=== PATIENT | female | born 1955 | race Caucasian/White ===

== ENCOUNTER 2017-07-22 12:30 | Emergency (ER) | payer MEDICARE, BC, OTHER ==
[2017-07-22 13:48] LABS: #Basophils 0.1 thou/uL (0.0-0.2); #Eosinphils 0.1 thou/uL (0.0-0.7); #Lymphocytes 0.7 thou/uL (1.20-3.40); #Monocytes 0.8 thou/uL (0.11-0.59); #Neutrophils 8.3 thou/uL (1.40-6.50); %Basophils 0.5 % (0.0-1.0); %Eosinophils 1.2 % (0.0-10.0); %Lymphocytes 7.3 % (21.0-51.0); %Monocytes 7.8 % (0.0-10.0); %Neutrophils 83.2 % (42.0-75.0); Hemoglobin 16.9 g/dL (12.0-16.0); Mean Corpuscular HGB CONC 34.6 g/dL (32.0-36.0); Mean Corpuscular Volume 89.5 fl (81.0-99.0); Mean Platelet Volume 8.9 fL (7.4-10.4); Platelet Count 175 thou/uL (130-400); RBC Distribution Width 12.4 % (11.5-14.5); Red Blood Cell (RBC) Count 5.47 mill/uL (4.20-5.40); White Blood Cell (WBC) Count 9.9 thou/uL (4.8-10.8)
--- NOTE | 2017-07-22 15:35 | RAD ---
PORTABLE CHEST 1 VIEW: Date: 07/22/17 Time: 1359 hours HISTORY: Left-sided back pain. FINDINGS: Comparison made with exam of 09/20/16. The heart size is normal. The lungs are expanded with stable chronic changes. No lobar consolidation, pneumothoraces, or pleural effusions are seen. IMPRESSION: No acute process. POS: [facility]
== END 2017-07-22 14:45 | disposition home or self-care (01) ==
LOC: ERS 12:30
DX: B02.9 Zoster without complications (principal); J40 Bronchitis, not specified as acute or chronic; E11.40 Type 2 diabetes mellitus with diabetic neuropathy, unspecified; I10 Essential (primary) hypertension; J44.9 Chronic obstructive pulmonary disease, unspecified; F32.9 Major depressive disorder, single episode, unspecified
CPT/HCPCS: 36416; 71045; 83605; 85025

== ENCOUNTER 2017-08-17 08:18 | Outpatient (CLI) | payer MEDICARE, BC, OTHER | END 2017-08-17 08:19 | disposition home or self-care (01) | LOC: BICMAMMO 08:18 | PROVIDERS: ATTEND Family Medicine | DX: Z12.31 Encounter for screening mammogram for malignant neoplasm of breast (principal); Z80.3 Family history of malignant neoplasm of breast | CPT/HCPCS: 77063; 77067 ==

== ENCOUNTER 2017-09-05 07:05 | Day surgery (SDC) | payer MEDICARE, BC, OTHER ==
[2017-09-04 13:04] VITALS: BMI 31.6
[2017-09-05] MEDS ORDERED: Bupivacaine HCl 0.5%/Epinephrine 1:200,000/PF 30 ml Vial ONE (08:49)
[2017-09-05] MEDS ORDERED: Midazolam HCl 2 mg/2 ml Vial ONE (08:49)
[2017-09-05] MEDS ORDERED: Fentanyl 100 MCG/2 ML VIAL ONE (08:49)
[2017-09-05 09:06] LABS: Hemoglobin 15.1 g/dL (12.0-16.0); Mean Corpuscular HGB CONC 34.3 g/dL (32.0-36.0); Mean Corpuscular Hemoglobin 31.4 pg (27.0-31.0); Mean Corpuscular Volume 91.7 fl (81.0-99.0); Mean Platelet Volume 8.9 fL (7.4-10.4); Platelet Count 177 thou/uL (130-400); RBC Distribution Width 13.8 % (11.5-14.5); White Blood Cell (WBC) Count 9.7 thou/uL (4.8-10.8)
[2017-09-05] MEDS ORDERED: CEFAZOLIN/Water 2 GM/20 ML SYRINGE ONE (09:11)
[2017-09-05 09:28] LABS: Anion Gap 10 mmol/L (10-20); BUN (Urea Nitrogen) 13 mg/dL (9.8-20.1); Calc. Creatinine Clearance 130 mL/min (70-130); Calcium 9.3 mg/dL (7.8-10.44); Carbon Dioxide 34 mmol/L (23-31); Chloride 102 mmol/L (98-107); Estimated GFR-MDRD Greater than 90; Glucose 151 mg/dL (80-115); Potassium 3.7 mmol/L (3.5-5.1); Sodium 142 mmol/L (136-145)
[2017-09-05] MEDS ORDERED: Bupivacaine PF 0.5% 30 ML VIAL ONE (09:35)
[2017-09-05] MEDS ORDERED: Ondansetron HCl/PF 4 MG/2 ML Vial ONE ×2 (09:36→14:32)
--- NOTE | 2017-09-05 12:42 | OP ---
DATE OF OPERATION: 09/05/2017 PREOPERATIVE DIAGNOSES: 1. Left trigger thumb. 2. Right ring trigger finger. POSTOPERATIVE DIAGNOSES: 1. Left trigger thumb. 2. Right ring trigger finger. PROCEDURE: 1. Left trigger thumb release. 2. Right ring trigger finger release. SURGEON: Jayro Philippe M.D. ANESTHESIA: General. TECHNIQUE: The patient was given preoperative IV antibiotics, taken to the operating room, placed in the supine position. Satisfactory general anesthesia was performed. Left upper extremity was initi ally sterilely prepped and draped in usual fashion. After exsanguination, tourniquet in the left arm was raised to 250 mmHg. A transverse incision was made over the A1 aric level at the base of the left thumb. Blunt dissection was made down to the flexor tendon sheath. The neurovascular structure s were identified and carefully retracted out of the way. The A1 aric was noted to be thickened an d it was divided, made sure that there was no constrictive tissue on the flexure tendon sheath proxim al or distal to the A1 aric. The underlying tendon was in good condition. The wound was irrigated and then closed using 3-0 Rapide. Sterile dressing was applied. Tourniquet was released and attent ion was then turned to the right upper extremity. It had been previously sterilely prepped and drape d. Exsanguination was then performed. Tourniquet was raised to 250 mmHg and a transverse incision w as made at the base of the right ring finger over the A1 aric. Blunt dissection was made down to t he A1 aric and it was noted to be thickened and it was divided. Again, it was made sure that there was no constrictive tissue around the flexor tendons proximal or distal to the A1 aric. Underlyin g tendons were intact and in good condition. The wound was irrigated and closed using 3-0 Rapide. B [facility] wounds were infiltrated with 0.5% Marcaine plain prior to the dressing. Soft dressing was placed on both hands. Tourniquet was released from the right upper extremity. The patient was awakened, e xtubated, and transferred to the recovery room in stable condition. ESTIMATED BLOOD LOSS: None. COMPLICATIONS: None. TOURNIQUET TIME: On the left was 10 minutes, on the right was 7 minutes. Follow up in my office next week.
[2017-09-05] MEDS ORDERED: Dexamethasone 20 MG/5 ML VIAL ONE (14:32)
[2017-09-05] MEDS ORDERED: ePHEDrine/0.9% NaCl/PF SYRINGE 50 mg/10 ml ONE (14:32)
[2017-09-05] MEDS ORDERED: Lidocaine 1% PF 5 ML VIAL ONE (14:32)
[2017-09-05] MEDS ORDERED: PROPOFOL 200 MG/20 ML VIAL ONE (14:32)
--- NOTE | 2017-09-06 08:00 | EKG ---
Test Reason : PREOP Blood Pressure : / mmHG Vent. Rate : 079 BPM Atrial Rate : 079 BPM P-R Int : 130 ms QRS Dur : 090 ms QT Int : 410 ms P-R-T Axes : 070 097 072 degrees QTc Int : 470 ms Normal sinus rhythm Rightward axis Borderline ECG When compared with ECG of 17-SEP-2016 17:58, No significant change was found Confirmed by QING ARELLANO ([id number]) on 09/06/2017 8:00:00 AM Referred By: JORGE Confirmed By:QING ARELLANO
== END 2017-09-05 12:05 | disposition home or self-care (01) ==
LOC: SDC 07:05
PROVIDERS: ATTEND Orthopaedic Surgery
PROC: 0LN80ZZ Release Left Hand Tendon, Open Approach (ICD-10-PCS; principal; 2017-09-05)
PROC: 0LN70ZZ Release Right Hand Tendon, Open Approach (ICD-10-PCS; 2017-09-05)
DX: M65.312 Trigger thumb, left thumb (principal); M65.341 Trigger finger, right ring finger; J44.9 Chronic obstructive pulmonary disease, unspecified; M19.90 Unspecified osteoarthritis, unspecified site; F32.9 Major depressive disorder, single episode, unspecified; I10 Essential (primary) hypertension; E11.9 Type 2 diabetes mellitus without complications; Z79.4 Long term (current) use of insulin; Z79.51 Long term (current) use of inhaled steroids; Z79.899 Other long term (current) drug therapy; Z88.5 Allergy status to narcotic agent; Z91.048 Other nonmedicinal substance allergy status; Z98.890 Other specified postprocedural states
CPT/HCPCS: 80048; 85027; 93005; 93010; J0670; J1100; J2001; J2250; J2405; J2704; J3010; S0020

== ENCOUNTER 2017-10-26 14:30 | Inpatient (IN) | payer MEDICARE, BC, OTHER ==
[~2017-10-26 14:30] MED LIST: ISOVUE-370 76%-LOCM 1 ML ONE
--- NOTE | 2017-10-26 15:33 | RAD ---
AP VIEW OF CHEST: Date: 10/26/17 INDICATION: Dyspnea. COMPARISON: Prior exam dated 07/22/17. FINDINGS: No air space consolidation is noted. Chronic lung changes are similar. There is a 1.4 cm nodule now p resent within the right lung base. This cannot be further localized on the single provided frontal pr ojection. Vascular calcifications again noted involving the thoracic aorta. No acute osseous abnormal ity is noted. IMPRESSION: 1. 1.4 cm right lung base pulmonary nodule. CT evaluation would be helpful for further evaluation. 2. Stable chronic lung changes. CODE LN. POS: [facility]
[2017-10-26 15:52] LABS: #Basophils 0.1 thou/uL (0.0-0.2); #Eosinphils 0.1 thou/uL (0.0-0.7); #Monocytes 1.2 thou/uL (0.11-0.59); #Neutrophils 9.2 thou/uL (1.40-6.50); %Basophils 0.7 % (0.0-1.0); %Eosinophils 0.8 % (0.0-10.0); %Lymphocytes 15.7 % (21.0-51.0); %Monocytes 9.6 % (0.0-10.0); %Neutrophils 73.1 % (42.0-75.0); Hemoglobin 18.8 g/dL (12.0-16.0); Mean Corpuscular Hemoglobin 31.1 pg (27.0-31.0); Mean Corpuscular Volume 94.2 fl (81.0-99.0); Mean Platelet Volume 10.1 fL (7.4-10.4); Platelet Count 144 thou/uL (130-400); RBC Distribution Width 12.4 % (11.5-14.5); Red Blood Cell (RBC) Count 6.03 mill/uL (4.20-5.40); White Blood Cell (WBC) Count 12.6 thou/uL (4.8-10.8)
[2017-10-26 16:18] LABS: CKMB 1.6 ng/mL (0-6.6); Troponin I Less than 0.010 ng/mL (< 0.028)
[2017-10-26 16:22] LABS: ALT (SGPT) 25 U/L (8-55); AST (SGOT) 26 U/L (5-34); Albumin 4.1 g/dL (3.4-4.8); Alkaline Phosphatase 157 U/L (40-150); Anion Gap 14 mmol/L (10-20); BUN (Urea Nitrogen) 19 mg/dL (9.8-20.1); Bilirubin, Total 0.8 mg/dL (0.2-1.2); CK (CPK) 30 U/L (29-168); Calc. Creatinine Clearance 0 mL/min (70-130); Calcium 9.8 mg/dL (7.8-10.44); Carbon Dioxide 30 mmol/L (23-31); Chloride 97 mmol/L (98-107); Estimated GFR-MDRD 79; Globulin 2.8 g/dL (2.4-3.5); Glucose 246 mg/dL (80-115); Potassium 4.1 mmol/L (3.5-5.1); Protein, Total 6.9 g/dL (6.0-8.3); Sodium 137 mmol/L (136-145)
[2017-10-26] MEDS ORDERED: Albuterol Sulfate 2.5 mg/3 ml Neb ONE (17:35)
[2017-10-26] MEDS ORDERED: Albuterol Sulfate 2.5 mg/0.5 ml Neb ONE (17:35)
--- NOTE | 2017-10-26 17:38 | CT ---
CTA OF THE THORAX UTILIZING IV CONTRAST AND PE PROTOCOL 10/26/17 COMPARISON: Prior exam dated 09/17/16. FINDINGS: No central or segmental pulmonary embolus is evident. The hilar adenopathy has decreased in prominenc e. The largest hilar lymph node on the right previously measured 2.2 cm and now measures approximatel y 1.5 cm. The largest lymph node in the left hilar region previously measured 9 mm, now measures 6 m m. there is scattered vascular calcifications. Pulmonary nodule within the right middle lobe has decr eased in size, now measuring 6.7 mm where on the prior it measured up to 9 mm. There is worsening sub segmental volume loss within the medial right middle lobe and lingula. There has been interval improv ement in the reticulonodularity involving the right lower lobe. No pleural effusions evident. Visuali zed upper abdomen demonstrates stable left adrenal mass measuring 3.3 cm and a stable right adrenal m ass measuring 2.2 cm. The gallbladder is surgically absent. Small calcified granuloma is seen within the anterior aspect of the right hepatic lobe. No acute osseous abnormality is evident. There are sca ttered degenerative and osteoarthritic change. There is diffuse osteopenia. IMPRESSION: 1. No central or segmental pulmonary embolus. 2. Interval improvement of the hilar and mediastinal lymphadenopathy. The hilar lymph nodes stil l remain prominent. Largest mediastinal lymph node is seen within the prevascular region measuring 8 mm where it previously measured over 9 mm in size. Would recommend continued CT followup in 3 to 6 mo nths to document stability. Findings can be seen as reactive lymph nodes related to an upper respirat ory infection; however, can also be seen with inflammatory etiologies such as sarcoidosis. Lymphoma i s felt to be unlikely. 3. Pulmonary nodule within the right middle lobe has decreased in size and is most suspicious fo r a small inflammatory pulmonary nodule. There has been improvement of the reticulonodularity within the right lower lobe. Entity such as this can be seen with granulomatous disease such as sarcoidosis as well. Followup examination in 3-6 months as recommended above would also be helpful to document st ability or resolution of this pulmonary nodule. 4. Areas of subsegmental volume loss in the right middle lobe and lingula. 5. Stable bilateral adrenal lesions. These are incompletely characterized on current exam. A fol lowup CT of the abdomen utilizing adrenal mass protocol is recommended with and without contrast. POS: [facility]
[2017-10-26] MEDS ORDERED: Water For Inject, Bacteriostat 30 ML ONE (19:31)
[2017-10-26] MEDS ORDERED: methylPREDNISolone Sod Succ/PF 125 MG/2 ML VIAL ONE (19:31)
[2017-10-26] MEDS ORDERED: Albuterol Sulfate 2.5 mg/3 ml Neb NEB PRN (21:21)
[2017-10-26] MEDS ORDERED: Ondansetron HCl/PF 4 MG/2 ML Vial IVP PRN (21:22)
[2017-10-26] MEDS ORDERED: Guaifenesin DM 100-10/5 ML UDCUP PO PRN (21:22)
[2017-10-26] MEDS ORDERED: Acetaminophen 325 MG TAB PO PRN (21:22)
[2017-10-26] MEDS ORDERED: HumaLOG 300 UNITS/3 ML VIAL SC PRN ×2 (21:29)
[2017-10-26] MEDS ORDERED: Dextrose 50% Abboject 50 ML SYRINGE SLOW IVP PRN (21:29)
[2017-10-26] MEDS ORDERED: Dextrose 5% in Water 1,000 ML IV PRN (21:29)
[2017-10-26 22:19] VITALS: BMI 29.8
--- NOTE | 2017-10-26 22:39 | HP ---
PRIMARY CARE PHYSICIAN: Cheryl Ibarra MD PRESENTING COMPLAINT: Shortness of breath. HISTORY OF PRESENT ILLNESS: Ms. Anne Colunga is a 61-year-old female with a history of chronic respiratory failure on 2 liters of supplementary oxygen at home, COPD/asthma, hypertension, and diabetes mellitus who presented to the emergency room with complaints of shortness of breath. This has been going on for the past week and has been getting progressively worse, associated with whitish to pale yellow sputum. There was no history of fever or chills. She had no chest pain, palpitations, PND, orthopnea, lower extremity edema. She has no abdominal or urinary symptoms. Due to the worsening nature of her condition, she called her continuous dryout operator, Dr. Narvaez, who told her to come to the emergency room. Has had oxygen saturation down to the 70s and she reports that she has increased her home requirement from 2 liters to 3-4 liters. At the emergency room, she was started on nebulizer therapy. She also received levofloxacin, Solu-Medrol, and admitted for acute on chronic respiratory failure. PAST MEDICAL HISTORY: Chronic obstructive pulmonary disease, hypertension, asthma, diabetes mellitus. PAST SURGICAL HISTORY: Bilateral tubal ligation, hysterectomy, cholecystectomy , shoulder surgery, and bilateral hand surgeries. FAMILY HISTORY: Reviewed and noncontributory. SOCIAL HISTORY: She is a smoker (last smoked about 5 days ago). Does not drink alcohol or use illicit drugs. ALLERGIES: CODEINE, EUCALYPTUS, HYDROCODONE, TRAMADOL. HOME MEDICATIONS: Albuterol sulfate inhaler 2 puffs q.4 hours p.r.n. for shortness of breath, albuterol sulfate nebulizer, duloxetine 60 mg at bedtime, fluticasone and salmeterol 1 puff inhaled q.a.m., insulin glargine 50 units at bedtime, insulin regular b.i.d. (unclear dosage), liraglutide 1.8 mg subcutaneously q.a.m., losartan/hydrochlorothiazide 50/12.5 mg tablet one tablet q.a.m., metformin 500 mg q.a.m., montelukast sodium 10 mg q.p.m., omeprazole 1 tablet at bedtime, oxybutynin 1 tablet q.a.m., pravastatin 20 mg at bedtime, pregabalin 600 mg b.i.d. REVIEW OF SYSTEMS: All systems reviewed are negative except as stated in HPI. Positives include cough, shortness of breath. Negatives include no chest pain, palpitations, fevers, or chills. PHYSICAL EXAMINATION: VITAL SIGNS: Blood pressure 100/66; pulse rate 104; respiratory rate 24, unlabored; oxygen saturation 90% on 2 liters of oxygen. GENERAL: Not in acute distress. She is sitting up in bed, looks comfortable, speaking in complete sentences due to status post nebulizer therapy. HEENT: Normocephalic, atraumatic. Moist mucous membrane. PERRLA. EOMI. NECK: Supple. Full range of movement. No JVD. RESPIRATORY: Bilateral wheezing. No rales or rhonchi. CARDIOVASCULAR: Regular rate and rhythm. S1 and S2 only. No murmurs, rubs, or gallops. ABDOMEN: Soft, nontender, nondistended, obese. Bowel sounds normoactive. PSYCHIATRIC: Normal mood and affect. SKIN: Warm, dry, well perfused. No rashes or lesions. NEUROLOGIC: Alert, well oriented. No focal deficits. MUSCULOSKELETAL: No edema. LABORATORY DATA: WBC 12.6, hemoglobin 18.8, platelet count 144. Sodium 137, potassium 4.1, chloride 97, carbon dioxide 30, BUN 19, creatinine 0.75, glucose 246, calcium 9.8. IMAGING: CTA chest, no central or segmental pulmonary embolus. She also had interval improvement of hilar and mediastinal lymphadenopathy. Chest x-ray, 1.4 cm right lung base pulmonary nodule, stable chronic lung changes. ASSESSMENT AND PLAN: 1. Acute on chronic respiratory failure: The patient has a history of chronic obstructive pulmonary disease and presents in respiratory failure, likely secondary to upper respiratory tract infection/pneumonia; all due to her continued smoking. She has been started on nebulizer therapy, IV antibiotics, parenteral steroids. She will be continued on oxygen supplementation and titrated for at least oxygen saturation of greater than or equal to 92%. It is projected she will continue to respond and she might be likely suitable for discharge tomorrow based on her improvement. We will follow up on cultures and review in the morning. 2. Hypertension. Blood pressure is currently well controlled. We will resume home medications. 3. Diabetes mellitus type 2. She is hyperglycemic and her diabetes mellitus is complicated by polyneuropathy. She will be continued on her home medications including insulin and metformin. We will check blood glucose before meals and at bedtime. Last A1c in the system was 6.2 in 04/2016. We will order a repeat. 4. COPD/Asthma: See problem #1. CODE STATUS: FULL CODE. Deep venous thrombosis prophylaxis, SCDs. MTDD
[2017-10-27 04:04] LABS: #Lymphocytes 0.5 thou/uL (1.20-3.40); #Monocytes 0.1 thou/uL (0.11-0.59); #Neutrophils 6.9 thou/uL (1.40-6.50); %Eosinophils 0.2 % (0.0-10.0); %Lymphocytes 7.1 % (21.0-51.0); %Monocytes 1.2 % (0.0-10.0); %Neutrophils 91.5 % (42.0-75.0); Hemoglobin 19.2 g/dL (12.0-16.0); Mean Corpuscular HGB CONC 32.6 g/dL (32.0-36.0); Mean Corpuscular Hemoglobin 30.7 pg (27.0-31.0); Mean Corpuscular Volume 94.2 fl (81.0-99.0); Mean Platelet Volume 10.3 fL (7.4-10.4); Platelet Count 141 thou/uL (130-400); RBC Distribution Width 12.4 % (11.5-14.5); Red Blood Cell (RBC) Count 6.25 mill/uL (4.20-5.40); White Blood Cell (WBC) Count 7.6 thou/uL (4.8-10.8)
[2017-10-27 04:07] LABS: Hemoglobin A1c 7.7 % (4.0-6.0)
[2017-10-27 04:15] LABS: Anion Gap 14 mmol/L (10-20); BUN (Urea Nitrogen) 18 mg/dL (9.8-20.1); Calc. Creatinine Clearance 119 mL/min (70-130); Carbon Dioxide 32 mmol/L (23-31); Chloride 99 mmol/L (98-107); Estimated GFR-MDRD Greater than 90; Glucose 245 mg/dL (80-115); Potassium 4.3 mmol/L (3.5-5.1); Sodium 141 mmol/L (136-145)
[2017-10-27] MEDS: cefTRIAXone\\ROCEPHIN 1 GM in Sodium Chloride 0.9% 100 ML IVPB SCH (05:26)
[2017-10-27] MEDS: Azithromycin 250 MG TAB PO SCH (08:10)
[2017-10-27] MEDS: Montelukast Sodium 10 mg Tablet PO SCH (08:12)
[2017-10-27] MEDS: DULoxetine 60 MG CAP PO SCH (08:12)
[2017-10-27] MEDS: Oxybutynin ER 5 MG TAB PO SCH (08:13)
[2017-10-27] MEDS: Pregabalin 50 MG CAP PO SCH ×3 (08:15→21:22)
[2017-10-27] MEDS: metFORMIN 500 MG TAB PO SCH (08:15)
[2017-10-27] MEDS: Insulin Regular 300 UNITS/3 ML VIAL SC SCH ×3 (08:17→17:12)
[2017-10-27] MEDS: Docusate 100 MG CAP PO SCH ×2 (08:19→21:21)
[2017-10-27] MEDS ORDERED: Heparin 5,000 UNITS/ML VIAL SC SCH (09:00)
--- NOTE | 2017-10-27 14:54 | PDOC.PN ---
- Subjective Encounter Start Date: 10/27/17 Encounter Start Time: 14:00 -: old records requested/rev follow up for acute exacerbation of COPD PT seen and examined, chart reviewed in its entirety. This is my first visit with this patient. admitted with AECOPD. still wheezing earlier, better now. +cough, [employer], no hemoptysis, no f/C, no N/V/D/C All systems reviewed and neg x as above - Objective Resuscitation Status: Resuscitation Status FULL:Full Resuscitation MAR Reviewed: Yes Vital Signs & Weight: Vital Signs (12 hours) Temp Pulse Resp BP Pulse Ox 10/27/17 14:31 90 12 10/27/17 11:28 98.3 F 87 20 138/70 86 L 10/27/17 08:00 98.6 F 82 18 98 10/27/17 07:12 98.6 F 82 18 153/79 H 98 10/27/17 06:53 90 14 10/27/17 04:00 98.7 F 83 16 133/79 92 L Weight Weight 185 lb 1 oz Result Diagrams: 10/27/17 03:41 10/27/17 03:41 Additional Labs: Accuchecks 10/27/17 10/27/17 10/26/17 11:33 05:29 21:19 POC Glucose 230 H 191 H 233 H Radiology Reviewed by me: Yes EKG Reviewed by me: Yes Phys Exam - Physical Examination Constitutional: NAD HEENT: PERRLA, moist MMs, sclera anicteric, oral pharynx no lesions Neck: no nodes, no JVD, supple, full ROM low pitched end exp wheezing, slightly prolonged expiration Cardiovascular: RRR, no significant murmur, no rub Gastrointestinal: soft, non-tender, no distention, positive bowel sounds Musculoskeletal: no edema, pulses present Neurological: non-focal, normal sensation, moves all 4 limbs Lymphatic: no nodes Psychiatric: normal affect, A&O x 3 Skin: no rash, normal turgor, cap refill <2 seconds Dx/Plan - Plan cont current plan of care, continue antibiotics, PT/OT, respiratory therapy, out of bed/ambulate * . re-eval in AM, home in 1-2 days
[2017-10-27] MEDS ORDERED: Pravastatin Sodium 20 MG TAB PO SCH (21:00)
[2017-10-27] MEDS ORDERED: Non-Formulary Item 1 EACH (Insulin Glargine,Hum.Rec.Anlog [Lantus Solostar] 10 UNIT) SC SCH (21:00)
[2017-10-27] MEDS ORDERED: Insulin Glargine 10 UNITS in Pre-Filled Syringe 1 EACH SC SCH (21:00)
[2017-10-27] MEDS: guaiFENesin ER 600 MG TAB PO SCH (21:21)
[2017-10-28 05:49] LABS: #Lymphocytes 1.1 thou/uL (1.20-3.40); #Monocytes 0.5 thou/uL (0.11-0.59); #Neutrophils 13.3 thou/uL (1.40-6.50); %Eosinophils 0.1 % (0.0-10.0); %Lymphocytes 7.5 % (21.0-51.0); %Monocytes 3.3 % (0.0-10.0); %Neutrophils 89.1 % (42.0-75.0); Hemoglobin 17.8 g/dL (12.0-16.0); Mean Corpuscular HGB CONC 32.4 g/dL (32.0-36.0); Mean Corpuscular Hemoglobin 30.7 pg (27.0-31.0); Mean Corpuscular Volume 94.8 fl (81.0-99.0); Mean Platelet Volume 9.9 fL (7.4-10.4); Platelet Count 147 thou/uL (130-400); RBC Distribution Width 12.2 % (11.5-14.5); Red Blood Cell (RBC) Count 5.81 mill/uL (4.20-5.40); White Blood Cell (WBC) Count 14.9 thou/uL (4.8-10.8)
[2017-10-28 05:51] LABS: Anion Gap 11 mmol/L (10-20); BUN (Urea Nitrogen) 25 mg/dL (9.8-20.1); Calc. Creatinine Clearance 119 mL/min (70-130); Calcium 9.5 mg/dL (7.8-10.44); Carbon Dioxide 33 mmol/L (23-31); Chloride 100 mmol/L (98-107); Estimated GFR-MDRD Greater than 90; Glucose 253 mg/dL (80-115); Magnesium 2.1 mg/dL (1.6-2.6); Potassium 4.3 mmol/L (3.5-5.1); Sodium 140 mmol/L (136-145)
[2017-10-28] MEDS: cefTRIAXone\\ROCEPHIN 1 GM in Sodium Chloride 0.9% 100 ML IVPB SCH (06:12)
[2017-10-28] MEDS: Insulin Regular 300 UNITS/3 ML VIAL SC SCH ×2 (08:44→11:36)
[2017-10-28] MEDS: Azithromycin 250 MG TAB PO SCH (08:45)
[2017-10-28] MEDS: Docusate 100 MG CAP PO SCH (08:45)
[2017-10-28] MEDS: guaiFENesin ER 600 MG TAB PO SCH (08:46)
[2017-10-28] MEDS: Montelukast Sodium 10 mg Tablet PO SCH (08:46)
[2017-10-28] MEDS: DULoxetine 60 MG CAP PO SCH (08:46)
[2017-10-28] MEDS: Oxybutynin ER 5 MG TAB PO SCH (08:47)
[2017-10-28] MEDS: Pregabalin 50 MG CAP PO SCH ×2 (08:47→14:48)
[2017-10-28] MEDS ORDERED: metFORMIN 500 MG TAB PO SCH (09:00)
[2017-10-28 16:08] VITALS: BP 156/84; TEMP 98.5
--- NOTE | 2017-11-03 07:46 | PQF ---
RUBIN GARCIA MI TEAGUE [id number] CLINICAL DOCUMENTATION CLARIFICATION FORM: POST DISCHARGE DATE: 11/03/2017 ATTN: Dr. Teague Please exercise your independent, professional judgment in responding to the clarification form. Clinical indicators are provided on the bottom of this form for your review Please check appropriate box(s) to clarify if the following diagnosis has been ruled in or ruled out: Pneumonia [ ] Ruled in diagnosis [ ] Continue to treat [ ] Resolved [ ] Ruled out diagnosis [ ] Cannot rule out diagnosis [ ] Other diagnosis (please specify) ] Unable to determine In addition, please specify: Present on Admission (POA): [ ] Yes [ ] No [ ] Unable to determine For continuity of documentation, please document condition throughout progress notes and discharge summary. Thank You. CLINICAL INDICATORS - SIGNS / SYMPTOMS / LABS Per H&P: Shortness of breath becoming progressively worse with whitish to pale yellow sputum. The patient has a history of COPD and presents in respiratory failure likely secondary to upper respiratory tract infection/pneumonia. Per 10/27 progress note: Follow up for acute exacerbation of COPD. RISK FACTORS COPD. Chronic respiratory failure on 2 liters of supplementary oxygen at home. TREATMENTS (per H&P/Medications) Nebulizer therapy. IV Rocephin. Parenteral steroids. Oxygen supplementation. (This form is maintained as a part of the permanent medical record) 2014 [employer]. All Rights Reserved Sparkle [email or web address] [phone] MTDD
== END 2017-10-28 16:20 | disposition home or self-care (01) | DRG 189 ==
LOC: ERS 14:30 → T4-B 19:26
PROVIDERS: ADMIT Internal Medicine; ATTEND Internal Medicine
DX: J96.20 Acute and chronic respiratory failure, unspecified whether with hypoxia or hypercapnia (principal); J44.1 Chronic obstructive pulmonary disease with (acute) exacerbation; I10 Essential (primary) hypertension; E11.42 Type 2 diabetes mellitus with diabetic polyneuropathy; E11.65 Type 2 diabetes mellitus with hyperglycemia; F17.210 Nicotine dependence, cigarettes, uncomplicated; Z99.81 Dependence on supplemental oxygen; Z88.5 Allergy status to narcotic agent; Z91.048 Other nonmedicinal substance allergy status; Z79.4 Long term (current) use of insulin; Z79.899 Other long term (current) drug therapy
CPT/HCPCS: 36415; 36416; 71045; 71275; 80048; 80053; 82550; 82553; 83036; 83735; 83880; 84484; 85025; 87040; 87070; 87205; 93005; 94640; 94644; 94760; 96365; 96375; A4216; J0696; J1815; J1956; J2920; J2930; J7050; J7611; J7620

== ENCOUNTER 2018-05-27 11:33 | Inpatient (IN) | payer MEDICARE, BC, OTHER ==
[2018-05-27 12:04] LABS: #Basophils 0.1 thou/uL (0.0-0.2); #Eosinphils 0.1 thou/uL (0.0-0.7); #Lymphocytes 1.6 thou/uL (1.20-3.40); #Monocytes 1.4 thou/uL (0.11-0.59); #Neutrophils 11.5 thou/uL (1.40-6.50); %Basophils 0.5 % (0.0-1.0); %Eosinophils 0.4 % (0.0-10.0); %Lymphocytes 10.7 % (21.0-51.0); %Monocytes 9.5 % (0.0-10.0); Hemoglobin 17.2 g/dL (12.0-16.0); Mean Corpuscular HGB CONC 34.1 g/dL (32.0-36.0); Mean Corpuscular Hemoglobin 31.6 pg (27.0-31.0); Mean Corpuscular Volume 92.6 fL (78.0-98.0); Mean Platelet Volume 10.5 fL (7.4-10.4); Platelet Count 171 thou/uL (130-400); RBC Distribution Width 14.4 % (11.5-14.5); Red Blood Cell (RBC) Count 5.45 mill/uL (4.20-5.40); White Blood Cell (WBC) Count 14.6 thou/uL (4.8-10.8)
[2018-05-27] MEDS ORDERED: Dexamethasone 10 MG/ML VIAL ONE (12:10)
[2018-05-27] MEDS ORDERED: Magnesium 2 GM/50 ML BAG (IN WATER) ONE (12:10)
[2018-05-27 12:56] LABS: Actual Bicarbonate (HCO3a) 33.2 mEq/L (22-28); Analyzer IN Cardio ER; Base Excess (BEa) 4.1 mEq/L (-2.0 to +3.0); Calcium, Ionized 1.19 mmol/L (1.12-1.30); Carboxyhemoglobin (COHb) 4.4 gm% (0.0-3.0); Hemoglobin (Hb) 16.7 g/dL (12.0-16.0); Potassium - ABG Lab 3.49 mmol/L (3.70-5.30)
[2018-05-27 12:59] LABS: CO2 Tension 68.6 mmHg (35.0-45.0); Puncture Site LR
[2018-05-27] MEDS ORDERED: Albuterol Sulfate 2.5 mg/0.5 ml Neb ONE ×2 (13:02)
[2018-05-27 13:22] LABS: CK (CPK) 37 U/L (29-168); Lipase 28 U/L (8-78)
[2018-05-27 13:49] LABS: Bilirubin Negative (Negative); Blood, Urine Negative (Negative); Clarity CLEAR (Clear); Glucose, Urine (Dipstick) >=1000 mg/dL (Negative); Leukocyte Negative (Negative); Nitrite Negative (Negative); Protein, Urine (Dipstick) Trace mg/dL (Neg-Trace); Specific Gravity, Urine 1.027 (1.002-1.036); Urobilinogen 0.2 mg/dL (0.2-1.0); pH, Urine 6.5 (5.0-9.0)
--- NOTE | 2018-05-27 14:09 | RAD ---
CHEST 1 VIEW: HISTORY: Dyspnea. COMPARISON: 10/26/2017. FINDINGS: Cardiac silhouette is magnified by projection. Pulmonary vasculature is slightly engorged with wides pread reticulonodular interstitial prominence. Mediastinum is midline with aortic calcification. No evidence of pneumothorax. IMPRESSION: 1. Widespread reticulonodular interstitial prominence is favored to be related to pulmonary vascular congestion. No lobar pneumonia. 2. Atherosclerosis. POS: [facility]
[2018-05-27 14:22] LABS: Albumin 3.5 g/dL (3.4-4.8)
[2018-05-27 14:23] LABS: Calcium 9.1 mg/dL (7.8-10.44); Chloride 99 mmol/L (98-107); Potassium 3.5 mmol/L (3.5-5.1); Sodium 138 mmol/L (136-145)
[2018-05-27 14:24] LABS: Glucose 125 mg/dL (80-115); Protein, Total 6.5 g/dL (6.0-8.3)
[2018-05-27 14:26] LABS: Anion Gap 15 mmol/L (10-20); Bilirubin, Total 0.8 mg/dL (0.2-1.2); Carbon Dioxide 28 mmol/L (23-31)
[2018-05-27 14:27] LABS: Alkaline Phosphatase 183 U/L (40-150); Calc. Creatinine Clearance 0 mL/min (70-130); Estimated GFR-MDRD Greater than 90
[2018-05-27 14:28] LABS: BUN (Urea Nitrogen) 11 mg/dL (9.8-20.1)
[2018-05-27 14:29] LABS: AST (SGOT) 30 U/L (5-34)
[2018-05-27 14:30] LABS: ALT (SGPT) 34 U/L (8-55)
[2018-05-27] MEDS ORDERED: Ondansetron ODT 4 MG TAB SL PRN (17:10)
[2018-05-27] MEDS ORDERED: Sodium Chloride 0.9% 1,000 ML IV SCH (17:10)
[2018-05-27] MEDS ORDERED: Ondansetron PF 4 MG/2 ML Vial IVP PRN (17:10)
[2018-05-27] MEDS ORDERED: Acetaminophen 325 MG TAB PO PRN (17:10)
[2018-05-27 17:21] VITALS: BMI 32.2
[2018-05-27] MEDS ORDERED: Dextrose 50% Abboject 50 ML SYRINGE SLOW IVP PRN (17:46)
[2018-05-27] MEDS ORDERED: Dextrose 5% in Water 1,000 ML IV PRN (17:46)
--- NOTE | 2018-05-27 17:53 | HP ---
CHIEF COMPLAINT: Shortness of breath and cough. HISTORY OF PRESENT ILLNESS: The patient is a 62-year-old female with 2-day history of increased shortness of breath and productive cough of yellowish sputum. She denied any fever or chills. Her electrotyper is Dr. Narvaez. She is on oxygen at home 2 L at night. She does not have any sleep apnea according to her. Her PCP is Dr. Chavez and surrogate decision maker is Farzana Colunga, her daughter. She presented to the emergency room today, was found to be in respiratory failure with hypercapnia and hypoxia. The patient was placed on BiPAP and decision was made about further admission and continuation of her treatment. Also, she received Decadron and levofloxacin in the emergency room. PAST MEDICAL HISTORY: Positive for; 1. Chronic obstructive pulmonary disease, last exacerbation was in September when she was hospitalized. 2. Hypertension. 3. Asthma. 4. Diabetes mellitus. PAST SURGICAL HISTORY: 1. Bilateral tubal ligation. 2. Hysterectomy. 3. Cholecystectomy. 4. Shoulder surgery. 5. Bilateral hand surgeries. FAMILY HISTORY: Father had liver cancer and at the age of 60 and mother is still alive and she has COPD. SOCIAL HISTORY: She still smokes approximately one pack every couple of weeks. She does not drink alcohol. She does not use any illicit drugs. ALLERGIES: CODEINE, HYDROCODONE, AND TRAMADOL. MEDICATIONS: Please refer to the medications list. REVIEW OF SYSTEMS: All systems were reviewed and were negative except for stated in HPI. PHYSICAL EXAMINATION: VITAL SIGNS: Blood pressure is 132/66, pulse is 105, respiratory rate is 24, and pulse oximetry is 100%. She is on BiPAP mask, settings 10/5, rate is 12, FiO2 is 50%. HEENT: Head is atraumatic and normocephalic. Eyes are PERRLA. Sclerae are nonicteric. Conjunctivae pinkish. Oral mucosa was not assessed since she wears the mask. NECK: Supple. No JVD. LUNGS: Breath sounds somewhat diminished all over her lungs with few rales bilaterally. HEART: S1 and S2, somewhat tachycardic. No S3. No S4. ABDOMEN: Soft, obese, and nontender. Bowel sounds are present. No organomegaly. EXTREMITIES: No clubbing, cyanosis, or edema. NEUROLOGICAL: She is alert and oriented x4. There is no any sensory or motor deficits present. Cranial nerves are intact. SKIN: No rash or erythema. LABORATORY DATA: Labs showed white count of 14.6, hemoglobin of 17.2, hematocrit 50.4, and platelet count is 171. ABGs showed a pH of 7.3, pCO2 of 68.6, PO2 of 67.0, base excess 4.1. A-a gradient 61.1, this was on 30% O2 inspired. Lactic acid 1.3. Creatine kinase 37. Troponin I 0.013. BNP 106.3, lipase 28. Urinalysis showed more than 1000 glucose. Chest x-ray was personally reviewed by me and it showed vascular congestion; no focal infiltrates; atherosclerosis. IMPRESSION: 1. Chronic obstructive pulmonary disease exacerbation with respiratory failure and hypoxemia and hypercapnia. 2. Diabetes mellitus, type 2. 3. History of asthma. 4. Hypertension. PLAN: Full admission. Condition is guarded. She will be admitted to IMCU. Continue BiPAP with the same settings 10/5, rate of 12 and FiO2 of 50. IV Hep-Lock. Solu-Medrol 40 mg every 6 hours IV push. Levofloxacin 500 mg IV piggyback every 24 hours starting tomorrow. She had one dose in the emergency room. DuoNebs every 4 hours. Continue BiPAP. Pulmonary consultation with Dr. Saha, who is shoes salesperson for Dr. Narvaez. Sputum Gram stain and culture. Job ID: [id number]
[2018-05-27] MEDS: Famotidine 20 MG TAB PO SCH (20:31)
[2018-05-27] MEDS: HumaLOG 300 UNITS/3 ML VIAL SC PRN (20:40)
[2018-05-27] MEDS ORDERED: Dexamethasone 4 mg/ml Vial SLOW IVP SCH (21:00)
[2018-05-28 04:51] LABS: #Lymphocytes 0.9 thou/uL (1.20-3.40); #Monocytes 0.3 thou/uL (0.11-0.59); #Neutrophils 8.8 thou/uL (1.40-6.50); %Eosinophils 0.1 % (0.0-10.0); %Lymphocytes 9.1 % (21.0-51.0); %Monocytes 2.8 % (0.0-10.0); %Neutrophils 87.9 % (42.0-75.0); Hemoglobin 16.7 g/dL (12.0-16.0); Mean Corpuscular HGB CONC 33.7 g/dL (32.0-36.0); Mean Corpuscular Hemoglobin 31.9 pg (27.0-31.0); Mean Corpuscular Volume 94.6 fL (78.0-98.0); Mean Platelet Volume 9.8 fL (7.4-10.4); Platelet Count 170 thou/uL (130-400); RBC Distribution Width 14.2 % (11.5-14.5); Red Blood Cell (RBC) Count 5.23 mill/uL (4.20-5.40)
[2018-05-28 05:13] LABS: Anion Gap 14 mmol/L (10-20); BUN (Urea Nitrogen) 16 mg/dL (9.8-20.1); Calc. Creatinine Clearance 131 mL/min (70-130); Calcium 9.7 mg/dL (7.8-10.44); Carbon Dioxide 29 mmol/L (23-31); Chloride 103 mmol/L (98-107); Estimated GFR-MDRD Greater than 90; Glucose 130 mg/dL (80-115); Potassium 4.4 mmol/L (3.5-5.1); Sodium 142 mmol/L (136-145)
[2018-05-28] MEDS ORDERED: PROVENTIL INHALER 6.7 G (200 INHALATIONS) INH PRN (07:43)
[2018-05-28] MEDS ORDERED: Non-Formulary Item 1 EACH (Exenatide Microspheres [Bydureon Pen] 2 MG) SC SCH (07:45)
[2018-05-28] MEDS ORDERED: Non-Formulary Item 1 EACH (Mirabegron [Myrbetriq] 50 MG) PO SCH (09:00)
[2018-05-28] MEDS ORDERED: MULTIVIT MIN PO SCH (09:00)
[2018-05-28] MEDS ORDERED: Non-Formulary Item 1 EACH (Pregabalin [Lyrica] 300 MG) PO SCH (09:00)
[2018-05-28] MEDS ORDERED: VIT K1 PO SCH (09:00)
[2018-05-28] MEDS ORDERED: Non-Formulary Item 1 EACH (Empagliflozin [Jardiance] 10 MG) PO SCH (09:00)
[2018-05-28] MEDS ORDERED: FOLIC ACID PO SCH (09:00)
[2018-05-28] MEDS ORDERED: [UNRECOGNIZED DRUG - OTHER] PO SCH (09:00)
[2018-05-28] MEDS ORDERED: Non-Formulary Item 1 EACH (Fluticasone/Vilanterol [Breo Ellipta 200-25 Mcg Inh] 1 PUFF) INH SCH (09:00)
[2018-05-28] MEDS ORDERED: Non-Formulary Item 1 EACH (Omeprazole [Omeprazole] 1 TAB) PO SCH (09:00)
[2018-05-28] MEDS: Enoxaparin Sodium 40 MG/0.4 ML SYRINGE SC SCH (09:02)
[2018-05-28] MEDS: Pregabalin 75 MG CAP PO SCH ×2 (09:03→20:25)
[2018-05-28] MEDS: Famotidine 20 MG TAB PO SCH ×2 (09:03→20:27)
[2018-05-28] MEDS: DULoxetine 60 MG CAP PO SCH (09:05)
[2018-05-28] MEDS: Montelukast Sodium 10 mg Tablet PO SCH (09:05)
[2018-05-28] MEDS: Multivitamin W/ Minerals 1 TAB PO SCH (09:05)
[2018-05-28] MEDS: Oxybutynin ER 5 MG TAB PO SCH (09:06)
[2018-05-28] MEDS: HumaLOG 300 UNITS/3 ML VIAL SC PRN ×2 (11:54→17:35)
--- NOTE | 2018-05-28 14:51 | PRG ---
DATE OF SERVICE: 05/28/2018 SUBJECTIVE: The patient is seen and examined at the bedside. She is feeling significantly better. She switched from BiPAP to nasal cannula 2 L/minute. OBJECTIVE: VITAL SIGNS: Blood pressure is 134/65, pulse is 100, respiratory rate is 19, and O2 saturation 97% on 2 L by nasal cannula. HEENT: Head is atraumatic and normocephalic. Eyes are PERRLA. Sclerae are nonicteric. Oral mucosa is moist. NECK: Supple. LUNGS: Bilateral moderate wheezes present in all parts of the lungs. HEART: S1 and S2 normal. No S3. No S4. ABDOMEN: Soft, nontender, nondistended. EXTREMITIES: No clubbing, cyanosis, or edema. NEUROLOGIC: She is alert and oriented x4. There is no any sensory or motor deficits present. Cranial nerves are intact. LABORATORY DATA: Labs showed white count of 10.0, hemoglobin 16.7, hematocrit 49.4, platelet count 170,000. Normal electrolytes. BUN of 16, creatinine 0.59. Glycemia is ranging from 135 to 231. Microbiology showed a negative influenza A and B. Bacterial culture of sputum showed 5 to 10 epithelial cells, many wbc's seen, many gram-positive cocci in pairs, moderate gram-positive cocci in chains and clusters, few gram-positive rods, moderate yeast. IMPRESSION: 1. Acute exacerbation of chronic obstructive pulmonary disease with hypoxemia and hypercapnia. 2. Diabetes mellitus type 2. 3. History of asthma. 4. Hypertension. DISCUSSION AND PLAN: The patient is switched to nasal cannula. She is tolerating nasal cannula very well. We will continue her DuoNeb. We will continue her methylprednisolone 40 mg every 6 hours IV piggyback. We will continue levofloxacin and DVT prophylaxis. Job ID: [id number]
--- NOTE | 2018-05-28 17:57 | CON ---
DATE OF CONSULTATION: 05/28/2018 REASON FOR CONSULTATION: COPD with exacerbation. HISTORY OF PRESENT ILLNESS: Anne is a 62-year-old female with a history of chronic tobacco abuse. She has been smoking again. She developed shortness of breath, cough, and sputum production over the last 48 hours and was hospitalized. She was briefly on BiPAP, but is now off that. She feels better compared to yesterday. PAST MEDICAL HISTORY: 1. COPD - severe. 2. Hypertension. 3. Diabetes mellitus. PAST SURGICAL HISTORY: 1. Tubal ligation. 2. Hysterectomy. 3. Cholecystectomy. 4. Shoulder surgery. 5. Bilateral hand surgeries. FAMILY MEDICAL HISTORY: Father with liver cancer. Mother with COPD. SOCIAL HISTORY: She smokes a pack every couple weeks. Does not consume alcohol. Does not use illicit drugs. ALLERGIES: CODEINE, HYDROCODONE, AND TRAMADOL. REVIEW OF SYSTEMS: A 12-point review of systems is otherwise negative. OUTPATIENT MEDICATIONS: 1. Breo Ellipta 200/25 one puff daily. 2. ProAir 2 puffs every 6 hours as needed. 3. Lyrica 300 mg b.i.d. 4. Glargine insulin 22 units nightly. 5. Pravachol 1 tablet daily. 6. Oxybutynin ER 10 mg daily. 7. Omeprazole 20 mg daily. 8. Multivitamin 1 daily. 9. Singulair 10 mg daily. 10. Myrbetriq 50 mg daily. 11. DuoNeb every 6 hours as needed. 12. Jardiance 10 mg daily. 13. Cymbalta 60 mg daily. 14. Albuterol nebs as needed. 15. Metformin 500 mg daily. PHYSICAL EXAMINATION: VITAL SIGNS: Temperature is 99.2, pulse 91, respirations 19, O2 saturation 96% on 2 L, and blood pressure 116/60. GENERAL: She is awake and alert, in no distress. HEENT: Unremarkable. NECK: No adenopathy. No JVD. LUNGS: Diffuse mild wheezing bilaterally. CARDIOVASCULAR: S1 and S2. Regular. ABDOMEN: Soft and nontender. EXTREMITIES: No edema. LABORATORY DATA: White blood cell count 10, hematocrit 49.4, and platelet count 170. A pH of 7.30, pCO2 of 68, and pO2 of 67. Sodium 142, potassium 4.4, chloride 103, CO2 of 29, BUN 16, creatinine 0.6, and glucose 130. Chest x-ray demonstrates diaphragmatic depression, increased lung volumes bilaterally. ASSESSMENT: 1. Chronic obstructive pulmonary disease exacerbation. 2. Acute on chronic hypercapnic respiratory failure. 3. Tobacco abuse. PLAN: She can be transferred out to the medical floor. She will continue on scheduled breathing treatments, steroids, and antibiotics. She has been told to quit smoking, but I doubt she will comply. Job ID: [id number]
[2018-05-28] MEDS: Mometasone/Formoterol 120 PUFF INHALER INH SCH (18:28)
[2018-05-28] MEDS: Simvastatin 5 MG TAB PO SCH (20:26)
[2018-05-28] MEDS: Insulin Glargine 22 UNITS in Pre-Filled Syringe 1 EACH SC SCH (20:27)
[2018-05-28] MEDS ORDERED: INSULIN GLARGINE HUM REC ANLOG 22 UNIT SC SCH (21:00)
[2018-05-28] MEDS ORDERED: Pravastatin Sodium 20 MG TAB PO SCH (21:00)
[2018-05-28] MEDS: Melatonin 3 MG TAB PO SCH (23:41)
[2018-05-29] MEDS: HumaLOG 300 UNITS/3 ML VIAL SC PRN ×4 (05:21→20:25)
[2018-05-29] MEDS: Montelukast Sodium 10 mg Tablet PO SCH (08:55)
[2018-05-29] MEDS: DULoxetine 60 MG CAP PO SCH (08:56)
[2018-05-29] MEDS: Famotidine 20 MG TAB PO SCH ×2 (08:56→20:24)
[2018-05-29] MEDS: Pregabalin 75 MG CAP PO SCH ×2 (08:56→20:23)
[2018-05-29] MEDS: Oxybutynin ER 5 MG TAB PO SCH (08:56)
[2018-05-29] MEDS: Multivitamin W/ Minerals 1 TAB PO SCH (08:56)
[2018-05-29] MEDS: Enoxaparin Sodium 40 MG/0.4 ML SYRINGE SC SCH (08:57)
[2018-05-29] MEDS ORDERED: predniSONE 20 MG TAB PO SCH (10:30)
[2018-05-29 10:53] LABS: #Monocytes 0.7 thou/uL (0.11-0.59); #Neutrophils 14.3 thou/uL (1.40-6.50); %Basophils 0.1 % (0.0-1.0); %Eosinophils 0.1 % (0.0-10.0); %Monocytes 4.5 % (0.0-10.0); %Neutrophils 89.4 % (42.0-75.0); Hemoglobin 15.4 g/dL (12.0-16.0); Mean Corpuscular HGB CONC 32.9 g/dL (32.0-36.0); Mean Corpuscular Hemoglobin 31.1 pg (27.0-31.0); Mean Corpuscular Volume 94.3 fL (78.0-98.0); Mean Platelet Volume 9.6 fL (7.4-10.4); Platelet Count 180 thou/uL (130-400); RBC Distribution Width 14.1 % (11.5-14.5); Red Blood Cell (RBC) Count 4.96 mill/uL (4.20-5.40)
[2018-05-29] MEDS: Mometasone/Formoterol 120 PUFF INHALER INH SCH ×2 (10:56→19:09)
--- NOTE | 2018-05-29 11:01 | PRG ---
DATE OF SERVICE: 05/29/2018 SUBJECTIVE: The patient is seen and examined at the bedside. She is doing significantly better. She is on nasal cannula. She noticed decreased wheezing. Appetite is fair. OBJECTIVE: VITAL SIGNS: Blood pressure is 132/73, pulse is 94, temperature 98.2, respirations 20, and O2 saturation 94% on 2 L by nasal cannula. HEENT: Her head is atraumatic and normocephalic. Eyes are PERRLA. Sclerae are nonicteric. Oral mucosa is moist. NECK: Supple. LUNGS: Presently with wheezing, especially over the right lung, but significantly less than what it was yesterday. No crackles. HEART: S1 and S2 normal. No S3. No S4. No any murmur. ABDOMEN: Soft, obese, nontender, nondistended. EXTREMITIES: No clubbing, cyanosis, or edema. NEUROLOGIC: She is alert and oriented x4. There is no sensory or motor deficits. Cranial nerves are intact. LABORATORY DATA: Showed glycemia ranging from 135 to 297. Sputum Gram stain showed moderate amount of yeast. IMPRESSION: 1. Acute exacerbation of chronic obstructive pulmonary disease with hypoxemia and hypercapnia. 2. Diabetes mellitus type 2. 3. History of asthma. 4. Hypertension. 5. Sputum for yeast without any evidence of oral thrush. DISCUSSION AND PLAN: The patient will be switched from Solu-Medrol to oral prednisone 40 mg once a day for the dose today at 10 o'clock, then daily. She will continue her DuoNeb. She will continue on 2 L of nasal cannula O2. I will continue her levofloxacin and DVT prophylaxis. She should be able to go home soon. Since she has some positive yeast on her sputum and there is no any obvious thrush in her mouth and in view of diabetic patients, we are going to treat her with Diflucan 100 mg once a day p.o. daily. Job ID: [id number]
[2018-05-29 11:18] LABS: Anion Gap 14 mmol/L (10-20); BUN (Urea Nitrogen) 23 mg/dL (9.8-20.1); Calc. Creatinine Clearance 110 mL/min (70-130); Calcium 9.3 mg/dL (7.8-10.44); Carbon Dioxide 28 mmol/L (23-31); Chloride 102 mmol/L (98-107); Estimated GFR-MDRD 88; Glucose 342 mg/dL (80-115); Potassium 4.3 mmol/L (3.5-5.1); Sodium 140 mmol/L (136-145)
--- NOTE | 2018-05-29 13:19 | PRG ---
DATE OF SERVICE: 05/29/2018 SUBJECTIVE: This morning, she is better, less short of breath. OBJECTIVE: VITAL SIGNS: Saturations are 94% on 2 L, temperature is 98, pulse 70, respiratory rate 18, and blood pressure 130/73. CHEST: Decreased breath sounds. No wheezing. CARDIAC: Normal S1, S2. No gallops. ABDOMEN: No masses. LABORATORY DATA: Unremarkable. White count 16,000. IMPRESSION: Chronic obstructive pulmonary disease exacerbation, end-stage; bronchitis; tobacco abuse. She is better. Continue neb treatments, prednisone, supportive care. We will follow. Job ID: [id number]
[2018-05-29] MEDS: Melatonin 3 MG TAB PO SCH (20:22)
[2018-05-29] MEDS: Simvastatin 5 MG TAB PO SCH (20:24)
[2018-05-29] MEDS: Insulin Glargine 22 UNITS in Pre-Filled Syringe 1 EACH SC SCH (20:24)
[2018-05-30] MEDS: HumaLOG 300 UNITS/3 ML VIAL SC PRN ×4 (05:14→20:21)
[2018-05-30] MEDS: Mometasone/Formoterol 120 PUFF INHALER INH SCH ×2 (07:14→20:16)
[2018-05-30] MEDS ORDERED: INSULIN REGULAR SC SCH (08:00)
[2018-05-30] MEDS: Multivitamin W/ Minerals 1 TAB PO SCH (08:33)
[2018-05-30] MEDS: predniSONE 20 MG TAB PO SCH (08:33)
[2018-05-30] MEDS: Montelukast Sodium 10 mg Tablet PO SCH (08:33)
[2018-05-30] MEDS: DULoxetine 60 MG CAP PO SCH (08:34)
[2018-05-30] MEDS: Famotidine 20 MG TAB PO SCH ×2 (08:34→20:18)
[2018-05-30] MEDS: Enoxaparin Sodium 40 MG/0.4 ML SYRINGE SC SCH (08:35)
--- NOTE | 2018-05-30 08:35 | PRG ---
DATE OF SERVICE: 05/30/2018 SUBJECTIVE: The patient is seen and examined at the bedside. She is complaining about sore throat. She states that she had several episodes of thrush before, and she suspects that is what it is because that is how it feels like; especially, when she is on steroids, this happens. OBJECTIVE: VITAL SIGNS: Blood pressure is 128/74, pulse 84, respiratory rate 20, O2 saturation is 95% on 2 L by nasal cannula. HEENT: Head is atraumatic and normocephalic. Eyes are PERRLA. Sclerae are nonicteric. Oral mucosa, difficult to assess since she is eating her breakfast during my visit. NECK: Supple. LUNGS: Bilateral rales, much more on the right side than on the left side, and wheezing. HEART: S1 and S2. No S3. No S4. ABDOMEN: Soft, nontender, and obese. Bowel sounds are present. No organomegaly. EXTREMITIES: No clubbing, cyanosis, or edema. NEUROLOGIC: She is alert and oriented x4. There are no any motor or sensory deficits present. Cranial nerves are intact. LABORATORY DATA: Glycemia is ranging from 197 to 337. Microbiology: Sputum showed moderate yeast, moderate gram-positive cocci in chains and clusters, few gram-positive rods, many gram-positive cocci in pairs, many wbc's, 5 to 10 epithelial cells in low-power field. IMPRESSION: 1. Acute exacerbation of chronic obstructive pulmonary disease. Switch to oral prednisone. Still wheezing quite significantly. We will continue DuoNeb, O2, and steroids. 2. Worsening hyperglycemia secondary to steroids. We will start her on 5 units of short-acting before each meal plus sliding scale plus her long-acting insulin twice a day. 3. Hypertension, well controlled. 4. Oral thrush. We will start her on nystatin swish and spit 4 times a day. 5. History of asthma. PLAN: As mentioned above. Continue prednisone 40 mg once a day. Continue levofloxacin. Continue DuoNeb. Continue O2 and supportive care. Start her on nystatin swish and spit solution 4 times a day and start her on 5 units of short-acting before each meal. Job ID: [id number]
[2018-05-30] MEDS: Pregabalin 75 MG CAP PO SCH ×2 (08:36→20:19)
[2018-05-30] MEDS: Oxybutynin ER 5 MG TAB PO SCH (08:39)
--- NOTE | 2018-05-30 09:09 | PRG ---
DATE OF SERVICE: 05/30/2018 SUBJECTIVE: The patient is still wheezing and is having difficulty ambulating secondary to shortness of breath. OBJECTIVE: VITAL SIGNS: Temperature 98.0, pulse 84, respirations 20, saturation 95% on 2 L, and blood pressure 120/74. HEENT: Unremarkable. NECK: No JVD. LUNGS: Diffuse mild to moderate expiratory wheezing. CARDIAC: S1, S2. Regular. ABDOMEN: Soft. EXTREMITIES: No edema. ASSESSMENT: 1. Chronic obstructive pulmonary disease with exacerbation. 2. Tobacco abuse. PLAN: 1. I anticipate she will need a few more days in the hospital. She will continue schedule nebulization treatments, but it needs to be every 4 hours instead of every 6. 2. Continue steroids. Job ID: [id number]
[2018-05-30] MEDS: Nystatin 500,000 UNITS/5 ML UDCUP SSW SCH ×4 (09:13→20:18)
[2018-05-30] MEDS: Insulin Regular 300 UNITS/3 ML VIAL SC SCH ×2 (12:54→16:58)
[2018-05-30] MEDS: Acetaminophen 325 MG TAB PO PRN ×2 (14:31→20:16)
[2018-05-30] MEDS: Simvastatin 5 MG TAB PO SCH (20:17)
[2018-05-30] MEDS: Melatonin 3 MG TAB PO SCH (20:17)
[2018-05-30] MEDS: Insulin Glargine 22 UNITS in Pre-Filled Syringe 1 EACH SC SCH (20:59)
[2018-05-31] MEDS: Mometasone/Formoterol 120 PUFF INHALER INH SCH ×2 (06:38→19:41)
[2018-05-31] MEDS: Nystatin 500,000 UNITS/5 ML UDCUP SSW SCH ×4 (08:29→21:12)
[2018-05-31] MEDS: DULoxetine 60 MG CAP PO SCH (08:30)
[2018-05-31] MEDS: Enoxaparin Sodium 40 MG/0.4 ML SYRINGE SC SCH (08:30)
[2018-05-31] MEDS: Montelukast Sodium 10 mg Tablet PO SCH (08:31)
[2018-05-31] MEDS: Pregabalin 75 MG CAP PO SCH ×2 (08:32→21:12)
[2018-05-31] MEDS: predniSONE 20 MG TAB PO SCH (08:32)
[2018-05-31] MEDS: Multivitamin W/ Minerals 1 TAB PO SCH (08:38)
[2018-05-31] MEDS: Famotidine 20 MG TAB PO SCH ×2 (08:38→21:11)
[2018-05-31] MEDS: Oxybutynin ER 5 MG TAB PO SCH (08:51)
[2018-05-31] MEDS: Insulin Regular 300 UNITS/3 ML VIAL SC SCH ×3 (08:52→17:40)
--- NOTE | 2018-05-31 09:14 | PRG ---
DATE OF SERVICE: 05/31/2018 SUBJECTIVE: She is complaining that her right arm feels stiff and somewhat heavy. OBJECTIVE: VITAL SIGNS: On exam, temperature is 97.8, pulse 80, respirations 16, O2 saturation 95% on 2 L, and blood pressure 102/72. HEENT: Unremarkable. NECK: No JVD. LUNGS: She has improvement in bilateral wheezing, but some mild wheezing is still persistent. CARDIAC: S1 and S2, regular. ABDOMEN: Soft. EXTREMITIES: No edema. 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 She is able to lift her arms above her head without difficulty. LABORATORY DATA: No labs were done today. ASSESSMENT: Chronic obstructive pulmonary disease with exacerbation. PLAN: 1. Continue nebulization treatments every 4 hours. 2. Continue steroids. 3. Continue antibiotics. I think she could probably be discharged home on Monday if she does okay today. Job ID: [id number]
--- NOTE | 2018-05-31 09:32 | PDOC.PN ---
- Subjective Encounter Start Date: 05/31/18 Encounter Start Time: 09:31 -: old records requested/rev Pt seen and examined, chart reviewe din its entirety, this is my first visit with this patient Follow up for Acute exacerbation of COPD, acute hypoxemic resp failure. appreciate pulm assistance, anticipate discharge tomorrow No F/C, no N/V/D/c, no CP or increased SOB, no cough or sputum production, breathing improving a little every day all systems reviewed and neg except as above - Objective Resuscitation Status - Order Detail: 05/27/18 14:05 Resuscitation Status Routine Resuscitation Status: FULL: Full Resuscitation MAR Reviewed: Yes Vital Signs & Weight: Vital Signs (12 hours) Temp Pulse Resp BP BP Pulse Ox 05/31/18 07:43 97.8 F 82 16 122/72 95 05/31/18 06:33 91 16 91 L 05/31/18 05:30 97.8 F 62 20 141/83 H 93 L 05/31/18 04:00 97.8 F 77 16 134/78 96 Weight Weight 178 lb 6.4 oz I&O: 05/30/18 05/31/18 06/01/18 06:59 06:59 06:59 Intake Total 600 1920 Balance 600 1920 Result Diagrams: 05/29/18 10:26 05/29/18 10:26 Additional Labs: Accuchecks 05/31/18 05/30/18 06:01 20:06 POC Glucose 92 217 H Radiology Reviewed by me: Yes EKG Reviewed by me: Yes Phys Exam - Physical Examination Constitutional: NAD HEENT: PERRLA, moist MMs, sclera anicteric, oral pharynx no lesions Neck: no nodes, no JVD, supple, full ROM Respiratory: no rales, no rhonchi, wheezing present, clear to auscultation bilateral good air movement, inspiratory wheezes diffusely Cardiovascular: RRR, no significant murmur, no rub Gastrointestinal: soft, non-tender, no distention, positive bowel sounds Musculoskeletal: no edema, pulses present Neurological: non-focal, normal sensation, moves all 4 limbs Lymphatic: no nodes Psychiatric: normal affect, A&O x 3 Skin: no rash, normal turgor, cap refill <2 seconds Dx/Plan (1) Acute on chronic respiratory failure with hypoxia and hypercapnia Code(s): J96.21 - ACUTE AND CHRONIC RESPIRATORY FAILURE WITH HYPOXIA; J96.22 - ACUTE AND CHRONIC RESPIRATORY FAILURE WITH HYPERCAPNIA Status: Acute (2) COPD exacerbation Code(s): J44.1 - CHRONIC OBSTRUCTIVE PULMONARY DISEASE W (ACUTE) EXACERBATION Status: Acute (3) Community acquired bacterial pneumonia Code(s): J15.9 - UNSPECIFIED BACTERIAL PNEUMONIA Status: Acute (4) Adrenal adenoma Code(s): D35.00 - BENIGN NEOPLASM OF UNSPECIFIED ADRENAL GLAND Status: Chronic Qualifiers: Laterality: unspecified laterality Qualified Code(s): D35.00 - Benign neoplasm of unspecified adrenal gland (5) Anxiety and depression Code(s): F41.9 - ANXIETY DISORDER, UNSPECIFIED; F32.9 - MAJOR DEPRESSIVE DISORDER, SINGLE EPISODE, UNSPECIFIED Status: Chronic (6) BiPAP (biphasic positive airway pressure) dependence Code(s): Z99.89 - DEPENDENCE ON OTHER ENABLING MACHINES AND DEVICES Status: Chronic (7) DM type 2 (diabetes mellitus, type 2) Status: Chronic Qualifiers: Diabetes mellitus certified physician assistant insulin use: unspecified chcf insulin use status Diabetes mellitus complication status: without complication Qualified Code(s): E11.9 - Type 2 diabetes mellitus without complications (8) Dyslipidemia Code(s): E78.5 - HYPERLIPIDEMIA, UNSPECIFIED Status: Chronic (9) HTN (hypertension) Code(s): I10 - ESSENTIAL (PRIMARY) HYPERTENSION Status: Chronic Qualifiers: Hypertension type: essential hypertension Qualified Code(s): I10 - Essential (primary) hypertension (10) Obesity (BMI 30.0-34.9) Code(s): E66.9 - OBESITY, UNSPECIFIED Status: Chronic (11) Tobacco abuse Code(s): Z72.0 - TOBACCO USE Status: Chronic (12) Respiratory acidosis Code(s): E87.2 - ACIDOSIS Status: Resolved (13) Transaminitis Code(s): R74.0 - NONSPEC ELEV OF LEVELS OF TRANSAMNS & LACTIC ACID DEHYDRGNSE Status: Resolved - Plan cont current plan of care, continue antibiotics, PT/OT, social media project manager, respiratory therapy, out of bed/ambulate * .
[2018-05-31] MEDS: Acetaminophen 325 MG TAB PO PRN ×2 (14:02→21:16)
[2018-05-31] MEDS: HumaLOG 300 UNITS/3 ML VIAL SC PRN ×2 (17:43→21:14)
[2018-05-31] MEDS: Insulin Glargine 22 UNITS in Pre-Filled Syringe 1 EACH SC SCH (21:11)
[2018-05-31] MEDS: Melatonin 3 MG TAB PO SCH (21:12)
[2018-05-31] MEDS: Simvastatin 5 MG TAB PO SCH (21:13)
[2018-06-01] MEDS: Albuterol Sulfate 1.25 MG/3 ML NEB NEB PRN (03:11)
[2018-06-01] MEDS: Mometasone/Formoterol 120 PUFF INHALER INH SCH (07:09)
[2018-06-01] MEDS: Famotidine 20 MG TAB PO SCH ×2 (08:39→20:49)
[2018-06-01] MEDS: Enoxaparin Sodium 40 MG/0.4 ML SYRINGE SC SCH (08:39)
[2018-06-01] MEDS: Pregabalin 75 MG CAP PO SCH ×2 (08:39→20:50)
[2018-06-01] MEDS: Nystatin 500,000 UNITS/5 ML UDCUP SSW SCH ×4 (08:40→20:50)
[2018-06-01] MEDS: Montelukast Sodium 10 mg Tablet PO SCH (08:40)
[2018-06-01] MEDS: Insulin Regular 300 UNITS/3 ML VIAL SC SCH ×3 (08:40→18:47)
[2018-06-01] MEDS: Multivitamin W/ Minerals 1 TAB PO SCH (08:40)
[2018-06-01] MEDS: DULoxetine 60 MG CAP PO SCH (08:40)
[2018-06-01] MEDS: predniSONE 20 MG TAB PO SCH (08:40)
[2018-06-01] MEDS: Oxybutynin ER 5 MG TAB PO SCH (08:46)
[2018-06-01] MEDS: Acetaminophen 325 MG TAB PO PRN ×2 (08:47→20:51)
--- NOTE | 2018-06-01 08:49 | PRG ---
DATE OF SERVICE: SUBJECTIVE: Ms. Colunga feels worse than she did yesterday. She is wheezing more and having more difficulty sleeping. OBJECTIVE: VITAL SIGNS: Temperature 98.1, pulse 82, respirations 18, O2 saturation 91%, blood pressure 101/66. HEENT: Unremarkable. NECK: No adenopathy or JVD. LUNGS: Diffuse bilateral wheezing. CARDIAC: S1 and S2 regular. ABDOMEN: Soft. EXTREMITIES: No edema. ASSESSMENT: Chronic obstructive pulmonary disease exacerbation. PLAN: I will put her back on IV steroids and switch her to wear O2, Brovana and Pulmicort. I anticipate her needing hospitalization at least 48 more hours. Job ID: [id number]
[2018-06-01] MEDS ORDERED: [Bydureon Pen] 2 MG SC SCH (09:00)
[2018-06-01] MEDS: Budesonide 0.5 MG/2 ML NEB INH SCH (19:34)
[2018-06-01] MEDS: Arformoterol 15 MCG/2 ML NEB NEB SCH (19:36)
[2018-06-01] MEDS: Insulin Glargine 22 UNITS in Pre-Filled Syringe 1 EACH SC SCH (20:49)
[2018-06-01] MEDS: Melatonin 3 MG TAB PO SCH (20:50)
[2018-06-01] MEDS: Simvastatin 5 MG TAB PO SCH (20:51)
[2018-06-01] MEDS: HumaLOG 300 UNITS/3 ML VIAL SC PRN (20:56)
[2018-06-02] MEDS: Arformoterol 15 MCG/2 ML NEB NEB SCH ×2 (07:12→21:36)
[2018-06-02] MEDS: Budesonide 0.5 MG/2 ML NEB INH SCH ×2 (07:12→21:36)
[2018-06-02] MEDS: Enoxaparin Sodium 40 MG/0.4 ML SYRINGE SC SCH (09:17)
[2018-06-02] MEDS: Pregabalin 75 MG CAP PO SCH ×2 (09:17→20:57)
[2018-06-02] MEDS: predniSONE 20 MG TAB PO SCH (09:18)
[2018-06-02] MEDS: Oxybutynin ER 5 MG TAB PO SCH (09:19)
[2018-06-02] MEDS: Nystatin 500,000 UNITS/5 ML UDCUP SSW SCH ×4 (09:19→20:56)
[2018-06-02] MEDS: Montelukast Sodium 10 mg Tablet PO SCH (09:19)
[2018-06-02] MEDS: DULoxetine 60 MG CAP PO SCH (09:19)
[2018-06-02] MEDS: Famotidine 20 MG TAB PO SCH ×2 (09:19→20:56)
[2018-06-02] MEDS: Insulin Regular 300 UNITS/3 ML VIAL SC SCH ×3 (09:20→18:08)
[2018-06-02] MEDS: Multivitamin W/ Minerals 1 TAB PO SCH (09:20)
--- NOTE | 2018-06-02 10:46 | PDOC.PN ---
- Subjective Encounter Start Date: 06/02/18 Encounter Start Time: 09:00 -: old records requested/rev Patient seen and examined. No new complaints. No overnight events - Objective Resuscitation Status - Order Detail: 05/27/18 14:05 Resuscitation Status Routine Resuscitation Status: FULL: Full Resuscitation MAR Reviewed: Yes Vital Signs & Weight: Vital Signs (12 hours) Temp Pulse Resp BP Pulse Ox 06/02/18 07:34 97.7 F 79 16 156/78 H 99 06/02/18 07:11 92 20 91 L 06/02/18 07:00 91 L Weight Weight 178 lb 6.4 oz I&O: 06/01/18 06/02/18 06/03/18 06:59 06:59 06:59 Intake Total 1580 275 Balance 1580 275 Result Diagrams: 05/29/18 10:26 05/29/18 10:26 Additional Labs: Accuchecks 06/02/18 06/01/18 06/01/18 05:59 17:07 11:19 POC Glucose 183 H 131 H 187 H Radiology Reviewed by me: Yes (chest xray reviewed) EKG Reviewed by me: Yes Phys Exam - Physical Examination Constitutional: NAD HEENT: PERRLA, moist MMs, sclera anicteric Neck: no JVD, supple Respiratory: no rales, wheezing present Cardiovascular: RRR, no significant murmur, no rub Gastrointestinal: soft, non-tender, no distention, positive bowel sounds Musculoskeletal: no edema, pulses present Neurological: non-focal, normal sensation, moves all 4 limbs Lymphatic: no nodes Psychiatric: normal affect, A&O x 3 Skin: no rash, normal turgor Dx/Plan (1) Acute on chronic respiratory failure with hypoxia and hypercapnia Code(s): J96.21 - ACUTE AND CHRONIC RESPIRATORY FAILURE WITH HYPOXIA; J96.22 - ACUTE AND CHRONIC RESPIRATORY FAILURE WITH HYPERCAPNIA Status: Acute (2) COPD exacerbation Code(s): J44.1 - CHRONIC OBSTRUCTIVE PULMONARY DISEASE W (ACUTE) EXACERBATION Status: Acute (3) Adrenal adenoma Code(s): D35.00 - BENIGN NEOPLASM OF UNSPECIFIED ADRENAL GLAND Status: Chronic Qualifiers: Laterality: unspecified laterality Qualified Code(s): D35.00 - Benign neoplasm of unspecified adrenal gland (4) Anxiety and depression Code(s): F41.9 - ANXIETY DISORDER, UNSPECIFIED; F32.9 - MAJOR DEPRESSIVE DISORDER, SINGLE EPISODE, UNSPECIFIED Status: Chronic (5) DM type 2 (diabetes mellitus, type 2) Status: Chronic Qualifiers: Diabetes mellitus intermediate insulin use: unspecified intermediate insulin use status Diabetes mellitus complication status: without complication Qualified Code(s): E11.9 - Type 2 diabetes mellitus without complications (6) Dyslipidemia Code(s): E78.5 - HYPERLIPIDEMIA, UNSPECIFIED Status: Chronic (7) HTN (hypertension) Code(s): I10 - ESSENTIAL (PRIMARY) HYPERTENSION Status: Chronic Qualifiers: Hypertension type: essential hypertension Qualified Code(s): I10 - Essential (primary) hypertension (8) Obesity (BMI 30.0-34.9) Code(s): E66.9 - OBESITY, UNSPECIFIED Status: Chronic (9) Tobacco abuse Code(s): Z72.0 - TOBACCO USE Status: Chronic - Plan cont current plan of care, continue antibiotics, respiratory therapy * continue IV solumderol. * continue levaquin * medication reviewed as below * symptomatic treatment Review of Systems - Review of Systems Eyes: negative: Pain, Vision Change, Conjunctivae Inflammation, Eyelid Inflammation, Redness, Other ENT: negative: Ear Pain, Ear Discharge, Nose Pain, Nose Discharge, Nose Congestion, Mouth Pain, Mouth Swelling, Throat Pain, Throat Swelling, Other Respiratory: Cough, Shortness of Breath. negative: Dry, Hemoptysis, SOB with Excertion, Pleuritic Pain, Sputum, Wheezing Cardiovascular: negative: chest pain, palpitations, orthopnea, paroxysmal nocturnal dyspnea, edema, light headedness, other Gastrointestinal: negative: Nausea, Vomiting, Abdominal Pain, Diarrhea, Constipation, Melena, Hematochezia, Other Genitourinary: negative: Dysuria, Frequency, Incontinence, Hematuria, Retention , Other Musculoskeletal: negative: Neck Pain, Shoulder Pain, Arm Pain, Back Pain, Hand Pain, Leg Pain, Foot Pain, Other Skin: negative: Rash, Lesions, Benjamin, Bruising, Other - Medications/Allergies Allergies/Adverse Reactions: Allergies Allergy/AdvReac Type Severity Reaction Status Date / Time codeine Allergy Mild Verified 09/04/17 13:04 eucalyptus Allergy breathing Verified 09/04/17 13:04 problems hydrocodone Allergy Verified 09/04/17 13:04 tramadol Allergy Verified 09/04/17 13:04 Medications: Current Medications Acetaminophen (Tylenol) 650 mg PO Q4H PRN PRN Reason: Pain Last Admin: 06/01/18 20:51 Dose: 650 mg Albuterol Sulfate (Albuterol Sulfate) 2.5 mg NEB Q2H PRN PRN Reason: Wheezing Last Admin: 06/01/18 03:11 Dose: 2.5 mg Albuterol Sulfate (Proventil Hfa) 2 puff INH Q4H PRN PRN Reason: SOB &/or Wheezing Albuterol/Ipratropium (Duoneb) 3 ml IPPB [id number] [facility] Last Admin: 06/02/18 07:11 Dose: 3 ml Arformoterol Tartrate (Brovana) 15 mcg NEB BID-RT [facility] Last Admin: 06/02/18 07:12 Dose: 15 mcg Budesonide (Pulmicort Neb Solution) 0.5 mg INH BID-RT [facility] Last Admin: 06/02/18 07:12 Dose: 0.5 mg Dextrose/Water (Dextrose 50%) 25 gm SLOW IVP PRN PRN PRN Reason: Hypoglycemia Duloxetine HCl (Cymbalta) 60 mg PO DAILY [facility] Last Admin: 06/02/18 09:19 Dose: 60 mg Enoxaparin Sodium (Lovenox) 40 mg SC 0900 [facility] Last Admin: 06/02/18 09:17 Dose: 40 mg Famotidine (Pepcid) 20 mg PO BID [facility] Last Admin: 06/02/18 09:19 Dose: 20 mg Glucagon (Glucagon) 1 mg IM PRN PRN PRN Reason: Hypoglycemia Dextrose/Water (D5w) 1,000 mls @ 0 mls/hr IV .Q0M PRN PRN Reason: Hypoglycemia Levofloxacin 500 mg/ Device 100 mls @ 100 mls/hr IVPB Q24HR [facility] Last Admin: 06/01/18 13:10 Dose: 100 mls Insulin Glargine 22 units/ (Miscellaneous Medication) 0.22 mls @ 0 mls/hr SC HS [facility] Last Admin: 06/01/18 20:49 Dose: 0.22 mls Insulin Human Lispro (Humalog) 0 units SC .MODERATE SLIDING SC PRN PRN Reason: Moderate Correctional Scale Last Admin: 06/01/18 20:56 Dose: 6 unit Insulin Human Regular (Humulin R) 5 units SC TID-WM [facility] Last Admin: 06/02/18 09:20 Dose: 5 unit Iron/Minerals/Multivitamins (Theragran M) 1 tab PO DAILY [facility] Last Admin: 06/02/18 09:20 Dose: 1 tab Melatonin (Melatonin) 6 mg PO HS [facility] Last Admin: 06/01/18 20:50 Dose: 6 mg Methylprednisolone Sodium Succinate (Solu-Medrol) 40 mg IVP Q6HR [facility] Last Admin: 06/02/18 05:45 Dose: 40 mg Mirabegron (Myrbetriq Er) 50 mg PO DAILY [facility] Last Admin: 06/02/18 09:17 Dose: 50 mg Montelukast Sodium (Singulair) 10 mg PO QAM [facility] Last Admin: 06/02/18 09:19 Dose: 10 mg Nystatin (Mycostatin) 500,000 units SSW QID [facility] Last Admin: 06/02/18 09:19 Dose: 500,000 units Oxybutynin Chloride (Ditropan Xl) 10 mg PO DAILY [facility] Last Admin: 06/02/18 09:19 Dose: 10 mg Jardiance ( Empagliflozin) 10 Mg Tablet 0 each PO DAILY [facility] Last Admin: 06/02/18 09:16 Dose: 1 each [Bydureon Pen] 2 Mg 0 each SC Q7D [facility] Prednisone (Prednisone) 40 mg PO QAM[facility] Last Admin: 06/02/18 09:18 Dose: Not Given Pregabalin (Lyrica) 300 mg PO BID [facility] Last Admin: 06/02/18 09:17 Dose: 300 mg Simvastatin (Zocor) 10 mg PO HS [facility] Last Admin: 06/01/18 20:51 Dose: 10 mg Sodium Chloride (Flush - Normal Saline) 10 ml IVF Q12HR [facility] Last Admin: 06/02/18 09:20 Dose: 10 ml Sodium Chloride (Flush - Normal Saline) 10 ml IVF PRN PRN PRN Reason: Saline Flush
[2018-06-02] MEDS ORDERED: Eucerin (Mineral Oil/Petrolatum,White) 30 gm Jar TOP PRN (11:32)
[2018-06-02] MEDS ORDERED: Ondansetron PF 4 MG/2 ML Vial IVP PRN (11:32)
[2018-06-02] MEDS ORDERED: Loperamide HCl 2 MG CAP PO PRN (11:32)
[2018-06-02] MEDS ORDERED: Sodium Chloride 0.65% Nasal 44 ML BOT EA NARE PRN (11:32)
[2018-06-02] MEDS ORDERED: Loratadine 10 MG TAB PO PRN (11:32)
[2018-06-02] MEDS ORDERED: Ondansetron ODT 4 MG TAB PO PRN (11:32)
[2018-06-02] MEDS ORDERED: Bisacodyl 10 MG SUPP PR PRN (11:32)
[2018-06-02] MEDS ORDERED: Artificial Tears 18 DROP/0.9 ML EA EYE PRN (11:32)
[2018-06-02] MEDS ORDERED: Senokot S 8.6-50 MG TAB PO PRN (11:32)
[2018-06-02] MEDS ORDERED: hydrALAZINE 20 MG/ML VIAL SLOW IVP PRN (11:32)
[2018-06-02] MEDS ORDERED: Cepastat Lozenges 1 LOZ PO PRN (11:32)
[2018-06-02] MEDS ORDERED: Diabetic Tussin 200 MG/10 ML UDCUP PO PRN (11:32)
[2018-06-02] MEDS: HumaLOG 300 UNITS/3 ML VIAL SC PRN ×3 (12:30→20:59)
--- NOTE | 2018-06-02 12:37 | PRG ---
DATE OF SERVICE: 06/02/2018 SUBJECTIVE: The patient is doing about the same, has not improved much. OBJECTIVE: VITAL SIGNS: On exam, temperature is 97.7, pulse 116, respirations 20, O2 sat 92% on 2 L, and blood pressure 156/78. HEENT: Unremarkable. NECK: No JVD. LUNGS: Diffuse wheezing. CARDIAC: S1 and S2, regular. ABDOMEN: Soft. EXTREMITIES: No edema. ASSESSMENT: Chronic obstructive pulmonary disease with exacerbation. PLAN: Continuing IV steroids, nebulization treatments, Singulair, and antibiotics. She has been very slow to respond and I think she will require several more days in the hospital. Job ID: [id number]
[2018-06-02] MEDS: Melatonin 3 MG TAB PO SCH (20:56)
[2018-06-02] MEDS: Insulin Glargine 22 UNITS in Pre-Filled Syringe 1 EACH SC SCH (20:56)
[2018-06-02] MEDS: Simvastatin 5 MG TAB PO SCH (20:57)
[2018-06-02] MEDS: Acetaminophen 325 MG TAB PO PRN (20:58)
[2018-06-03] MEDS: Albuterol Sulfate 1.25 MG/3 ML NEB NEB PRN (00:02)
[2018-06-03] MEDS: HumaLOG 300 UNITS/3 ML VIAL SC PRN ×4 (06:19→20:26)
[2018-06-03] MEDS: Arformoterol 15 MCG/2 ML NEB NEB SCH ×2 (07:04→18:42)
[2018-06-03] MEDS: Budesonide 0.5 MG/2 ML NEB INH SCH ×2 (07:04→18:44)
[2018-06-03 08:23] LABS: Anion Gap 15 mmol/L (10-20); BUN (Urea Nitrogen) 23 mg/dL (9.8-20.1); Calc. Creatinine Clearance 133 mL/min (70-130); Calcium 9.3 mg/dL (7.8-10.44); Carbon Dioxide 31 mmol/L (23-31); Chloride 100 mmol/L (98-107); Estimated GFR-MDRD Greater than 90; Glucose 166 mg/dL (80-115); Potassium 4.5 mmol/L (3.5-5.1); Sodium 141 mmol/L (136-145)
[2018-06-03 08:42] LABS: Band 11 % (5-11); Hemoglobin 15.6 g/dL (12.0-16.0); Lymphocytes 8 % (21-51); MDiff Complete? YES; Mean Corpuscular HGB CONC 33.3 g/dL (32.0-36.0); Mean Corpuscular Hemoglobin 31.1 pg (27.0-31.0); Mean Corpuscular Volume 93.3 fL (78.0-98.0); Monocytes 3 % (0-10); Neutrophil 78 % (42-75); Platelet Count 196 thou/uL (130-400); Red Blood Cell (RBC) Count 5.02 mill/uL (4.20-5.40); White Blood Cell (WBC) Count 19.4 thou/uL (4.8-10.8)
[2018-06-03] MEDS: Insulin Regular 300 UNITS/3 ML VIAL SC SCH ×3 (09:00→17:09)
[2018-06-03] MEDS: Famotidine 20 MG TAB PO SCH ×2 (09:01→20:22)
[2018-06-03] MEDS: Nystatin 500,000 UNITS/5 ML UDCUP SSW SCH ×4 (09:01→20:22)
[2018-06-03] MEDS: Montelukast Sodium 10 mg Tablet PO SCH (09:01)
[2018-06-03] MEDS: Pregabalin 75 MG CAP PO SCH ×2 (09:02→20:23)
[2018-06-03] MEDS: Enoxaparin Sodium 40 MG/0.4 ML SYRINGE SC SCH (09:03)
[2018-06-03] MEDS: Oxybutynin ER 5 MG TAB PO SCH (09:03)
[2018-06-03] MEDS: DULoxetine 60 MG CAP PO SCH (09:03)
[2018-06-03] MEDS: Multivitamin W/ Minerals 1 TAB PO SCH (09:03)
--- NOTE | 2018-06-03 11:21 | PDOC.PN ---
- Subjective Encounter Start Date: 06/03/18 Encounter Start Time: 09:00 Patient seen and examined. No new complaints. No overnight events - Objective Resuscitation Status - Order Detail: 05/27/18 14:05 Resuscitation Status Routine Resuscitation Status: FULL: Full Resuscitation MAR Reviewed: Yes Vital Signs & Weight: Vital Signs (12 hours) Temp Pulse Resp BP Pulse Ox 06/03/18 10:30 85 18 94 L 06/03/18 09:18 94 L 06/03/18 08:00 97.7 F 85 18 115/72 94 L 06/03/18 07:05 97 06/03/18 07:02 79 20 97 06/03/18 00:02 86 18 96 Weight Weight 178 lb 6.4 oz I&O: 06/02/18 06/03/18 06/04/18 06:59 06:59 06:59 Intake Total 275 1105 Balance 275 1105 Result Diagrams: 06/03/18 07:10 06/03/18 07:10 Additional Labs: Accuchecks 06/03/18 06/02/18 06/02/18 05:21 20:50 16:01 POC Glucose 202 H 229 H 268 H 06/02/18 12:28 POC Glucose 245 H Phys Exam - Physical Examination Constitutional: NAD HEENT: PERRLA, moist MMs, sclera anicteric Neck: no JVD, supple Respiratory: no rales, wheezing present Cardiovascular: RRR, no significant murmur, no rub Gastrointestinal: soft, non-tender, no distention, positive bowel sounds Musculoskeletal: no edema, pulses present Neurological: non-focal, normal sensation, moves all 4 limbs Lymphatic: no nodes Psychiatric: normal affect, A&O x 3 Skin: no rash, normal turgor Dx/Plan (1) Acute on chronic respiratory failure with hypoxia and hypercapnia Code(s): J96.21 - ACUTE AND CHRONIC RESPIRATORY FAILURE WITH HYPOXIA; J96.22 - ACUTE AND CHRONIC RESPIRATORY FAILURE WITH HYPERCAPNIA Status: Acute (2) COPD exacerbation Code(s): J44.1 - CHRONIC OBSTRUCTIVE PULMONARY DISEASE W (ACUTE) EXACERBATION Status: Acute (3) Adrenal adenoma Code(s): D35.00 - BENIGN NEOPLASM OF UNSPECIFIED ADRENAL GLAND Status: Chronic Qualifiers: Laterality: unspecified laterality Qualified Code(s): D35.00 - Benign neoplasm of unspecified adrenal gland (4) Anxiety and depression Code(s): F41.9 - ANXIETY DISORDER, UNSPECIFIED; F32.9 - MAJOR DEPRESSIVE DISORDER, SINGLE EPISODE, UNSPECIFIED Status: Chronic (5) DM type 2 (diabetes mellitus, type 2) Status: Chronic Qualifiers: Diabetes mellitus mcc insulin use: unspecified mcc insulin use status Diabetes mellitus complication status: without complication Qualified Code(s): E11.9 - Type 2 diabetes mellitus without complications (6) Dyslipidemia Code(s): E78.5 - HYPERLIPIDEMIA, UNSPECIFIED Status: Chronic (7) HTN (hypertension) Code(s): I10 - ESSENTIAL (PRIMARY) HYPERTENSION Status: Chronic Qualifiers: Hypertension type: essential hypertension Qualified Code(s): I10 - Essential (primary) hypertension (8) Obesity (BMI 30.0-34.9) Code(s): E66.9 - OBESITY, UNSPECIFIED Status: Chronic (9) Tobacco abuse Code(s): Z72.0 - TOBACCO USE Status: Chronic - Plan cont current plan of care, continue antibiotics, respiratory therapy * pt is still wheezing and she is not up her baseline * continue iv solumderol, and along with respiratory therapy * pulmonary following * medication reviewed as below * symptomatic treatment. Review of Systems - Review of Systems Constitutional: negative: fever, chills, sweats, weakness, malaise, other Eyes: negative: Pain, Vision Change, Conjunctivae Inflammation, Eyelid Inflammation, Redness, Other ENT: negative: Ear Pain, Ear Discharge, Nose Pain, Nose Discharge, Nose Congestion, Mouth Pain, Mouth Swelling, Throat Pain, Throat Swelling, Other Respiratory: Cough, Shortness of Breath, Wheezing. negative: Dry, Hemoptysis, SOB with Excertion, Pleuritic Pain, Sputum Cardiovascular: negative: chest pain, palpitations, orthopnea, paroxysmal nocturnal dyspnea, edema, light headedness, other Gastrointestinal: negative: Nausea, Vomiting, Abdominal Pain, Diarrhea, Constipation, Melena, Hematochezia, Other Genitourinary: negative: Dysuria, Frequency, Incontinence, Hematuria, Retention , Other Musculoskeletal: negative: Neck Pain, Shoulder Pain, Arm Pain, Back Pain, Hand Pain, Leg Pain, Foot Pain, Other - Medications/Allergies Allergies/Adverse Reactions: Allergies Allergy/AdvReac Type Severity Reaction Status Date / Time codeine Allergy Mild Verified 09/04/17 13:04 eucalyptus Allergy breathing Verified 09/04/17 13:04 problems hydrocodone Allergy Verified 09/04/17 13:04 tramadol Allergy Verified 09/04/17 13:04 Medications: Current Medications Acetaminophen (Tylenol) 650 mg PO Q4H PRN PRN Reason: Pain Last Admin: 06/02/18 20:58 Dose: 650 mg Albuterol Sulfate (Albuterol Sulfate) 2.5 mg NEB Q2H PRN PRN Reason: Wheezing Last Admin: 06/03/18 00:02 Dose: 2.5 mg Albuterol Sulfate (Proventil Hfa) 2 puff INH Q4H PRN PRN Reason: SOB &/or Wheezing Albuterol/Ipratropium (Duoneb) 3 ml IPPB [id number] Last Admin: 06/03/18 10:30 Dose: 3 ml Arformoterol Tartrate (Brovana) 15 mcg NEB BID-RT [facility] Last Admin: 06/03/18 07:04 Dose: 15 mcg Artificial Tears (Tears Naturale) 2 drop EA EYE PRN PRN PRN Reason: Dry Eyes Bisacodyl (Dulcolax) 10 mg [place] DAILYPRN PRN PRN Reason: Constipation Budesonide (Pulmicort Neb Solution) 0.5 mg INH BID-RT [facility] Last Admin: 06/03/18 07:04 Dose: 0.5 mg Dextrose/Water (Dextrose 50%) 25 gm SLOW IVP PRN PRN PRN Reason: Hypoglycemia Duloxetine HCl (Cymbalta) 60 mg PO DAILY [facility] Last Admin: 06/03/18 09:03 Dose: 60 mg Enoxaparin Sodium (Lovenox) 40 mg SC 0900 [facility] Last Admin: 06/03/18 09:03 Dose: 40 mg Famotidine (Pepcid) 20 mg PO BID [facility] Last Admin: 06/03/18 09:01 Dose: 20 mg Glucagon (Glucagon) 1 mg IM PRN PRN PRN Reason: Hypoglycemia Guaifenesin (Robitussin Sf) 200 mg PO Q4H PRN PRN Reason: Cough Hydralazine HCl (Apresoline) 10 mg SLOW IVP Q4H PRN PRN Reason: SBP > 180 and HR < 70 Dextrose/Water (D5w) 1,000 mls @ 0 mls/hr IV .Q0M PRN PRN Reason: Hypoglycemia Levofloxacin 500 mg/ Device 100 mls @ 100 mls/hr IVPB Q24HR [facility] Last Admin: 06/02/18 15:03 Dose: 100 mls Insulin Glargine 22 units/ (Miscellaneous Medication) 0.22 mls @ 0 mls/hr SC [facility] Last Admin: 06/02/18 20:56 Dose: 0.22 mls Insulin Human Lispro (Humalog) 0 units SC .MODERATE SLIDING SC PRN PRN Reason: Moderate Correctional Scale Last Admin: 06/03/18 06:19 Dose: 4 unit Insulin Human Regular (Humulin R) 5 units SC [facility] Last Admin: 06/03/18 09:00 Dose: 5 unit Iron/Minerals/Multivitamins (Theragran M) 1 tab PO DAILY [facility] Last Admin: 06/03/18 09:03 Dose: 1 tab Loperamide HCl (Imodium) 2 mg PO PRN PRN PRN Reason: Diarrhea/Loose Stools Loratadine (Claritin) 10 mg PO DAILYPRN PRN PRN Reason: Sinus Symptoms Melatonin (Melatonin) 6 mg PO [facility] Last Admin: 06/02/18 20:56 Dose: 6 mg Methylprednisolone Sodium Succinate (Solu-Medrol) 40 mg IVP Q6HR [facility] Last Admin: 06/03/18 06:19 Dose: 40 mg Mineral Oil/White Petrolatum (Eucerin Cream) 0 gm TOP BIDPRN PRN PRN Reason: Dry Skin Mirabegron (Myrbetriq Er) 50 mg PO DAILY [facility] Last Admin: 06/03/18 09:01 Dose: 50 mg Montelukast Sodium (Singulair) 10 mg PO QAM [facility] Last Admin: 06/03/18 09:01 Dose: 10 mg Nystatin (Mycostatin) 500,000 units SSW QID [facility] Last Admin: 06/03/18 09:01 Dose: 500,000 units Ondansetron HCl (Zofran Odt) 4 mg PO Q6H PRN PRN Reason: Nausea/Vomiting Ondansetron HCl (Zofran) 4 mg IVP Q6H PRN PRN Reason: Nausea/Vomiting Oxybutynin Chloride (Ditropan Xl) 10 mg PO DAILY [facility] Last Admin: 06/03/18 09:03 Dose: 10 mg Jardiance ( Empagliflozin) 10 Mg Tablet 0 each PO DAILY [facility] Last Admin: 06/03/18 09:11 Dose: 1 each [Bydureon Pen] 2 Mg 0 each SC Q7D [facility] Pregabalin (Lyrica) 300 mg PO BID [facility] Last Admin: 06/03/18 09:02 Dose: 300 mg Senna/Docusate Sodium (Senokot S) 2 tab PO BID PRN PRN Reason: Constipation Simvastatin (Zocor) 10 mg PO HS [facility] Last Admin: 06/02/18 20:57 Dose: 10 mg Sodium Chloride (Flush - Normal Saline) 10 ml IVF Q12HR [facility] Last Admin: 06/03/18 09:04 Dose: 10 ml Sodium Chloride (Flush - Normal Saline) 10 ml IVF PRN PRN PRN Reason: Saline Flush Sodium Chloride ([place] Nasal [place] 0.65%) 0 ml EA NARE QIDPRN PRN PRN Reason: Nasal Congestion Throat Lozenges (Cepastat Lozenges) 1 dannielle PO Q2H PRN PRN Reason: Sore Throat
[2018-06-03] MEDS: Acetaminophen 325 MG TAB PO PRN ×2 (11:56→20:24)
--- NOTE | 2018-06-03 12:48 | PRG ---
DATE OF SERVICE: 06/03/2018 SUBJECTIVE: Four attempts were made to see the patient in the room and she was absent on each of these attempts. I am told by the nursing staff that she has been out smoking. I have reviewed the hospitalist note on the chart. She is here with a COPD exacerbation, which has improved probably about as much as it is going to. My recommendation will be switch her over to oral steroids and send her home since she will stop smoking. Job ID: [id number]
[2018-06-03] MEDS: Simvastatin 5 MG TAB PO SCH (20:22)
[2018-06-03] MEDS: Melatonin 3 MG TAB PO SCH (20:22)
[2018-06-03] MEDS: Insulin Glargine 22 UNITS in Pre-Filled Syringe 1 EACH SC SCH (20:26)
[2018-06-04] MEDS: Acetaminophen 325 MG TAB PO PRN (00:14)
[2018-06-04] MEDS: HumaLOG 300 UNITS/3 ML VIAL SC PRN ×2 (05:25→11:18)
[2018-06-04] MEDS: Budesonide 0.5 MG/2 ML NEB INH SCH (07:20)
[2018-06-04] MEDS: Arformoterol 15 MCG/2 ML NEB NEB SCH (07:24)
[2018-06-04] MEDS: Pregabalin 75 MG CAP PO SCH (08:41)
[2018-06-04] MEDS: DULoxetine 60 MG CAP PO SCH (08:43)
[2018-06-04] MEDS: Multivitamin W/ Minerals 1 TAB PO SCH (08:43)
[2018-06-04] MEDS: Famotidine 20 MG TAB PO SCH (08:43)
[2018-06-04] MEDS: Oxybutynin ER 5 MG TAB PO SCH (08:43)
[2018-06-04] MEDS: Enoxaparin Sodium 40 MG/0.4 ML SYRINGE SC SCH (08:44)
[2018-06-04] MEDS: Montelukast Sodium 10 mg Tablet PO SCH (08:44)
[2018-06-04] MEDS: Nystatin 500,000 UNITS/5 ML UDCUP SSW SCH (08:44)
[2018-06-04] MEDS: Insulin Regular 300 UNITS/3 ML VIAL SC SCH ×2 (08:45→11:12)
--- NOTE | 2018-06-04 09:18 | PRG ---
DATE OF SERVICE: 06/04/2018 SUBJECTIVE: The patient feels better, wants to go home. OBJECTIVE: VITAL SIGNS: On exam, temperature 98.3, pulse 87, respirations 18, O2 saturation is 95% 2 L, and blood pressure 121/75. HEENT: Unremarkable. NECK: No JVD. CHEST: Clear without wheezing today. CARDIAC: S1 and S2. Regular. ABDOMEN: Soft. EXTREMITIES: No edema. LABORATORY DATA: No new labs were done today. ASSESSMENT: 1. Chronic obstructive pulmonary disease with exacerbation. 2. Tobacco abuse. PLAN: 1. She can go home. I would put her on prednisone 20 mg twice daily for 7 days, then once daily for 7 days, and then stop. 2. Complete 7 full days of Levaquin between hospital and home if she has not finished that already. 3. Continue nebulization treatments and Breo at home. 4. She has been told not to smoke. Job ID: [id number]
[2018-06-04 11:33] VITALS: BP 112/59; TEMP 98
--- NOTE | 2018-06-04 12:09 | DIS ---
DATE OF ADMISSION: 05/27/2018 DATE OF DISCHARGE: 06/04/2018 PRIMARY CARE PHYSICIAN: [facility] Call admission. DISCHARGE DISPOSITION: Home. PRIMARY DISCHARGE DIAGNOSES: 1. Acute on chronic respiratory failure with hypoxia and hypercapnia. 2. Chronic obstructive pulmonary disease exacerbation. SECONDARY DISCHARGE DIAGNOSES: 1. Tobacco abuse disorder. 2. Obesity with BMI 31. 3. Hypertension. 4. Dyslipidemia. 5. Diabetes, type 2. 6. Anxiety and depression. 7. Adrenal adenoma. 8. Chronic obstructive pulmonary disease. 9. Chronic respiratory failure with hypoxia. PRIMARY PROCEDURE/OPERATION: None. RADIOLOGICAL INVESTIGATION: Chest x-ray was showing COPD changes. SIGNIFICANT LABORATORY DATA: WBC 19.4, hemoglobin 15.6, and platelets 196. The pCO2 of 68.6. Sodium 141, potassium 4.5, BUN 23, creatinine 0.56, and calcium 9.3. Urinalysis normal. Blood culture negative. Influenza negative. Sputum culture negative. DISCHARGE MEDICATIONS: 1. ProAir HFA 2 puffs q.4 hourly p.r.n. 2. Cymbalta 60 mg daily. 3. Empagliflozin 10 mg daily. 4. Exenatide 2 mg subcu every 7 days. 5. Breo Ellipta one inhalation daily. 6. Lantus 22 units subcu at bedtime. 7. Metformin 500 mg daily. 8. Mirabegron 50 mg daily. 9. Singulair 10 mg daily. 10. Multivitamin one tablet daily. 11. Omeprazole 40 mg daily. 12. Ditropan XL 10 mg daily. 13. Pravastatin 20 mg daily. 14. Lyrica 300 mg b.i.d. 15. Albuterol sulfate nebulization q.2 hourly p.r.n. 16. DuoNeb q.6 hourly. 17. Levaquin 500 mg p.o. daily for 7 days. 18. Prednisone 20 mg p.o. b.i.d. for 7 days, then 20 mg daily for 7 days. CONTRAINDICATION: None. CODE STATUS: Full code. INPATIENT SALVAGE ENGINEER: Dr. Narvaez was following while in hospital. TEST RESULTS PENDING ON DISCHARGE: None. ALLERGIES: CODEINE, HYDROCODONE, AND TRAMADOL. DISCHARGE PLAN: Post hospital, the patient will follow up with Dr. Narvaez as instructed and primary care physician in 1 week. HOSPITAL COURSE: A 62-year-old female with above-mentioned medical problem, who was admitted by Dr. Anne. Please see his H and P for further detail. The patient was admitted for COPD exacerbation. Her chest x-ray was unremarkable. She was having acute on chronic respiratory failure with hypoxia and hypercapnia. During this admission, the patient was evaluated by [facility]. The patient required hospitalization for several days to make her stabilized with optimal COPD treatment. By the time of discharge, the patient was up to her baseline. She was ambulatory while in hospital. She was given Solu-Medrol, DuoNeb, Levaquin, Pulmicort nebulization, and Brovana nebulization. On discharge, she will continue all her previous medication. Today, Dr. Narvaez evaluated this patient, and he cleared this patient for discharge. PHYSICAL EXAMINATION: I have seen this patient at bedside and examined. VITAL SIGNS: Currently, temperature 98.0, pulse 87, respiratory rate 18, saturation 100% on 2 L, blood pressure 112/59, and weight 178 pounds. GENERAL: The patient is currently alert and awake, no obvious acute distress. HEENT: Head; normocephalic, atraumatic. LUNGS: Her lung examination is clear without any rhonchi or rales. CARDIAC: S1 and S2 regular without any murmur. ABDOMEN: Soft and benign. EXTREMITIES: No edema. NEUROLOGIC: Nonfocal examination. Overall, the patient is medically stable for discharge today. Job ID: [id number]
== END 2018-06-04 13:26 | disposition home or self-care (01) | DRG 189 ==
LOC: ERS 11:33 → ERHOLD 13:30 → IMCU/EMU 17:10 → T4-B 05-28 18:40
PROVIDERS: ADMIT Internal Medicine; ATTEND Internal Medicine
DX: J96.21 Acute and chronic respiratory failure with hypoxia (principal); J44.1 Chronic obstructive pulmonary disease with (acute) exacerbation; E87.2 Acidosis; J96.22 Acute and chronic respiratory failure with hypercapnia; I10 Essential (primary) hypertension; F17.210 Nicotine dependence, cigarettes, uncomplicated; E11.9 Type 2 diabetes mellitus without complications; F41.9 Anxiety disorder, unspecified; F32.9 Major depressive disorder, single episode, unspecified; E78.5 Hyperlipidemia, unspecified; D35.00 Benign neoplasm of unspecified adrenal gland; E66.9 Obesity, unspecified; Z68.31 Body mass index [BMI] 31.0-31.9, adult; Z88.5 Allergy status to narcotic agent; Z79.4 Long term (current) use of insulin; Z79.899 Other long term (current) drug therapy
CPT/HCPCS: 36415; 36416; 71045; 80048; 80053; 81003; 82550; 82805; 83605; 83690; 83880; 84484; 85025; 87040; 87070; 87205; 87804; 93005; 94640; 94644; 94660; 96365; 96366; 96367; 96375; J1100; J1650; J1815; J1956; J2920; J7506; J7611; J7620; J7626

== ENCOUNTER 2018-07-13 23:12 | Emergency (ER) | payer MEDICARE, BC, OTHER ==
--- NOTE | 2018-07-13 23:47 | RAD ---
PORTABLE CHEST ONE VIEW: 07/13/18 at 11:39 p.m. HISTORY: Dyspnea, low oxygen saturation. FINDINGS/IMPRESSION: Comparison is made with exam of 05/27/18. The heart size is borderline. The lungs are well expanded with stable prominence of the interstitial markings. No lobar consolidation, pneumothoraces or large effusions are seen. POS: [facility]
[2018-07-14] MEDS ORDERED: Albuterol Sulfate 2.5 mg/3 ml Neb ONE ×2 (00:23→01:42)
[2018-07-14] MEDS ORDERED: predniSONE 20 MG TAB ONE (00:38)
== END 2018-07-14 02:18 | disposition home or self-care (01) ==
LOC: ERS 23:12
DX: J44.1 Chronic obstructive pulmonary disease with (acute) exacerbation (principal); E11.40 Type 2 diabetes mellitus with diabetic neuropathy, unspecified; I10 Essential (primary) hypertension; F41.9 Anxiety disorder, unspecified; F32.9 Major depressive disorder, single episode, unspecified; Z87.891 Personal history of nicotine dependence
CPT/HCPCS: 71045; 94640; J7611; J7620

== ENCOUNTER 2018-08-01 13:39 | Outpatient (CLI) | payer MEDICARE, BC, OTHER ==
--- NOTE | 2018-08-01 16:31 | MRI ---
MRI LEFT KNEE WITHOUT CONTRAST: HISTORY: Knee pain, M25.562. COMPARISON: 05/17/2018 FINDINGS: MEDIAL MENISCUS: Intact. LATERAL MENISCUS: Intact. PCL/ACL/LCL/MCL: Intact. EXTENSOR MECHANISM: The quadriceps tendon, the patella, and the patellar tendon are intact. CARTILAGE: PATELLOFEMORAL COMPARTMENT: There is some chondral delamination along the patellar apex, approximate ly 50% thickness. Mild chondral fraying of the central trochlea without full-thickness defect. MEDIAL COMPARTMENT: There is some mild chondral fraying of the central weight-bearing surfaces witho ut full-thickness defect. LATERAL COMPARTMENT: Intact. BONES: There is a subcortical fracture of the posterolateral submeniscal tibial plateau with moderat e adjacent edema. The meniscus is intact. MUSCLES: Mild muscle atrophy. IMPRESSION: Subcortical insufficiency fracture, posterolateral tibial plateau, which is submeniscal, without darling cular surface extension. Overlying meniscus is intact. POS: [facility]
== END 2018-08-01 13:40 | disposition home or self-care (01) ==
LOC: BICMRI 13:39
PROVIDERS: ATTEND Orthopaedic Surgery
DX: M25.562 Pain in left knee (principal); M84.462A Pathological fracture, left tibia, initial encounter for fracture

== ENCOUNTER 2018-08-22 21:04 | Emergency (ER) | payer MEDICARE, BC, OTHER ==
[2018-08-22 21:27] LABS: #Basophils 0.1 thou/uL (0.0-0.2); #Eosinphils 0.1 thou/uL (0.0-0.7); #Lymphocytes 2.6 thou/uL (1.20-3.40); #Monocytes 0.8 thou/uL (0.11-0.59); #Neutrophils 8.3 thou/uL (1.40-6.50); %Basophils 0.8 % (0.0-1.0); %Eosinophils 1.3 % (0.0-10.0); %Lymphocytes 21.5 % (21.0-51.0); %Monocytes 6.7 % (0.0-10.0); %Neutrophils 69.7 % (42.0-75.0); Hemoglobin 18.3 g/dL (12.0-16.0); Mean Corpuscular HGB CONC 32.3 g/dL (32.0-36.0); Mean Corpuscular Hemoglobin 30.9 pg (27.0-31.0); Mean Corpuscular Volume 95.7 fL (78.0-98.0); Mean Platelet Volume 10.2 fL (7.4-10.4); Platelet Count 182 thou/uL (130-400); RBC Distribution Width 13.4 % (11.5-14.5); Red Blood Cell (RBC) Count 5.92 mill/uL (4.20-5.40); White Blood Cell (WBC) Count 11.8 thou/uL (4.8-10.8)
[2018-08-22 21:57] LABS: ALT (SGPT) 27 U/L (8-55); AST (SGOT) 32 U/L (5-34); Albumin 3.9 g/dL (3.4-4.8); Alkaline Phosphatase 187 U/L (40-150); Anion Gap 18 mmol/L (10-20); BUN (Urea Nitrogen) 15 mg/dL (9.8-20.1); Bilirubin, Total 0.5 mg/dL (0.2-1.2); Calc. Creatinine Clearance 0 mL/min (70-130); Calcium 9.8 mg/dL (7.8-10.44); Carbon Dioxide 27 mmol/L (23-31); Chloride 98 mmol/L (98-107); Estimated GFR-MDRD 86; Glucose 255 mg/dL (80-115); Potassium 3.8 mmol/L (3.5-5.1); Protein, Total 6.9 g/dL (6.0-8.3); Sodium 139 mmol/L (136-145)
[2018-08-22] MEDS ORDERED: Acetaminophen 500 MG TAB ONE (22:04)
--- NOTE | 2018-08-22 22:40 | RAD ---
AP PELVIS ONE VIEW: 08/22/18 HISTORY: Fall. Pelvic injury. FINDINGS: Sacral alae and pelvic rings are intact. Mild degenerative changes of the sacroiliac joints. No acute fracture or dislocation are apparent. IMPRESSION: No acute osseous abnormalities are demonstrated. POS: [facility]
--- NOTE | 2018-08-22 22:42 | RAD ---
LEFT RIBS THREE VIEWS CHEST ONE VIEW 08/22/18 HISTORY: Fall. Chest injury. FINDINGS: No displaced rib fracture or pneumothorax are apparent. The cardiac silhouette is unremarkable. Pulmo nary vasculature upper limits of normal. Mediastinum is midline. No lobar consolidation. IMPRESSION: No significant abnormalities are demonstrated. POS: [facility]
== END 2018-08-22 23:48 | disposition home or self-care (01) ==
LOC: ERS 21:04
DX: T14.8XXA Other injury of unspecified body region, initial encounter (principal); D75.1 Secondary polycythemia; F41.9 Anxiety disorder, unspecified; F32.9 Major depressive disorder, single episode, unspecified; I10 Essential (primary) hypertension; E11.40 Type 2 diabetes mellitus with diabetic neuropathy, unspecified; Z87.891 Personal history of nicotine dependence; Z71.6 Tobacco abuse counseling; Z79.899 Other long term (current) drug therapy; Z79.4 Long term (current) use of insulin; W19.XXXA Unspecified fall, initial encounter
CPT/HCPCS: 36415; 72170; 80053; 85025; 99406

== ENCOUNTER 2018-12-01 17:09 | Inpatient (IN) | payer MEDICARE, BC, OTHER ==
[2018-12-01] MEDS ORDERED: predniSONE 20 MG TAB ONE (17:46)
--- NOTE | 2018-12-01 17:54 | RAD ---
Exam: Chest one view HISTORY:Shortness of breath. Comparison: 07/13/2018 FINDINGS: Cardiac silhouette:Cardiomegaly. Pulmonary vessels: Prominent Costophrenic angles: Clear LUNGS: Diffuse interstitial and alveolar opacities. Hyperinflation Pneumothorax: None Osseous abnormalities: None IMPRESSION: Diffuse interstitial and alveolar opacities. Correlate for edema versus infiltrate.
--- NOTE | 2018-12-01 17:57 | RAD ---
Exam:Left hip 2 views HISTORY: Nontraumatic pain COMPARISON: 12/05/2015 FINDINGS: Joint space preserved. Contour of the femoral head is maintained. No fracture. IMPRESSION: Unremarkable 2 views left hip.
[2018-12-01] MEDS ORDERED: Magnesium 2 GM/50 ML BAG (IN WATER) ONE (18:00)
[2018-12-01 18:01] LABS: #Basophils 0.1 thou/uL (0.0-0.2); #Eosinphils 0.1 thou/uL (0.0-0.7); #Lymphocytes 1.6 thou/uL (1.20-3.40); #Monocytes 0.6 thou/uL (0.11-0.59); #Neutrophils 5.4 thou/uL (1.40-6.50); %Basophils 0.7 % (0.0-1.0); %Eosinophils 1.2 % (0.0-10.0); %Lymphocytes 20.9 % (21.0-51.0); %Monocytes 8.1 % (0.0-10.0); %Neutrophils 69.2 % (42.0-75.0); Hemoglobin 15.7 g/dL (12.0-16.0); Mean Corpuscular HGB CONC 30.1 g/dL (32.0-36.0); Mean Corpuscular Hemoglobin 26.7 pg (27.0-31.0); Mean Corpuscular Volume 88.7 fL (78.0-98.0); Mean Platelet Volume 10.1 fL (7.4-10.4); Platelet Count 160 thou/uL (130-400); RBC Distribution Width 16.1 % (11.5-14.5); Red Blood Cell (RBC) Count 5.88 mill/uL (4.20-5.40); White Blood Cell (WBC) Count 7.8 thou/uL (4.8-10.8)
[2018-12-01 18:23] LABS: ALT (SGPT) 16 U/L (8-55); AST (SGOT) 19 U/L (5-34); Albumin 3.8 g/dL (3.4-4.8); Alkaline Phosphatase 145 U/L (40-150); Anion Gap 13 mmol/L (10-20); BUN (Urea Nitrogen) 11 mg/dL (9.8-20.1); Bilirubin, Total 0.7 mg/dL (0.2-1.2); Calc. Creatinine Clearance 0 mL/min (70-130); Calcium 8.9 mg/dL (7.8-10.44); Carbon Dioxide 34 mmol/L (23-31); Chloride 99 mmol/L (98-107); Estimated GFR-MDRD Greater than 90; Globulin 2.6 g/dL (2.4-3.5); Glucose 144 mg/dL (80-115); Potassium 4.1 mmol/L (3.5-5.1); Protein, Total 6.4 g/dL (6.0-8.3); Sodium 142 mmol/L (136-145)
[2018-12-01 19:06] LABS: CO2 Tension 69.4 mmHg (35.0-45.0)
[2018-12-01 19:07] LABS: Actual Bicarbonate (HCO3a) 41.7 mEq/L (22-28); Calcium, Ionized 1.16 mmol/L (1.12-1.30); Carboxyhemoglobin (COHb) 4.5 gm% (0.0-3.0); Hemoglobin (Hb) 16.4 g/dL (12.0-16.0); Potassium - ABG Lab 3.94 mmol/L (3.70-5.30)
[2018-12-01 19:08] LABS: Analyzer IN Cardio ER; Puncture Site LBA
[2018-12-01] MEDS ORDERED: cefTRIAXone\\ROCEPHIN 2 GM VIAL ONE (19:17)
[2018-12-01] MEDS ORDERED: Azithromycin 500 MG VIAL ONE (19:57)
[2018-12-01] MEDS ORDERED: Acetaminophen 500 MG TAB ONE (20:20)
[2018-12-01] MEDS ORDERED: Ondansetron ODT 4 MG TAB ONE (20:20)
[2018-12-01] MEDS ORDERED: Ketorolac Tromethamine 30 MG/ML VIAL ONE (20:21)
[2018-12-01] MEDS ORDERED: Acetaminophen 325 MG TAB PO PRN (22:54)
[2018-12-01 23:14] VITALS: BMI 25.9
[2018-12-01] MEDS ORDERED: Morphine 2 MG/ML SYRINGE SLOW IVP SCH (23:59)
[2018-12-02] MEDS ORDERED: Acetaminophen 325 MG TAB PO PRN (03:45)
[2018-12-02] MEDS ORDERED: Calcium Carbonate 500 MG ChewTAB PO PRN (03:45)
[2018-12-02] MEDS ORDERED: Bisacodyl 10 MG SUPP PR PRN (03:45)
[2018-12-02] MEDS ORDERED: Dextrose 50% Abboject 50 ML SYRINGE SLOW IVP PRN (03:50)
[2018-12-02] MEDS ORDERED: Dextrose 5% in Water 1,000 ML IV PRN (03:50)
[2018-12-02] MEDS ORDERED: Insulin Regular 300 UNITS/3 ML VIAL SC PRN (03:50)
[2018-12-02] MEDS ORDERED: cloNIDine 0.1 MG TAB PO PRN (03:51)
[2018-12-02] MEDS ORDERED: methylPREDNISolone Sod Succ 40 MG VIAL IVP SCH (04:00)
--- NOTE | 2018-12-02 04:06 | HP ---
PRIMARY CARE: Dr. Ibarra. PRIMARY [place] [facility]: Dr. Narvaez. CHIEF COMPLAINT: Shortness of breath. HISTORY OF PRESENT ILLNESS: The patient is a 62-year-old female with COPD and chronic hypoxic and hypercapnic respiratory failure, on home oxygen, presented to the hospital with worsening shortness of breath of 1-week duration. The shortness of breath got worse over the last 24 hours. She also had cough, which was essentially nonproductive. She felt generally weak and fatigue as well. No fever or chills reported. The shortness of breath was worse on minimal exertion. No orthopnea, leg swelling, or sick contacts reported. PAST MEDICAL HISTORY: 1. COPD. 2. Chronic hypoxic and hypercapnic respiratory failure, on home oxygen. 3. Tobacco dependence. 4. Hypertension. 5. Dyslipidemia. 6. Diabetes mellitus type 2. 7. Anxiety and depression. 8. History of adrenal adenoma. PAST SURGICAL HISTORY: 1. Bilateral tubal ligation. 2. Hysterectomy. 3. Cholecystectomy. 4. Shoulder surgery. 5. Bilateral hand surgery. ALLERGIES: THE PATIENT IS ALLERGIC TO CODEINE, HYDROCODONE, AND TRAMADOL. CURRENT HOME MEDICATIONS: 1. Aspirin 81 mg daily. 2. Cymbalta 120 mg daily. 3. Jardiance 10 mg daily. 4. Breo Ellipta 200/25 daily. 5. Losartan hydrochlorothiazide as directed. 6. Mirabegron 50 mg daily. 7. Multivitamin one tablet daily. 8. Omeprazole 40 mg daily. 9. Pravastatin 20 mg at bedtime. 10. Lyrica 300 mg b.i.d. 11. Tolterodine 4 mg daily. 12. Incruse Ellipta 62.5 mcg daily. SOCIAL HISTORY: The patient currently lives at home with her family. She continues to smoke on and off. She drinks alcohol socially. She is full code. FAMILY HISTORY: Diabetes and COPD in her mother. Father with liver cancer. REVIEW OF SYSTEMS: The patient denies any chest pain, palpitations, syncope, or focal neurologic deficit. The patient has a history of chronic left hip pain that also got worse recently. She denies any recent injuries. No focal neurologic deficit reported. All other review of systems was reviewed and was found negative. PHYSICAL EXAMINATION: VITAL SIGNS: Temperature 98.5, respirations of 18, pulse rate of 82, blood pressure 172/89, with O2 saturation 77% on room air. GENERAL: A 62-year-old female, in mild respiratory distress, able to complete short phrases. HEENT: Head, atraumatic and normocephalic. Sclerae anicteric. Moist mucous membrane. NECK: Supple. No JVD. No carotid bruit. LUNGS: Showed scattered wheezing and rhonchi. Minimal bibasilar rales. No significant accessory muscle use. HEART: S1 and S2 present. Regular rate and rhythm. No rubs or gallops. ABDOMEN: Soft, nontender. Bowel sounds present. EXTREMITIES: No edema or calf tenderness. NEUROLOGICAL: Grossly nonfocal. Moves all 4 extremities. PSYCHIATRIC: Alert, awake, oriented x3. SKIN: Warm and dry. LYMPH NODES: No palpable lymph nodes in the neck. PERIPHERAL VASCULAR: Radial pulses palpable bilaterally. MUSCULOSKELETAL: No joint swelling tenderness. There is reproducible pain to the left hip with active and passive range of motion. LABORATORY FINDINGS: WBC 7.8, hemoglobin 15.7, hematocrit 52.1, platelets 160. ABG showed pH 7.40, pCO2 69.4, pO2 60, bicarbonate 41.7 on 2 L nasal cannula. Chemistry showed sodium 142, potassium 4.1, chloride 99, bicarb 34, BUN 11, creatinine 0.5. Troponin was negative. Chest x-ray by my review showed diffuse interstitial and alveolar opacities. Left hip x-ray, by my review was negative for acute findings. IMPRESSION: 1. Acute hypoxic and hypercapnic respiratory failure secondary to chronic obstructive pulmonary disease exacerbation. 2. Suspected pneumonia, questionable pneumococcal. 3. Former smoker. 4. Hypertension. 5. Diabetes mellitus type 2. 6. Dyslipidemia. 7. Anxiety. 8. Depression, mild, stable. 9. History of adrenal adenoma. 10. Codeine allergy. PLAN: The patient will be monitored on the medical floor. We will continue nebulizer treatment every 4 hourly. We will start her on IV steroids along with cefepime and azithromycin. We will consult Dr. Zamora. Evaristo labs. Vital signs every 4 hourly. We will resume all of her home medications. Insulin sliding scale. DVT prophylaxis with Lovenox. Continue PPIs. Consult Physical Therapy for left hip pain. Tylenol p.r.n. for pain. The patient is allergic to tramadol and codeine. Plan was discussed with the patient in detail. She stated understanding. Job ID: [id number]
[2018-12-02] MEDS: Cefepime 1 GM in Sodium Chloride 0.9% 100 ML IVPB SCH ×2 (04:42→16:44)
[2018-12-02] MEDS: Insulin Regular 300 UNITS/3 ML VIAL SC PRN ×3 (06:00→16:45)
[2018-12-02] MEDS: Mometasone/Formoterol 120 PUFF INHALER INH SCH ×2 (06:21→19:08)
[2018-12-02] MEDS: Aspirin 81 mg Enteric Coated Tablet PO SCH (08:35)
[2018-12-02] MEDS: Saccharomyces boulardii 250 MG CAP PO SCH (08:35)
[2018-12-02] MEDS: Trospium 20 MG TAB PO SCH ×2 (08:35→20:08)
[2018-12-02] MEDS: Pregabalin 75 MG CAP PO SCH ×2 (08:35→20:06)
[2018-12-02] MEDS: DULoxetine 60 MG CAP PO SCH (08:35)
[2018-12-02] MEDS: Multivitamin W/ Minerals 1 TAB PO SCH (08:36)
[2018-12-02] MEDS: Enoxaparin Sodium 40 MG/0.4 ML SYRINGE SC SCH (08:36)
[2018-12-02] MEDS: Senokot S 8.6-50 MG TAB PO SCH ×2 (08:36→20:07)
[2018-12-02] MEDS ORDERED: Non-Formulary Item 1 EACH (Umeclidinium Bromide [Incruse Ellipta] 1 INH) IH SCH (09:00)
[2018-12-02] MEDS: EMPAGLIFLOZIN 10 MG PO SCH (11:50)
[2018-12-02] MEDS: methylPREDNISolone Sod Succ 40 MG VIAL IVP SCH ×2 (13:00→21:16)
--- NOTE | 2018-12-02 14:31 | CON ---
DATE OF CONSULTATION: HISTORY OF PRESENT ILLNESS: Keanu is a 62-year-old female, followed by Dr. Narvaez. She presented with complaints of shortness of breath for 3 to 4 days, subsequently was admitted. She has had no fever, chills, sweats, purulent sputum, or hemoptysis. She denies chest pain. PAST MEDICAL HISTORY: Remarkable for, 1. COPD on oxygen at home. 2. History of hypertension. 3. Lipid disorder. 4. Diabetes. 5. History of adrenal adenoma. 6. History of BTL. 7. Status post hysterectomy. 8. History of cholecystectomy. 9. History of shoulder surgery. 10. History of hand surgery bilaterally. ALLERGIES: SHE REPORTS CODEINE, HYDROCODONE, AND TRAMADOL INTOLERANCE. MEDICATIONS: Prior to admission, she was on, 1. Aspirin. 2. Cymbalta. 3. Jardiance. 4. Breo. 5. Losartan. 6. Mirabegron. 7. Omeprazole. 8. Pravastatin. 9. Lyrica. 10. Tolterodine. 11. Incruse. SOCIAL HISTORY: Unfortunately she continues to smoke. She is not drinking. She has no drug use. FAMILY HISTORY: Positive for vascular disease and diabetes. The father had liver cancer. There is COPD in her mother. There is no history of lung disease in her early age. REVIEW OF SYSTEMS: Ten-point review of systems are otherwise negative. PHYSICAL EXAMINATION: VITAL SIGNS: She is afebrile. Heart rate is 95, respiratory rate is 20, oximetry is 92% on 3 L, blood pressure is 122/62. GENERAL: She is in no distress. She is able to converse in complete sentences, although she had trouble concentrating about recent events when I awakened her from sleep. HEENT: Her pupils are equal. Sclerae are anicteric. NECK: Supple. No lymphadenopathy. LUNGS: Distant clear. HEART: Regular rhythm. S1 and S2 are normal. ABDOMEN: Soft and nontender. EXTREMITIES: Without clubbing, cyanosis, or edema. NEUROLOGIC: Nonfocal. IMAGING STUDIES: Chest radiograph with no infiltrates. IMPRESSION: Chronic obstructive pulmonary disease exacerbation. LABORATORY DATA: Lab was reviewed. Her CBC was normal. Her bicarb was elevated as expected, likely secondary to chronic CO2 retention. She had a blood gas done showed pH of 7.4, CO2 of 69, pO2 of 60. IMPRESSION: 1. Chronic respiratory failure with hypoxia and hypercarbia with acute decompensation. 2. Chronic obstructive pulmonary disease exacerbation. 3. Ongoing tobacco use. 4. Diabetes. PLAN: Continue supportive care. Can probably transition to p.o. medications tomorrow and go home the day after. Job ID: [id number]
[2018-12-02] MEDS: Morphine 2 MG/ML SYRINGE SLOW IVP PRN (18:19)
--- NOTE | 2018-12-02 19:16 | PDOC.PN ---
- Subjective Encounter Start Date: 12/02/18 Encounter Start Time: 09:00 Pt seen for followup re: acute on chronic respiratory failure. Says she feels slightly better. - Objective Resuscitation Status - Order Detail: 12/02/18 03:45 Resuscitation Status Routine Resuscitation Status: FULL: Full Resuscitation MAR Reviewed: Yes Vital Signs & Weight: Vital Signs (12 hours) Temp Pulse Resp BP Pulse Ox 12/02/18 19:09 102 H 16 94 L 12/02/18 16:00 98.4 F 102 H 18 104/64 94 L 12/02/18 12:00 98.6 F 104 H 104 H 126/65 12/02/18 10:53 109 H 16 97 12/02/18 08:00 98.5 F 95 20 122/62 92 L Weight Admit Weight 156 lb Weight 156 lb I&O: 12/01/18 12/02/18 12/03/18 06:59 06:59 06:59 Intake Total 560 Balance 560 Result Diagrams: 12/01/18 17:50 12/01/18 17:50 Additional Labs: Accuchecks 12/02/18 12/02/18 12/02/18 15:48 11:46 04:50 POC Glucose 332 H 271 H 179 H 12/01/18 23:35 POC Glucose 156 H Labs reviewed by me Phys Exam - Physical Examination Constitutional: NAD HEENT: moist MMs, sclera anicteric, oral pharynx no lesions, 2+ tonsils Neck: no nodes, no JVD, supple, full ROM Respiratory: wheezing present Cardiovascular: RRR, no rub S1, S2 Gastrointestinal: soft, non-tender, no distention, positive bowel sounds Neurological: moves all 4 limbs Psychiatric: normal affect Dx/Plan (1) Acute on chronic respiratory failure with hypoxia and hypercapnia Code(s): J96.21 - ACUTE AND CHRONIC RESPIRATORY FAILURE WITH HYPOXIA; J96.22 - ACUTE AND CHRONIC RESPIRATORY FAILURE WITH HYPERCAPNIA Status: Acute Comment : secondary to COPD exacerbation, improving (2) COPD exacerbation Code(s): J44.1 - CHRONIC OBSTRUCTIVE PULMONARY DISEASE W (ACUTE) EXACERBATION Status: Acute Comment: continue oxygen, steroids, bronchodilators and antibiotics (cefepime and azithromycin) (3) DM type 2 (diabetes mellitus, type 2) Status: Chronic 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 Review of Systems - Review of Systems Constitutional: negative: fever, chills, sweats, weakness, malaise Respiratory: Cough, Dry, SOB with Excertion, Wheezing Cardiovascular: negative: chest pain, palpitations, orthopnea, paroxysmal nocturnal dyspnea, edema, light headedness Gastrointestinal: Other. negative: Nausea, Vomiting, Abdominal Pain, Diarrhea, Constipation, Melena, Hematochezia Genitourinary: negative: Dysuria, Frequency, Incontinence, Hematuria, Retention Musculoskeletal: Other (left hip pain). negative: Neck Pain, Shoulder Pain, Arm Pain, Back Pain, Hand Pain, Leg Pain, Foot Pain - Medications/Allergies Allergies/Adverse Reactions: Allergies Allergy/AdvReac Type Severity Reaction Status Date / Time codeine Allergy Mild Verified 12/01/18 23:07 eucalyptus Allergy breathing Verified 12/01/18 23:07 problems hydrocodone Allergy Verified 12/01/18 23:07 tramadol Allergy Verified 12/01/18 23:07 Medications: Current Medications Acetaminophen (Tylenol) 650 mg PO Q4H PRN PRN Reason: Headache/Fever/Mild Pain (1-3) Last Admin: 12/02/18 17:36 Dose: 650 mg Albuterol/Ipratropium (Duoneb) 3 ml NEB [id number] [facility] Last Admin: 12/02/18 19:09 Dose: 3 ml Albuterol/Ipratropium (Duoneb) 3 ml NEB Q2H PRN PRN Reason: Sob &/Or Wheezing Aspirin (Ecotrin) 81 mg PO DAILY [facility] Last Admin: 12/02/18 08:35 Dose: 81 mg Bisacodyl (Dulcolax) [address] DAILYPRN PRN PRN Reason: Constipation Calcium Carbonate (Tums) 1,000 mg PO Q4H PRN PRN Reason: Heartburn or Indigestion Clonidine (Catapres) 0.1 mg PO Q4H PRN PRN Reason: SBP Greater Than 180 Dextrose/Water (Dextrose 50%) 25 gm SLOW IVP PRN PRN PRN Reason: Hypoglycemia Duloxetine HCl (Cymbalta) 120 mg PO DAILY [facility] Last Admin: 12/02/18 08:35 Dose: 120 mg Enoxaparin Sodium (Lovenox) 40 mg SC 0900 [facility] Last Admin: 12/02/18 08:36 Dose: 40 mg Glucagon (Glucagon) 1 mg IM PRN PRN PRN Reason: Hypoglycemia HCTZ/Losartan Potassium (Hyzaar 50/12.5) 1 tab PO QAM-WM [facility] Last Admin: 12/02/18 08:34 Dose: 1 tab Azithromycin 500 mg/ Sodium (Chloride) 250 mls @ 250 mls/hr IVPB Q24HR REYNA Cefepime HCl 1 gm/ Sodium (Chloride) 100 mls @ 200 mls/hr IVPB 0400,1600 [facility] Last Admin: 12/02/18 16:44 Dose: 100 mls Dextrose/Water (D5w) 1,000 mls @ 0 mls/hr IV .Q0M PRN PRN Reason: Hypoglycemia Insulin Human Regular (Humulin R) 0 units SC .MILD SLIDING SCALE PRN PRN Reason: Mild Correctional Scale Last Admin: 12/02/18 16:45 Dose: 5 unit Insulin Human Regular (Humulin R) 0 units SC .BEDTIME SLIDING SC PRN PRN Reason: Bedtime Correctional Scale Iron/Minerals/Multivitamins (Theragran M) 1 tab PO DAILY [facility] Last Admin: 12/02/18 08:36 Dose: 1 tab Methylprednisolone Sodium Succinate (Solu-Medrol) 20 mg IVP Q8HR [facility] Last Admin: 12/02/18 13:00 Dose: 20 mg Mirabegron (Myrbetriq Er) 50 mg PO DAILY [facility] Last Admin: 12/02/18 11:09 Dose: 50 mg Mometasone Furoate/Formoterol Fumar (Dulera 100 Mcg/5 Mcg Inhaler) 2 puff INH BID-RT [facility] Last Admin: 12/02/18 19:08 Dose: 2 puff Morphine Sulfate (Morphine) 2 mg SLOW IVP Q6H PRN PRN Reason: Pain Last Admin: 12/02/18 18:19 Dose: 2 mg Pantoprazole Sodium (Protonix) 40 mg PO DAILY [facility] Last Admin: 12/02/18 08:36 Dose: 40 mg (Empagliflozin [ Jardiance] 10 Mg) Tab 1 each PO DAILY [facility] Last Admin: 12/02/18 11:50 Dose: Not Given Pravastatin Sodium (Pravachol) 20 mg PO [facility] Pregabalin (Lyrica) 300 mg PO BID [facility] Last Admin: 12/02/18 08:35 Dose: 300 mg Saccharomyces Boulardii (Florastor) 250 mg PO DAILY [facility] Last Admin: 12/02/18 08:35 Dose: 250 mg Senna/Docusate Sodium (Senokot S) 1 tab PO BID [facility] Last Admin: 12/02/18 08:36 Dose: 1 tab Sodium Chloride (Flush - Normal Saline) 10 ml IVF PRN PRN PRN Reason: Saline Flush Trospium (Trospium) 20 mg PO BID [facility] Last Admin: 12/02/18 08:35 Dose: 20 mg
[2018-12-02] MEDS ORDERED: Azithromycin 500 MG in Sodium Chloride 0.9% 250 ML 250 ML IVPB SCH (20:00)
[2018-12-02] MEDS ORDERED: Pravastatin Sodium 20 MG TAB PO SCH (21:00)
[2018-12-03] MEDS: Morphine 2 MG/ML SYRINGE SLOW IVP PRN ×2 (00:37→12:09)
[2018-12-03] MEDS: Cefepime 1 GM in Sodium Chloride 0.9% 100 ML IVPB SCH ×2 (03:18→16:33)
[2018-12-03] MEDS: methylPREDNISolone Sod Succ 40 MG VIAL IVP SCH ×2 (05:39→16:28)
[2018-12-03] MEDS: Insulin Regular 300 UNITS/3 ML VIAL SC PRN ×2 (05:41→12:00)
[2018-12-03 07:17] LABS: Anion Gap 9 mmol/L (10-20); BUN (Urea Nitrogen) 21 mg/dL (9.8-20.1); Calc. Creatinine Clearance 109 mL/min (70-130); Calcium 9.4 mg/dL (7.8-10.44); Carbon Dioxide 37 mmol/L (23-31); Chloride 98 mmol/L (98-107); Estimated GFR-MDRD Greater than 90; Glucose 277 mg/dL (80-115); Magnesium 1.9 mg/dL (1.6-2.6); Potassium 4.1 mmol/L (3.5-5.1); Sodium 140 mmol/L (136-145)
[2018-12-03] MEDS: Mometasone/Formoterol 120 PUFF INHALER INH SCH (07:18)
[2018-12-03] MEDS: Pregabalin 75 MG CAP PO SCH (07:45)
[2018-12-03] MEDS: Trospium 20 MG TAB PO SCH (07:47)
[2018-12-03] MEDS: DULoxetine 60 MG CAP PO SCH (07:47)
[2018-12-03] MEDS: Aspirin 81 mg Enteric Coated Tablet PO SCH (07:47)
[2018-12-03] MEDS: Saccharomyces boulardii 250 MG CAP PO SCH (07:47)
[2018-12-03] MEDS: Multivitamin W/ Minerals 1 TAB PO SCH (07:48)
[2018-12-03] MEDS: Enoxaparin Sodium 40 MG/0.4 ML SYRINGE SC SCH (07:48)
[2018-12-03] MEDS: EMPAGLIFLOZIN 10 MG PO SCH (07:49)
[2018-12-03] MEDS: Senokot S 8.6-50 MG TAB PO SCH (07:52)
[2018-12-03 08:13] VITALS: TEMP 98.1
--- NOTE | 2018-12-03 10:32 | PRG ---
DATE OF SERVICE: 12/03/2018 SUBJECTIVE: She feels better and wants to go home. OBJECTIVE: VITAL SIGNS: Temperature 98.1, pulse 78, respirations 18, O2 saturation 98% on 3 L, and blood pressure 132/77. HEENT: Unremarkable. NECK: No adenopathy or JVD. CHEST: Clear without wheezing or rhonchi. CARDIAC: S1 and S2. Regular. ABDOMEN: Soft. EXTREMITIES: No edema. ASSESSMENT: Chronic obstructive pulmonary disease with exacerbation - clinically improved. PLAN: I think it is safe for her to go home on a two-week taper of steroids - I would give her 40 mg prednisone a day for 7 days and 20 mg a day for 7 days. I would continue her oxygen at 3 L nasal cannula, which is her usual dose at home. I would complete a short course of Zithromax. She should follow up in the office in about 2 weeks. Job ID: [id number]
[2018-12-03 19:38] VITALS: BP 146/85
--- NOTE | 2018-12-04 10:46 | DIS ---
DATE OF ADMISSION: 12/02/2018 DATE OF DISCHARGE: 12/03/2018 DISCHARGE DIAGNOSES: 1. Acute on chronic hypoxic respiratory failure secondary to #2. 2. Chronic obstructive pulmonary disease exacerbation, improved. 3. Diabetes mellitus type 2. 4. Hypertension, stable. CONSULTATIONS: Dr. Kirby Narvaez and Dr. Carlos Zamora with Pulmonology Service. PERTINENT LAB AND X-RAY FINDINGS: CO2 level ranged between 34 to 37. CBC showed a white blood cell count of 7.8, hemoglobin 15.7, hematocrit 52, and platelet count 160. Portable chest x-ray dated 12/01/2018 showed diffuse interstitial and alveolar opacities. HOSPITAL COURSE: The patient was initially admitted to the medical floor after presenting with increasing shortness of breath in the context of known chronic obstructive pulmonary disease and chronic hypoxic respiratory failure on home oxygen. The patient was placed on IV Solu-Medrol, azithromycin, and bronchodilator therapy. The patient clinically improved with pulmonary supportive management and clinically stabilized. The patient tolerated oxygen supplementation at baseline levels at 3 L/minute by nasal cannula. The patient transitioned to prednisone with recommendations to continue on outpatient basis after discharge. I have examined the patient at the time of discharge and discussed followup instructions. The patient verbalizes understanding and agreement, ready for discharge on 12/03/2018. DISCHARGE MEDICATIONS: 1. Enteric-coated aspirin 81 mg p.o. daily. 2. Cymbalta 60 mg 2 capsules p.o. daily. 3. Jardiance 10 mg p.o. daily. 4. Breo/Ellipta 200/25 mcg one puff inhaled daily. 5. Losartan/HCTZ 50/12.5 mg 1 tablet p.o. daily. 6. Myrbetriq 50 mg p.o. daily. 7. Multivitamin 1 tablet p.o. daily. 8. Omeprazole 40 mg 1 tablet p.o. daily. 9. Pravachol 20 mg p.o. nightly. 10. Lyrica 300 mg p.o. b.i.d. 11. Tolterodine tartrate extended release 4 mg p.o. daily. 12. Incruse Ellipta 62.5 mcg one inhalation daily. 13. Zithromax 250 mg p.o. daily x5 days. 14. Prednisone 20 mg 2 tablets p.o. daily x7 days, followed by 1 tab p.o. daily x7 days. FOLLOWUP: The patient may follow up with her primary care provider, Dr. Cheryl Ibarra within 7 days of discharge. The patient will follow up with Dr. Kirby Narvaez with Pulmonology Service and to call his office for appointment time and date. CONDITION ON DISCHARGE: Stable. ACTIVITY: Ad-jhonathan. DIET: Heart healthy and ADA. CODE STATUS: Full. DISPOSITION: To home, 12/03/2018. TIME SPENT: Total time preparing and coordinating discharge 32 minutes. Job ID: [id number]
== END 2018-12-03 19:39 | disposition home or self-care (01) | DRG 189 ==
LOC: ERS 17:09 → T4-B 19:22 → OBSVTOIN 12-02 03:51
PROVIDERS: ADMIT Internal Medicine; ATTEND Internal Medicine
DX: J96.21 Acute and chronic respiratory failure with hypoxia (principal); J44.1 Chronic obstructive pulmonary disease with (acute) exacerbation; J96.22 Acute and chronic respiratory failure with hypercapnia; E78.5 Hyperlipidemia, unspecified; E11.9 Type 2 diabetes mellitus without complications; F41.9 Anxiety disorder, unspecified; F32.9 Major depressive disorder, single episode, unspecified; F17.210 Nicotine dependence, cigarettes, uncomplicated; Z98.51 Tubal ligation status; Z90.49 Acquired absence of other specified parts of digestive tract; Z88.5 Allergy status to narcotic agent; Z99.81 Dependence on supplemental oxygen; Z79.82 Long term (current) use of aspirin; Z79.899 Other long term (current) drug therapy; Z79.51 Long term (current) use of inhaled steroids
CPT/HCPCS: 36415; 36416; 71045; 80048; 80053; 82805; 83735; 83880; 84484; 85025; 93005; 94640; 96365; 96366; 96367; 96375; J0456; J0692; J0696; J1650; J1815; J1885; J2270; J2920; J3475; J3490; J7050; J7512; J7620; Q0162

== ENCOUNTER 2019-02-15 15:37 | Inpatient (IN) | payer MEDICARE, BC ==
[2019-02-15] MEDS ORDERED: methylPREDNISolone Sod Succ/PF 125 MG/2 ML VIAL ONE (15:42)
[2019-02-15] MEDS ORDERED: Magnesium 2 GM/50 ML BAG (IN WATER) ONE (15:42)
[2019-02-15 16:01] LABS: #Basophils 0.1 thou/uL (0.0-0.2); #Eosinphils 0.1 thou/uL (0.0-0.7); #Monocytes 0.9 thou/uL (0.11-0.59); %Basophils 0.6 % (0.0-1.0); %Eosinophils 0.9 % (0.0-10.0); %Lymphocytes 15.3 % (21.0-51.0); %Monocytes 7.1 % (0.0-10.0); %Neutrophils 76.1 % (42.0-75.0); Hemoglobin 15.1 g/dL (12.0-16.0); Mean Corpuscular HGB CONC 32.1 g/dL (32.0-36.0); Mean Corpuscular Volume 87.3 fL (78.0-98.0); Mean Platelet Volume 10.4 fL (7.4-10.4); Platelet Count 209 thou/uL (130-400); RBC Distribution Width 15.8 % (11.5-14.5); Red Blood Cell (RBC) Count 5.38 mill/uL (4.20-5.40); White Blood Cell (WBC) Count 13.2 thou/uL (4.8-10.8)
[2019-02-15] MEDS ORDERED: Albuterol Sulfate 2.5 mg/0.5 ml Neb ONE (16:08)
[2019-02-15] MEDS ORDERED: Albuterol Sulfate 2.5 mg/3 ml Neb ONE (16:08)
[2019-02-15 16:23] LABS: ALT (SGPT) 10 U/L (8-55); AST (SGOT) 17 U/L (5-34); Albumin 4.2 g/dL (3.4-4.8); Alkaline Phosphatase 184 U/L (40-150); Anion Gap 17 mmol/L (10-20); BUN (Urea Nitrogen) 9 mg/dL (9.8-20.1); Bilirubin, Total 0.3 mg/dL (0.2-1.2); Calc. Creatinine Clearance 0 mL/min (70-130); Calcium 9.2 mg/dL (7.8-10.44); Carbon Dioxide 30 mmol/L (23-31); Chloride 98 mmol/L (98-107); Estimated GFR-MDRD Greater than 90; Glucose 265 mg/dL (80-115); Lactic Acid 4.1 mmol/L (0.5-2.2); Potassium 3.6 mmol/L (3.5-5.1); Protein, Total 7.2 g/dL (6.0-8.3); Sodium 141 mmol/L (136-145)
--- NOTE | 2019-02-15 16:58 | RAD ---
EXAM: Portable chest PROVIDED CLINICAL HISTORY: Shortness of breath COMPARISON: 01/02/2019 FINDINGS: Cardiac and mediastinal silhouette is within normal limits. No focal consolidation, pleural fluid or pneumothorax evident. IMPRESSION: No evidence for an acute cardiopulmonary process.
[2019-02-15 17:11] LABS: Actual Bicarbonate (HCO3a) 33.1 mEq/L (22-28); Analyzer IN Cardio ER; Base Excess (BEa) 2.2 mEq/L (-2.0 to +3.0); Calcium, Ionized 1.18 mmol/L (1.12-1.30); Carboxyhemoglobin (COHb) 4.6 gm% (0.0-3.0); Hemoglobin (Hb) 14.9 g/dL (12.0-16.0); O2 Tension (PaO2) 82.9 mmHg (> 80.0); Potassium - ABG Lab 3.76 mmol/L (3.70-5.30); pH, Arterial 7.21 (7.35-7.45)
[2019-02-15 17:12] LABS: CO2 Tension 84.5 mmHg (35.0-45.0); Puncture Site RRA
[2019-02-15 17:13] LABS: ALV-art Gradient 39.635 (0-20)
[2019-02-15 19:19] LABS: Troponin I Less than 0.010 ng/mL (< 0.028)
[2019-02-15] MEDS ORDERED: Dextrose 5% in Water 1,000 ML IV PRN (19:29)
[2019-02-15] MEDS ORDERED: Dextrose 50% Abboject 50 ML SYRINGE SLOW IVP PRN (19:29)
[2019-02-15] MEDS ORDERED: methylPREDNISolone Sod Succ 40 MG VIAL IVP SCH (19:45)
[2019-02-15] MEDS: Famotidine/PF 20 mg/2ml Vial SLOW IVP SCH (20:40)
[2019-02-15] MEDS: Pravastatin Sodium 20 MG TAB PO SCH (20:41)
[2019-02-15 21:11] VITALS: BMI 24.5
[2019-02-15 22:48] LABS: Troponin I Less than 0.010 ng/mL (< 0.028)
--- NOTE | 2019-02-16 02:11 | HP ---
CHIEF COMPLAINT: Shortness of breath. HISTORY OF PRESENT ILLNESS: The patient is a 63-year-old female with past medical history of COPD, currently continues to smoke, who presented to the hospital, complains of worsening shortness of breath. The patient stated that she normally uses 3 L of oxygen, however, turned up to 4 L today. She took her neb treatments which did not help her shortness of breath. For the past few days, she has also had some yellow sputum production. The patient states that her granddaughter was sick this past weekend. Denies any chest pressure or chest pain, any nausea, vomiting, or diarrhea. PAST MEDICAL HISTORY: History of acute on chronic respiratory failure, diabetes, tobacco abuse, hypertension, COPD, anxiety, and depression. FAMILY HISTORY: Father had liver cancer. Mother had diabetes and COPD. PAST SURGICAL HISTORY: She has had bilateral tubal ligation, hysterectomy. SOCIAL HISTORY: She continues to smoke. Ethanol use occasionally. Drug use, denies. . She is a full code. Lives with her . ALLERGIES: SHE IS ALLERGIC TO CODEINE, HYDROCODONE, TRAMADOL, AND EUCALYPTUS. HOME MEDICATIONS: 1. Aspirin 81 mg daily. 2. Cymbalta 60 mg daily. 3. Breo 1 puff daily. 4. Losartan hydrochlorothiazide one tablet p.o. daily. 5. Omeprazole 40 mg daily. 6. Pravastatin 20 mg daily. 7. Tolterodine 4 mg p.o. daily. REVIEW OF SYSTEMS: All negative except for the ones mentioned above in the HPI. PHYSICAL EXAMINATION: VITAL SIGNS: As of the following; temperature 98.8, 88, 19, 105, and 109/77. GENERAL: She is awake, alert, and oriented x3. She is currently on BiPAP, does not appear in any acute distress. HEENT: Normocephalic, atraumatic. No lymphadenopathy noted. Pupils are equal and reactive to light. CV: S1 and S2 present. No murmurs, rubs, or gallops. LUNGS: She does have expiratory and inspiratory wheezing with some rhonchi. ABDOMEN: Soft and nontender. Bowel sounds are present x2. EXTREMITIES: No edema. NEURO: She is oriented x3. No focal deficits noted. LABORATORY RESULTS: As of the following; WBCs of 13.2, hemoglobin of 15.1, hematocrit of 47.0, her platelets of 209. Chemistry; sodium of 141, potassium of 3.6, BUN of 9, creatinine 0.64. Troponin x2 were negative. Her lactic acid was 4.1. Blood gas indicated pH of 7.21 and pCO2 of 84.5. She did have a chest x-ray, which did not show any acute abnormalities. ASSESSMENT AND PLAN: The patient is a very pleasant 63-year-old female, who presents to the hospital with shortness of breath. 1. Acute hypoxic and hypercapnic respiratory failure. The patient is currently on BiPAP. We will continue that. We will start her on some DuoNeb. Also, we will start her on some antibiotics and steroids. Pulmonary has been consulted. We will also check a viral respiratory panel. 2. Chronic obstructive pulmonary disease exacerbation. We will also check a BNP on her. 3. Diabetes. Accu-Cheks before meals and at bedtime. Continue to monitor. 4. Hypertension. We will continue her home medications. 5. Deep venous thrombosis prophylaxis. We will put the patient on subcu Lovenox. Job ID: [id number]
[2019-02-16 03:33] LABS: #Lymphocytes 0.5 thou/uL (1.20-3.40); #Monocytes 0.2 thou/uL (0.11-0.59); #Neutrophils 6.6 thou/uL (1.40-6.50); %Eosinophils 0.1 % (0.0-10.0); %Lymphocytes 6.9 % (21.0-51.0); %Monocytes 2.3 % (0.0-10.0); %Neutrophils 90.6 % (42.0-75.0); Hemoglobin 13.1 g/dL (12.0-16.0); Mean Corpuscular HGB CONC 31.7 g/dL (32.0-36.0); Mean Corpuscular Hemoglobin 27.4 pg (27.0-31.0); Mean Corpuscular Volume 86.4 fL (78.0-98.0); Mean Platelet Volume 10.4 fL (7.4-10.4); Platelet Count 174 thou/uL (130-400); RBC Distribution Width 15.4 % (11.5-14.5); White Blood Cell (WBC) Count 7.3 thou/uL (4.8-10.8)
[2019-02-16 03:54] LABS: Anion Gap 13 mmol/L (10-20); BUN (Urea Nitrogen) 15 mg/dL (9.8-20.1); Calc. Creatinine Clearance 135 mL/min (70-130); Calcium 8.8 mg/dL (7.8-10.44); Carbon Dioxide 31 mmol/L (23-31); Chloride 101 mmol/L (98-107); Estimated GFR-MDRD Greater than 90; Glucose 139 mg/dL (80-115); Sodium 141 mmol/L (136-145)
[2019-02-16] MEDS: Pregabalin 75 MG CAP PO SCH ×2 (08:58→22:51)
[2019-02-16] MEDS: Aspirin 81 mg Enteric Coated Tablet PO SCH (08:59)
[2019-02-16] MEDS: DULoxetine 60 MG CAP PO SCH (08:59)
[2019-02-16] MEDS: Enoxaparin Sodium 40 MG/0.4 ML SYRINGE SC SCH (09:00)
[2019-02-16] MEDS: Trospium 20 MG TAB PO SCH (09:00)
[2019-02-16] MEDS ORDERED: methylPREDNISolone Sod Succ 40 MG VIAL IVP SCH (09:00)
[2019-02-16] MEDS: Famotidine/PF 20 mg/2ml Vial SLOW IVP SCH ×2 (09:01→22:51)
--- NOTE | 2019-02-16 09:49 | PDOC.HOSPP ---
- Subjective Encounter Date: 02/16/19 Encounter Time: 09:47 Subjective: Feeling better. Has had some productive cough, but not since she has been here. - Objective Vital Signs & Weight: Vital Signs (12 hours) Temp Pulse Resp Pulse Ox 02/16/19 08:08 91 16 02/16/19 07:39 95 02/16/19 07:13 97.9 F 02/16/19 04:00 97.6 F 02/16/19 03:17 98 02/16/19 00:04 20 93 L 02/15/19 23:39 98.6 F Weight Weight 147 lb 9.6 oz Most Recent Monitor Data Heart Rate from ECG 82 NIBP 120/65 NIBP BP-Mean 83 Respiration from ECG 20 SpO2 96 I&O: 02/15/19 02/16/19 02/17/19 06:59 06:59 06:59 Intake Total 653 Output Total 750 Balance -97 Result Diagrams: 02/16/19 03:17 02/16/19 03:17 Additional Labs: Accuchecks 02/16/19 02/16/19 05:47 00:53 POC Glucose 124 H 149 H Hospitalist ROS - Medication Medications: Active Medications Generic Name Dose Route Start Last Admin Trade Name Freq PRN Reason Stop Dose Admin Albuterol/Ipratropium 3 ml 02/15/19 22:30 02/16/19 08:08 Duoneb NEB 3 ml [id number] REYNA Administration Aspirin 81 mg 02/16/19 09:00 02/16/19 08:59 Ecotrin PO 81 mg DAILY REYNA Administration Duloxetine HCl 120 mg 02/16/19 09:00 02/16/19 08:59 Cymbalta PO 120 mg DAILY REYNA Administration Enoxaparin Sodium 40 mg 02/16/19 09:00 02/16/19 09:00 Lovenox SC 40 mg 0900 REYNA Administration Famotidine 20 mg 02/15/19 21:00 02/16/19 09:01 Pepcid SLOW IVP 20 mg Q12HR REYNA Administration HCTZ/Losartan Potassium 1 tab 02/16/19 09:00 02/16/19 08:59 Hyzaar 50/12.5 PO 1 tab DAILY REYNA Administration Levofloxacin 750 mg/ Device 150 mls @ 100 mls/hr 02/15/19 20:00 02/15/19 20: 40 IVPB 150 mls Q24HR REYNA Administration Methylprednisolone Sodium Succinate 40 mg 02/16/19 09:00 02/16/19 09:01 Solu-Medrol IVP 40 mg DAILY REYNA Administration Pravastatin Sodium 20 mg 02/15/19 21:00 02/15/19 20:41 Pravachol PO 20 mg HS REYNA Administration Pregabalin 300 mg 02/16/19 09:00 02/16/19 08:58 Lyrica PO 300 mg BID REYNA Administration Trospium 20 mg 02/16/19 09:00 02/16/19 09:00 Trospium PO 20 mg DAILY REYNA Administration - Exam General Appearance: NAD, awake alert Neck: supple, symmetric, no JVD, no thyromegaly, no lymphadenopathy, no carotid bruit Heart: RRR, no murmur, no gallops, no rubs, normal peripheral pulses Respiratory: rales, wheezes Gastrointestinal: soft, non-tender, non-distended, normal bowel sounds, no palpable masses, no hepatomegaly, no splenomegaly, no bruit Extremities: no cyanosis, no clubbing, no edema Musculoskeletal: normal tone, normal strength, no muscle wasting Psychiatric: normal affect, normal behavior, A&O x 3 Hosp A/P (1) Acute on chronic respiratory failure with hypoxia and hypercapnia Code(s): J96.21 - ACUTE AND CHRONIC RESPIRATORY FAILURE WITH HYPOXIA; J96.22 - ACUTE AND CHRONIC RESPIRATORY FAILURE WITH HYPERCAPNIA Status: Acute (2) COPD exacerbation Code(s): J44.1 - CHRONIC OBSTRUCTIVE PULMONARY DISEASE W (ACUTE) EXACERBATION Status: Acute (3) DM type 2 (diabetes mellitus, type 2) Status: Chronic Qualifiers: (4) Dyslipidemia Code(s): E78.5 - HYPERLIPIDEMIA, UNSPECIFIED Status: Chronic (5) HTN (hypertension) Code(s): I10 - ESSENTIAL (PRIMARY) HYPERTENSION Status: Chronic Qualifiers: (6) Tobacco abuse Code(s): Z72.0 - TOBACCO USE Status: Chronic (7) Acute bronchitis Code(s): J20.9 - ACUTE BRONCHITIS, UNSPECIFIED Status: Acute - Plan Subjectively improved. Oxygen requirements improved. Exam is still very abnormal. Continue with IV abx, steroids, nebs and oxygen. Blood sugars well controlled. BP well controlled.
--- NOTE | 2019-02-16 12:12 | EKG ---
Test Reason : Blood Pressure : / mmHG Vent. Rate : 101 BPM Atrial Rate : 101 BPM P-R Int : 132 ms QRS Dur : 092 ms QT Int : 374 ms P-R-T Axes : 077 120 063 degrees QTc Int : 484 ms Sinus tachycardia Biatrial enlargement Right axis deviation Pulmonary disease pattern Incomplete right bundle branch block Abnormal ECG Confirmed by AMMON FERREIRA D.O. ([id number]), medical editor LD KUNZ ([id number]) on 02/16/2019 12:12:11 PM Referred By: Confirmed By:AMMON FERREIRA D.O.
--- NOTE | 2019-02-16 12:22 | CON ---
DATE OF CONSULTATION: HISTORY OF PRESENT ILLNESS: Anne Colunga is a 63-year-old female with ongoing tobacco abuse, who was discharged in September. She comes back to the hospital with increasing shortness of breath and cough yesterday, unresponsive to home medication. Still smoking. She will go to [place] for followup over there, but comes to [facility] for routine admission. This morning, she says she is feeling better. Her initial chest x-ray was normal. On a good day, she can barely walk half a block without getting markedly short of breath. PAST MEDICAL HISTORY: COPD, diabetes, neuropathy, hypertension, coagulopathy, followed by Hematology at [facility]. PAST SURGICAL HISTORY: Shoulder surgery, tubal ligation, hysterectomy, cholecystectomy. SOCIAL HISTORY: Alcohol, minimal. Ongoing tobacco abuse. HOME MEDICATIONS: 1. Prednisone. 2. Breo. 3. Lyrica. 4. Pravastatin. 5. Omeprazole. 6. . 7. Losartan. 8. . 9. Zithromax. 10. Aspirin. ALLERGIES: CODEINE, TRAMADOL, AND HYDROCODONE. REVIEW OF SYSTEMS: Ten-point negative. PHYSICAL EXAMINATION: VITAL SIGNS: On examination, her saturations are 96%, blood pressure 136/65, respirations 18, and pulse 80. CHEST: No wheezing or crackles. CARDIAC: Normal S1 and S2. No gallops. ABDOMEN: Soft. LABORATORY DATA: White count 7000, platelet count 174. Lytes are normal. BNP is normal. ASSESSMENT: 1. Chronic obstructive pulmonary disease exacerbation. 2. Bronchitis. PLAN: Switch over to oral medication. Once again, she is to refrain from smoking. Notify Dr. Narvaez. Consultation note, 70 minutes, 50% direct patient care. Job ID: [id number]
[2019-02-16] MEDS: Acetaminophen 325 MG TAB PO PRN (13:51)
[2019-02-16] MEDS: HumaLOG 300 UNITS/3 ML VIAL SC PRN (18:15)
[2019-02-16] MEDS: Mometasone/Formoterol 120 PUFF INHALER INH SCH (18:20)
[2019-02-16] MEDS: Doxycycline 100 MG CAP PO SCH (22:50)
[2019-02-16] MEDS: Pravastatin Sodium 20 MG TAB PO SCH (22:51)
[2019-02-17] MEDS: Acetaminophen 325 MG TAB PO PRN (06:41)
[2019-02-17] MEDS: Mometasone/Formoterol 120 PUFF INHALER INH SCH ×2 (07:51→18:49)
[2019-02-17] MEDS: predniSONE 20 MG TAB PO SCH (09:21)
[2019-02-17] MEDS: Famotidine/PF 20 mg/2ml Vial SLOW IVP SCH ×2 (09:22→20:38)
[2019-02-17] MEDS: DULoxetine 60 MG CAP PO SCH (09:22)
[2019-02-17] MEDS: Aspirin 81 mg Enteric Coated Tablet PO SCH (09:22)
[2019-02-17] MEDS: Enoxaparin Sodium 40 MG/0.4 ML SYRINGE SC SCH (09:22)
[2019-02-17] MEDS: Doxycycline 100 MG CAP PO SCH ×2 (09:22→20:38)
[2019-02-17] MEDS: Trospium 20 MG TAB PO SCH (09:23)
[2019-02-17] MEDS: Pregabalin 75 MG CAP PO SCH ×2 (09:23→20:38)
--- NOTE | 2019-02-17 11:48 | PRG ---
DATE OF SERVICE: 02/17/2019 SUBJECTIVE: Anne Colunga this morning is still having shortness of breath. OBJECTIVE: VITAL SIGNS: Temperature 97, pulse 99, sats 90% on 2 L, and blood pressure 120/80. CHEST: Minimal wheezing. CARDIAC: Normal S1, S2. No gallops. IMPRESSION: Chronic obstructive pulmonary disease exacerbation, bronchitis. PLAN: Continue low-dose prednisone, neb treatment, Dulera, empiric antibiotics. We will follow. Job ID: [id number]
[2019-02-17] MEDS ORDERED: Bisacodyl 5 MG TAB PO PRN (12:52)
[2019-02-17] MEDS ORDERED: Magnesium Citrate 300 ML BOT PO PRN (12:52)
[2019-02-17] MEDS ORDERED: Senokot 8.6 MG TAB PO PRN (13:00)
--- NOTE | 2019-02-17 14:32 | PDOC.HOSPP ---
- Subjective Subjective: Still a little SOB. Better than presentation. She has not had a BM for several days. Getting a little cramping in the lower abd at times. Still has a little cough. Feels like she has phlegm that she cannot clear. Says she has always rushed herself to get out of the hospital in the past, but doesn't want to do that this time. - Objective Vital Signs & Weight: Vital Signs (12 hours) Temp Pulse Resp Pulse Ox 02/17/19 11:12 99 15 92 L 02/17/19 10:36 97.9 F 02/17/19 08:00 99 02/17/19 07:52 77 20 02/17/19 07:14 97.1 F L 02/17/19 03:54 98.3 F Weight Weight 148 lb 4.8 oz Most Recent Monitor Data Heart Rate from ECG 103 NIBP 111/60 NIBP BP-Mean 77 Respiration from ECG 20 SpO2 87 I&O: 02/16/19 02/17/19 02/18/19 06:59 06:59 06:59 Intake Total 653 23 Output Total 750 900 Balance -97 -877 Result Diagrams: 02/16/19 03:17 02/16/19 03:17 Additional Labs: Accuchecks 02/17/19 02/17/19 02/16/19 10:25 05:56 20:00 POC Glucose 157 H 129 H 251 H 02/16/19 16:10 POC Glucose 200 H Hospitalist ROS - Medication Medications: Active Medications Generic Name Dose Route Start Last Admin Trade Name Freq PRN Reason Stop Dose Admin Acetaminophen 650 mg 02/15/19 19:27 02/17/19 06:41 Tylenol PO 650 mg Q4H PRN Administration Headache/Fever/Mild Pain (1-3) Albuterol/Ipratropium 3 ml 02/15/19 22:30 02/17/19 11:12 Duoneb NEB 3 ml [id number] REYNA Administration Aspirin 81 mg 02/16/19 09:00 02/17/19 09:22 Ecotrin PO 81 mg DAILY REYNA Administration Doxycycline Hyclate 100 mg 02/16/19 21:00 02/17/19 09:22 Vibramycin PO 02/21/19 21:01 100 mg BID REYNA Administration Duloxetine HCl 120 mg 02/16/19 09:00 02/17/19 09:22 Cymbalta PO 120 mg DAILY REYNA Administration Enoxaparin Sodium 40 mg 02/16/19 09:00 02/17/19 09:22 Lovenox SC 40 mg 0900 REYNA Administration Famotidine 20 mg 02/15/19 21:00 02/17/19 09:22 Pepcid SLOW IVP 20 mg Q12HR REYNA Administration HCTZ/Losartan Potassium 1 tab 02/16/19 09:00 02/17/19 09:22 Hyzaar 50/12.5 PO 1 tab DAILY REYNA Administration Insulin Human Lispro 0 units 02/15/19 19:29 02/16/19 18:15 Humalog SC 2 units .MILD SLIDING SCALE PRN Administration Mild Correctional Scale Mometasone Furoate/Formoterol Fumar 2 puff 02/16/19 18:30 02/17/19 07:51 Dulera 200 Mcg/5 Mcg Inhaler INH 2 puff BID-RT REYNA Administration Pravastatin Sodium 20 mg 02/15/19 21:00 02/16/19 22:51 Pravachol PO Not Given HS REYNA Prednisone 20 mg 02/17/19 08:00 02/17/19 09:21 Prednisone PO 20 mg QAM-WM REYNA Administration Pregabalin 300 mg 02/16/19 09:00 02/17/19 09:23 Lyrica PO 300 mg BID REYNA Administration Trospium 20 mg 02/16/19 09:00 02/17/19 09:23 Trospium PO 20 mg DAILY REYNA Administration - Exam General Appearance: NAD, awake alert Neck: supple, symmetric, no JVD, no thyromegaly, no lymphadenopathy, no carotid bruit Heart: RRR, no murmur, no gallops, no rubs, normal peripheral pulses Respiratory: rales (scattered, bilateral.), wheezes (scattered, bilateral.) Gastrointestinal: soft, non-tender, non-distended, normal bowel sounds, no palpable masses, no hepatomegaly, no splenomegaly, no bruit Extremities: no cyanosis, no clubbing, no edema Skin: normal turgor, no lesions, no rashes Neurological: no focal deficits Musculoskeletal: normal tone, normal strength, no muscle wasting Hosp A/P (1) Acute on chronic respiratory failure with hypoxia and hypercapnia Code(s): J96.21 - ACUTE AND CHRONIC RESPIRATORY FAILURE WITH HYPOXIA; J96.22 - ACUTE AND CHRONIC RESPIRATORY FAILURE WITH HYPERCAPNIA Status: Acute (2) COPD exacerbation Code(s): J44.1 - CHRONIC OBSTRUCTIVE PULMONARY DISEASE W (ACUTE) EXACERBATION Status: Acute (3) DM type 2 (diabetes mellitus, type 2) Status: Chronic Qualifiers: (4) Dyslipidemia Code(s): E78.5 - HYPERLIPIDEMIA, UNSPECIFIED Status: Chronic (5) HTN (hypertension) Code(s): I10 - ESSENTIAL (PRIMARY) HYPERTENSION Status: Chronic Qualifiers: (6) Tobacco abuse Code(s): Z72.0 - TOBACCO USE Status: Chronic (7) Acute bronchitis Code(s): J20.9 - ACUTE BRONCHITIS, UNSPECIFIED Status: Acute - Plan Subjectively improved. Oxygen requirements improved. Exam is still very abnormal. Continue with IV abx, steroids, nebs and oxygen. Guaifenesin. Blood sugars well controlled. BP well controlled. Laxatives and stool softeners.
[2019-02-17] MEDS: HumaLOG 300 UNITS/3 ML VIAL SC PRN ×2 (18:52→20:40)
[2019-02-17] MEDS: Pravastatin Sodium 20 MG TAB PO SCH (20:37)
[2019-02-17] MEDS: guaiFENesin ER 600 MG TAB PO SCH (20:37)
[2019-02-18] MEDS: Mometasone/Formoterol 120 PUFF INHALER INH SCH ×2 (07:14→18:48)
[2019-02-18] MEDS: Doxycycline 100 MG CAP PO SCH ×2 (09:39→21:23)
[2019-02-18] MEDS: Pregabalin 75 MG CAP PO SCH ×2 (09:39→21:24)
[2019-02-18] MEDS: DULoxetine 60 MG CAP PO SCH (09:40)
[2019-02-18] MEDS: Aspirin 81 mg Enteric Coated Tablet PO SCH (09:40)
[2019-02-18] MEDS: Enoxaparin Sodium 40 MG/0.4 ML SYRINGE SC SCH (09:40)
[2019-02-18] MEDS: Famotidine/PF 20 mg/2ml Vial SLOW IVP SCH (09:40)
[2019-02-18] MEDS: Trospium 20 MG TAB PO SCH (09:41)
[2019-02-18] MEDS: predniSONE 20 MG TAB PO SCH (09:41)
[2019-02-18] MEDS: guaiFENesin ER 600 MG TAB PO SCH ×2 (09:41→21:24)
--- NOTE | 2019-02-18 10:03 | PRG ---
DATE OF SERVICE: 02/18/2019 SUBJECTIVE: She was hospitalized over the weekend with COPD exacerbation. She has been smoking again at home. She feels better today. She does not require BiPAP last night. OBJECTIVE: VITAL SIGNS: Temperature 97.2, pulse 86, blood pressure 129/62, and O2 saturation 98%. HEENT: Unremarkable. NECK: No adenopathy JVD. LUNGS: Expiratory wheezing bilaterally. CARDIAC: S1 and S2, regular. ABDOMEN: Soft. EXTREMITIES: No edema. ASSESSMENT: Chronic obstructive pulmonary disease exacerbation. PLAN: Transfer to medical floor. Continue steroids, nebulization treatments, and antibiotics. Increase activity as tolerated. Job ID: [id number]
--- NOTE | 2019-02-18 10:11 | PDOC.HOSPP ---
- Subjective Encounter Date: 02/18/19 Encounter Time: 10:09 Subjective: Ms. Colunga was seen today in follow-up of COPD exacerbation. She says she is feeling a little better, but still has a cough which is non-productive. - Objective Vital Signs & Weight: Vital Signs (12 hours) Temp Pulse Resp Pulse Ox 02/18/19 07:42 98 02/18/19 07:22 97.2 F L 02/18/19 07:16 87 13 02/18/19 04:00 97.9 F 02/18/19 02:50 77 16 96 02/18/19 00:33 99.3 F 02/17/19 22:18 91 16 95 Weight Weight 148 lb 4.8 oz Most Recent Monitor Data Heart Rate from ECG 86 NIBP 129/62 NIBP BP-Mean 84 Respiration from ECG 17 SpO2 90 I&O: 02/17/19 02/18/19 02/19/19 06:59 06:59 06:59 Intake Total 23 1030 Output Total 900 1200 Balance -877 -170 Result Diagrams: 02/16/19 03:17 02/16/19 03:17 Additional Labs: Accuchecks 02/18/19 02/17/19 02/17/19 05:38 20:17 18:57 POC Glucose 121 H 254 H 323 H 02/17/19 02/17/19 16:19 10:25 POC Glucose 346 H 157 H Hospitalist ROS - Medication Medications: Active Medications Generic Name Dose Route Start Last Admin Trade Name Freq PRN Reason Stop Dose Admin Acetaminophen 650 mg 02/15/19 19:27 02/17/19 06:41 Tylenol PO 650 mg Q4H PRN Administration Headache/Fever/Mild Pain (1-3) Albuterol/Ipratropium 3 ml 02/15/19 22:30 02/18/19 07:16 Duoneb NEB 3 ml [id number] REYNA Administration Aspirin 81 mg 02/16/19 09:00 02/18/19 09:40 Ecotrin PO 81 mg DAILY REYNA Administration Doxycycline Hyclate 100 mg 02/16/19 21:00 02/18/19 09:39 Vibramycin PO 02/21/19 21:01 100 mg BID REYNA Administration Duloxetine HCl 120 mg 02/16/19 09:00 02/18/19 09:40 Cymbalta PO 120 mg DAILY REYNA Administration Enoxaparin Sodium 40 mg 02/16/19 09:00 02/18/19 09:40 Lovenox SC 40 mg 0900 REYNA Administration Famotidine 20 mg 02/15/19 21:00 02/18/19 09:40 Pepcid SLOW IVP 20 mg Q12HR REYNA Administration Guaifenesin 600 mg 02/17/19 21:00 02/18/19 09:41 Mucinex PO 600 mg Q12HR REYNA Administration HCTZ/Losartan Potassium 1 tab 02/16/19 09:00 02/18/19 09:41 Hyzaar 50/12.5 PO 1 tab DAILY REYNA Administration Insulin Human Lispro 0 units 02/15/19 19:29 02/17/19 20:40 Humalog SC 4 units .MILD SLIDING SCALE PRN Administration Mild Correctional Scale Mometasone Furoate/Formoterol Fumar 2 puff 02/16/19 18:30 02/18/19 07:14 Dulera 200 Mcg/5 Mcg Inhaler INH 2 puff BID-RT REYNA Administration Pravastatin Sodium 20 mg 02/15/19 21:00 02/17/19 20:37 Pravachol PO 20 mg HS REYNA Administration Prednisone 20 mg 02/17/19 08:00 02/18/19 09:41 Prednisone PO 20 mg QAM-WM REYNA Administration Pregabalin 300 mg 02/16/19 09:00 02/18/19 09:39 Lyrica PO 300 mg BID REYNA Administration Senna 1 tab 02/17/19 13:00 02/17/19 14:44 Senokot PO 1 tab HSPRN PRN Administration Constipation Trospium 20 mg 02/16/19 09:00 02/18/19 09:41 Trospium PO 20 mg DAILY REYNA Administration - Exam Eye: PERRL, anicteric sclera Neck: supple, symmetric, no JVD, no thyromegaly Heart: RRR, no murmur, no gallops, no rubs, normal peripheral pulses Respiratory: rhonchi, wheezes (Bilaterally with a long expiratory phase) Gastrointestinal: soft, non-tender, non-distended, normal bowel sounds, no palpable masses, no hepatomegaly, no splenomegaly Extremities: no cyanosis, no clubbing, no edema Neurological: no focal deficits Hosp A/P (1) Acute on chronic respiratory failure with hypoxia and hypercapnia Code(s): J96.21 - ACUTE AND CHRONIC RESPIRATORY FAILURE WITH HYPOXIA; J96.22 - ACUTE AND CHRONIC RESPIRATORY FAILURE WITH HYPERCAPNIA Status: Acute (2) COPD exacerbation Code(s): J44.1 - CHRONIC OBSTRUCTIVE PULMONARY DISEASE W (ACUTE) EXACERBATION Status: Acute (3) DM type 2 (diabetes mellitus, type 2) Status: Chronic Qualifiers: (4) HTN (hypertension) Code(s): I10 - ESSENTIAL (PRIMARY) HYPERTENSION Status: Chronic Qualifiers: - Plan * Acute on chronic respiratory failure with hypoxemia- continue Duonebs, steroids, and antibiotics * Ambulate * HTN- blood pressure is stable * DM- blood glucose is a bit elevated- likely due to Prednisone- continue SSI * Add Protonix * Agree with transfer out of the [facility]
[2019-02-18] MEDS: HumaLOG 300 UNITS/3 ML VIAL SC PRN ×2 (18:09→22:13)
[2019-02-18] MEDS: Pravastatin Sodium 20 MG TAB PO SCH (21:24)
[2019-02-18] MEDS: Famotidine 20 MG TAB PO SCH (21:24)
[2019-02-19] MEDS: HumaLOG 300 UNITS/3 ML VIAL SC PRN ×3 (05:47→17:40)
[2019-02-19] MEDS: Mometasone/Formoterol 120 PUFF INHALER INH SCH ×2 (06:25→19:06)
[2019-02-19] MEDS: predniSONE 20 MG TAB PO SCH (08:28)
[2019-02-19] MEDS: Trospium 20 MG TAB PO SCH (08:29)
[2019-02-19] MEDS: Pregabalin 75 MG CAP PO SCH ×2 (08:30→20:50)
[2019-02-19] MEDS: Doxycycline 100 MG CAP PO SCH ×2 (08:37→20:50)
[2019-02-19] MEDS: Aspirin 81 mg Enteric Coated Tablet PO SCH (08:37)
[2019-02-19] MEDS: guaiFENesin ER 600 MG TAB PO SCH ×2 (08:37→20:50)
[2019-02-19] MEDS: DULoxetine 60 MG CAP PO SCH (08:38)
[2019-02-19] MEDS: Famotidine 20 MG TAB PO SCH ×2 (08:38→20:50)
[2019-02-19] MEDS: Enoxaparin Sodium 40 MG/0.4 ML SYRINGE SC SCH (08:46)
--- NOTE | 2019-02-19 10:02 | PRG ---
DATE OF SERVICE: 02/19/2019 SUBJECTIVE: The patient is about the same. She is still wheezing. OBJECTIVE: VITAL SIGNS: Temperature 98.0, pulse 80, respirations 16, and O2 saturation 97% on 2 L. HEENT: Unremarkable. NECK: No JVD. LUNGS: Diffuse bilateral wheezing. CARDIAC: S1 and S2, regular. ABDOMEN: Soft. EXTREMITIES: No edema. ASSESSMENT: 1. Chronic obstructive pulmonary disease with exacerbation. 2. Tobacco abuse. PLAN: She likely needs several more days in the hospital. Continue antibiotics, steroids, and nebulization treatments. Job ID: [id number]
[2019-02-19] MEDS: Acetaminophen 325 MG TAB PO PRN (10:55)
--- NOTE | 2019-02-19 17:47 | PDOC.HOSPP ---
- Subjective Encounter Date: 02/19/19 Encounter Time: 10:45 Subjective: Ms. Colunga was seen today in follow-up of COPD exacerbation. She says she is a little better, but continues to cough, and is having trouble bring up the phlem. She denies chest pain. - Objective Vital Signs & Weight: Vital Signs (12 hours) Temp Pulse Resp BP Pulse Ox 02/19/19 14:25 81 16 95 02/19/19 13:19 98.5 F 96 16 119/65 90 L 02/19/19 10:17 85 16 98 02/19/19 08:00 93 L 02/19/19 07:45 97.7 F 92 20 112/60 92 L 02/19/19 06:27 88 16 97 02/19/19 06:25 88 16 97 Weight Weight 148 lb 4.8 oz Most Recent Monitor Data Heart Rate from ECG 100 NIBP 129/62 NIBP BP-Mean 84 Respiration from ECG 17 SpO2 91 I&O: 02/18/19 02/19/19 02/20/19 06:59 06:59 06:59 Intake Total 1030 Output Total 1200 Balance -170 Result Diagrams: 02/16/19 03:17 02/16/19 03:17 Additional Labs: Accuchecks 02/19/19 02/18/19 05:43 22:14 POC Glucose 183 H 219 H Hospitalist ROS - Medication Medications: Active Medications Generic Name Dose Route Start Last Admin Trade Name Freq PRN Reason Stop Dose Admin Acetaminophen 650 mg 02/15/19 19:27 02/19/19 10:55 Tylenol PO 650 mg Q4H PRN Administration Headache/Fever/Mild Pain (1-3) Albuterol/Ipratropium 3 ml 02/15/19 22:30 02/19/19 14:25 Duoneb NEB 3 ml [id number] REYNA Administration Aspirin 81 mg 02/16/19 09:00 02/19/19 08:37 Ecotrin PO 81 mg DAILY REYNA Administration Doxycycline Hyclate 100 mg 02/16/19 21:00 02/19/19 08:37 Vibramycin PO 02/21/19 21:01 100 mg BID REYNA Administration Duloxetine HCl 120 mg 02/16/19 09:00 02/19/19 08:38 Cymbalta PO 120 mg DAILY REYNA Administration Enoxaparin Sodium 40 mg 02/16/19 09:00 02/19/19 08:46 Lovenox SC 40 mg 0900 REYNA Administration Famotidine 20 mg 02/18/19 21:00 02/19/19 08:38 Pepcid PO 20 mg BID REYNA Administration Guaifenesin 600 mg 02/17/19 21:00 02/19/19 08:37 Mucinex PO 600 mg Q12HR REYNA Administration HCTZ/Losartan Potassium 1 tab 02/16/19 09:00 02/19/19 08:27 Hyzaar 50/12.5 PO 1 tab DAILY REYNA Administration Insulin Human Lispro 0 units 02/15/19 19:29 02/19/19 17:40 Humalog SC 5 units .MILD SLIDING SCALE PRN Administration Mild Correctional Scale Insulin Human Lispro 0 units 02/18/19 22:01 02/18/19 22:13 Humalog SC 2 unit .BEDTIME SLIDING SC PRN Administration BEDTIME SLIDING SCALE Protocol Mometasone Furoate/Formoterol Fumar 2 puff 02/16/19 18:30 02/19/19 06:25 Dulera 200 Mcg/5 Mcg Inhaler INH 2 puff BID-RT REYNA Administration Pantoprazole Sodium 40 mg 02/19/19 09:00 02/19/19 08:39 Protonix PO 40 mg DAILY RYENA Administration Pravastatin Sodium 20 mg 02/15/19 21:00 02/18/19 21:24 Pravachol PO 20 mg HS REYNA Administration Prednisone 20 mg 02/17/19 08:00 02/19/19 08:28 Prednisone PO 20 mg QAM-WM REYNA Administration Pregabalin 300 mg 02/16/19 09:00 02/19/19 08:30 Lyrica PO 300 mg BID REYNA Administration Senna 1 tab 02/17/19 13:00 02/17/19 14:44 Senokot PO 1 tab HSPRN PRN Administration Constipation Trospium 20 mg 02/16/19 09:00 02/19/19 08:29 Trospium PO 20 mg DAILY REYNA Administration - Exam Eye: PERRL, anicteric sclera Heart: RRR, no murmur, no gallops, no rubs, normal peripheral pulses Respiratory: no rales, no ronchi, normal chest expansion, wheezes (with prolonged expiratory phase) Gastrointestinal: soft, non-tender, non-distended, normal bowel sounds, no palpable masses, no hepatomegaly, no splenomegaly Extremities: no cyanosis, no clubbing, no edema Hosp A/P (1) Acute on chronic respiratory failure with hypoxia and hypercapnia Code(s): J96.21 - ACUTE AND CHRONIC RESPIRATORY FAILURE WITH HYPOXIA; J96.22 - ACUTE AND CHRONIC RESPIRATORY FAILURE WITH HYPERCAPNIA Status: Acute (2) COPD exacerbation Code(s): J44.1 - CHRONIC OBSTRUCTIVE PULMONARY DISEASE W (ACUTE) EXACERBATION Status: Acute (3) DM type 2 (diabetes mellitus, type 2) Status: Chronic Qualifiers: (4) HTN (hypertension) Code(s): I10 - ESSENTIAL (PRIMARY) HYPERTENSION Status: Chronic Qualifiers: - Plan * Acute on chronic respiratory failure with hypoxemia- continue Duonebs, steroids, and antibiotics * Ambulate * HTN- blood pressure is stable * DM- continue SSI * Add Protonix * [facility]
[2019-02-19] MEDS: Pravastatin Sodium 20 MG TAB PO SCH (20:50)
[2019-02-20] MEDS: HumaLOG 300 UNITS/3 ML VIAL SC PRN ×4 (05:38→20:23)
[2019-02-20] MEDS: Mometasone/Formoterol 120 PUFF INHALER INH SCH ×2 (06:25→18:29)
[2019-02-20] MEDS: DULoxetine 60 MG CAP PO SCH (09:05)
[2019-02-20] MEDS: Pregabalin 75 MG CAP PO SCH ×2 (09:06→20:22)
[2019-02-20] MEDS: guaiFENesin ER 600 MG TAB PO SCH ×2 (09:06→20:22)
[2019-02-20] MEDS: Trospium 20 MG TAB PO SCH (09:07)
[2019-02-20] MEDS: Doxycycline 100 MG CAP PO SCH ×2 (09:07→20:22)
[2019-02-20] MEDS: predniSONE 20 MG TAB PO SCH (09:07)
[2019-02-20] MEDS: Aspirin 81 mg Enteric Coated Tablet PO SCH (09:07)
[2019-02-20] MEDS: Enoxaparin Sodium 40 MG/0.4 ML SYRINGE SC SCH (09:07)
[2019-02-20] MEDS: Famotidine 20 MG TAB PO SCH ×2 (09:07→20:22)
--- NOTE | 2019-02-20 10:37 | PRG ---
DATE OF SERVICE: 02/20/2019 SUBJECTIVE: The patient feels about the same. She has been able to ambulate around the room. She has been put in isolation because she had rhinovirus come from one of her cultures. OBJECTIVE: VITAL SIGNS: Temperature is 98.7, pulse 96, O2 saturation 91%, and blood pressure 103/62. HEENT: Unremarkable. NECK: No adenopathy or JVD. LUNGS: Diffuse expiratory wheezing. CARDIAC: S1 and S2. Regular. ABDOMEN: Soft. EXTREMITIES: No edema. ASSESSMENT: Chronic obstructive pulmonary disease exacerbation, likely triggered by rhinovirus. PLAN: The patient is continuing steroids and nebulization treatments. If she does well today, she can probably go home as early as tomorrow. Job ID: [id number]
--- NOTE | 2019-02-20 16:59 | PDOC.HOSPP ---
- Subjective Encounter Date: 02/20/19 Encounter Time: 16:57 Subjective: Ms. Colunga was seen today in follow-up of COPD exacerbation. She is feeling better. She has walked two laps in the [place] with her oxygen. - Objective Vital Signs & Weight: Vital Signs (12 hours) Temp Pulse Resp BP Pulse Ox 02/20/19 14:27 82 18 98 02/20/19 10:40 88 18 98 02/20/19 08:00 92 L 02/20/19 07:57 98.7 F 96 18 103/62 91 L 02/20/19 06:28 86 16 96 02/20/19 06:25 86 16 96 Weight Weight 148 lb 4.8 oz Most Recent Monitor Data Heart Rate from ECG 100 NIBP 129/62 NIBP BP-Mean 84 Respiration from ECG 17 SpO2 91 I&O: 02/19/19 02/20/19 02/21/19 06:59 06:59 06:59 Intake Total 1440 Balance 1440 Result Diagrams: 02/16/19 03:17 02/16/19 03:17 Additional Labs: Accuchecks 02/20/19 05:09 POC Glucose 281 H Hospitalist ROS - Medication Medications: Active Medications Generic Name Dose Route Start Last Admin Trade Name Freq PRN Reason Stop Dose Admin Acetaminophen 650 mg 02/15/19 19:27 02/19/19 10:55 Tylenol PO 650 mg Q4H PRN Administration Headache/Fever/Mild Pain (1-3) Albuterol/Ipratropium 3 ml 02/15/19 22:30 02/20/19 14:27 Duoneb NEB 3 ml [id number] REYNA Administration Aspirin 81 mg 02/16/19 09:00 02/20/19 09:07 Ecotrin PO 81 mg DAILY REYNA Administration Doxycycline Hyclate 100 mg 02/16/19 21:00 02/20/19 09:07 Vibramycin PO 02/21/19 21:01 100 mg BID REYNA Administration Duloxetine HCl 120 mg 02/16/19 09:00 02/20/19 09:05 Cymbalta PO 120 mg DAILY REYNA Administration Enoxaparin Sodium 40 mg 02/16/19 09:00 02/20/19 09:07 Lovenox SC 40 mg 0900 REYNA Administration Famotidine 20 mg 02/18/19 21:00 02/20/19 09:07 Pepcid PO 20 mg BID REYNA Administration Guaifenesin 600 mg 02/17/19 21:00 02/20/19 09:06 Mucinex PO 600 mg Q12HR REYNA Administration HCTZ/Losartan Potassium 1 tab 02/16/19 09:00 02/20/19 09:08 Hyzaar 50/12.5 PO Not Given DAILY REYNA Insulin Human Lispro 0 units 02/15/19 19:29 02/20/19 12:42 Humalog SC 4 units .MILD SLIDING SCALE PRN Administration Mild Correctional Scale Insulin Human Lispro 0 units 02/18/19 22:01 02/18/19 22:13 Humalog SC 2 unit .BEDTIME SLIDING SC PRN Administration BEDTIME SLIDING SCALE Protocol Mometasone Furoate/Formoterol Fumar 2 puff 02/16/19 18:30 02/20/19 06:25 Dulera 200 Mcg/5 Mcg Inhaler INH 2 puff BID-RT REYNA Administration Pantoprazole Sodium 40 mg 02/19/19 09:00 02/20/19 09:07 Protonix PO 40 mg DAILY REYNA Administration Pravastatin Sodium 20 mg 02/15/19 21:00 02/19/19 20:50 Pravachol PO 20 mg HS REYNA Administration Pregabalin 300 mg 02/16/19 09:00 02/20/19 09:06 Lyrica PO 300 mg BID REYNA Administration Senna 1 tab 02/17/19 13:00 02/17/19 14:44 Senokot PO 1 tab HSPRN PRN Administration Constipation Trospium 20 mg 02/16/19 09:00 02/20/19 09:07 Trospium PO 20 mg DAILY REYNA Administration - Exam General Appearance: NAD Heart: RRR, no murmur, no gallops, no rubs, normal peripheral pulses Respiratory: no rales, no ronchi, normal chest expansion, wheezes (+ bilateral wheeze) Gastrointestinal: soft, non-tender, non-distended, normal bowel sounds, no palpable masses, no hepatomegaly, no splenomegaly, no bruit Hosp A/P (1) Acute on chronic respiratory failure with hypoxia and hypercapnia Code(s): J96.21 - ACUTE AND CHRONIC RESPIRATORY FAILURE WITH HYPOXIA; J96.22 - ACUTE AND CHRONIC RESPIRATORY FAILURE WITH HYPERCAPNIA Status: Acute (2) COPD exacerbation Code(s): J44.1 - CHRONIC OBSTRUCTIVE PULMONARY DISEASE W (ACUTE) EXACERBATION Status: Acute (3) DM type 2 (diabetes mellitus, type 2) Status: Chronic Qualifiers: (4) HTN (hypertension) Code(s): I10 - ESSENTIAL (PRIMARY) HYPERTENSION Status: Chronic Qualifiers: - Plan * Acute on chronic respiratory failure with hypoxemia- She is beginning to turn the corner- continue Duonebs, steroids, and antibiotics * Ambulate * HTN- blood pressure is stable * DM- continue SSI * Anticipate home tomorrow
[2019-02-20] MEDS: Pravastatin Sodium 20 MG TAB PO SCH (20:22)
[2019-02-21] MEDS: HumaLOG 300 UNITS/3 ML VIAL SC PRN ×2 (06:00→13:59)
[2019-02-21] MEDS: Mometasone/Formoterol 120 PUFF INHALER INH SCH (06:30)
[2019-02-21] MEDS ORDERED: predniSONE 20 MG TAB PO SCH (08:00)
[2019-02-21 08:05] VITALS: TEMP 98.6
[2019-02-21] MEDS: DULoxetine 60 MG CAP PO SCH (08:25)
[2019-02-21] MEDS: Doxycycline 100 MG CAP PO SCH (08:25)
[2019-02-21] MEDS: Famotidine 20 MG TAB PO SCH (08:25)
[2019-02-21] MEDS: Trospium 20 MG TAB PO SCH (08:25)
[2019-02-21] MEDS: Pregabalin 75 MG CAP PO SCH (08:26)
[2019-02-21] MEDS: Aspirin 81 mg Enteric Coated Tablet PO SCH (08:26)
[2019-02-21] MEDS: guaiFENesin ER 600 MG TAB PO SCH (08:27)
[2019-02-21] MEDS: Enoxaparin Sodium 40 MG/0.4 ML SYRINGE SC SCH (08:27)
--- NOTE | 2019-02-21 09:58 | PRG ---
DATE OF SERVICE: 02/21/2019 SUBJECTIVE: The patient is doing better, wants to go home. OBJECTIVE: VITAL SIGNS: Temperature 98.6, pulse 90, respirations 16, O2 saturation 95% on 2 L, blood pressure 125/69. HEENT: Unremarkable. NECK: No adenopathy. LUNGS: Very mild end-expiratory wheeze. CARDIAC: S1 and S2. Regular. ABDOMEN: Soft and nontender. EXTREMITIES: No clubbing, cyanosis, or edema. ASSESSMENT: 1. Chronic obstructive pulmonary disease exacerbation. 2. Tobacco abuse. PLAN: She is okay to go home. She should go home on prednisone 40 mg daily for 7 days, then 20 mg daily for 7 days. Also, finish out another couple days of doxycycline. She should maintain her current inhaler regimen. She has been told not to smoke. She should follow up in my office in about a month. Job ID: [id number]
--- NOTE | 2019-02-21 11:42 | PDOC.HOSPP ---
- Subjective Encounter Date: 02/21/19 Encounter Time: 11:41 Subjective: Ms. Colunga was seen today in follow-up of COPD exacerbation. She does not have any complaints. She is breathing better. - Objective Vital Signs & Weight: Vital Signs (12 hours) Temp Pulse Resp BP BP Pulse Ox 02/21/19 10:26 91 16 96 02/21/19 08:05 98.6 F 90 16 125/69 95 02/21/19 08:00 95 02/21/19 06:31 87 16 95 02/21/19 06:30 87 16 97 02/21/19 04:00 97.8 F 81 18 129/74 95 Weight Weight 148 lb 4.8 oz Most Recent Monitor Data Heart Rate from ECG 100 NIBP 129/62 NIBP BP-Mean 84 Respiration from ECG 17 SpO2 91 I&O: 02/20/19 02/21/19 02/22/19 06:59 06:59 06:59 Intake Total 1440 1600 Balance 1440 1600 Result Diagrams: 02/16/19 03:17 02/16/19 03:17 Additional Labs: Accuchecks 02/18/19 20:42 POC Glucose 237 H Hospitalist ROS - Medication Medications: Active Medications Generic Name Dose Route Start Last Admin Trade Name Freq PRN Reason Stop Dose Admin Acetaminophen 650 mg 02/15/19 19:27 02/19/19 10:55 Tylenol PO 650 mg Q4H PRN Administration Headache/Fever/Mild Pain (1-3) Albuterol/Ipratropium 3 ml 02/15/19 22:30 02/21/19 10:26 Duoneb NEB 3 ml [id number] REYNA Administration Aspirin 81 mg 02/16/19 09:00 02/21/19 08:26 Ecotrin PO 81 mg DAILY REYNA Administration Doxycycline Hyclate 100 mg 02/16/19 21:00 02/21/19 08:25 Vibramycin PO 02/21/19 21:01 100 mg BID REYNA Administration Duloxetine HCl 120 mg 02/16/19 09:00 02/21/19 08:25 Cymbalta PO 120 mg DAILY REYNA Administration Enoxaparin Sodium 40 mg 02/16/19 09:00 02/21/19 08:27 Lovenox SC 40 mg 0900 REYNA Administration Famotidine 20 mg 02/18/19 21:00 02/21/19 08:25 Pepcid PO 20 mg BID REYNA Administration Guaifenesin 600 mg 02/17/19 21:00 02/21/19 08:27 Mucinex PO 600 mg Q12HR REYNA Administration HCTZ/Losartan Potassium 1 tab 02/16/19 09:00 02/21/19 08:25 Hyzaar 50/12.5 PO 1 tab DAILY REYNA Administration Insulin Human Lispro 0 units 02/15/19 19:29 02/21/19 06:00 Humalog SC 2 units .MILD SLIDING SCALE PRN Administration Mild Correctional Scale Insulin Human Lispro 0 units 02/18/19 22:01 02/20/19 20:23 Humalog SC 4 unit .BEDTIME SLIDING SC PRN Administration BEDTIME SLIDING SCALE Protocol Mometasone Furoate/Formoterol Fumar 2 puff 02/16/19 18:30 02/21/19 06:30 Dulera 200 Mcg/5 Mcg Inhaler INH 2 puff BID-RT REYNA Administration Pantoprazole Sodium 40 mg 02/19/19 09:00 02/21/19 08:25 Protonix PO 40 mg DAILY REYNA Administration Pravastatin Sodium 20 mg 02/15/19 21:00 02/20/19 20:22 Pravachol PO 20 mg HS REYNA Administration Prednisone 40 mg 02/21/19 08:00 02/21/19 08:26 Prednisone PO 40 mg QAM-WM REYNA Administration Pregabalin 300 mg 02/16/19 09:00 02/21/19 08:26 Lyrica PO 300 mg BID REYNA Administration Senna 1 tab 02/17/19 13:00 02/17/19 14:44 Senokot PO 1 tab HSPRN PRN Administration Constipation Trospium 20 mg 02/16/19 09:00 02/21/19 08:25 Trospium PO 20 mg DAILY REYNA Administration - Exam Eye: PERRL, anicteric sclera Heart: RRR, no murmur, no gallops, no rubs, normal peripheral pulses Respiratory: CTAB, wheezes (+ occassional wheeze) Gastrointestinal: soft, non-tender, non-distended, normal bowel sounds, no palpable masses, no hepatomegaly, no splenomegaly Extremities: no cyanosis, no clubbing, no edema Hosp A/P (1) Acute on chronic respiratory failure with hypoxia and hypercapnia Code(s): J96.21 - ACUTE AND CHRONIC RESPIRATORY FAILURE WITH HYPOXIA; J96.22 - ACUTE AND CHRONIC RESPIRATORY FAILURE WITH HYPERCAPNIA Status: Acute (2) COPD exacerbation Code(s): J44.1 - CHRONIC OBSTRUCTIVE PULMONARY DISEASE W (ACUTE) EXACERBATION Status: Acute (3) DM type 2 (diabetes mellitus, type 2) Status: Chronic Qualifiers: (4) HTN (hypertension) Code(s): I10 - ESSENTIAL (PRIMARY) HYPERTENSION Status: Chronic Qualifiers: - Plan * Acute on chronic respiratory failure with hypoxemia- better * Ambulate * HTN- blood pressure is stable * DM- continue SSI * Home today
[2019-02-21 13:35] VITALS: BP 134/71
--- NOTE | 2019-02-22 02:48 | DIS ---
DATE OF ADMISSION: 02/15/2019 DATE OF DISCHARGE: 02/21/2019 PRIMARY CARE PHYSICIAN: Dr. Ibarra. DISCHARGE DISPOSITION: Home. PRIMARY DISCHARGE DIAGNOSES: 1. Acute on chronic respiratory failure with hypoxemia. 2. Chronic obstructive pulmonary disease exacerbation. 3. Diabetes mellitus type 2. 4. Depression. 5. Tobacco abuse. 6. Hypertension. DISCHARGE MEDICATIONS: Include; 1. Doxycycline 100 mg twice a day for 7 days. 2. Prednisone taper starting with 40 mg. 3. Incruse inhaler as well as a Breo Ellipta inhaler one puff each day. 4. Lyrica 300 mg twice daily. 5. Pravachol 20 mg at bedtime. 6. Omeprazole 40 mg daily. 7. Multivitamin once a day. 8. Myrbetriq 50 mg daily. 9. Losartan/hydrochlorothiazide 50/12.5 mg daily. 10. Jardiance 10 mg daily. 11. Cymbalta 60 mg two capsules daily. 12. Aspirin 81 mg a day. CODE STATUS: Full code. ALLERGIES: CODEINE, EUCALYPTUS, HYDROCODONE AND TRAMADOL. HOSPITAL COURSE: Ms. Colunga is a pleasant 63-year-old female, who presented to the emergency room with complaints of shortness of breath. She has a history of COPD. She is being admitted for a COPD exacerbation. She was admitted and her Gastroenterology Physician was consulted. She was placed on antibiotics, DuoNebs, and steroids as well as supplemental oxygen as she is oxygen dependent at home. She improved over the course of the next couple of days, was stabilized and able to be discharged home in good condition on 02/21/2019. Job ID: [id number]
== END 2019-02-21 14:11 | disposition home or self-care (01) | DRG 189 ==
LOC: ERS 15:37 → IMCU/EMU 19:43 → T4-A 02-18 12:32
PROVIDERS: ADMIT Internal Medicine; ATTEND Internal Medicine
DX: J96.21 Acute and chronic respiratory failure with hypoxia (principal); J44.1 Chronic obstructive pulmonary disease with (acute) exacerbation; J44.0 Chronic obstructive pulmonary disease with (acute) lower respiratory infection; D68.9 Coagulation defect, unspecified; E11.40 Type 2 diabetes mellitus with diabetic neuropathy, unspecified; J96.22 Acute and chronic respiratory failure with hypercapnia; J20.9 Acute bronchitis, unspecified; F17.210 Nicotine dependence, cigarettes, uncomplicated; I10 Essential (primary) hypertension; F41.9 Anxiety disorder, unspecified; F32.9 Major depressive disorder, single episode, unspecified; E78.5 Hyperlipidemia, unspecified; Z79.4 Long term (current) use of insulin; Z98.51 Tubal ligation status; Z90.710 Acquired absence of both cervix and uterus; Z88.5 Allergy status to narcotic agent; Z99.81 Dependence on supplemental oxygen; Z79.82 Long term (current) use of aspirin; Z91.09 Other allergy status, other than to drugs and biological substances; Z79.899 Other long term (current) drug therapy; Z79.52 Long term (current) use of systemic steroids
CPT/HCPCS: 36415; 36416; 71045; 80048; 80053; 82805; 83605; 83880; 84484; 85025; 87633; 87798; 93005; 94640; 94644; 94660; 94760; 96374; 96375; J1650; J1956; J2920; J2930; J3475; J7512; J7611; J7620; S0028

== ENCOUNTER 2019-03-27 19:30 | Outpatient (CLI) | payer MEDICARE, BC | END 2019-03-27 19:31 | disposition home or self-care (01) | LOC: SLEEPLAB 19:30 | PROVIDERS: ATTEND Family Medicine | DX: G47.10 Hypersomnia, unspecified (principal); G47.9 Sleep disorder, unspecified; G47.33 Obstructive sleep apnea (adult) (pediatric); R09.02 Hypoxemia; R06.89 Other abnormalities of breathing; R51 Headache; K21.9 Gastro-esophageal reflux disease without esophagitis; R40.0 Somnolence; R06.83 Snoring; E66.9 Obesity, unspecified; E11.9 Type 2 diabetes mellitus without complications; F32.9 Major depressive disorder, single episode, unspecified; J44.9 Chronic obstructive pulmonary disease, unspecified | CPT/HCPCS: 95811 ==

== ENCOUNTER 2019-04-28 04:33 | Inpatient (IN) | payer MEDICARE, BC ==
[2019-04-28 05:17] LABS: #Basophils 0.1 thou/uL (0.0-0.2); #Lymphocytes 2.3 thou/uL (1.20-3.40); #Monocytes 1.3 thou/uL (0.11-0.59); #Neutrophils 10.7 thou/uL (1.40-6.50); %Basophils 0.6 % (0.0-1.0); %Eosinophils 0.3 % (0.0-10.0); %Lymphocytes 15.7 % (21.0-51.0); %Monocytes 9.3 % (0.0-10.0); %Neutrophils 74.1 % (42.0-75.0); Hemoglobin 14.3 g/dL (12.0-16.0); Mean Corpuscular HGB CONC 29.8 g/dL (32.0-36.0); Mean Corpuscular Hemoglobin 23.4 pg (27.0-31.0); Mean Corpuscular Volume 78.6 fL (78.0-98.0); Mean Platelet Volume 11.4 fL (7.4-10.4); Platelet Count 228 thou/uL (130-400); RBC Distribution Width 17.1 % (11.5-14.5); Red Blood Cell (RBC) Count 6.09 mill/uL (4.20-5.40); White Blood Cell (WBC) Count 14.4 thou/uL (4.8-10.8)
[2019-04-28] MEDS ORDERED: Sodium Chloride 0.9% 100 ML ONE (05:37)
[2019-04-28] MEDS ORDERED: Piperacillin/Tazobactam 4.5 GM VIAL ONE (05:37)
[2019-04-28 05:41] LABS: ALT (SGPT) 24 U/L (8-55); AST (SGOT) 42 U/L (5-34); Albumin 3.7 g/dL (3.4-4.8); Alkaline Phosphatase 197 U/L (40-110); Anion Gap 16 mmol/L (10-20); BUN (Urea Nitrogen) 26 mg/dL (9.8-20.1); Bilirubin, Total 0.8 mg/dL (0.2-1.2); Calc. Creatinine Clearance 0 mL/min (70-130); Calcium 8.9 mg/dL (7.8-10.44); Carbon Dioxide 35 mmol/L (23-31); Chloride 97 mmol/L (98-107); Estimated GFR-MDRD 83; Globulin 3.3 g/dL (2.4-3.5); Glucose 240 mg/dL (80-115); Magnesium 1.7 mg/dL (1.6-2.6); Sodium 143 mmol/L (136-145)
[2019-04-28 06:02] LABS: Bacteria/HPF 3+ HPF (None Seen); Bilirubin Negative (Negative); Blood, Urine 1+ (Negative); Clarity Turbid (Clear); Glucose, Urine (Dipstick) 300 mg/dL (Negative); Leukocyte 500 Leu/uL (Negative); Mucous/LPF 2+ LPF (<2+); Nitrite Negative (Negative); Protein, Urine (Dipstick) 300 mg/dL (Neg-Trace); Squamous Epithelial 0-3 HPF (0-3); WBC/HPF Greater than 50 HPF (0-3); Yeast-Budding 2+ HPF (None Seen)
[2019-04-28] MEDS ORDERED: methylPREDNISolone Sod Succ/PF 125 MG/2 ML VIAL ONE (06:04)
[2019-04-28 07:53] VITALS: BMI 25.0
--- NOTE | 2019-04-28 08:17 | RAD ---
AP VIEW OF THE CHEST: INDICATION: History of dyspnea, altered mental status, and hyperglycemia. COMPARISON: Prior exam dated 02/15/2019. FINDINGS: There is worsening mild cardiomegaly. There is mild pulmonary vascular congestion. There is interst itial and airspace opacity involving the right lung. No definite pleural effusion is evident. Porti ons of the right costophrenic angle are excluded. No pneumothorax is evident. Osseous structures re veal no acute abnormality. IMPRESSION: 1. Mild cardiomegaly with pulmonary vascular congestion. 2. Interstitial and airspace opacity of the right lower lobe more suspicious for pneumonia. Recomme nd correlation and radiographic followup. POS: BH
[2019-04-28] MEDS ORDERED: Acetaminophen 325 MG TAB PO PRN (08:51)
[2019-04-28] MEDS ORDERED: Dextrose 5% in Water 1,000 ML IV PRN (08:51)
[2019-04-28] MEDS ORDERED: Benzonatate 100 MG CAP PO PRN (08:51)
[2019-04-28] MEDS ORDERED: Dextrose 50% Abboject 50 ML SYRINGE SLOW IVP PRN (08:51)
[2019-04-28] MEDS ORDERED: hydrALAZINE 20 MG/ML VIAL SLOW IVP PRN (08:51)
[2019-04-28] MEDS ORDERED: Vancomycin HCl 1 GM in Premix Bag 1 BAG IVPB SCH (09:00)
[2019-04-28] MEDS: Enoxaparin Sodium 40 MG/0.4 ML SYRINGE SC SCH (09:34)
[2019-04-28] MEDS: guaiFENesin ER 600 MG TAB PO SCH ×2 (09:34→20:00)
[2019-04-28] MEDS: methylPREDNISolone Sod Succ 40 MG VIAL IVP SCH (09:35)
[2019-04-28] MEDS ORDERED: FLU VACC QS2019-20(6MOS UP)/PF 60 MCG/0.5 ML SYRINGE IM ONE (10:30)
[2019-04-28] MEDS: HumaLOG 300 UNITS/3 ML VIAL SC PRN ×3 (11:29→20:00)
--- NOTE | 2019-04-28 14:09 | HP ---
PRIMARY CARE PHYSICIAN: Dr. Ibarra. CHIEF COMPLAINT: Altered mental status and shortness of breath. HISTORY OF PRESENT ILLNESS: Ms. Colunga is a 63-year-old female, who has a history of chronic respiratory failure due to COPD with hypoxemia, she is on home oxygen. Her daughter is at the bedside and is the historian and says that she got a call from her dad to come and take her mom to the hospital. He says that he had been worried about her and has not slept for a couple of days. Apparently, ever since Thanksgiving, she has been lying in the bed and has not gotten up. Her daughter says this is not that unusual for her, and at some time, she will sleep for almost 20 hours a day, but they also noted that she had a poor appetite, and she has been coughing with productive sputum, and she appeared generally weak. They apparently tried to get her up to get her into the shower to clean her off yesterday, but she was a bit confused and would not follow directions, and for this reason, they brought her to the hospital. In the ER, they did a chest x-ray which was suspicious for an infiltrate. Her white blood cell count was elevated, and she is being admitted for pneumonia and COPD exacerbation. The patient herself is not able to answer any questions. She keeps repeating her birthday, saying 1955, as the answer to all of the questions. REVIEW OF SYSTEMS: This is unobtainable due to the patient's confusion. PAST MEDICAL HISTORY: Significant for chronic obstructive pulmonary disease; diabetes mellitus, type 2; hypertension; generalized anxiety; depression, and her daughter says that she gets blood taken out because it is "too sick". PAST SURGICAL HISTORY: She has had a bilateral tubal ligation as well as a hysterectomy. SOCIAL HISTORY: She is a current smoker. She smokes half to about a pack per day, and her daughter says she smoked ever since she was 12 years old. Denies any alcohol use. She is . CODE STATUS: Her daughter was not really sure. She says her father has all that information. Therefore, she will be a full code until we can clarify this further. FAMILY HISTORY: Significant for father who had cancer. Mother had diabetes and COPD. ALLERGIES: 1. CODEINE. 2. HYDROCODONE. 3. TRAMADOL. 4. EUCALYPTUS. MEDICATIONS: These are taken from the electronic records and will need to be reconciled and include: 1. Aspirin 81 mg daily. 2. Cymbalta 60 mg 2 tablets daily. 3. Jardiance 10 mg daily. 4. Losartan/hydrochlorothiazide 50/12.5 mg daily. 5. Myrbetriq 50 mg daily. 6. Multivitamin once a day. 7. Omeprazole 40 mg daily. 8. Pravastatin 20 mg daily. 9. Lyrica 300 mg twice a day. PHYSICAL EXAMINATION: GENERAL: She is awake, but disoriented. She keeps repeating her birthday. She is well developed and well nourished. VITAL SIGNS: Blood pressure was 154/80, heart rate 95, respiratory rate of 20, temperature is 98.1, O2 saturation is 95% on 5 L. HEENT: Her pupils are equal, round, and reactive. Extraocular muscles are intact. Her sclerae are anicteric. Throat; she has moist mucous membranes. She did have a whitish exudate on the tongue. NECK: There is no adenopathy. No bruits. LUNGS: She has rales bilaterally in the lower lung hardy. No wheezing. No rhonchi. CARDIOVASCULAR: She had normal S1 and S2. I did not appreciate an S3 or S4. No murmurs, clicks, or rubs. ABDOMEN: Obese. It is soft, nontender, and nondistended. Positive for bowel sounds. No rebound. No guarding. No organomegaly. EXTREMITIES: She has trace pedal edema. NEUROLOGIC: The exam is nonfocal. LABORATORY RESULTS: White blood cell count is 14.4, hemoglobin 14.3, hematocrit is 47.9, platelet count is 228. Sodium 143, potassium 5.0, chloride is 97, CO2 is 35, BUN of 26, creatinine 0.71, glucose is 240. Urinalysis; she did have 3+ bacteria and leukocyte esterase of 500. Beta-hydroxybutyrate was elevated. On her chest x-ray, this is by my reading, she appeared to have some increased haziness in both lung bases. Heart size was normal. She had an EKG showing sinus tachycardia. The heart rate is 102, and there is evidence for right-axis deviation and right atrial enlargement. ASSESSMENT: 1. Acute on chronic respiratory failure with hypoxemia, and metabolic encephalopathy. This is a pleasant 63-year-old female, who presents with respiratory failure, likely as a result of pneumonia. She will be admitted to the medical floor, started on IV antibiotics. She was in the hospital back in January, so she could qualify for a healthcare-associated pneumonia. We will consult her professor of vegetable science, Dr. Narvaez. 2. For chronic obstructive pulmonary disease exacerbation, we will place her on IV steroids, DuoNeb, and cautious supplemental oxygen. 3. Diabetes mellitus. We expect her blood sugar to be elevated with the steroids. We will place her on a sliding scale insulin in addition to her home medications , and she may require a long-acting insulin as well. 4. Hypertension. We will need to reconcile and restart her antihypertensives and place her on p.r.n. medications as needed. 5. She will be placed on deep venous thrombosis and gastrointestinal prophylaxis. Job ID: [id number] MTDD
--- NOTE | 2019-04-28 15:14 | CON ---
DATE OF CONSULTATION: 04/28/2019 This encompassed 70 minutes of time, of that time, greater than 50% was spent with the patient and/or the patient's unit in the hospital. REASON FOR CONSULTATION: COPD exacerbation. CONSULTING PHYSICIAN: Lázaro Snyder MD HISTORY OF PRESENT ILLNESS: Ms. Colunga is well known to me. She is a 63-year-old female with severe COPD. She came to the hospital last night obtunded. She has started smoking again. She was treated with some nebulization therapy and steroids and has improved somewhat today. PAST MEDICAL HISTORY: 1. Severe COPD. 2. Tobacco abuse. 3. Hypertension. 4. Diabetes mellitus. PAST SURGICAL HISTORY: 1. Tubal ligation. 2. Hysterectomy. 3. Cholecystectomy. 4. Shoulder surgery. 5. Bilateral hand surgeries. FAMILY MEDICAL HISTORY: Remarkable for father with liver cancer and mother with COPD. SOCIAL HISTORY: Smokes about a pack per day. Does not consume alcohol. Does not use illicit drugs. ALLERGIES: CODEINE, HYDROCODONE, TRAMADOL, AND EUCALYPTUS. REVIEW OF SYSTEMS: Twelve-point review of system otherwise negative. PHYSICAL EXAMINATION: VITAL SIGNS: Temperature 98.6, pulse 97, respirations 20, O2 saturation 95% on 2 L, and blood pressure 134/73. GENERAL: She is awake. She is moaning. Does not appear to be any overt distress. HEENT: Unremarkable. NECK: No adenopathy or JVD. LUNGS: She has [id number] wheezing bilaterally. CARDIOVASCULAR: S1 and S2. Regular. ABDOMEN: Soft. EXTREMITIES: No edema. LABORATORY DATA: White blood cell count 14.4, hematocrit 47.9, and platelet count 228. Sodium 143, potassium 5, chloride 97, CO2 of 35, BUN 26, creatinine 0.7, and glucose 240. A chest x-ray obtained yesterday demonstrated hyperinflation without evidence of mass, effusion, or infiltrate. ASSESSMENT: 1. Chronic obstructive pulmonary disease with exacerbation. 2. Chronic hypoxic and hypercapnic respiratory failure. 3. Tobacco abuse. PLAN: Agree with current treatment including antibiotics, nebulization therapy, and steroids. She needs to quit smoking, but I doubt she will comply. I will be happy to follow with you. Job ID: [id number]
[2019-04-28] MEDS: Vancomycin HCl 1 GM in Premix Bag 1 BAG IVPB SCH (17:23)
[2019-04-28] MEDS: Arformoterol 15 MCG/2 ML NEB NEB SCH (18:39)
[2019-04-29 06:20] LABS: #Basophils 0.1 thou/uL (0.0-0.2); #Lymphocytes 2.3 thou/uL (1.20-3.40); #Neutrophils 6.6 thou/uL (1.40-6.50); %Basophils 0.5 % (0.0-1.0); %Eosinophils 0.2 % (0.0-10.0); %Monocytes 10.1 % (0.0-10.0); %Neutrophils 66.1 % (42.0-75.0); Hemoglobin 11.7 g/dL (12.0-16.0); Mean Corpuscular HGB CONC 30.5 g/dL (32.0-36.0); Mean Corpuscular Hemoglobin 23.9 pg (27.0-31.0); Mean Corpuscular Volume 78.1 fL (78.0-98.0); Mean Platelet Volume 11.1 fL (7.4-10.4); Platelet Count 184 thou/uL (130-400); RBC Distribution Width 16.7 % (11.5-14.5); Red Blood Cell (RBC) Count 4.91 mill/uL (4.20-5.40); White Blood Cell (WBC) Count 9.9 thou/uL (4.8-10.8)
[2019-04-29] MEDS: Vancomycin HCl 1 GM in Premix Bag 1 BAG IVPB SCH ×2 (06:28→18:16)
[2019-04-29 06:34] LABS: Anion Gap 7 mmol/L (10-20); BUN (Urea Nitrogen) 25 mg/dL (9.8-20.1); Calc. Creatinine Clearance 103 mL/min (70-130); Calcium 8.5 mg/dL (7.8-10.44); Carbon Dioxide 37 mmol/L (23-31); Chloride 100 mmol/L (98-107); Estimated GFR-MDRD Greater than 90; Glucose 243 mg/dL (80-115); Potassium 3.7 mmol/L (3.5-5.1); Sodium 140 mmol/L (136-145)
[2019-04-29] MEDS: Arformoterol 15 MCG/2 ML NEB NEB SCH ×2 (07:37→18:49)
[2019-04-29] MEDS ORDERED: Guaifenesin DM 100-10/5 ML UDCUP PO PRN (08:58)
[2019-04-29] MEDS: guaiFENesin ER 600 MG TAB PO SCH ×2 (09:14→20:01)
[2019-04-29] MEDS: Enoxaparin Sodium 40 MG/0.4 ML SYRINGE SC SCH (09:14)
--- NOTE | 2019-04-29 09:14 | PRG ---
DATE OF SERVICE: 04/29/2019 SUBJECTIVE: The patient had a good night. She feels better this morning. OBJECTIVE: VITAL SIGNS: Temperature 98.1, pulse 90, respirations 18, O2 saturation 95% on 2 L, blood pressure 121/72. HEENT: Unremarkable. NECK: No adenopathy, JVD, or bruits. CHEST: Mild end-expiratory wheezing, better than yesterday. CARDIAC: S1 and S2, regular. ABDOMEN: Soft. EXTREMITIES: No edema. Cultures show no growth to date. LABORATORY DATA: White blood cell count 9.9, hematocrit 38.3, and platelet count 184. Sodium 140, potassium 3.7, chloride 100, CO2 of 37, BUN 25, creatinine 0.6, glucose 243. ASSESSMENT: 1. Chronic obstructive pulmonary disease with exacerbation. 2. Underlying obstructive sleep apnea. 3. Tobacco abuse. PLAN: 1. She can get out of bed and increase activity as tolerated. 2. Gave a prescription for her CPAP. 3. Add some antitussive medication as she was complaining of cough. 4. Continue steroids. Job ID: [id number]
[2019-04-29] MEDS: methylPREDNISolone Sod Succ 40 MG VIAL IVP SCH (09:15)
[2019-04-29] MEDS: HumaLOG 300 UNITS/3 ML VIAL SC PRN ×3 (12:14→20:02)
--- NOTE | 2019-04-29 16:41 | PDOC.HOSPP ---
- Subjective Encounter Date: 04/29/19 Encounter Time: 16:39 Subjective: Ms. Colunga was seen today in follow-up of COPD exacerbation. She has improved dramatically overnight. She does not have any new complaints. - Objective Vital Signs & Weight: Vital Signs (12 hours) Temp Pulse Resp BP Pulse Ox 04/29/19 16:07 98.6 F 93 18 108/61 92 L 04/29/19 14:34 85 16 95 04/29/19 11:55 98.3 F 93 20 129/71 93 L 04/29/19 10:48 88 16 95 04/29/19 09:00 95 04/29/19 08:00 98.1 F 90 18 121/71 95 04/29/19 07:37 89 16 96 04/29/19 06:07 98.2 F 94 16 134/71 100 Weight Admit Weight 150 lb 8 oz Weight 150 lb 8 oz I&O: 04/28/19 04/29/19 04/30/19 06:59 06:59 06:59 Intake Total 720 Balance 720 Result Diagrams: 04/29/19 05:49 04/29/19 05:49 Additional Labs: Accuchecks 04/29/19 04/29/19 04/28/19 11:50 04:34 19:50 POC Glucose 362 H 219 H 359 H 04/28/19 16:49 POC Glucose 273 H Hospitalist ROS - Medication Medications: Active Medications Generic Name Dose Route Start Last Admin Trade Name Freq PRN Reason Stop Dose Admin Albuterol/Ipratropium 3 ml 04/29/19 10:30 04/29/19 14:34 Duoneb NEB 3 ml [id number] REYNA Administration Arformoterol Tartrate 15 mcg 04/28/19 18:30 04/29/19 07:37 Brovana NEB 15 mcg BID-RT REYNA Administration Enoxaparin Sodium 40 mg 04/28/19 09:00 04/29/19 09:14 Lovenox SC 40 mg 0900 REYNA Administration Guaifenesin 600 mg 04/28/19 09:00 04/29/19 09:14 Mucinex PO 600 mg Q12HR REYNA Administration Guaifenesin/Dextromethorphan 15 ml 04/29/19 08:58 04/29/19 12:21 Robitussin Dm PO 15 ml Q4H PRN Administration Cough Levofloxacin 750 mg/ Device 150 mls @ 100 mls/hr 04/28/19 08:51 04/29/19 09: 15 IVPB 150 mls Q24HR REYNA Administration Vancomycin HCl 1 gm/ Device 200 mls @ 200 mls/hr 04/28/19 18:00 04/29/19 06: 28 IVPB 200 mls 0600,1800 REYNA Administration Insulin Human Lispro 0 units 04/28/19 08:51 04/29/19 12:14 Humalog SC 10 unit .MODERATE SLIDING SC PRN Administration Moderate Correctional Scale Insulin Human Lispro 0 units 04/28/19 08:51 04/28/19 20:00 Humalog SC 5 units .BEDTIME SLIDING SC PRN Administration Bedtime Correctional Scale Methylprednisolone Sodium Succinate 40 mg 04/28/19 09:00 04/29/19 09:15 Solu-Medrol IVP 40 mg DAILY REYNA Administration - Exam Eye: PERRL Heart: RRR, no murmur, no gallops, no rubs, normal peripheral pulses Respiratory: rhonchi Gastrointestinal: soft, non-tender, non-distended, normal bowel sounds, no palpable masses, no hepatomegaly Extremities: no cyanosis, no edema Hosp A/P (1) Encephalopathy acute Code(s): G93.40 - ENCEPHALOPATHY, UNSPECIFIED Status: Acute (2) Acute and chronic respiratory failure with hypoxia Code(s): J96.21 - ACUTE AND CHRONIC RESPIRATORY FAILURE WITH HYPOXIA Status: Acute (3) Anxiety and depression Code(s): F41.9 - ANXIETY DISORDER, UNSPECIFIED; F32.9 - MAJOR DEPRESSIVE DISORDER, SINGLE EPISODE, UNSPECIFIED Status: Chronic (4) DM type 2 (diabetes mellitus, type 2) Status: Chronic Qualifiers: (5) HTN (hypertension) Code(s): I10 - ESSENTIAL (PRIMARY) HYPERTENSION Status: Chronic Qualifiers: - Plan * Acute on chronic respiratory failure- improved * Continue Duonebs, and steroids, and emoiric antibiotics- will change Solumedrol to Prednisone * Metabolic encephalopathy- completely resolved * HTN- will re-start her home medications * DM- also re-start home medications and continue SSI * Hopefully home soon
[2019-04-29 17:48] LABS: Vancomycin, Trough 6.5 ug/mL
[2019-04-29] MEDS: Vancomycin HCl 1.5 GM in Sodium Chloride 0.9% 250 ML 300 ML IVPB SCH (18:27)
[2019-04-29] MEDS: Pregabalin 75 MG CAP PO SCH (20:00)
[2019-04-29] MEDS: HumaLOG 300 UNITS/3 ML VIAL SC SCH (20:01)
[2019-04-29] MEDS ORDERED: Simvastatin 20 MG TAB PO SCH (21:00)
[2019-04-30] MEDS: Vancomycin HCl 1.5 GM in Sodium Chloride 0.9% 250 ML 300 ML IVPB SCH (06:04)
[2019-04-30 06:22] LABS: #Basophils 0.1 thou/uL (0.0-0.2); #Lymphocytes 2.8 thou/uL (1.20-3.40); #Monocytes 0.9 thou/uL (0.11-0.59); #Neutrophils 5.9 thou/uL (1.40-6.50); %Basophils 0.6 % (0.0-1.0); %Eosinophils 0.5 % (0.0-10.0); %Lymphocytes 28.9 % (21.0-51.0); %Monocytes 9.3 % (0.0-10.0); %Neutrophils 60.8 % (42.0-75.0); Hemoglobin 11.2 g/dL (12.0-16.0); Mean Corpuscular HGB CONC 31.2 g/dL (32.0-36.0); Mean Corpuscular Hemoglobin 24.1 pg (27.0-31.0); Mean Corpuscular Volume 77.4 fL (78.0-98.0); Mean Platelet Volume 11.4 fL (7.4-10.4); Platelet Count 172 thou/uL (130-400); RBC Distribution Width 17.1 % (11.5-14.5); Red Blood Cell (RBC) Count 4.66 mill/uL (4.20-5.40); White Blood Cell (WBC) Count 9.7 thou/uL (4.8-10.8)
[2019-04-30 06:47] LABS: Anion Gap 11 mmol/L (10-20); BUN (Urea Nitrogen) 16 mg/dL (9.8-20.1); Calc. Creatinine Clearance 107 mL/min (70-130); Calcium 8.5 mg/dL (7.8-10.44); Carbon Dioxide 32 mmol/L (23-31); Chloride 100 mmol/L (98-107); Estimated GFR-MDRD Greater than 90; Glucose 232 mg/dL (80-115); Potassium 3.5 mmol/L (3.5-5.1); Sodium 139 mmol/L (136-145)
[2019-04-30] MEDS: Arformoterol 15 MCG/2 ML NEB NEB SCH (07:10)
--- NOTE | 2019-04-30 07:28 | PDOC.HOSPP ---
- Subjective Encounter Date: 04/30/19 Encounter Time: 06:45 Subjective: Ms. Colunga is a 63 y/o female on hospital day #2 for COPD exacerbation. She had an episode of pain below her right breast yesterday, which was describes as dull and went away with tylenol. She has no pain this morning. She denies SOB or CP. She is still coughing and producing off-white mucous. She slept poorly overnight. She believes her breathing is slowly improving. Her appetite is good , but she has not had a BM since her admission (2 days). No new concerns at this time. - Objective Vital Signs & Weight: Vital Signs (12 hours) Temp Pulse Resp BP Pulse Ox 04/30/19 07:12 83 16 95 04/30/19 07:10 81 16 94 L 04/30/19 04:00 98.2 F 83 20 149/83 H 94 L 04/30/19 02:02 71 16 100 04/30/19 00:00 98.2 F 71 20 124/72 100 04/29/19 20:00 95 Weight Admit Weight 68.266 kg Weight 68.266 kg I&O: 04/29/19 04/30/19 05/01/19 06:59 06:59 06:59 Intake Total 720 Balance 720 Result Diagrams: 04/30/19 05:55 04/30/19 05:55 Additional Labs: Accuchecks 04/30/19 04/29/19 04/29/19 04:36 19:10 16:50 POC Glucose 261 H 419 H 304 H 04/29/19 11:50 POC Glucose 362 H Hospitalist ROS - Review of Systems Constitutional: denies: fever, chills Eyes: reports: redness (Patient recently woke up) ENT: denies: throat pain Respiratory: reports: cough, sputum. denies: shortness of breath Cardiovascular: denies: chest pain, palpitations, edema Gastrointestinal: denies: nausea, vomiting, abdominal pain, diarrhea Genitourinary: denies: dysuria Neurological: denies: confusion - Medication Medications: Active Medications Generic Name Dose Route Start Last Admin Trade Name Freq PRN Reason Stop Dose Admin Acetaminophen 650 mg 04/28/19 08:51 04/29/19 20:39 Tylenol PO 650 mg Q4H PRN Administration Headache/Fever/Mild Pain (1-3) Albuterol/Ipratropium 3 ml 04/29/19 10:30 04/30/19 07:12 Duoneb NEB 3 ml [id number] REYNA Administration Arformoterol Tartrate 15 mcg 04/28/19 18:30 04/30/19 07:10 Brovana NEB 15 mcg BID-RT REYNA Administration Enoxaparin Sodium 40 mg 04/28/19 09:00 04/29/19 09:14 Lovenox SC 40 mg 0900 REYNA Administration Guaifenesin 600 mg 04/28/19 09:00 04/29/19 20:01 Mucinex PO 600 mg Q12HR REYNA Administration Guaifenesin/Dextromethorphan 15 ml 04/29/19 08:58 04/29/19 12:21 Robitussin Dm PO 15 ml Q4H PRN Administration Cough Levofloxacin 750 mg/ Device 150 mls @ 100 mls/hr 04/28/19 08:51 04/29/19 09: 15 IVPB 150 mls Q24HR REYNA Administration Vancomycin HCl 1.5 gm/ Sodium 300 mls @ 200 mls/hr 04/29/19 18:00 04/30/19 06 :04 Chloride IVPB 300 mls 0600,1800 REYNA Administration Insulin Human Lispro 0 units 04/28/19 08:51 04/29/19 18:27 Humalog SC 8 unit .MODERATE SLIDING SC PRN Administration Moderate Correctional Scale Insulin Human Lispro 0 units 04/28/19 08:51 04/29/19 20:02 Humalog SC 5 units .BEDTIME SLIDING SC PRN Administration Bedtime Correctional Scale Insulin Human Lispro 10 units 04/29/19 21:00 04/29/19 20:01 Humalog SC 10 unit TID REYNA Administration Methylprednisolone Sodium Succinate 40 mg 04/28/19 09:00 04/29/19 09:15 Solu-Medrol IVP 40 mg DAILY REYNA Administration Pregabalin 300 mg 04/29/19 21:00 04/29/19 20:00 Lyrica PO 300 mg BID REYNA Administration Simvastatin 10 mg 04/29/19 21:00 04/29/19 20:01 Zocor PO 10 mg HS REYNA Administration - Exam General Appearance: NAD, awake alert Eye: PERRL, anicteric sclera ENT: moist mucosa Neck: supple, no lymphadenopathy Heart: RRR, no murmur, normal peripheral pulses Respiratory: CTAB, no wheezes, no ronchi Extremities: no cyanosis, no edema Extremities - other findings: mild clubbing on fingers bilaterally Psychiatric: normal affect Psychiatric - other findings: Normal speech, alert and oriented as indirectly measured by MSE Hosp A/P (1) Acute and chronic respiratory failure with hypoxia Code(s): J96.21 - ACUTE AND CHRONIC RESPIRATORY FAILURE WITH HYPOXIA Status: Acute (2) Encephalopathy acute Code(s): G93.40 - ENCEPHALOPATHY, UNSPECIFIED Status: Acute (3) DM type 2 (diabetes mellitus, type 2) Status: Chronic Qualifiers: (4) HTN (hypertension) Code(s): I10 - ESSENTIAL (PRIMARY) HYPERTENSION Status: Chronic Qualifiers: - Plan Ms. Colunga is on hospital day #2 for COPD exacerbation and is recovering well. - Acute respiratory failure d/t COPD exacerbation: Continue duoneb treatments, continue prednisone to complete 5 day course. Her WBC is wnl, she is afebrile and lung exam is negative. She may only need one more day of levofloxacin and vancomycin (total 3 day treatment) iff she continues to improve today. If not, we can consider switching her to oral levofloxacin. -Metabolic Encephalopathy: Patient is oriented, alert and not confused today as well. It seems that her encephalopathy has resolved. -HTN: elevated BP this AM. Will continue home meds and continue to monitor for now. -DM: Continue home meds and SSI. -Other: Patient encouraged to ambulate and use incentive spirometry. Given her improvement in symptoms, I believe the patient may be ready for discharge today after administration of abx. Will discuss with Dr. Mckinnon.
[2019-04-30] MEDS ORDERED: metFORMIN 500 MG TAB PO SCH (08:00)
[2019-04-30 08:12] VITALS: BP 156/78; TEMP 98
[2019-04-30] MEDS: Enoxaparin Sodium 40 MG/0.4 ML SYRINGE SC SCH (08:36)
[2019-04-30] MEDS: methylPREDNISolone Sod Succ 40 MG VIAL IVP SCH (08:36)
[2019-04-30] MEDS: guaiFENesin ER 600 MG TAB PO SCH (08:36)
[2019-04-30] MEDS: Pregabalin 75 MG CAP PO SCH (08:37)
--- NOTE | 2019-04-30 08:49 | PRG ---
DATE OF SERVICE: 04/30/2019 SUBJECTIVE: Ms. Colunga is doing well and wants to go home. OBJECTIVE: VITAL SIGNS: Temperature 98.0, pulse 78, respirations 18, O2 saturation 91%, and blood pressure 156/78. HEENT: Unremarkable. NECK: No adenopathy, JVD, or bruits. LUNGS: Clear anteriorly. CARDIAC: S1 and S2, regular. ABDOMEN: Soft. EXTREMITIES: No edema. ASSESSMENT: Chronic obstructive pulmonary disease with exacerbation - now back to baseline. PLAN: 1. In my opinion, the patient is stable enough for discharge to home. She should complete about a week's worth of antibiotics and have her steroids tapered over a week or two. She was given a prescription for CPAP with instructions to follow up with me in the office in May for [id number] Medicare evaluation to document use of CPAP. 2. She has been told not to smoke, although I doubt she will not comply. Job ID: [id number]
[2019-04-30] MEDS ORDERED: Insulin Glargine 20 UNITS in Pre-Filled Syringe 1 EACH SC SCH (09:00)
[2019-04-30] MEDS ORDERED: ALPRAZolam 0.5 MG TAB PO SCH (09:00)
[2019-04-30] MEDS ORDERED: Empagliflozin [Jardiance] 10 MG PO SCH (09:00)
[2019-04-30] MEDS ORDERED: Non-Formulary Item 1 EACH (Umeclidinium Bromide [Incruse Ellipta] 1 INH) IH SCH (09:00)
[2019-04-30] MEDS: HumaLOG 300 UNITS/3 ML VIAL SC SCH ×2 (10:29→16:17)
[2019-04-30] MEDS: HumaLOG 300 UNITS/3 ML VIAL SC PRN (12:40)
--- NOTE | 2019-04-30 14:39 | PDOC.HOSPP ---
- Subjective Encounter Date: 04/30/19 Encounter Time: 14:38 Subjective: Ms. Colunga was seen today in follow-up of COPD exacerbation. She is feeling much better. - Objective Vital Signs & Weight: Vital Signs (12 hours) Temp Pulse Resp BP Pulse Ox 04/30/19 11:36 88 16 96 04/30/19 08:09 98.0 F 88 18 156/78 H 91 L 04/30/19 08:00 94 L 04/30/19 07:12 83 16 95 04/30/19 07:10 81 16 94 L 04/30/19 04:00 98.2 F 83 20 149/83 H 94 L Weight Admit Weight 150 lb 8 oz Weight 150 lb 8 oz I&O: 04/29/19 04/30/19 05/01/19 06:59 06:59 06:59 Intake Total 720 Balance 720 Result Diagrams: 04/30/19 05:55 04/30/19 05:55 Additional Labs: Accuchecks 04/30/19 04/30/19 04/29/19 11:53 04:36 19:10 POC Glucose 236 H 261 H 419 H 04/29/19 16:50 POC Glucose 304 H Hospitalist ROS - Medication Medications: Active Medications Generic Name Dose Route Start Last Admin Trade Name Freq PRN Reason Stop Dose Admin Acetaminophen 650 mg 04/28/19 08:51 04/29/19 20:39 Tylenol PO 650 mg Q4H PRN Administration Headache/Fever/Mild Pain (1-3) Albuterol/Ipratropium 3 ml 04/29/19 10:30 04/30/19 11:36 Duoneb NEB 3 ml [id number] REYNA Administration Alprazolam 0.5 mg 04/30/19 09:00 04/30/19 08:36 Xanax PO 0.5 mg DAILY REYNA Administration Arformoterol Tartrate 15 mcg 04/28/19 18:30 04/30/19 07:10 Brovana NEB 15 mcg BID-RT REYNA Administration Enoxaparin Sodium 40 mg 04/28/19 09:00 04/30/19 08:36 Lovenox SC 40 mg 0900 REYNA Administration Guaifenesin 600 mg 04/28/19 09:00 04/30/19 08:36 Mucinex PO 600 mg Q12HR REYNA Administration Guaifenesin/Dextromethorphan 15 ml 04/29/19 08:58 04/29/19 12:21 Robitussin Dm PO 15 ml Q4H PRN Administration Cough HCTZ/Losartan Potassium 1 tab 04/30/19 09:00 04/30/19 08:36 Hyzaar 50/12.5 PO 1 tab DAILY REYNA Administration Levofloxacin 750 mg/ Device 150 mls @ 100 mls/hr 04/28/19 08:51 04/30/19 08: 35 IVPB 150 mls Q24HR REYNA Administration Insulin Glargine 20 units/ 0.2 mls @ 0 mls/hr 04/30/19 09:00 04/30/19 10:29 Miscellaneous Medication SC 0.2 mls QAM REYNA Administration Vancomycin HCl 1.5 gm/ Sodium 300 mls @ 200 mls/hr 04/29/19 18:00 04/30/19 06 :04 Chloride IVPB 300 mls 0600,1800 REYNA Administration Insulin Human Lispro 0 units 04/28/19 08:51 04/30/19 12:40 Humalog SC 4 unit .MODERATE SLIDING SC PRN Administration Moderate Correctional Scale Insulin Human Lispro 0 units 04/28/19 08:51 04/29/19 20:02 Humalog SC 5 units .BEDTIME SLIDING SC PRN Administration Bedtime Correctional Scale Insulin Human Lispro 10 units 04/29/19 21:00 04/30/19 10:29 Humalog SC 10 unit TID REYNA Administration Metformin HCl 500 mg 04/30/19 08:00 04/30/19 08:35 Glucophage PO 500 mg QAM-WM REYNA Administration Methylprednisolone Sodium Succinate 40 mg 04/28/19 09:00 04/30/19 08:36 Solu-Medrol IVP 40 mg DAILY REYNA Administration Mirabegron 50 mg 04/30/19 09:00 04/30/19 10:30 Myrbetriq Er PO 50 mg DAILY REYNA Administration Pantoprazole Sodium 40 mg 04/30/19 09:00 04/30/19 08:36 Protonix PO 40 mg DAILY REYNA Administration Pregabalin 300 mg 04/29/19 21:00 04/30/19 08:37 Lyrica PO 300 mg BID REYNA Administration Simvastatin 10 mg 04/29/19 21:00 04/29/19 20:01 Zocor PO 10 mg HS REYNA Administration - Exam Eye: PERRL Heart: RRR, no murmur, no gallops, no rubs, normal peripheral pulses Respiratory: CTAB (+ some occasional rhonchi) Gastrointestinal: soft, non-tender, non-distended, normal bowel sounds, no palpable masses, no hepatomegaly, no splenomegaly Extremities: no cyanosis, no clubbing, no edema Hosp A/P (1) Encephalopathy acute Code(s): G93.40 - ENCEPHALOPATHY, UNSPECIFIED Status: Acute (2) Acute and chronic respiratory failure with hypoxia Code(s): J96.21 - ACUTE AND CHRONIC RESPIRATORY FAILURE WITH HYPOXIA Status: Acute (3) Anxiety and depression Code(s): F41.9 - ANXIETY DISORDER, UNSPECIFIED; F32.9 - MAJOR DEPRESSIVE DISORDER, SINGLE EPISODE, UNSPECIFIED Status: Chronic (4) DM type 2 (diabetes mellitus, type 2) Status: Chronic Qualifiers: (5) HTN (hypertension) Code(s): I10 - ESSENTIAL (PRIMARY) HYPERTENSION Status: Chronic Qualifiers: - Plan * Acute on chronic respiratory failure- improved * Stable for discharge home as per the plan outlined by Dr. Narvaez
--- NOTE | 2019-05-01 22:54 | PQF ---
[employer] Product Manager [employer] Crystal Reports Winform ViewerVETERANS AFFAIRS MEDICAL CENTER-BIRMINGHAMRUBIN GOLDBERG HAN VEGAS MD [id number] [facility] [id number] CLINICAL DOCUMENTATION CLARIFICATION FORM: POST DISCHARGE Addendum to original discharge summary date: ____ Late entry note date: __ DATE: 05/01/19 ATTN: Han Tinsley Please exercise your independent, professional judgment in responding to the clarification form. Clinical indicators are provided on the bottom of this form for your review Can you please further clarify if Pneumonia is ruled in or ruled out? Pneumonia [ ] Ruled in diagnosis [ ] Continue to treat [ ] Resolved [ X Ruled out diagnosis [ ] Cannot rule out diagnosis [ ] Other diagnosis [ ] Unable to determine In addition, please specify: If Pneumonia is ruled in please further clarify the condition of the patient based on the clinical indicators below? [ ] Pneumonia with Sepsis [ ] Pneumonia without Sepsis [ ] Other diagnosis please specify [ ] Unable to determine For continuity of documentation, please document condition throughout progress notes and discharge summary. Thank You. CLINICAL INDICATORS - SIGNS / SYMPTOMS / LABS H and P pg.1- altered mental status and shortness of breath H and P pg.1- she is being admitted for pneumonia and COPD exacerbation H and P pg.3- acute on chronic hypoxemic respiratory failure and metabolic encephalopathy H and P pg.3- she could qualified for a healthcare-associated pneumonia RISK FACTORS COPD exacerbation- H and P pg.1 Pneumonia- H and P pg.1 Hypertension- H and P pg.1 DM type 2- H and P pg.1 Tobacco abuse- Consult Dr. Narvaez pg.1 TREATMENTS Chest X ray 04/28 Pulmonary Consult- Dr. Narvaez 04/28 IV Fluids- MAR IV Antibiotics- BRIGETTE (This form is maintained as a part of the permanent medical record) 2014 [employer]. All Rights Reserved [email or web address] [not provided] MTDD
--- NOTE | 2019-05-02 14:08 | DIS ---
DATE OF ADMISSION: 04/28/2019 DATE OF DISCHARGE: 04/30/2019 PRIMARY CARE PHYSICIAN: Dr. Ibarra. DISCHARGE DISPOSITION: Home. DISCHARGE DIAGNOSES: 1. Acute on chronic respiratory failure with hypoxemia. 2. Chronic obstructive pulmonary disease exacerbation. 3. Metabolic encephalopathy. 4. Diabetes mellitus, type 2. 5. Hypertension. 6. Depression. DISCHARGE MEDICATIONS: 1. Prednisone taper over two weeks. 2. Levaquin 500 mg p.o. twice daily. 3. Incruse Ellipta one inhalation daily. 4. Lyrica 300 mg p.o. twice daily. 5. Pravachol 20 mg at bedtime. 6. Omeprazole 40 mg daily. 7. Myrbetriq 50 mg extended release daily. 8. Metformin 500 mg p.o. daily. 9. Losartan hydrochlorothiazide 50/12.5 daily. 10. Lantus insulin 20 units subcu daily. 11. Jardiance 10 mg daily. 12. NovoLog 10 units subcu t.i.d. 13. Xanax 0.5 mg daily. CODE STATUS: Full code. ALLERGIES: CODEINE, EUCALYPTUS, HYDROCODONE, AND TRAMADOL. HOSPITAL COURSE: Ms. Colunga is a pleasant 63-year-old female, who was brought to the emergency room due to confusion and shortness of breath. She was found to be in COPD exacerbation with altered mental status. She was started on empiric antibiotics, DuoNeb, steroids, and long-acting beta agonist. Over the course of the next 24 hours, she improved dramatically and was watched in the hospital an additional day. At the time of discharge, she was clinically much improved and was able to be discharged home in stable condition to have close outpatient followup. Patient was seen in and examined the day of discharge. Job ID: [id number] [facility]
== END 2019-04-30 16:40 | disposition home or self-care (01) | DRG 189 ==
LOC: ERS 04:33 → T4-B 05:56
PROVIDERS: ADMIT Internal Medicine; ATTEND Internal Medicine
DX: J96.21 Acute and chronic respiratory failure with hypoxia (principal); G93.41 Metabolic encephalopathy; J44.1 Chronic obstructive pulmonary disease with (acute) exacerbation; E11.40 Type 2 diabetes mellitus with diabetic neuropathy, unspecified; I10 Essential (primary) hypertension; F41.1 Generalized anxiety disorder; G47.33 Obstructive sleep apnea (adult) (pediatric); F32.9 Major depressive disorder, single episode, unspecified; F17.210 Nicotine dependence, cigarettes, uncomplicated; Z90.49 Acquired absence of other specified parts of digestive tract; Z90.710 Acquired absence of both cervix and uterus; Z98.51 Tubal ligation status; Z88.5 Allergy status to narcotic agent; Z79.4 Long term (current) use of insulin; Z79.899 Other long term (current) drug therapy; Z99.81 Dependence on supplemental oxygen
CPT/HCPCS: 36415; 36416; 51701; 71045; 80048; 80053; 80202; 81003; 81015; 82010; 83605; 83735; 83880; 84484; 85025; 87040; 87804; 93005; 94640; 96365; 96367; 96375; A4353; J1650; J1815; J1956; J2543; J2920; J2930; J3370; J3490; J7050; J7620

== ENCOUNTER 2019-05-15 12:58 | Inpatient (IN) | payer MEDICARE, BC ==
[2019-05-15 13:24] LABS: Actual Bicarbonate (HCO3a) 46.7 mEq/L (22-28); Analyzer IN Cardio ER; Base Excess (BEa) 12.1 mEq/L (-2.0 to +3.0); Calcium, Ionized 1.24 mmol/L (1.12-1.30); Carboxyhemoglobin (COHb) 4.5 gm% (0.0-3.0); Hemoglobin (Hb) 14.3 g/dL (12.0-16.0); O2 Tension (PaO2) 125.5 mmHg (> 80.0); Potassium - ABG Lab 3.85 mmol/L (3.70-5.30)
[2019-05-15] MEDS ORDERED: Ketamine 50 MG/ML (10ML VIAL) ONE (13:29)
[2019-05-15] MEDS ORDERED: Rocuronium Bromide 10 MG/ML (10ML VIAL) ONE (13:29)
[2019-05-15] MEDS ORDERED: Magnesium 2 GM/50 ML BAG (IN WATER) ONE (13:30)
[2019-05-15] MEDS ORDERED: methylPREDNISolone Sod Succ/PF 125 MG/2 ML VIAL ONE (13:30)
[2019-05-15] MEDS ORDERED: fentaNYL Citrate/PF 2,000 MCG in Sodium Chloride 0.9% 60 ML IV SCH ×2 (13:45→19:04)
[2019-05-15 13:47] LABS: CO2 Tension 135.4 mmHg (35.0-45.0); pH, Arterial 7.16 (7.35-7.45)
[2019-05-15 13:48] LABS: Puncture Site RRA
[2019-05-15 13:54] LABS: Mean Corpuscular HGB CONC 29.8 g/dL (32.0-36.0); Mean Corpuscular Hemoglobin 24.1 pg (27.0-31.0); Mean Platelet Volume 11.2 fL (7.4-10.4); Platelet Count 217 thou/uL (130-400); RBC Distribution Width 19.1 % (11.5-14.5); Red Blood Cell (RBC) Count 5.82 mill/uL (4.20-5.40); White Blood Cell (WBC) Count 24.6 thou/uL (4.8-10.8)
--- NOTE | 2019-05-15 14:02 | RAD ---
RADIOGRAPH CHEST 1 VIEW: DATE: 05/15/2019 TIME: 1:55 PM HISTORY: 63-year-old female status post NG tube placement COMPARISON: 06/18/2018 FINDINGS: There is a new esophagogastric tube with distal tip approximately 6.5 cm inferior to the expected loc ation of the EG junction, and distal tip outside of the field of view, probably in the mid body of the stomach. New mild, faint right upper lobe infiltrate. Mild faint right lower lobe infiltrate. No cardiomegaly. Left lung is relatively clear. No pneumothorax. IMPRESSION: 1) esophagogastric tube placement into the stomach. 2.) New mild, faint infiltrates in right upper lobe and right lower lung zone.
[2019-05-15 14:03] LABS: Bacteria/HPF None Seen HPF (None Seen); Bilirubin Negative (Negative); Blood, Urine Negative (Negative); Clarity Clear (Clear); Glucose, Urine (Dipstick) Greater than 1000 mg/dL (Negative); Leukocyte Negative Leu/uL (Negative); Mucous/LPF Rare LPF (<2+); Nitrite Negative (Negative); Protein, Urine (Dipstick) 70 mg/dL (Neg-Trace); RBC/HPF 0-3 HPF (0-3); Squamous Epithelial 0-3 HPF (0-3); Urobilinogen Normal mg/dL (Less than 2)
[2019-05-15 14:07] LABS: ALT (SGPT) 18 U/L (8-55); AST (SGOT) 17 U/L (5-34); Albumin 3.9 g/dL (3.4-4.8); Alkaline Phosphatase 157 U/L (40-110); BUN (Urea Nitrogen) 15 mg/dL (9.8-20.1); Bilirubin, Total 0.7 mg/dL (0.2-1.2); Calc. Creatinine Clearance 0 mL/min (70-130); Calcium 9.5 mg/dL (7.8-10.44); Estimated GFR-MDRD Greater than 90; Globulin 3.1 g/dL (2.4-3.5); Glucose 248 mg/dL (80-115)
[2019-05-15 14:13] LABS: Band 23 % (5-11); Hypochromia SLIGHT = 6-15 cells (100X) (0-5/hpf); Large Platelets SLIGHT; Lymphocytes 1 % (21-51); MDiff Complete? YES; Monocytes 2 % (0-10); Neutrophil 68 % (42-75); Platelet Morphology Comment Appears Adequate; Polychromasia SLIGHT = 2-3 cells (100X) (0-2/hpf); Reactive Lymphocytes 6 % (0-10); Target Cells SLIGHT = 2-5 cells (100X) (0-1/hpf)
[2019-05-15 14:16] LABS: Anion Gap 14 mmol/L (10-20); Carbon Dioxide 37 mmol/L (23-31); Chloride 98 mmol/L (98-107); Potassium 3.9 mmol/L (3.5-5.1); Sodium 145 mmol/L (136-145)
[2019-05-15] MEDS ORDERED: Cefepime 2 GM VIAL ONE (14:36)
[2019-05-15 14:47] LABS: Actual Bicarbonate (HCO3a) 31.7 mEq/L (22-28); Analyzer IN Cardio ER; Base Excess (BEa) 7.1 mEq/L (-2.0 to +3.0); CO2 Tension 44.7 mmHg (35.0-45.0); Calcium, Ionized 1.11 mmol/L (1.12-1.30); Hemoglobin (Hb) 13.9 g/dL (12.0-16.0); Potassium - ABG Lab 3.76 mmol/L (3.70-5.30); pH, Arterial 7.47 (7.35-7.45)
[2019-05-15 14:52] LABS: O2 Tension (PaO2) 51.7 mmHg (> 80.0); Puncture Site RRA
[2019-05-15 14:54] LABS: ALV-art Gradient 177.625 (0-20)
[2019-05-15] MEDS ORDERED: Fentanyl 100 MCG/2 ML VIAL ONE ×2 (14:58→15:12)
[2019-05-15] MEDS ORDERED: Propofol 1,000 MG/100 ML VIAL IV ONE (15:08)
[2019-05-15] MEDS ORDERED: Ventilator Sedation Protocol 1 EACH FS SCH (18:40)
[2019-05-15] MEDS ORDERED: Dextrose 5% in Water 1,000 ML IV PRN (18:40)
[2019-05-15] MEDS ORDERED: Acetaminophen 500 MG TAB PO PRN (18:40)
[2019-05-15] MEDS ORDERED: Benzonatate 100 MG CAP PO PRN (18:40)
[2019-05-15] MEDS ORDERED: Acetaminophen 650 MG Suppository PR PRN (18:40)
[2019-05-15] MEDS ORDERED: Ondansetron PF 4 MG/2 ML Vial IVP PRN (18:40)
[2019-05-15] MEDS ORDERED: Ondansetron ODT 4 MG TAB PO PRN (18:40)
[2019-05-15] MEDS ORDERED: Dextrose 50% Abboject 50 ML SYRINGE SLOW IVP PRN (18:40)
[2019-05-15] MEDS ORDERED: Morphine 2 MG/ML SYRINGE SLOW IVP PRN (19:04)
[2019-05-15] MEDS ORDERED: Lorazepam 2 MG/ML VIAL SLOW IVP PRN (19:04)
[2019-05-15] MEDS ORDERED: DISCONTINUE PREVIOUS NARCOTIC PAIN MEDICATIONS AND BENZODIAZEPINES FS SCH (19:04)
[2019-05-15] MEDS ORDERED: Propofol BOLUS 1,000 MG/100 ML VIAL IV PRN (19:04)
[2019-05-15] MEDS ORDERED: Fentanyl BOLUS 250 ML IVPB PRN (19:04)
[2019-05-15] MEDS ORDERED: PHOS-NAK 1 PKT PACK PO PRN ×2 (19:05)
[2019-05-15] MEDS ORDERED: Potassium Chloride 40 MEQ in Premix Bag 1 BAG IVPB PRN (19:05)
[2019-05-15] MEDS ORDERED: Potassium Phosphate 12 MMOL in Sodium Chloride 0.9% 250 ML 250 ML IV PRN (19:05)
[2019-05-15] MEDS ORDERED: Potassium Chloride 40 MEQ in Sodium Chloride 0.9% 250 ML 250 ML IVPB PRN (19:05)
[2019-05-15] MEDS ORDERED: Potassium Phosphate 15 MMOL in Sodium Chloride 0.9% 250 ML 250 ML IV PRN (19:05)
[2019-05-15] MEDS ORDERED: Magnesium Oxide 400 MG TAB PO PRN ×2 (19:05)
[2019-05-15] MEDS ORDERED: Magnesium 2 GM/50 ML 2 GM in Premix Bag 1 BAG IVPB PRN (19:05)
[2019-05-15] MEDS ORDERED: Potassium Phosphate 9 MMOL in Sodium Chloride 0.9% 100 ML IVPB PRN (19:05)
[2019-05-15] MEDS ORDERED: Potassium Chloride 20 MEQ TAB PO PRN (19:05)
[2019-05-15] MEDS ORDERED: CCU ELECTROLYTE REPLACEMENT PROTOCOL FS PRN (19:05)
[2019-05-15] MEDS ORDERED: Bacteriostatic Water 30 ML VIAL FS PRN (19:10)
[2019-05-15] MEDS ORDERED: CCU Electrolyte Replacement 1 EACH FS SCH (19:15)
[2019-05-15] MEDS: Sodium Chloride 0.9% 1,000 ML IV SCH (19:42)
[2019-05-15] MEDS: Famotidine/PF 20 mg/2ml Vial SLOW IVP SCH (20:29)
[2019-05-15] MEDS: HumaLOG 300 UNITS/3 ML VIAL SC PRN (22:30)
[2019-05-15] MEDS: methylPREDNISolone Sod Succ 40 MG VIAL IVP SCH (23:40)
[2019-05-15] MEDS: Propofol 1,000 MG/100 ML VIAL IV PRN (23:45)
--- NOTE | 2019-05-16 01:12 | HP ---
PRIMARY CARE PROVIDER: Dr. Cheryl Ibarra. CHIEF COMPLAINT: Shortness of breath and altered mental status. HISTORY OF PRESENT ILLNESS: This is a 63-year-old female with a significant history of chronic obstructive pulmonary disease, on chronic oxygen supplementation, presenting with somnolence, altered mentation, and respiratory failure. The patient was recently admitted to [facility] from 04/28 through 04/30/2019, for COPD exacerbation. The patient was discharged home on a prednisone taper for approximately 2 weeks in addition to Levaquin. The patient was compliant with her medication regimen; however, the reports the patient continued to smoke cigarettes up to half a pack daily. No specific documented fever or prodromal symptoms. The patient's reports he noticed his with somnolence and difficulty with breathing suddenly occurring over the course of at night. In the emergency room, the patient underwent general evaluation including chest imaging showing minimal infiltrate of the right upper and right lower lung zone. The patient was noted to have respiratory failure and underwent intubation and placement on mechanical ventilation. The patient received IV vancomycin, cefepime, DuoNebs, magnesium sulfate, ketamine, and Solu-Medrol in the emergency room. The patient was transferred to the Critical Care Unit for further evaluation. PAST MEDICAL HISTORY: 1. Acute on chronic hypoxic respiratory failure. 2. Chronic obstructive pulmonary disease with recent exacerbation in 04/2019. 3. Tobacco abuse ongoing. 4. Diabetes mellitus type 2, insulin-requiring with peripheral neuropathy. 5. Hypertension. 6. Carpal tunnel syndrome. 7. Generalized anxiety. 8. Depression. PAST SURGICAL HISTORY: 1. Status post bilateral tubal ligation. 2. Status post hysterectomy. 3. Status post right shoulder repair. 4. Status post cholecystectomy. 5. Status post bilateral carpal tunnel release. CURRENT MEDICATIONS: Based on recent discharge on 04/30/2019. 1. Xanax 0.5 mg p.o. daily. 2. Jardiance 10 mg p.o. daily. 3. NovoLog 10 units subcutaneously t.i.d. 4. Glargine insulin 20 units subcutaneously daily. 5. Losartan/HCTZ 50/12.5 mg one tablet p.o. daily. 6. Metformin 500 mg p.o. q.a.m. 7. Myrbetriq 50 mg p.o. daily. 8. Pravachol 20 mg p.o. at bedtime. 9. Lyrica 300 mg p.o. b.i.d. 10. Incruse Ellipta 62.5 mcg inhaled daily. ALLERGIES: CODEINE, EUCALYPTUS, HYDROCODONE, AND TRAMADOL. FAMILY HISTORY: Positive for father with cancer. Mother with diabetes mellitus and COPD. SOCIAL HISTORY: The patient is , accompanied by her in the critical care unit. Resides in [place], [place]. Retired. Currently smokes a half a pack of cigarettes daily. No alcohol or illicit drug use. REVIEW OF SYSTEMS: Unobtainable due to the patient's respiratory failure and currently on mechanical ventilation. PHYSICAL EXAMINATION: VITAL SIGNS: Currently, blood pressure 140/85, pulse 92, respiratory rate 16, temperature 99.6 degrees Fahrenheit, O2 saturation 99% on FiO2 of 45% by SIMV. GENERAL APPEARANCE: This is a 63-year-old female, sedate on mechanical ventilation. HEENT: Pupils are minimally responsive to light and accommodation. Extraocular muscles are intact. Nares patent. OP is clear. ET tube and orogastric tube in place. NECK: Supple. No cervical adenopathy. No thyromegaly. No carotid bruits. No JVD appreciated. Cervical spine with full passive range of motion. CHEST: Coarse breath sounds with diminished air flow in bilateral bases. CARDIOVASCULAR: S1 and S2 without noted murmur, rub, or gallop. ABDOMEN: Rounded, soft, nontender, and nondistended. Bowel sounds are positive in all 4 quadrants. There is no hepatosplenomegaly. No abdominal bruits. No rebound or guarding appreciated. EXTREMITIES: Warm and dry with fair turgor. No clubbing, cyanosis, or asymmetric edema appreciated. Pulses palpable distally at the dorsalis pedis, posterior tibial, and popliteal arteries bilaterally. Capillary refill less than 2 seconds. NEUROLOGICAL: Sedate on current mechanical ventilation. Positive gag and cough reflex noted. : Lewis catheter in place with sherry urine. PERTINENT LABORATORY AND X-RAY FINDINGS: Sodium 145, potassium 3.9, chloride 98, CO2 of 37, BUN 15, creatinine 0.59, glucose 248. Lactic acid level 0.9. Calcium 9.5. LFTs within normal limits. CBC showed a white blood cell count of 24.6, hemoglobin 14, hematocrit 47, platelet count 217 with 68% neutrophils, 23% bands. ABG dated 05/15/2019, at 1319 pm showed a pH 7.16, pCO2 of 135, pO2 of 125, bicarb of 46.7, O2 saturation 98% on 40% FiO2. Respiratory culture dated 05/15/2019, showed preliminarily white blood cells with many gram-negative coccobacilli. Portable chest x-ray dated 05/15/2019, showed questionable mild infiltrate in the right upper and lower lung zone. Lines and tubes in appropriate position. EKG dated 05/15/2019, by my interpretation shows sinus mechanism with heart rates in the 90s. Attenuated R-waves noted in the precordial leads. Normal axis. No acute ST-T wave changes appreciated. ASSESSMENT AND PLAN: 1. Acute on chronic hypoxic respiratory failure. The patient will be admitted to the Critical Care Unit. We will continue mechanical ventilation with SIMV. Continue FiO2 of 45% and titrate to clinical response. Repeat ABG in the a.m. Portable chest x-ray in the a.m. Consult Pulmonology Critical Care Service for further evaluation and ventilatory management. 2. Acute chronic obstructive pulmonary disease exacerbation. Continue IV Solu-Medrol 40 mg IV q.6 hours with additional DuoNeb q.4 hours. Add Levaquin 750 mg IV daily. 3. Right upper and lower lobe pneumonia, suspected bacterial. Early infiltrates noted on chest imaging. We will continue Levaquin 750 mg IV q.24 hours. Blood cultures x2 pending. 4. Tobacco abuse. We will offer smoking cessation resources prior to discharge. 5. Diabetes mellitus type 2, insulin requiring. Poor control overall. Insulin sliding scale for reflexive coverage. Confirm home diabetic regimen. Accu-Cheks q.6 hours. Anticipate labile glucose control with ongoing Solu-Medrol and steroid use. 6. Prophylaxis. SCDs while in bed. Pepcid 20 mg IV q.12 hours. 7. Code status is full. Surrogate medical decision maker is the patient's spouse. Job ID: [id number]
[2019-05-16 04:13] LABS: Band 2 % (5-11); Hemoglobin 11.5 g/dL (12.0-16.0); Lymphocytes 3 % (21-51); MDiff Complete? YES; Mean Corpuscular HGB CONC 30.9 g/dL (32.0-36.0); Mean Corpuscular Hemoglobin 24.3 pg (27.0-31.0); Mean Corpuscular Volume 78.6 fL (78.0-98.0); Mean Platelet Volume 11.4 fL (7.4-10.4); Neutrophil 93 % (42-75); Platelet Count 201 thou/uL (130-400); Platelet Morphology Comment Appears Adequate; RBC Distribution Width 18.9 % (11.5-14.5); Red Blood Cell (RBC) Count 4.76 mill/uL (4.20-5.40); White Blood Cell (WBC) Count 16.3 thou/uL (4.8-10.8)
[2019-05-16] MEDS: HumaLOG 300 UNITS/3 ML VIAL SC PRN ×4 (04:27→22:19)
[2019-05-16 04:29] LABS: Anion Gap 13 mmol/L (10-20); BUN (Urea Nitrogen) 20 mg/dL (9.8-20.1); Calc. Creatinine Clearance 115 mL/min (70-130); Calcium 8.9 mg/dL (7.8-10.44); Carbon Dioxide 28 mmol/L (23-31); Chloride 104 mmol/L (98-107); Estimated GFR-MDRD Greater than 90; Glucose 231 mg/dL (80-115); Potassium 3.6 mmol/L (3.5-5.1); Sodium 141 mmol/L (136-145)
[2019-05-16] MEDS: methylPREDNISolone Sod Succ 40 MG VIAL IVP SCH ×3 (05:31→18:54)
[2019-05-16] MEDS: Sodium Chloride 0.9% 1,000 ML IV SCH ×2 (05:31→16:16)
[2019-05-16 06:37] LABS: Actual Bicarbonate (HCO3a) 32.8 mEq/L (22-28); CO2 Tension 46.7 mmHg (35.0-45.0); Calcium, Ionized 1.16 mmol/L (1.12-1.30); Potassium - ABG Lab 3.31 mmol/L (3.70-5.30); pH, Arterial 7.46 (7.35-7.45)
[2019-05-16 06:40] LABS: O2 Tension (PaO2) 54.7 mmHg (> 80.0)
[2019-05-16 06:41] LABS: ALV-art Gradient 172.125 (0-20); Puncture Site RRA
--- NOTE | 2019-05-16 07:22 | RAD ---
RADIOGRAPH CHEST 1 VIEW: DATE: 05/16/2019 TIME: 4:30 AM HISTORY: 63-year-old female with respiratory distress COMPARISON: 05/15/2019 FINDINGS: Endotracheal tube and esophagogastric tube remain. No cardiomegaly. Previously demonstrated mild appa rent faint infiltrates in right upper lobe and right lower lobe are no longer apparent. Mild streaky density in left lower lobe, probably chronic. Patient is slightly rotated to the right on the current study. No pulmonary edema or pneumothorax. Lateral costophrenic angles remain sharp. IMPRESSION: 1. Endotracheal tube and esophagogastric tube remain. 2. Previously demonstrated mild right-sided infiltrates are no longer visualized. 3. Currently no conclusive evidence of acute cardiopulmonary disease.
--- NOTE | 2019-05-16 08:34 | CON ---
DATE OF CONSULTATION: HISTORY OF PRESENT ILLNESS: Ms. Colunga is a pleasant 63-year-old female by history. She has a significant issue with smoking abstinence. She recently was admitted to the hospital with severe respiratory distress and was discharged to home after couple days in the hospital. Her said she would not quit smoking. He has threatened to leave her over this issue, but says he actually would not. She has led him to believe that she never will quit smoking and does not plan to quit smoking. In any event, she was apparently found down and was intubated. ER records, today when she arrived at the emergency room, she was hypersomnolent. For two days prior to this admission, she has been in bed most of the time. She is now in the Critical Care Unit. The rest of the history is obtained from the . PAST MEDICAL HISTORY: Remarkable for hypertension, diabetes, tubal ligation, hysterectomy, cholecystectomy, shoulder surgery, and bilateral hand surgeries. FAMILY HISTORY: Positive for COPD. SOCIAL HISTORY: She is a half to one pack a day smoker. She does not drink. Does not use drugs. ALLERGIES: CODEINE, HYDROCODONE, TRAMADOL, AND EUCALYPTUS. REVIEW OF SYSTEMS: Not obtainable. PHYSICAL EXAMINATION: GENERAL: She is sedated and mechanically ventilated. VITAL SIGNS: Blood pressure is 118/65, heart rate is in 80s, respiratory rate is in teens, and oximetry is 99%. HEENT: Pupils are reactive. Sclerae are anicteric. NECK: Supple without lymphadenopathy. LUNGS: Remarkable for distant wheezes. HEART: Regular rhythm. S1 and S2 are normal. ABDOMEN: Soft and nontender. EXTREMITIES: Without clubbing, cyanosis, or edema. LABORATORY DATA: White count 24.6, hemoglobin 14, and platelets 217. Sodium 145, potassium 3.9, chloride 98, bicarb 37, BUN 15, creatinine 0.59, and glucose 248. Electrolytes remarkable mainly for bicarb of 37. Blood gas showed a pH of 7.16, CO2 of 135, pO2 of 125. In January; 7.21, CO2 of 84, pO2 of 82. Blood gas post intubation; 7.47, CO2 of 44, and pO2 of 51. Chest radiograph shows perhaps small right upper lobe infiltrate and a right lower lobe infiltrate. IMPRESSION: 1. Respiratory failure secondary to chronic obstructive pulmonary disease exacerbation. 2. ? coexistent pneumonia. 3. Ongoing tobacco use that by her history is heavy. set up. Her was under the impression that she had the CPAP coming. 4. She will probably be mechanically ventilated for several days. She will receive sedation protocol. She has been started on Levaquin. We will repeat x-rays and lab in the morning. Critical care time with the for approximately 40 minutes in addition to the time providing care to . Job ID: [id number]
[2019-05-16] MEDS ORDERED: FLU VACC QS2019-20(6MOS UP)/PF 60 MCG/0.5 ML SYRINGE IM ONE (09:00)
[2019-05-16] MEDS: Famotidine/PF 20 mg/2ml Vial SLOW IVP SCH ×2 (09:41→20:50)
[2019-05-16] MEDS: Propofol 1,000 MG/100 ML VIAL IV PRN (12:27)
--- NOTE | 2019-05-16 19:39 | PDOC.HOSPP ---
- Subjective Encounter Date: 05/16/19 Encounter Time: 19:35 Subjective: f/u for acute/chronic hypoxic/hypercapneic resp [facility] - Objective Vital Signs & Weight: Vital Signs (12 hours) Temp Pulse Resp BP Pulse Ox 05/16/19 18:36 93 138/65 05/16/19 18:00 18 05/16/19 16:13 101 H 05/16/19 16:00 98.2 F 13 05/16/19 14:00 14 05/16/19 13:46 91 12 100 05/16/19 13:42 88 05/16/19 12:00 99.8 F H 13 05/16/19 10:33 89 13 100 05/16/19 10:31 92 05/16/19 10:00 13 05/16/19 08:00 16 96 Weight Admit Weight 156 lb Weight 156 lb 8.451 oz Most Recent Monitor Data Heart Rate from ECG 107 NIBP 144/65 NIBP BP-Mean 91 Respiration from ECG 16 SpO2 99 I&O: 05/15/19 05/16/19 05/17/19 06:59 06:59 06:59 Intake Total 1156 1317.1 Output Total 920 285 Balance 236 1032.1 Result Diagrams: 05/16/19 03:35 05/16/19 03:35 Additional Labs: Accuchecks 05/16/19 05/16/19 05/16/19 16:58 10:19 04:13 POC Glucose 243 H 245 H 220 H 05/15/19 22:06 POC Glucose 243 H Microbiology 05/15/19 14:30 Sputum - Pending Respiratory Culture - Preliminary 05/15/19 13:16 Venous blood - Right Arm Blood Culture - Preliminary Specimen has been received and culture in progress. No Growth to date. 05/15/19 13:16 Venous blood - Left Arm Blood Culture - Preliminary Specimen has been received and culture in progress. No Growth to date. Laboratory Tests 05/15/19 05/16/19 13:16 03:35 WBC 24.6 H Hgb 14.0 Plt Count 217 Neutrophils % (Manual) 68 93 H Band Neuts % (Manual) 23 H 2 L Radiology Reviewed by me: Yes (PCXR - lines/tubes in place, no infiltrates identified) EKG Reviewed by me: Yes (Tele - sinus tachycardia in low 100's) Hospitalist ROS - Medication Medications: Active Medications Generic Name Dose Route Start Last Admin Trade Name Freq PRN Reason Stop Dose Admin Albuterol/Ipratropium 3 ml 05/15/19 22:30 05/16/19 18:35 Duoneb NEB 3 ml [id number] REYNA Administration Famotidine 20 mg 05/15/19 21:00 05/16/19 09:41 Pepcid SLOW IVP 20 mg Q12HR REYNA Administration Levofloxacin 750 mg/ Device 150 mls @ 100 mls/hr 05/15/19 20:00 05/15/19 20: 29 IVPB 150 mls 2000 REYNA Administration Sodium Chloride 1,000 mls @ 100 mls/hr 05/15/19 19:15 05/16/19 16:16 Normal Saline 0.9% IV 1,000 mls .Q10H REYNA Administration Insulin Human Lispro 0 units 05/15/19 18:40 05/16/19 16:58 Humalog SC 4 unit .MODERATE SLIDING SC PRN Administration Moderate Correctional Scale Methylprednisolone Sodium Succinate 40 mg 05/15/19 23:59 05/16/19 18:54 Solu-Medrol IVP 40 mg Q6HR REYNA Administration Propofol 1,000 mg 05/15/19 19:04 05/16/19 12:27 Diprivan IV 06/14/19 19:04 1,000 mg INF PRN Administration TO ACHIEVE GOAL RASS Protocol - Exam General - other findings: sedate on mech ventilation Eye: PERRL, anicteric sclera ENT: normocephalic atraumatic, no oropharyngeal lesions ENT - other findings: ETT in place Neck: supple, symmetric, no JVD, no thyromegaly Heart: no murmur, no gallops, no rubs, normal peripheral pulses Heart - other findings: tachycardic Respiratory: no rales, no ronchi Respiratory - other findings: diminished in bases Gastrointestinal: soft, non-tender, non-distended, normal bowel sounds, no palpable masses Gastrointestinal - other findings: Lewis in place with sherry urine Extremities: no cyanosis, no clubbing, no edema Skin: normal turgor, no lesions Neurological: no new deficit Neurological - other findings: sedate on mech ventilation, moves extremities to stimuli Psychiatric: somnolent Hosp A/P (1) Acute on chronic respiratory failure with hypoxia and hypercapnia Code(s): J96.21 - ACUTE AND CHRONIC RESPIRATORY FAILURE WITH HYPOXIA; J96.22 - ACUTE AND CHRONIC RESPIRATORY FAILURE WITH HYPERCAPNIA Status: Acute Plan: Persistent and likely multifactorial, continue SIMV, wean as clinically indicated (2) Pneumonia, bacterial Code(s): J15.9 - UNSPECIFIED BACTERIAL PNEUMONIA Status: Acute Plan: Suspected but no infiltrates noted on current chest imaging, continue empiric abx (3) COPD exacerbation Code(s): J44.1 - CHRONIC OBSTRUCTIVE PULMONARY DISEASE W (ACUTE) EXACERBATION Status: Acute Plan: Continue Solumedrol, Duonebs, Levaquin, mech ventilation (4) Encephalopathy acute Code(s): G93.40 - ENCEPHALOPATHY, UNSPECIFIED Status: Acute Plan: Persistent, likely multifactorial, continues on sedation per ventilation protocol (5) DM type 2 (diabetes mellitus, type 2) Status: Chronic Qualifiers: Plan: ISS, serial accuchecks, ADA when taking po intake (6) Tobacco abuse Code(s): Z72.0 - TOBACCO USE Status: Chronic Plan: Smoking cessation resources - Plan continue antibiotics, director of social media marketing, respiratory therapy, DVT proph w/SCDs Continue mech ventilation and wean as clinically indicated Continue Solumedrol Continue Duonebs Sedation protocol PCXR in am AM lab: BMP, CBC
--- NOTE | 2019-05-16 22:35 | PRG ---
DATE OF SERVICE: 05/16/2019 SUBJECTIVE: Ms. Colunga remains mechanically ventilated. She has more audible wheezes today. OBJECTIVE: VITAL SIGNS: Her heart rate is 103, blood pressure is 132/69, respiratory rate 16. LUNGS: Remarkable for diffuse wheezes. HEART: Regular rhythm. S1 and S2 are normal. ABDOMEN: Soft and nontender. EXTREMITIES: Without asymmetry. LABORATORY DATA: White count 16.3, hemoglobin 11.5, platelets 201. Electrolytes are normal. Creatinine is 0.56. IMPRESSION: 1. Chronic obstructive pulmonary disease exacerbation with respiratory failure. 2. Chronic hypercarbia. She may benefit from nocturnal ventilation at home if she will be compliant with this, although she has not been compliant with smoking cessation, according to the . 3. Hypertension. 4. Diabetes. 5. Codeine, hydrocodone, and tramadol allergies. PLAN: Continue critical care unit. We will slowly decrease ventilatory support. Hopefully, she will be weanable this weekend. CRITICAL CARE TIME: 30 minutes. Job ID: [id number]
[2019-05-17] MEDS: methylPREDNISolone Sod Succ 40 MG VIAL IVP SCH ×5 (00:25→23:44)
[2019-05-17] MEDS: HumaLOG 300 UNITS/3 ML VIAL SC PRN ×4 (05:27→21:27)
[2019-05-17] MEDS: Sodium Chloride 0.9% 1,000 ML IV SCH ×3 (05:27→21:15)
[2019-05-17] MEDS: Propofol 1,000 MG/100 ML VIAL IV PRN (05:27)
[2019-05-17 06:26] LABS: Anisocytosis SLIGHT = 6-15 cells (100X) (0-5/hpf); Band 6 % (5-11); Hemoglobin 11.3 g/dL (12.0-16.0); Lymphocytes 3 % (21-51); MDiff Complete? YES; Mean Corpuscular HGB CONC 29.8 g/dL (32.0-36.0); Mean Corpuscular Hemoglobin 23.1 pg (27.0-31.0); Mean Corpuscular Volume 77.4 fL (78.0-98.0); Mean Platelet Volume 11.7 fL (7.4-10.4); Monocytes 2 % (0-10); Neutrophil 89 % (42-75); Platelet Count 238 thou/uL (130-400); RBC Distribution Width 19.5 % (11.5-14.5); White Blood Cell (WBC) Count 15.1 thou/uL (4.8-10.8)
[2019-05-17 06:43] LABS: Actual Bicarbonate (HCO3a) 29.9 mEq/L (22-28); Base Excess (BEa) 5.1 mEq/L (-2.0 to +3.0); Calcium, Ionized 1.17 mmol/L (1.12-1.30); Carboxyhemoglobin (COHb) 0.8 gm% (0.0-3.0); Potassium - ABG Lab 3.51 mmol/L (3.70-5.30); pH, Arterial 7.44 (7.35-7.45)
[2019-05-17 06:44] LABS: Puncture Site RRA
--- NOTE | 2019-05-17 08:13 | RAD ---
Chest AP view INDICATION: Respiratory failure COMPARISON: May 16, 2019 FINDINGS: Lungs:There is some improvement in the diffuse peripheral interstitial and airspace opacities affecti ng both lungs Cardiac silhouette:The cardiomediastinal silhouette appears within normal limits. Pulmonary vasculature:Normal Pleural spaces:No pleural effusion or pneumothorax is demonstrated. Upper abdomen:No abnormality seen. Osseous structures: No acute osseous abnormality. Additional findings:ET tube and gastric catheter are unchanged. IMPRESSION: Improving bilateral interstitial and airspace opacities involving both lungs may reflect improving edema or pneumonia. Stable tubes and lines. No pneumothorax.
--- NOTE | 2019-05-17 08:59 | PRG ---
DATE OF SERVICE: 05/17/2019 SUBJECTIVE: The patient is seen and examined at the bedside. She is on light sedation but she is able to communicate with me. She does not have any pain. She remains on the ventilator. She feels somewhat better. OBJECTIVE: VITAL SIGNS: Blood pressure is 159/85, pulse is 88, respirations 12, O2 saturation is 100%. She is on FiO2 of 40%. HEENT: Her pupils are responding to light properly. Sclerae are nonicteric. LUNGS: Clear. Emphysematous. HEART: S1, S2 normal. No S3. No S4. ABDOMEN: Soft, nontender. Bowel sounds are present. No organomegaly. EXTREMITIES: No clubbing, cyanosis, or edema. NEUROLOGICAL: She follows my commands. She moves all 4 extremities. There are no any motor deficits. LABORATORY DATA: Labs showed white count of 15.1, hemoglobin of 11.3, hematocrit 37.5, platelet count is 238,000. ABGs showed pH of 7.44, pCO2 of 45, PO2 94.0, base excess is 5.1. Glycemia is ranging from 229-245. Microbiology, two blood cultures negative and sputum culture mixed culture, isolation of possible pathogens in progress. IMPRESSION: 1. Acute on chronic respiratory failure with hypoxia and hypercapnia. 2. Pneumonia. 3. Chronic obstructive pulmonary disease exacerbation. 4. Encephalopathy. 5. Diabetes mellitus type 2. 6. Tobacco user. PLAN: We will continue her current regimen with steroids, nebulizers and antibiotics. DVT prophylaxis and mild sedation protocol at this point. Chest x-ray looks good and she should be able to come out of the ventilator in the next 24 hours and at the discretion of Dr. Zamora or whoever is covering for him this weekend. Job ID: [id number]
[2019-05-17] MEDS ORDERED: Insulin Glargine 15 UNITS in Pre-Filled Syringe 1 EACH SC SCH (09:00)
[2019-05-17] MEDS: Enoxaparin Sodium 40 MG/0.4 ML SYRINGE SC SCH (09:40)
[2019-05-17] MEDS: Famotidine/PF 20 mg/2ml Vial SLOW IVP SCH ×2 (09:40→21:27)
--- NOTE | 2019-05-17 14:14 | PQF ---
RUBIN GARCIA ZBIGNIEW A MD [id number] CLINICAL DOCUMENTATION IMPROVEMENT CLARIFICATION FORM: ICD-10 Updated PLEASE DO AN ADDENDUM TO THE PROGRESS NOTE WITH ANY DOCUMENTATION UPDATES OR ADDITIONS AND CARRY THROUGH TO DC SUMMARY. THANK YOU. DATE: 05/17/19 ATTN:DR. Lona STEPHENSON Please exercise your independent, professional judgment in responding to the clarification form. Clinical indicators are provided on the bottom of this form for your review. Please check appropriate box(s): Acute Encephalopathy: Etiology: [ ] Hypertensive [ x ] Metabolic [ ] Toxic [ ] Hepatic with Coma [ ] Hepatic w/o Coma [ ] Hypoxic [ ] Septic [ ] Wernickes [ ] Drug induced: [ ] Unspecified [ ] in the setting of underlying dementia [ ] Other (please specify) [ ] Other diagnosis [ ] Unable to determine In addition, please specify: Present on Admission (POA): [ x] Yes [ ] No [ ] Unable to determine For continuity of documentation, please document condition throughout progress notes and discharge summary. Thank You. CLINICAL INDICATORS - SIGNS / SYMPTOMS / LABS / RESULTS AND LOCATION IN EMR 05/15 H&P (MARA) PRESENTS WITH SOMNOLENCE, ALTERED MENTATION AND RESPIRATORY FAILURE. 05/16 PN (MARA) A/P 4). ACUTE ENCEPHALOPATHY, PERSISTENT, LIKELY MULTIFACTORIAL , CONTINUES ON SEDATION PER VENTILATION PROTOCOL. 05/17 PN (SEEMA) IMPRESSION 4). ENCEPHALOPATHY RISK: UNKNOWN DOWN TIME (ED REPORT/05/15) ACUTE HYPOXIC RESPIRATORY FAILURE, MULTIPLE LOBE PNEUMONIA (H&P/MARA) 05/15 TREATMENT: MECHANICAL VENTILATION (05/15-05/17) SERIAL LABS (05/15-PRESENT) NS IV FLUIDS ( 05/15 - PRESENT) LEVAQUIN IV ( 05/15- PRESENT) THANK YOU! JAIMEE (This form is maintained as a part of the permanent medical record) 2014 [employer]. All Rights Reserved [email or web address] [phone] [facility]
--- NOTE | 2019-05-17 20:21 | PRG ---
DATE OF SERVICE: 05/17/2019 SUBJECTIVE: Ms. Colunga is awake and alert this morning. She was switched to pressure support with PEEP. She did extremely well with this. Her expiratory phase returned probably to her baseline. Her hemodynamics have been stable. OBJECTIVE: LUNGS: Clear today. HEART: Regular rhythm. ABDOMEN: Soft. EXTREMITIES: Without asymmetry. NEUROLOGICAL: Nonfocal. LABORATORY DATA: White count 15.1, hemoglobin 11.3, platelets 238. Sodium 141, potassium 3.6, chloride 104, bicarb 28, BUN 20, creatinine 0.56. PH 7.44, CO2 of 45, and PO2 of 94, which is probably close to her baseline. Chest x-ray today did not show any new alveolar infiltrates. IMPRESSION: Chronic obstructive pulmonary disease exacerbation leading to respiratory failure. I felt she was a candidate for extubation. This has been done successfully. answered all of his questions. CRITICAL CARE TIME: 30 minutes. Job ID: [id number]
[2019-05-17] MEDS ORDERED: Melatonin 3 MG TAB PO PRN (21:43)
[2019-05-18] MEDS: HumaLOG 300 UNITS/3 ML VIAL SC PRN ×3 (03:52→17:04)
[2019-05-18 04:02] LABS: #Lymphocytes 0.7 thou/uL (1.20-3.40); #Monocytes 0.4 thou/uL (0.11-0.59); #Neutrophils 15.3 thou/uL (1.40-6.50); %Basophils 0.2 % (0.0-1.0); %Eosinophils 0.1 % (0.0-10.0); %Monocytes 2.5 % (0.0-10.0); %Neutrophils 93.2 % (42.0-75.0); Hemoglobin 11.6 g/dL (12.0-16.0); Mean Corpuscular Hemoglobin 24.2 pg (27.0-31.0); Mean Corpuscular Volume 78.1 fL (78.0-98.0); Mean Platelet Volume 10.8 fL (7.4-10.4); Platelet Count 224 thou/uL (130-400); RBC Distribution Width 19.4 % (11.5-14.5); Red Blood Cell (RBC) Count 4.79 mill/uL (4.20-5.40); White Blood Cell (WBC) Count 16.5 thou/uL (4.8-10.8)
[2019-05-18 04:47] LABS: Anion Gap 11 mmol/L (10-20); BUN (Urea Nitrogen) 23 mg/dL (9.8-20.1); Calc. Creatinine Clearance 120 mL/min (70-130); Calcium 8.8 mg/dL (7.8-10.44); Carbon Dioxide 28 mmol/L (23-31); Chloride 106 mmol/L (98-107); Estimated GFR-MDRD Greater than 90; Glucose 274 mg/dL (80-115); Potassium 4.2 mmol/L (3.5-5.1); Sodium 141 mmol/L (136-145)
[2019-05-18] MEDS: methylPREDNISolone Sod Succ 40 MG VIAL IVP SCH (05:51)
--- NOTE | 2019-05-18 07:36 | RAD ---
EXAM: Portable chest PROVIDED CLINICAL HISTORY: Respiratory insufficiency COMPARISON: 05/17/2019 FINDINGS: Interval removal of endotracheal tube and enteric catheter. Additional significant interval change wi th respect to the prior examination is not apparent. IMPRESSION: As above.
[2019-05-18] MEDS: Nicotine 14 MG PATCH TD SCH (09:26)
[2019-05-18] MEDS: Famotidine/PF 20 mg/2ml Vial SLOW IVP SCH ×2 (09:27→21:03)
[2019-05-18] MEDS: Enoxaparin Sodium 40 MG/0.4 ML SYRINGE SC SCH (09:27)
[2019-05-18] MEDS: Insulin Glargine 30 UNITS in Pre-Filled Syringe 1 EACH SC SCH (09:27)
[2019-05-18] MEDS: Sodium Chloride 0.9% 1,000 ML IV SCH ×2 (10:36→17:00)
--- NOTE | 2019-05-18 11:21 | PRG ---
DATE OF SERVICE: 05/18/2019 SUBJECTIVE: Anne Colunga is sitting in the bedside chair. She says she is feeling better. We had a long discussion about smoking cessation. We had a long discussion about nocturnal ventilation as well. I believe she meets criteria for this. OBJECTIVE: VITAL SIGNS: Heart rate 78, respiratory rate is 20, oximetry is 99 on 2 L, blood pressure 140/72. Intake and output, positive 1144. LUNGS: Clear. Expiratory phase is short. HEART: Regular rhythm. ABDOMEN: Soft and nontender. EXTREMITIES: No clubbing, cyanosis, or edema. LABORATORY DATA: White count 16.5, hemoglobin 11.6, platelets 224. Electrolytes are normal. BUN 23, creatinine 0.5. IMPRESSION: Respiratory failure associated with chronic obstructive pulmonary disease exacerbation, clinically improved. She is stable to move out of Critical Care Unit. She wants to go home today, but I do not feel she is ready. We will move her to a medical bed. Job ID: [id number]
--- NOTE | 2019-05-18 13:27 | PRG ---
DATE OF SERVICE: 05/18/2019 SUBJECTIVE: The patient is seen and examined at the bedside. She is extubated. She feels significantly better. She is able to tolerate food. OBJECTIVE: VITAL SIGNS: Blood pressure is 137/71, pulse is 85, temperature is 97.7, respirations 18, and O2 saturation is 91% on 2 L by nasal cannula. HEENT: Her eyes are PERRLA. Sclerae are nonicteric. Oral mucosa is slightly dry. NECK: Supple. LUNGS: Bilateral rales and few wheezes at both bases. HEART: S1 and S2, normal. No S3. No S4. ABDOMEN: Soft, nontender, and nondistended. EXTREMITIES: No clubbing, cyanosis, or edema. NEUROLOGICAL: She follows my commands. She moves her all 4 extremities. LABORATORY DATA: Labs showed white count of 16.5, hemoglobin of 11.6, hematocrit 37.4, and platelet count is 224,000. Normal electrolytes, BUN of 23, and creatinine 0.54. Glycemia is ranging from 229 to 300. IMAGING DATA: Chest x-ray done this morning showed bilateral lower lobe infiltrates. IMPRESSION: 1. Chronic obstructive pulmonary disease exacerbation, status post mechanical ventilation and extubation. 2. Acute on chronic respiratory failure with hypoxia and hypercapnia. 3. Pneumonia. 4. Encephalopathy, resolved. 5. Diabetes mellitus, type 2. 6. Tobacco user. PLAN: We are going to start her on Nicoderm patch 14 mg daily. We will continue her steroids. We will try to intensify her diabetic coverage. She is currently on 15 units of insulin Lantus. We will go up to 30 units to get better coverage. We will continue her sliding scale before meals and at bedtime. We will continue her levofloxacin, but in the form of p.o. and she is switched to p.o. prednisone from Solu-Medrol and she will be moved out from the unit today. Job ID: [id number]
[2019-05-18] MEDS ORDERED: Pregabalin 75 MG CAP PO SCH (23:59)
[2019-05-19] MEDS: Sodium Chloride 0.9% 1,000 ML IV SCH ×2 (02:14→12:58)
[2019-05-19] MEDS: Nicotine 14 MG PATCH TD SCH (08:10)
[2019-05-19] MEDS: Enoxaparin Sodium 40 MG/0.4 ML SYRINGE SC SCH (08:11)
[2019-05-19] MEDS: Pregabalin 75 MG CAP PO SCH ×2 (08:14→22:08)
[2019-05-19] MEDS: Famotidine/PF 20 mg/2ml Vial SLOW IVP SCH ×2 (08:15→22:14)
[2019-05-19] MEDS: predniSONE 20 MG TAB PO SCH (08:15)
[2019-05-19] MEDS: Insulin Glargine 30 UNITS in Pre-Filled Syringe 1 EACH SC SCH (08:15)
[2019-05-19] MEDS: HumaLOG 300 UNITS/3 ML VIAL SC PRN ×2 (17:24→22:29)
--- NOTE | 2019-05-19 19:05 | PDOC.HOSPP ---
- Subjective Encounter Date: 05/19/19 Encounter Time: 18:50 Subjective: f/u for acute/chronic hypoxic/hypercapneic resp failure due to COPD. Feels better overall and ambulated in room. Tolerating po intake. No new complaints. - Objective Vital Signs & Weight: Vital Signs (12 hours) Temp Pulse Resp BP Pulse Ox 05/19/19 09:59 65 18 98 05/19/19 07:37 98.6 F 65 20 117/72 98 Weight Admit Weight 156 lb Weight 163 lb 1.6 oz Most Recent Monitor Data Heart Rate from ECG 88 NIBP 132/52 NIBP BP-Mean 78 Respiration from ECG 23 SpO2 92 I&O: 05/18/19 05/19/19 05/20/19 06:59 06:59 06:59 Intake Total 2369 2494 Output Total 1225 1435 Balance 1144 1059 Result Diagrams: 05/18/19 03:34 05/18/19 03:34 Additional Labs: Accuchecks 05/19/19 05/19/19 05/19/19 16:13 11:05 03:42 POC Glucose 229 H 137 H 167 H 05/18/19 05/18/19 05/17/19 20:18 11:28 17:07 POC Glucose 162 H 310 H 192 H Microbiology 05/15/19 14:30 Sputum - Pending Respiratory Culture - Preliminary 05/15/19 13:16 Venous blood - Right Arm Blood Culture - Preliminary Specimen has been received and culture in progress. No Growth to date. 05/15/19 13:16 Venous blood - Left Arm Blood Culture - Preliminary Specimen has been received and culture in progress. No Growth to date. Laboratory Tests 05/15/19 05/16/19 13:16 03:35 WBC 24.6 H Hgb 14.0 Plt Count 217 Neutrophils % (Manual) 68 93 H Band Neuts % (Manual) 23 H 2 L Radiology Reviewed by me: Yes (PCXR - no acute changes) Hospitalist ROS - Medication Medications: Active Medications Generic Name Dose Route Start Last Admin Trade Name Freq PRN Reason Stop Dose Admin Albuterol/Ipratropium 3 ml 05/15/19 22:30 05/19/19 14:35 Duoneb NEB 3 ml [id number] REYNA Administration Enoxaparin Sodium 40 mg 05/17/19 09:00 05/19/19 08:11 Lovenox SC 40 mg 0900 REYNA Administration Famotidine 20 mg 05/15/19 21:00 05/19/19 08:15 Pepcid SLOW IVP 20 mg Q12HR REYNA Administration Insulin Glargine 30 units/ 0.3 mls @ 0 mls/hr 05/18/19 09:00 05/19/19 08:15 Miscellaneous Medication SC 0.3 mls QAM REYNA Administration Insulin Human Lispro 0 units 05/15/19 18:40 05/19/19 17:24 Humalog SC 4 unit .MODERATE SLIDING SC PRN Administration Moderate Correctional Scale Insulin Human Lispro 0 units 05/15/19 18:40 05/18/19 03:52 Humalog SC 3 unit .BEDTIME SLIDING SC PRN Administration Bedtime Correctional Scale Levofloxacin 500 mg 05/19/19 06:00 05/19/19 06:10 Levaquin PO 500 mg 0600 REYNA Administration Melatonin 3 mg 05/17/19 21:43 05/17/19 22:05 Melatonin PO 3 mg HSPRN PRN Administration Insomnia Nicotine 14 mg 05/18/19 09:00 05/19/19 08:10 Nicoderm Patch TD 14 mg Q24HR REYNA Administration Prednisone 40 mg 05/19/19 08:00 05/19/19 08:15 Prednisone PO 40 mg QAM-WM REYNA Administration Pregabalin 300 mg 05/19/19 09:00 05/19/19 08:14 Lyrica PO 300 mg BID REYNA Administration Sodium Chloride 10 ml 05/18/19 21:00 05/19/19 08:15 Flush - Normal Saline IVF 10 ml Q12HR REYNA Administration Sterile Water 1 ml 05/15/19 19:10 05/18/19 05:51 Bacteriostatic Water FS 1 ml PRN PRN Administration RECONSTITUTION - Exam General Appearance: NAD, awake alert Eye: PERRL, anicteric sclera ENT: normocephalic atraumatic, no oropharyngeal lesions Neck: supple, symmetric, no JVD, no thyromegaly Heart: RRR, no murmur, no gallops, no rubs, normal peripheral pulses Respiratory: CTAB, no wheezes, no rales, no ronchi Gastrointestinal: soft, non-tender, non-distended, normal bowel sounds Extremities: no cyanosis, no clubbing, no edema Skin: normal turgor, no lesions Neurological: cranial nerve grossly intact, no new deficit Musculoskeletal: normal tone, normal strength Psychiatric: normal affect, A&O x 3 Hosp A/P (1) Acute on chronic respiratory failure with hypoxia and hypercapnia Code(s): J96.21 - ACUTE AND CHRONIC RESPIRATORY FAILURE WITH HYPOXIA; J96.22 - ACUTE AND CHRONIC RESPIRATORY FAILURE WITH HYPERCAPNIA Status: Acute Plan: Stable currently, O2 @ home baseline levels (2) Pneumonia, bacterial Code(s): J15.9 - UNSPECIFIED BACTERIAL PNEUMONIA Status: Acute Plan: Continue Levaquin, H. influenzae isolated from sputum cx (3) COPD exacerbation Code(s): J44.1 - CHRONIC OBSTRUCTIVE PULMONARY DISEASE W (ACUTE) EXACERBATION Status: Acute Plan: Continue pulm support, Prednisone, Duonebs (4) Encephalopathy acute Code(s): G93.40 - ENCEPHALOPATHY, UNSPECIFIED Status: Acute Plan: Resolved (5) DM type 2 (diabetes mellitus, type 2) Status: Chronic Qualifiers: (6) Tobacco abuse Code(s): Z72.0 - TOBACCO USE Status: Chronic - Plan continue antibiotics, social media senior associate, respiratory therapy, out of bed/ambulate , DVT proph w/SCDs Continue O2 support Continue Prednisone Continue Duonebs Saline lock IVF's PCXR in am Home in am
--- NOTE | 2019-05-19 19:14 | PRG ---
DATE OF SERVICE: 05/19/2019 SUBJECTIVE: Anne Colunga says she is close to her baseline. She is in no distress. She denies craving cigarettes. OBJECTIVE: VITAL SIGNS: She is afebrile, heart rate is 65, respiratory rate is 18, oximetry is 98% on 2 L, and blood pressure is 117/72. LUNGS: Clear. HEART: Regular rhythm. ABDOMEN: Soft. IMPRESSION: 1. Status post mechanical ventilation for chronic obstructive pulmonary disease exacerbation. 2. Hypercarbia on admission with a pCO2 of greater than 100. 3. Tobacco use up until admission. PLAN: She may benefit from a [facility] home ventilator, if she qualifies. We will defer to Dr. Narvaez, who will be back in the morning. Hopefully, she will be a candidate for discharge tomorrow. Job ID: [id number]
[2019-05-19] MEDS: Famotidine 20 MG TAB PO SCH (22:08)
[2019-05-20] MEDS: HumaLOG 300 UNITS/3 ML VIAL SC PRN (05:28)
[2019-05-20 05:35] VITALS: BMI 26.6
[2019-05-20 08:02] VITALS: BP 152/73; TEMP 97.3
[2019-05-20] MEDS: Pregabalin 75 MG CAP PO SCH (08:12)
[2019-05-20] MEDS: Insulin Glargine 30 UNITS in Pre-Filled Syringe 1 EACH SC SCH (08:12)
[2019-05-20] MEDS: predniSONE 20 MG TAB PO SCH (08:13)
[2019-05-20] MEDS: Famotidine 20 MG TAB PO SCH (08:13)
[2019-05-20] MEDS: Enoxaparin Sodium 40 MG/0.4 ML SYRINGE SC SCH (08:13)
[2019-05-20] MEDS: Nicotine 14 MG PATCH TD SCH (08:54)
--- NOTE | 2019-05-20 09:35 | DIS ---
DATE OF ADMISSION: 05/15/2019 DATE OF DISCHARGE: 05/20/2019 DISCHARGE DIAGNOSES: 1. Acute on chronic hypoxic hypercapnic respiratory failure secondarily to acute chronic obstructive pulmonary disease exacerbation. 2. Acute chronic obstructive pulmonary disease exacerbation. 3. Bacterial pneumonia with Haemophilus influenzae, stable. 4. Acute metabolic encephalopathy secondarily to acute on chronic hypoxic hypercapnic respiratory failure, acute chronic obstructive pulmonary disease exacerbation, and bacterial pneumonia with Haemophilus influenzae, improved. 5. Diabetes mellitus, type 2, stable. 6. Tobacco abuse. CONSULTATIONS: Dr. Zamora with Pulmonology and Critical Care Service. PERTINENT LABORATORY AND X-RAY FINDINGS: Lactic acid level 0.9. CBC showed a white blood cell count ranging between 15.1 to 24.6. Blood cultures x2 dated 05/15/2019, showed no growth at 48 hours. Sputum culture dated 05/15/2019, positive for Haemophilus influenzae. Portable chest x-ray dated 05/15/2019. It showed a mild infiltrate in the right upper and right lower lung zone. Portable chest x-ray dated 05/16/2019, showed endotracheal and esophagogastric tube in appropriate position. Resolution of mild right-sided infiltrates. Portable chest x-ray dated 05/18/2019, showed interval removal of endotracheal and enteric catheter. HOSPITAL COURSE: The patient initially presented with shortness of breath with altered mental status in the context of chronic hypoxic hypercapnic respiratory failure and COPD. The patient with recent admission from 04/28/2019 through 04/30/2019, for COPD exacerbation. The patient presented with respiratory failure requiring intubation and placement on mechanical ventilation. The patient was monitored by the Pulmonology Service during her hospital course and ICU admission, transitioning from mechanical ventilation to nasal cannula after approximately 48 hours. The patient was also treated for suspected bacterial pneumonia with IV Levaquin in addition to Solu-Medrol and bronchodilator therapy. Respiratory culture was positive for Haemophilus influenzae and the patient transitioned to oral Levaquin without complication. The patient stabilized with aggressive pulmonary supportive management and transferred to the medical floor to complete her hospital stay. Overall, the patient had remained clinically stable, advancing to baseline oxygen requirement at 2 L/minute by nasal cannula. I have examined the patient at the time of discharge and discussed followup instructions. The patient verbalized understanding and in agreement and ready for discharge on 05/20/2019. DISCHARGE MEDICATIONS: 1. Prednisone 20 mg 2 tablets p.o. daily x3 days, followed by 1 tablet p.o. daily x3 days, followed by half a tablet p.o. daily x3 days. 2. Levaquin 500 mg p.o. daily x4 days. 3. Incruse Ellipta 62.5 mcg inhaled daily. 4. Tolterodine tartrate 4 mg p.o. daily. 5. Lyrica 300 mg p.o. b.i.d. 6. Pravachol 20 mg p.o. at bedtime. 7. Omeprazole 40 mg p.o. daily. 8. Myrbetriq 50 mg p.o. daily. 9. Metformin 500 mg p.o. daily. 10. Losartan/hydrochlorothiazide 50/12.5 mg 1 tablet p.o. daily. 11. Glargine insulin 20 units subcutaneously daily. 12. NovoLog 10 units subcutaneously t.i.d.. 13. Arnuity Ellipta 200 mcg inhaled daily. 14. Jardiance 10 mg p.o. daily. 15. Cymbalta 120 mg p.o. daily. 16. Xanax 0.5 mg p.o. daily. FOLLOWUP: The patient may follow up with her primary care provider, Dr. Cheryl Ibarra, within 7 days of discharge. CONDITION ON DISCHARGE: Stable. ACTIVITY: Ad-jhonathan. DIET: ADA and heart healthy. CODE STATUS: Full. DISPOSITION: To home on 05/20/2019. TIME SPENT: Total time preparing and coordinating discharge is 32 minutes. Job ID: [id number]
--- NOTE | 2019-05-20 09:37 | RAD ---
CHEST 1 VIEW: Date: 05/20/19 HISTORY: Dyspnea. COMPARISON: 05/18/19. FINDINGS: Cardiac silhouette is magnified by projection. Pulmonary vasculature remains upper limits of normal. Mediastinum is midline with aortic calcification. Lungs remain slightly hyperinflated. Widespread subtle reticular interstitial prominence is stable. Part of the provided information describes ventilator placement. No tubing is seen. IMPRESSION: Stable radiographic appearance of the chest. POS: [facility]
== END 2019-05-20 11:23 | disposition home or self-care (01) | DRG 208 ==
LOC: ERS 12:58 → CCU 15:37 → T4-B 05-18 12:17
PROVIDERS: ADMIT Family Medicine; ATTEND Family Medicine
PROC: 0BH17EZ Insertion of Endotracheal Airway into Trachea, Via Natural or Artificial Opening (ICD-10-PCS; principal; 2019-05-15)
PROC: 5A1945Z Respiratory Ventilation, 24-96 Consecutive Hours (ICD-10-PCS; 2019-05-15)
DX: J96.22 Acute and chronic respiratory failure with hypercapnia (principal); J14 Pneumonia due to Hemophilus influenzae; G93.41 Metabolic encephalopathy; J44.1 Chronic obstructive pulmonary disease with (acute) exacerbation; J44.0 Chronic obstructive pulmonary disease with (acute) lower respiratory infection; J96.21 Acute and chronic respiratory failure with hypoxia; E11.9 Type 2 diabetes mellitus without complications; F32.9 Major depressive disorder, single episode, unspecified; F41.9 Anxiety disorder, unspecified; Z98.51 Tubal ligation status; Z90.710 Acquired absence of both cervix and uterus; Z90.49 Acquired absence of other specified parts of digestive tract; Z88.5 Allergy status to narcotic agent; F17.210 Nicotine dependence, cigarettes, uncomplicated; Z80.9 Family history of malignant neoplasm, unspecified; Z83.3 Family history of diabetes mellitus; Z83.6 Family history of other diseases of the respiratory system
CPT/HCPCS: 31500; 36415; 36416; 51702; 71045; 80048; 80053; 81003; 81015; 82805; 83605; 85007; 85025; 85027; 87040; 87070; 87077; 87205; 93005; 94002; 94003; 94640; 96361; 96365; 96375; 99292; J0692; J1650; J1815; J1956; J2704; J2920; J2930; J3010; J3370; J3475; J3490; J7512; J7620; S0028

== ENCOUNTER 2019-05-31 17:47 | Emergency (ER) | payer MEDICARE, BC ==
--- NOTE | 2019-05-31 19:09 | CT ---
CT OF BRAIN PERFORMED WITHOUT CONTRAST ENHANCEMENT: 05/31/19 HISTORY: Patient fell and hit head. Takes blood thinners. COMPARISON: 12/05/15 study. Some mild ventricular and sulcal prominence. There is no signs of intracerebral hemorrhage or extra-a xial fluid collection. The mastoid air cells and visualized sinuses are clear. IMPRESSION: No acute intracranial abnormalities. POS: [facility]
--- NOTE | 2019-05-31 19:12 | RAD ---
PORTABLE CHEST ONE VIEW: 05/31/19 at 7:07 p.m. HISTORY: Fall. Comparison is made with exam of 05/20/19. The heart size is normal. The lungs are expanded without lobar consolidation, pneumothoraces, or ple ural effusions. IMPRESSION: No acute process. POS: [facility]
--- NOTE | 2019-05-31 19:13 | RAD ---
AP PELVIS: 05/31/19 HISTORY: Fall. Pelvic pain. Hip pain. FINDINGS/IMPRESSION: No acute fracture or dislocation is identified. POS: [facility]
[2019-05-31 19:43] LABS: #Basophils 0.1 thou/uL (0.0-0.2); #Eosinphils 0.1 thou/uL (0.0-0.7); #Lymphocytes 2.3 thou/uL (1.20-3.40); #Monocytes 0.8 thou/uL (0.11-0.59); #Neutrophils 8.5 thou/uL (1.40-6.50); %Basophils 0.8 % (0.0-1.0); %Lymphocytes 19.1 % (21.0-51.0); %Monocytes 6.6 % (0.0-10.0); %Neutrophils 72.5 % (42.0-75.0); Hemoglobin 13.6 g/dL (12.0-16.0); Mean Corpuscular HGB CONC 30.7 g/dL (32.0-36.0); Mean Corpuscular Hemoglobin 24.1 pg (27.0-31.0); Mean Corpuscular Volume 78.4 fL (78.0-98.0); Mean Platelet Volume 7.4 fL (7.4-10.4); Platelet Count 172 thou/uL (130-400); RBC Distribution Width 20.9 % (11.5-14.5); Red Blood Cell (RBC) Count 5.63 mill/uL (4.20-5.40); White Blood Cell (WBC) Count 11.8 thou/uL (4.8-10.8)
[2019-05-31 20:00] LABS: ALT (SGPT) 14 U/L (8-55); AST (SGOT) 11 U/L (5-34); Albumin 3.8 g/dL (3.4-4.8); Alkaline Phosphatase 158 U/L (40-110); BUN (Urea Nitrogen) 15 mg/dL (9.8-20.1); Bilirubin, Total 0.6 mg/dL (0.2-1.2); CK (CPK) 23 U/L (29-168); Calc. Creatinine Clearance 0 mL/min (70-130); Calcium 9.4 mg/dL (7.8-10.44); Estimated GFR-MDRD 90; Globulin 2.7 g/dL (2.4-3.5); Glucose 362 mg/dL (80-115); Lipase 22 U/L (8-78); Protein, Total 6.5 g/dL (6.0-8.3)
[2019-05-31 20:09] LABS: Anion Gap 12 mmol/L (10-20); Carbon Dioxide 37 mmol/L (23-31); Chloride 93 mmol/L (98-107); Potassium 3.4 mmol/L (3.5-5.1); Sodium 139 mmol/L (136-145)
[2019-05-31] MEDS ORDERED: Morphine 4 MG/ML VIAL ONE (22:36)
[2019-05-31] MEDS ORDERED: Ketorolac Tromethamine 30 MG/ML VIAL ONE (22:36)
== END 2019-05-31 22:53 | disposition home or self-care (01) ==
LOC: ERS 17:47
DX: S09.90XA Unspecified injury of head, initial encounter (principal); J44.9 Chronic obstructive pulmonary disease, unspecified; M62.81 Muscle weakness (generalized); E11.40 Type 2 diabetes mellitus with diabetic neuropathy, unspecified; I10 Essential (primary) hypertension; F41.9 Anxiety disorder, unspecified; F32.9 Major depressive disorder, single episode, unspecified; F17.210 Nicotine dependence, cigarettes, uncomplicated; Z79.899 Other long term (current) drug therapy; W22.8XXA Striking against or struck by other objects, initial encounter
CPT/HCPCS: 36415; 70450; 71045; 72125; 72170; 80053; 82550; 83605; 83690; 83880; 84484; 85025; 96374; 96375; J1885; J2270

== ENCOUNTER 2019-06-05 10:09 | Outpatient (CLI) | payer MEDICARE, BC, OTHER ==
--- NOTE | 2019-06-05 11:08 | RAD ---
XR Knee Lt 3 View HISTORY: Injury, left knee pain FINDINGS: No fracture or dislocation is identified. A joint effusion is present
== END 2019-06-05 10:10 | disposition home or self-care (01) ==
LOC: BICRAD 10:09
PROVIDERS: ATTEND Family Medicine
DX: M25.562 Pain in left knee (principal); W19.XXXA Unspecified fall, initial encounter

== ENCOUNTER 2019-06-15 23:25 | Emergency (ER) | payer MEDICARE, BC ==
--- NOTE | 2019-06-16 | RAD ---
RADIOGRAPH CHEST 2 VIEW: DATE: 06/15/2019 HISTORY: 63-year-old female with hypoxemia FINDINGS: There is hyperinflation of the lungs, consistent with COPD. There is no evidence of airspace density, pulmonary edema, cardiomegaly, pleural effusion, or pneumothorax. IMPRESSION: 1) No acute cardiopulmonary findings. 2) emphysema.
--- NOTE | 2019-06-16 07:34 | CT ---
PRELIMINARY REPORT/[facility]/AFTER HOURS PROCEDURE CT HEAD WITHOUT INTRAVENOUS CONTRAST: CLINICAL HISTORY: F63 presents to ED s/p fall with c/o laceration to scalp and LLE pain. TECHNIQUE: Axial computed tomography images of the head/brain without intravenous contrast. COMPARISON: None provided. FINDINGS: BRAIN: No acute intraparenchymal hemorrhage. No mass lesion. No CT evidence for acute territorial inf arct. No midline shift or extra-axial collection. VENTRICLES: No hydrocephalus. ORBITS: The orbits are unremarkable. SINUSES AND MASTOIDS: The paranasal sinuses and mastoid air cells are clear. SOFT TISSUES: No significant facial or scalp soft tissue swelling evident. No radiopaque foreign body is seen. BONES: No acute skull fracture. IMPRESSION: No acute intracranial abnormality. ELECTRONICALLY SIGNED BY: Derian Roberts DO Jun 16, 2019 12:11:00 AM PIGMENT PROCESSOR This report is intended for review by the ordering physician only, in accordance of law. If you recei ve this report in error, please call [facility] at [phone]. FINAL REPORT CT BRAIN: PROVIDED CLINICAL HISTORY: Fall. COMPARISON: 05/31/2019 FINDINGS/IMPRESSION: I agree with the preliminary interpretation given by [facility]. CODE QA Transcribed Date/Time: 06/16/2019 7:45 AM
--- NOTE | 2019-06-16 07:36 | CT ---
PRELIMINARY REPORT/[facility]/AFTER HOURS PROCEDURE CT CERVICAL SPINE WITHOUT INTRAVENOUS CONTRAST: CLINICAL HISTORY: F63 presents to ED s/p fall with c/o laceration to scalp and LLE pain. TECHNIQUE: Axial computed tomography images of the cervical spine without intravenous contrast. Sagittal and cor onal reformations performed. COMPARISON: None provided. FINDINGS: BONES: No acute fracture or focal osseous lesion. Bony alignment is anatomic. DISCS / DEGENERATIVE CHANGES: No significant disc or facet degeneration. No significant central canal or neural foraminal stenosis. Multilevel moderate spondylosis most pronounced at C4-C6 with disc bulge resulting in at least moderate spinal canal stenosis. SOFT TISSUES: No prevertebral soft tissue swelling. No apical pneumothorax. IMPRESSION: 1. No acute cervical spine abnormality. 2. Multilevel moderate spondylosis most pronounced at C4-C6 with disc bulge resulting in at least mod erate spinal canal stenosis. ELECTRONICALLY SIGNED BY: Derian Roberts DO Jun 16, 2019 12:12:18 AM TELECOMMUNICATIONS LINE INSTALLER This report is intended for review by the ordering physician only, in accordance of law. If you recei ve this report in error, please call [facility] at [phone]. FINAL REPORT CT CERVICAL SPINE: PROVIDED CLINICAL HISTORY: Pain. COMPARISON: None. FINDINGS/IMPRESSION: I agree with the preliminary interpretation given by [facility]. CODE QA Transcribed Date/Time: 06/16/2019 7:52 AM
== END 2019-06-16 00:58 | disposition home or self-care (01) ==
LOC: ERS 23:25
DX: S01.01XA Laceration without foreign body of scalp, initial encounter (principal); J43.9 Emphysema, unspecified; E11.40 Type 2 diabetes mellitus with diabetic neuropathy, unspecified; I10 Essential (primary) hypertension; F32.9 Major depressive disorder, single episode, unspecified; F41.9 Anxiety disorder, unspecified; F17.210 Nicotine dependence, cigarettes, uncomplicated; Z79.899 Other long term (current) drug therapy; W18.30XA Fall on same level, unspecified, initial encounter
CPT/HCPCS: 12001; 70450; 71046; 72125; 93005; 94760

== ENCOUNTER 2019-07-31 18:27 | Inpatient (IN) | payer MEDICARE, BC, OTHER ==
[2019-07-31] MEDS ORDERED: methylPREDNISolone Sod Succ/PF 125 MG/2 ML VIAL ONE (19:27)
[2019-07-31 19:32] LABS: #Lymphocytes 0.8 thou/uL (1.20-3.40); #Neutrophils 6.2 thou/uL (1.40-6.50); %Basophils 0.4 % (0.0-1.0); %Eosinophils 0.3 % (0.0-10.0); %Lymphocytes 10.1 % (21.0-51.0); %Monocytes 12.6 % (0.0-10.0); %Neutrophils 76.6 % (42.0-75.0); Hemoglobin 15.4 g/dL (12.0-16.0); Mean Corpuscular HGB CONC 32.8 g/dL (32.0-36.0); Mean Corpuscular Hemoglobin 28.4 pg (27.0-31.0); Mean Corpuscular Volume 86.5 fL (78.0-98.0); Mean Platelet Volume 10.7 fL (7.4-10.4); Platelet Count 153 thou/uL (130-400); RBC Distribution Width 17.5 % (11.5-14.5); Red Blood Cell (RBC) Count 5.42 mill/uL (4.20-5.40); White Blood Cell (WBC) Count 8.1 thou/uL (4.8-10.8)
[2019-07-31 19:53] LABS: ALT (SGPT) 18 U/L (8-55); AST (SGOT) 25 U/L (5-34); Albumin 4.1 g/dL (3.4-4.8); Alkaline Phosphatase 178 U/L (40-110); Anion Gap 13 mmol/L (10-20); BUN (Urea Nitrogen) 10 mg/dL (9.8-20.1); Bilirubin, Total 0.6 mg/dL (0.2-1.2); Calc. Creatinine Clearance 0 mL/min (70-130); Carbon Dioxide 32 mmol/L (23-31); Chloride 97 mmol/L (98-107); Estimated GFR-MDRD Greater than 90; Globulin 2.8 g/dL (2.4-3.5); Glucose 191 mg/dL (80-115); Potassium 3.6 mmol/L (3.5-5.1); Protein, Total 6.9 g/dL (6.0-8.3); Sodium 138 mmol/L (136-145)
--- NOTE | 2019-07-31 20:00 | RAD ---
EXAM: CHEST ONE VIEW PORTABLE: 07/31/19 HISTORY: Dyspnea. Generalized weakness. COMPARISON: 06/16/19. FINDINGS: Bilateral increased linear, interstitial, and some reticulonodular parenchymal changes particularly i n the mid lung zones progressive from the prior study. Minimal hyperinflation. No focal confluent pne umonia. No significant pleural effusion. IMPRESSION: Some increased mostly interstitial markings bilaterally raising concern for the possibility of some a cute edema versus some diffuse nonspecific pneumonitis. No confluent pneumonia. Continued short term follow-up. POS: [facility]
[2019-07-31] MEDS ORDERED: Acetaminophen 500 MG TAB ONE (20:34)
[2019-07-31] MEDS ORDERED: Oseltamivir 75 MG CAP PO SCH (21:45)
[2019-07-31 23:38] LABS: Actual Bicarbonate (HCO3a) 31.9 mEq/L (22-28); Analyzer IN Cardio ER; Base Excess (BEa) 3.3 mEq/L (-2.0 to +3.0); Calcium, Ionized 1.17 mmol/L (1.12-1.30); Carboxyhemoglobin (COHb) 1.7 gm% (0.0-3.0); Hemoglobin (Hb) 15.4 g/dL (12.0-16.0); O2 Tension (PaO2) 82.2 mmHg (> 80.0); Potassium - ABG Lab 3.78 mmol/L (3.70-5.30)
[2019-07-31 23:39] LABS: CO2 Tension 66.2 mmHg (35.0-45.0); Puncture Site RRA
--- NOTE | 2019-07-31 23:39 | PDOC.HHP ---
Hospitalist HPI - History of Present Illness Shortness of breath History of Present Illness: 63 yo with COPD on 4L/min oxygen at home, DM-2 on home insulin, tobacco abuse presents to ER due to worsening shortness of breath. She states that she started experiencing shortness of breath Adia night that has been getting worse. This is associated with cough with green sputum without any blood. She reports wheezing and lightheadedness but no palpitations, CP. She doesn't have fever, chills. No N/V, abdominal pain. She reports diarrhea that started last night. She lives with her and uses a walker. Her granddaughter has been sick recently. Reports recent ankle swelling in the mornings and abdominal distention and weight gain. Denies orthopnea or PND. No rash or back pain. No bruising. No headache or vision changes. No burning or pain with urination. Hospitalist ROS - Review of Systems All other systems reviewed; all pertinent +/- noted in HPI/Subj Hospitalist History - Past Medical History Source: patient, old records Cardiac: reports: HTN Pulmonary: reports: COPD Endocrine: reports: Diabetes - Past Surgical History Past Surgical History: reports: Cholecystectomy, Hysterectomy, Tubal Ligation - Family History Family History: reports: cancer (father), diabetes mellitus (mother), respiratory disorder (Mother with COPD) - Social History Smoking Status: Current every day smoker Tobacco Type: cigarettes (06/01 PPD) Alcohol: reports: None Drugs: reports: none Living Situation: With Family Activity level: uses cane/walker - Exam General Appearance: ill appearing General - other findings: drowsy; on BIPAP Eye: PERRL, anicteric sclera ENT: normocephalic atraumatic, no oropharyngeal lesions, moist mucosa Neck: supple, symmetric, no JVD, no thyromegaly, no lymphadenopathy Heart: no murmur, no gallops, no rubs, normal peripheral pulses Heart - other findings: tachycardia present Respiratory: no wheezes, no rales, no ronchi, normal chest expansion, no tachypnea Respiratory - other findings: reduced air entry bilaterlly Gastrointestinal: soft, non-tender, non-distended, normal bowel sounds, no palpable masses Extremities: no cyanosis, no clubbing, no edema Skin: normal turgor, no lesions, no rashes Neurological: cranial nerve grossly intact, normal sensation to touch, no weakness, no focal deficits Musculoskeletal: normal tone, normal strength, no muscle wasting Psychiatric: oriented to person, oriented to place, oriented to time, somnolent Hospitalist Results - Labs Result Diagrams: 07/31/19 19:22 07/31/19 19:22 Lab results: WBC 8.1 thou/uL (4.8-10.8) 07/31/19 19:22 Hgb 15.4 g/dL (12.0-16.0) 07/31/19 19:22 Hct 46.9 % (36.0-47.0) 07/31/19 19:22 MCV 86.5 fL (78.0-98.0) 07/31/19 19:22 Plt Count 153 thou/uL (130-400) 07/31/19 19:22 Neutrophils % 76.6 % (42.0-75.0) H 07/31/19 19:22 Sodium 138 mmol/L (136-145) 07/31/19 19:22 Potassium 3.6 mmol/L (3.5-5.1) 07/31/19 19:22 Chloride 97 mmol/L (98-107) L 07/31/19 19:22 Carbon Dioxide 32 mmol/L (23-31) H 07/31/19 19:22 BUN 10 mg/dL (9.8-20.1) 07/31/19 19:22 Creatinine 0.56 mg/dL (0.6-1.1) L 07/31/19 19:22 Glucose 191 mg/dL (80-115) H 07/31/19 19:22 Calcium 9.0 mg/dL (7.8-10.44) 07/31/19 19:22 Total Bilirubin 0.6 mg/dL (0.2-1.2) 07/31/19 19:22 AST 25 U/L (5-34) 07/31/19 19:22 ALT 18 U/L (8-55) 07/31/19 19:22 Alkaline Phosphatase 178 U/L (40-110) H 07/31/19 19:22 Troponin I 0.025 ng/mL (< 0.028) 07/31/19 19:22 B-Natriuretic Peptide 86.2 pg/mL (0-100) 07/31/19 19:22 Serum Total Protein 6.9 g/dL (6.0-8.3) 07/31/19 19:22 Albumin 4.1 g/dL (3.4-4.8) 07/31/19 19:22 - EKG Interpretation EKG: Sinus tachycardia; No ST-T changes concerning for ischemia - Radiology Interpretation Chest x-ray Status: image reviewed by me (No consolidation or CP angle blunting seen; Bilateral interstitial markings) Hospitalist H&P A/P - Problem (1) Influenza A Code(s): J10.1 - FLU DUE TO OTH IDENT INFLUENZA VIRUS W OTH RESP MANIFEST Status: Acute Assessment and Plan: Admit to inpatient status. Expected to stay at least 2 midnights High risk due to risk of worsening respiratory failure that may need intubation and mechanical ventilation Tamiflu for 5 days (2) COPD exacerbation Code(s): J44.1 - CHRONIC OBSTRUCTIVE PULMONARY DISEASE W (ACUTE) EXACERBATION Status: Acute Assessment and Plan: PO doxycycline x 5 days IV steroids NIPPV Nebs (3) Respiratory failure Code(s): J96.90 - RESPIRATORY FAILURE, UNSP, UNSP W HYPOXIA OR HYPERCAPNIA Status: Chronic Qualifiers: Chronicity: acute on chronic Respiratory failure complication: hypoxia and hypercapnia Qualified Code(s): J96.21 - Acute and chronic respiratory failure with hypoxia; J96.22 - Acute and chronic respiratory failure with hypercapnia Assessment and Plan: ABG with pH of 7.30 and pCO2 of 66 Placed on BIPAP now. Continue the same Patient is somnolent but arousable Avoid sedative and hypnotic meds (4) DM type 2 (diabetes mellitus, type 2) Status: Chronic Qualifiers: Diabetes mellitus termite helper insulin use: with jail use Diabetes mellitus complication status: without complication Qualified Code(s): E11.9 - Type 2 diabetes mellitus without complications; Z79.4 - ad terminal makeup operator (current) use of insulin Assessment and Plan: Diabetic diet, basal and SSI insulin Monitor sugars and adjust regimen (5) Dyslipidemia Code(s): E78.5 - HYPERLIPIDEMIA, UNSPECIFIED Status: Chronic Assessment and Plan: Stable Statin therapy at home dose (6) HTN (hypertension) Code(s): I10 - ESSENTIAL (PRIMARY) HYPERTENSION Status: Chronic Qualifiers: Hypertension type: essential hypertension Qualified Code(s): I10 - Essential (primary) hypertension Assessment and Plan: Stable BP Resume home meds once reconciled (7) Tobacco abuse Code(s): Z72.0 - TOBACCO USE Status: Chronic Assessment and Plan: Counselled regarding cessation. Patient attempting to quit Nicoderm PRN (8) ALL (obstructive sleep apnea) Code(s): G47.33 - OBSTRUCTIVE SLEEP APNEA (ADULT) (PEDIATRIC) Status: Chronic Assessment and Plan: Patient states she was recently placed on CPAP and has been having problems with her mask BIPAP for now Out patient follow up with Pulmonology & DME company
[2019-08-01] MEDS ORDERED: Senokot S 8.6-50 MG TAB PO PRN (00:04)
[2019-08-01] MEDS ORDERED: Ondansetron PF 4 MG/2 ML Vial IVP PRN (00:04)
[2019-08-01] MEDS ORDERED: Acetaminophen 325 MG TAB PO PRN (00:04)
[2019-08-01] MEDS ORDERED: Dextrose 5% in Water 1,000 ML IV PRN (00:09)
[2019-08-01] MEDS ORDERED: Dextrose 50% Abboject 50 ML SYRINGE SLOW IVP PRN (00:09)
[2019-08-01] MEDS ORDERED: Nicotine 7 MG PATCH TD PRN (00:13)
[2019-08-01] MEDS ORDERED: Bacteriostatic Water 30 ML VIAL FS PRN (00:15)
[2019-08-01] MEDS ORDERED: Insulin Glargine 25 UNITS in Pre-Filled Syringe 1 EACH SC SCH (00:30)
[2019-08-01 02:06] LABS: #Lymphocytes 0.4 thou/uL (1.20-3.40); #Monocytes 0.1 thou/uL (0.11-0.59); #Neutrophils 5.6 thou/uL (1.40-6.50); %Basophils 0.4 % (0.0-1.0); %Eosinophils 0.2 % (0.0-10.0); %Monocytes 2.4 % (0.0-10.0); Hemoglobin 15.1 g/dL (12.0-16.0); Mean Corpuscular HGB CONC 32.3 g/dL (32.0-36.0); Mean Corpuscular Hemoglobin 28.1 pg (27.0-31.0); Mean Corpuscular Volume 87.1 fL (78.0-98.0); Mean Platelet Volume 11.5 fL (7.4-10.4); Platelet Count 149 thou/uL (130-400); RBC Distribution Width 17.3 % (11.5-14.5); Red Blood Cell (RBC) Count 5.36 mill/uL (4.20-5.40); White Blood Cell (WBC) Count 6.1 thou/uL (4.8-10.8)
[2019-08-01 02:31] LABS: Troponin I Less than 0.010 ng/mL (< 0.028)
[2019-08-01] MEDS: Ipratropium Bromide 2.5 ml Neb NEB SCH ×3 (02:32→12:28)
[2019-08-01 02:47] LABS: ALT (SGPT) 19 U/L (8-55); AST (SGOT) 28 U/L (5-34); Albumin 3.9 g/dL (3.4-4.8); Alkaline Phosphatase 172 U/L (40-110); Anion Gap 15 mmol/L (10-20); BUN (Urea Nitrogen) 17 mg/dL (9.8-20.1); Bilirubin, Total 0.5 mg/dL (0.2-1.2); Calc. Creatinine Clearance 0 mL/min (70-130); Calcium 8.7 mg/dL (7.8-10.44); Carbon Dioxide 28 mmol/L (23-31); Chloride 99 mmol/L (98-107); Estimated GFR-MDRD Greater than 90; Globulin 2.6 g/dL (2.4-3.5); Glucose 278 mg/dL (80-115); Potassium 3.9 mmol/L (3.5-5.1); Protein, Total 6.5 g/dL (6.0-8.3); Sodium 138 mmol/L (136-145)
[2019-08-01 02:55] VITALS: BMI 25.0
[2019-08-01] MEDS: Arformoterol 15 MCG/2 ML NEB NEB SCH ×2 (07:23→18:42)
[2019-08-01] MEDS: Budesonide 0.25 MG/2 ML NEB INH SCH ×2 (07:29→18:42)
[2019-08-01 08:24] LABS: Troponin I Less than 0.010 ng/mL (< 0.028)
[2019-08-01] MEDS ORDERED: Enoxaparin Sodium 40 MG/0.4 ML SYRINGE ONE (09:07)
[2019-08-01] MEDS ORDERED: methylPREDNISolone Sod Succ 40 MG VIAL ONE (09:07)
[2019-08-01] MEDS: methylPREDNISolone Sod Succ 40 MG VIAL IVP SCH ×2 (09:15→20:16)
[2019-08-01] MEDS: Enoxaparin Sodium 40 MG/0.4 ML SYRINGE SC SCH (09:16)
[2019-08-01] MEDS: Doxycycline 100 MG CAP PO SCH ×2 (09:55→20:14)
[2019-08-01] MEDS: Oseltamivir 75 MG CAP PO SCH ×2 (09:55→20:15)
--- NOTE | 2019-08-01 13:58 | PRG ---
DATE OF SERVICE: 08/01/2019 SUBJECTIVE: The patient is seen and examined at the bedside. She is feeling slightly better. She just got to the room this morning at 11:00 since there was no any empty beds in [facility], and she is coughing quite a bit. OBJECTIVE: VITAL SIGNS: Blood pressure is 114/63, pulse is 95, respirations 18, O2 saturation is 96% on 4 L by nasal cannula. HEENT: Her head is atraumatic and normocephalic. Eyes are PERRLA. Sclerae are nonicteric. Oral mucosa is moist. NECK: Supple. LUNGS: Bilateral rales at both bases present and its mid portions with few expiratory wheezes bilaterally. HEART: S1 and S2 normal. No S3. No S4. No any murmur. ABDOMEN: Soft, obese, mildly distended. EXTREMITIES: No clubbing, cyanosis, or edema. NEUROLOGIC: She is alert and oriented x4. There is no any motor or sensory deficits. LABORATORY DATA: Labs showed white count of 8.1, hemoglobin 15.1, hematocrit 46.7, platelet count is 149,000. Normal chemistry, glycemia is ranging from 203 to 287, alkaline phosphatase 172. Two sets of troponin-I within normal limits and the rest of chemistry is within normal limits. IMPRESSION: 1. Respiratory failure secondary to pneumonitis. 2. Pneumonitis from influenza type A. 3. Type A influenza infection. 4. Diabetes mellitus type 2. 5. Dyslipidemia. 6. Hypertension. 7. Obstructive sleep apnea. 8. Tobacco user. PLAN: The patient will continue on current regimen with Tamiflu and doxycycline, nebulizers and IV Solu-Medrol. We will reconcile her home medications and she will be seen by monkey trainer today and she will continue Accu-Cheks a.c. and at bedtime. Job ID: [id number]
[2019-08-01] MEDS: HumaLOG 300 UNITS/3 ML VIAL SC PRN ×2 (14:23→17:04)
[2019-08-01] MEDS ORDERED: Acetaminophen/Codeine 30-300mg Tablet PO PRN (17:46)
--- NOTE | 2019-08-01 18:25 | CON ---
DATE OF CONSULTATION: 08/01/2019 SERVICE: Pulmonary Medicine. REASON FOR CONSULT: COPD exacerbation. HISTORY OF PRESENT ILLNESS: The patient is a very pleasant 63-year-old white female with past medical history significant for chronic hypercapnic respiratory failure, COPD, and chronic hypoxic respiratory failure. She was in her usual state of health until about 3 days prior to admission. She was baby-sitting her granddaughter, for her daughter, who was sick with the flu. The kid also had a phase of this sniffles. Either way, 3 days ago, she had onset of myalgia, malaise, headache, cough bringing up white phlegm, nausea without vomiting, increasing shortness of breath and wheezing. She presented to the Emergency Department. Her rapid flu was positive. She has been initiated on Tamiflu. Compared to when she presented to the Emergency Department, she is about the same. There were no significant overnight events. PAST MEDICAL HISTORY: 1. Chronic hypoxic and hypercapnic respiratory failure. 2. COPD. 3. Type 2 diabetes mellitus. 4. Hypertension. 5. Generalized anxiety disorder. 6. Major depressive disorder. PAST SURGICAL HISTORY: 1. Tubal ligation, bilateral. 2. Hysterectomy. 3. Right shoulder repair. 4. Cholecystectomy. 5. Carpal tunnel release, bilateral. FAMILY HISTORY: Noncontributory. SOCIAL HISTORY: Negative for alcohol, tobacco, or illicit drug use. She previously had a 20 or 30 pack year history of smoking. She has no exposure to chemicals, dust, asbestos, or tuberculosis. ALLERGIES: CODEINE, EUCALYPTUS, HYDROCODONE, AND TRAMADOL. MEDICATIONS: List of her inpatient medications was reviewed. No specific updates were made at this time. REVIEW OF SYSTEMS: General, head, ears, eyes, nose, throat, cardiovascular, respiratory, GI, , musculoskeletal, neurologic, and skin are negative except as mentioned in the HPI. PHYSICAL EXAMINATION: VITAL SIGNS: Afebrile, pulse 93, blood pressure 107/46, respirations 23, and saturation 97%, currently on 3 L nasal cannula. GENERAL: The patient is awake and alert, in no apparent distress. LUNGS: There is decreased air entry. With forced exhalation, rhonchi and wheezing are elicited. That being said, with tidal respirations, she has symmetric bilateral crackles present. HEART: Normal rate. Regular. ABDOMEN: Soft, nontender, and nondistended. Bowel sounds are positive. MUSCULOSKELETAL: No cyanosis or clubbing. There is absolutely no pitting throughout. Skin tenting is present. NEUROLOGIC: Grossly nonfocal. LABORATORY DATA: WBC 6.1, hemoglobin 15.1, and platelets 149,000. A pH of 7.3, pCO2 of 66, pO2 of 82, while wearing 4 L via nasal cannula. Basic metabolic profile, and liver function studies, troponin x2 are unremarkable. Her BNP falls within the upper limits of normal. Influenza A is positive. IMAGIN. Chest x-ray demonstrates findings consistent with hyperexpanded lung hardy. Cardiac silhouette is slender. She has increased interstitial markings. There is subtle increase in pulmonary vascular congestion, though this is quite mild. 2. Echocardiogram demonstrates normal ejection fraction with a decompressed left atrium. ASSESSMENT: 1. Acute on chronic hypoxic and hypercapnic respiratory failure. 2. Chronic obstructive pulmonary disease with acute exacerbation secondary to influenza A. 3. Community-acquired pneumonia with atypical pattern of inflammation on chest x -ray. DISCUSSION AND PLAN: We will continue BiPAP on as needed basis. The patient is on home Trilogy. As such, it would be unreasonable to send her to the floor with this device. She appears comfortable for the time being. As such, we will simply continue our Tamiflu, nebulized medications, and steroids. Dr. Narvaez has an established relationship with Ms. Colunga, and will assume coverage starting tomorrow morning. Pulmonary will follow. 70 minutes have been devoted to this patient in various activities. I personally reviewed all imaging studies and laboratory data noted within this document. For fifty percent of this time, I was interacting with the patient at the bedside or coordinating care with the care team. For the remainder of the time I was immediately available to the patient in the hospital unit. Job ID: [id number] [facility]
[2019-08-01] MEDS: Pregabalin 75 MG CAP PO SCH (20:14)
[2019-08-01] MEDS: Simvastatin 5 MG TAB PO SCH (20:14)
[2019-08-01] MEDS: Insulin Glargine 25 UNITS in Pre-Filled Syringe 1 EACH SC SCH (20:18)
[2019-08-01] MEDS: HumaLOG 300 UNITS/3 ML VIAL SC SCH (20:19)
[2019-08-01] MEDS ORDERED: Ibuprofen 100 MG/5 ML UDCUP PO SCH (22:00)
[2019-08-01] MEDS: Lorazepam 0.5 MG TAB PO PRN (22:16)
[2019-08-02] MEDS: Arformoterol 15 MCG/2 ML NEB NEB SCH ×2 (06:47→18:57)
[2019-08-02] MEDS: Budesonide 0.25 MG/2 ML NEB INH SCH ×2 (06:47→18:56)
[2019-08-02] MEDS ORDERED: FLU VACC QS2019-20(6MOS UP)/PF 60 MCG/0.5 ML SYRINGE IM ONE (09:00)
--- NOTE | 2019-08-02 09:08 | PRG ---
DATE OF SERVICE: 08/02/2019 SUBJECTIVE: Ms. Colunga is comfortable, and appears in no distress. OBJECTIVE: VITAL SIGNS: Her temperature is 97.6, pulse 83, respirations 14, O2 saturation 94% on 4 L. HEENT: Unremarkable. NECK: No adenopathy or JVD. LUNGS: Clear without wheezing or rhonchi. CARDIAC: S1 and S2, regular. ABDOMEN: Soft. EXTREMITIES: No edema. LABORATORY DATA: Flu test was type A positive. ASSESSMENT: 1. Type A flu. 2. Chronic obstructive pulmonary disease with minimal exacerbation of symptoms. PLAN: She is continuing treatment with Tamiflu. It is reasonable to keep her on antibiotics for few days, but I think this is most likely influenza mediated. The patient will be kept on steroids. She can move out of the IMCU once she no longer needs the BiPAP. Job ID: [id number]
--- NOTE | 2019-08-02 09:14 | PRG ---
DATE OF SERVICE: 08/02/2019 SUBJECTIVE: The patient is seen and examined at bedside. She got some rest last night. She feels somewhat better. OBJECTIVE: VITAL SIGNS: Blood pressure is 118/62, pulse is 83, respirations 14, O2 saturation is 94% on 4 L by nasal cannula. HEENT: Her eyes are PERRLA. Sclerae are nonicteric. Oral mucosa is moist. NECK: Supple. LUNGS: Bilateral rales present at both bases and mid lungs. HEART: S1, S2 normal. No S3. No S4. ABDOMEN: Soft. Mildly obese, nontender. EXTREMITIES: No clubbing, cyanosis, or edema. NEUROLOGIC: She follows my commands. SKIN: No erythema or rash. LABORATORY DATA: Glycemia is ranging from 203 to 398. Echocardiogram showed LVEF estimated at 55% to 60%. Technically normal study. IMPRESSION: 1. Respiratory failure secondary to pneumonitis. 2. Pneumonitis from influenza type A. 3. Type A influenza infection. 4. Diabetes mellitus type 2. 5. Dyslipidemia. 6. Hypertension. 7. Obstructive sleep apnea. 8. Tobacco user. PLAN: To continue her current regimen. Her glycemia is significantly worse since she is on IV steroids. She requires a lot of oxygen. She is on 4 L by nasal cannula at this point and so we are going to intensify our efforts to control her glycemia since her Accu-Cheks are running almost consistently above 300. So we will give her 25 units of Lantus twice a day plus aggressive sliding scale and she will continue on DuoNebs. She will continue on Tamiflu and inhaled steroids. Job ID: [id number]
[2019-08-02] MEDS: Doxycycline 100 MG CAP PO SCH ×2 (09:15→21:07)
[2019-08-02] MEDS: DULoxetine 60 MG CAP PO SCH (09:16)
[2019-08-02] MEDS: Oseltamivir 75 MG CAP PO SCH ×2 (09:16→21:07)
[2019-08-02] MEDS: Pregabalin 75 MG CAP PO SCH ×2 (09:16→21:08)
[2019-08-02] MEDS: methylPREDNISolone Sod Succ 40 MG VIAL IVP SCH ×2 (09:19→21:06)
[2019-08-02] MEDS: Insulin Glargine 25 UNITS in Pre-Filled Syringe 1 EACH SC SCH ×2 (09:29→21:09)
[2019-08-02] MEDS: HumaLOG 300 UNITS/3 ML VIAL SC SCH ×3 (10:59→21:09)
[2019-08-02] MEDS: HumaLOG 300 UNITS/3 ML VIAL SC PRN ×2 (11:43→17:17)
[2019-08-02] MEDS: Enoxaparin Sodium 40 MG/0.4 ML SYRINGE SC SCH (11:45)
[2019-08-02] MEDS: Simvastatin 5 MG TAB PO SCH (21:07)
[2019-08-02] MEDS: Lorazepam 0.5 MG TAB PO PRN (21:14)
[2019-08-03] MEDS: HumaLOG 300 UNITS/3 ML VIAL SC PRN ×2 (05:54→15:02)
[2019-08-03] MEDS: Budesonide 0.25 MG/2 ML NEB INH SCH ×2 (06:33→19:01)
[2019-08-03] MEDS: Arformoterol 15 MCG/2 ML NEB NEB SCH ×2 (06:47→19:02)
[2019-08-03] MEDS: Enoxaparin Sodium 40 MG/0.4 ML SYRINGE SC SCH (08:53)
[2019-08-03] MEDS: DULoxetine 60 MG CAP PO SCH (08:53)
[2019-08-03] MEDS: HumaLOG 300 UNITS/3 ML VIAL SC SCH ×3 (08:53→23:07)
[2019-08-03] MEDS: Oseltamivir 75 MG CAP PO SCH ×2 (08:54→20:31)
[2019-08-03] MEDS: Pregabalin 75 MG CAP PO SCH ×2 (08:54→20:31)
[2019-08-03] MEDS: Doxycycline 100 MG CAP PO SCH ×2 (08:55→20:31)
[2019-08-03] MEDS: methylPREDNISolone Sod Succ 40 MG VIAL IVP SCH (10:03)
--- NOTE | 2019-08-03 10:10 | PRG ---
DATE OF SERVICE: 08/03/2019 SUBJECTIVE: The patient is seen and examined at the bedside. She is doing significantly better. She is off her oxygen. She is able to ambulate. Her appetite is good. OBJECTIVE: VITAL SIGNS: Blood pressure is 117/67, pulse is 86, temperature is 97.9, respirations 19, O2 saturation 96%. HEENT: Head is atraumatic and normocephalic. Eyes are PERRLA. Sclerae are nonicteric. LUNGS: Bilateral rales at both bases, mild. ABDOMEN: Soft, nontender, nondistended. EXTREMITIES: No clubbing, cyanosis, or edema. NEUROLOGICAL: She is alert and oriented x4. There are no any motor or sensory deficits. LABORATORY DATA: Labs showed glycemia is ranging from 254 to 318. IMPRESSION: 1. Respiratory failure secondary to pneumonitis. 2. Pneumonitis from influenza type A, mild exacerbation of chronic obstructive pulmonary disease. 3. Type A influenza infection. 4. Diabetes mellitus type 2. 5. Dyslipidemia. 6. Hypertension. 7. Obstructive sleep apnea. 8. Tobacco abuser. PLAN: I am going to switch her to oral prednisone 20 mg once a day starting tomorrow morning. We will continue her DuoNeb. She improved significantly since yesterday. She does not require any oxygen. At this point, we will continue her Tamiflu. She was placed on twice a day dose of Lantus yesterday, but she is still running above 300 her glycemia, so hopefully the changed dose and administration of steroids will help to control her glycemia better and we will continue her DVT prophylaxis with Lovenox. Job ID: [id number]
--- NOTE | 2019-08-03 10:35 | PRG ---
DATE OF SERVICE: 08/03/2019 SUBJECTIVE: This morning, she is better, less short of breath, less cough. OBJECTIVE: VITAL SIGNS: Temperature 97, pulse 86, respirations 19, sats are 98%, blood pressure 117/68. CHEST: Occasional wheeze. CARDIAC: Normal S1, S2. No gallops. ABDOMEN: No masses. ASSESSMENT: 1. Chronic obstructive pulmonary disease exacerbation. 2. Bronchitis. 3. Type A flu. PLAN: Continue Tamiflu for 5 days. PT, supportive care. Home any time. Job ID: [id number]
[2019-08-03 10:43] LABS: #Lymphocytes 0.8 thou/uL (1.20-3.40); #Monocytes 0.5 thou/uL (0.11-0.59); #Neutrophils 5.3 thou/uL (1.40-6.50); %Eosinophils 0.1 % (0.0-10.0); %Lymphocytes 11.8 % (21.0-51.0); %Monocytes 7.3 % (0.0-10.0); %Neutrophils 80.8 % (42.0-75.0); Mean Corpuscular HGB CONC 32.5 g/dL (32.0-36.0); Mean Corpuscular Hemoglobin 28.2 pg (27.0-31.0); Mean Corpuscular Volume 86.9 fL (78.0-98.0); Mean Platelet Volume 10.6 fL (7.4-10.4); Platelet Count 174 thou/uL (130-400); RBC Distribution Width 16.8 % (11.5-14.5); Red Blood Cell (RBC) Count 4.97 mill/uL (4.20-5.40); White Blood Cell (WBC) Count 6.6 thou/uL (4.8-10.8)
[2019-08-03 11:05] LABS: Anion Gap 11 mmol/L (10-20); BUN (Urea Nitrogen) 19 mg/dL (9.8-20.1); Calc. Creatinine Clearance 109 mL/min (70-130); Calcium 8.9 mg/dL (7.8-10.44); Carbon Dioxide 33 mmol/L (23-31); Chloride 98 mmol/L (98-107); Estimated GFR-MDRD Greater than 90; Glucose 235 mg/dL (80-115); Potassium 3.8 mmol/L (3.5-5.1); Sodium 138 mmol/L (136-145)
[2019-08-03] MEDS: Insulin Glargine 25 UNITS in Pre-Filled Syringe 1 EACH SC SCH ×2 (11:26→23:07)
[2019-08-03] MEDS: Simvastatin 5 MG TAB PO SCH (20:32)
[2019-08-03] MEDS: Lorazepam 0.5 MG TAB PO PRN (23:11)
[2019-08-04] MEDS: Arformoterol 15 MCG/2 ML NEB NEB SCH (07:03)
[2019-08-04] MEDS: Budesonide 0.25 MG/2 ML NEB INH SCH (07:03)
[2019-08-04 07:26] VITALS: BP 137/68; TEMP 98.4
[2019-08-04] MEDS ORDERED: predniSONE 20 MG TAB PO SCH (08:00)
[2019-08-04] MEDS: Pregabalin 75 MG CAP PO SCH (08:41)
[2019-08-04] MEDS: DULoxetine 60 MG CAP PO SCH (08:42)
[2019-08-04] MEDS: Enoxaparin Sodium 40 MG/0.4 ML SYRINGE SC SCH (08:43)
[2019-08-04] MEDS: Doxycycline 100 MG CAP PO SCH (08:43)
[2019-08-04] MEDS: Oseltamivir 75 MG CAP PO SCH (08:43)
--- NOTE | 2019-08-04 10:27 | DIS ---
DATE OF ADMISSION: 07/31/2019 DATE OF DISCHARGE: 08/04/2019 DIAGNOSES AT THE TIME OF DISCHARGE: 1. Respiratory failure secondary to pneumonitis. 2. Pneumonitis from influenza type A. 3. Mild exacerbation of chronic obstructive pulmonary disease. 4. Type A influenza infection. 5. Diabetes mellitus type 2. 6. Dyslipidemia. 7. Hypertension. 8. Obstructive sleep apnea. 9. Tobacco abuse. CONSULTANTS: Dr. Kirby Narvaez, Pulmonary Service and Dr. Lj Chung, pulmonary Service. HOSPITAL COURSE: The patient is a 63-year-old female, who was admitted to the hospital with shortness of breath. She has a well known diagnosis of COPD and she is on 4 L of O2 at home, also she has diagnosis of diabetes mellitus type 2. She still smokes, who presented to the emergency room due to worsening shortness of breath. This was associated with cough with green sputum without any blood. Also, she had wheezing and lightheadedness, but no palpitations or chest pain. She did not have any fever or chills. No nausea, vomiting, abdominal pain. Apparently, her granddaughter was sick recently. During emergency room visit her white count was 8.1, hemoglobin 15.4, hematocrit 46.9, platelet count 153,000. Her chemistry was within normal limits. Only glucose was elevated at 191. EKG shows sinus tachycardia with no ST-T wave changes. Chest x-ray showed bilateral interstitial markings. She was tested for influenza A positive and got admitted to the hospital for further management. It was found that on top of her influenza infection she had exacerbation of chronic obstructive pulmonary disease. She was started on Tamiflu, DuoNeb, and doxycycline along with IV steroids and noninvasive positive pressure ventilation. She was transitioned to nasal cannula when she improved. Her glycemia got worse since she was started on IV steroids, but this was managed with additional doses of insulin. She is doing well. Her electrocardiogram was done and it showed LVEF of 55% to 60% and the rest of the test was normal. She was seen by Dr. Saha for a consultation. The question was whether she had some atypical pneumonia and that is why she was continued on doxycycline along with her Tamiflu. Today, she is doing well. She is going to be discharged home. Her blood pressure is 137/68, pulse is 81, temperature 98.4, respiratory rate is 18, and O2 saturation is 98% on 4 L by nasal cannula. She did BiPAP at night and she is going to continue her CPAP at home. She will stay on a diabetic diet. ACTIVITIES: As tolerated and she is discharged home. MEDICATIONS: 1. Doxycycline 100 mg twice a day. 2. DuoNeb p.r.n. every 4 hours. 3. Tamiflu 75 mg twice a day for additional three doses. 4. Umeclidinium bromide which is Incruse Ellipta 1 inhalation once a day. 5. Omeprazole 1 tablets once a day. 6. Pravastatin 1 tablet at bedtime. 7. Pregabalin 300 mg twice a day. 8. Losartan/hydrochlorothiazide 50/12.5 mg one tablet once a day. 9. Duloxetine two capsules once a day. 10. Tylenol No.3 p.r.n. as needed for the pain. 11. Brovana 15 mcg nebulizer twice a day. 12. Breo Ellipta 200/25 mcg one puff once a day. 13. She will take prednisone 20 mg daily for the next couple of days, then she is going to switch to 10 mg daily for additional four days. FOLLOWUP: She will follow up with her primary care physician in 1 week. Job ID: [id number]
--- NOTE | 2019-08-04 11:54 | PRG ---
DATE OF SERVICE: 08/04/2019 SUBJECTIVE: This morning, she is awake, alert, responsive, in no distress. OBJECTIVE: VITAL SIGNS: Temperature 98, pulse 81, respiratory rate 18, sats are 98%. She is sleeping on a BiPAP. Blood pressure 130/68. CHEST: No wheezing or crackles. CARDIAC: Normal S1, S2. No gallops. ABDOMEN: No masses. LABORATORY DATA: Glucose was decreased. ASSESSMENT: 1. Obstructive sleep apnea. 2. Bronchitis. 3. Influenza A. PLAN: The patient is stable enough to be discharged home. Follow up with the primary care physician. Five days of Tamiflu. Job ID: [id number]
--- NOTE | 2019-08-07 01:03 | PQF ---
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 Clinical indicators are provided on the bottom of this form for your review Can you please further clarify the diagnosis of the patient? Please check appropriate box(es): [ ] Sepsis due to: (Pna, UTI, gangrenous gall bladder, etc.) [ ] Severe sepsis with acute organ dysfunction of: (Examples: respiratory failure, encephalopathy, acute kidney failure, other) [ ] Localized infection without sepsis [ ] Other diagnosis please specify [ ] Unable to determine In addition, please specify: Present on Admission (POA): [ ] Yes [ ] No [ ] Unable to determine For continuity of documentation, please document condition throughout progress notes and discharge summary. Thank You. CLINICAL INDICATORS - SIGNS / SYMPTOMS / LABS H and P pg.1- presents to ER due to worsening shortness of breath H and P pg.3- EKG: sinus tachycardia Consult pg.2- Community acquired pneumonia with atypical pattern of inflammation on chest x ray PN 08/21 pg.1- Pneumonitis from influenza A Ed Provider pg.1- Vital signs BP 129/28, Pulse 78, Respi 26, Temp 99.0 RISK FACTORS COPD- H and P pg.1 63 years old- H and P pg.1 Current everyday Smoker- H and P pg.1 Acute on chronic respiratory failure- H and P pg.3 Influenza A- Ds pg.1 TREATMENTS: Chest X ray 07/30 Pulmonary Consult 07/31- Dr. Saha I V fluids- MAR PO doxycycline x 5 days- H and P pg.3 Tamiflu-MAR Placed on Bipap- H and P pg.4 Nasal Swab- Microbiology (This form is maintained as a part of the permanent medical record) 2014 [employer]. All Rights Reserved [email or web address]
== END 2019-08-04 12:22 | disposition home or self-care (01) | DRG 193 ==
LOC: ERS 18:27 → ERHOLD 23:21 → IMCU/EMU 08-01 11:32 → T4-B 08-03 06:16
PROVIDERS: ADMIT Internal Medicine Sleep Medicine; ATTEND Internal Medicine
PROC: 5A09357 Assistance with Respiratory Ventilation, Less than 24 Consecutive Hours, Continuous Positive Airway Pressure (ICD-10-PCS; principal; 2019-07-31)
DX: J10.01 Influenza due to other identified influenza virus with the same other identified influenza virus pneumonia (principal); J96.21 Acute and chronic respiratory failure with hypoxia; J96.22 Acute and chronic respiratory failure with hypercapnia; J44.1 Chronic obstructive pulmonary disease with (acute) exacerbation; J44.0 Chronic obstructive pulmonary disease with (acute) lower respiratory infection; E78.5 Hyperlipidemia, unspecified; I10 Essential (primary) hypertension; G47.33 Obstructive sleep apnea (adult) (pediatric); F41.1 Generalized anxiety disorder; F32.9 Major depressive disorder, single episode, unspecified; E11.65 Type 2 diabetes mellitus with hyperglycemia; F17.210 Nicotine dependence, cigarettes, uncomplicated; Z99.81 Dependence on supplemental oxygen; Z88.5 Allergy status to narcotic agent; Z88.8 Allergy status to other drugs, medicaments and biological substances; Z90.49 Acquired absence of other specified parts of digestive tract; Z90.710 Acquired absence of both cervix and uterus; Z98.51 Tubal ligation status; Z79.899 Other long term (current) drug therapy
CPT/HCPCS: 36415; 36416; 71045; 80048; 80053; 82805; 83880; 84484; 85025; 87804; 93005; 93306; 94640; 94660; 96374; 99292; J1650; J1815; J2920; J2930; J7512; J7620; J7626

== ENCOUNTER 2019-08-06 21:51 | Observation (INO) | payer MEDICARE, BC, OTHER ==
[2019-08-06 22:19] LABS: #Basophils 0.1 thou/uL (0.0-0.2); #Eosinphils 0.1 thou/uL (0.0-0.7); #Lymphocytes 2.8 thou/uL (1.20-3.40); #Monocytes 0.7 thou/uL (0.11-0.59); #Neutrophils 6.3 thou/uL (1.40-6.50); %Basophils 1.2 % (0.0-1.0); %Eosinophils 0.7 % (0.0-10.0); %Lymphocytes 28.3 % (21.0-51.0); %Monocytes 7.2 % (0.0-10.0); %Neutrophils 62.7 % (42.0-75.0); Hemoglobin 15.7 g/dL (12.0-16.0); Mean Corpuscular Volume 87.6 fL (78.0-98.0); Platelet Count 227 thou/uL (130-400); RBC Distribution Width 16.1 % (11.5-14.5); Red Blood Cell (RBC) Count 5.59 mill/uL (4.20-5.40)
--- NOTE | 2019-08-06 22:21 | RAD ---
XR Chest 1 View Portable HISTORY: Dyspnea follow-up of questionable infiltrates. COMPARISON: 07/31/2019 exam. FINDINGS: Heart size is within normal limits. There are atherosclerotic changes of the aorta. Chronic appearing lung changes are seen without any focal infiltrative process. Changes seen on the prior examination are felt to be part of chronic process. IMPRESSION: Chronic lung change.
[2019-08-06 22:42] LABS: ALT (SGPT) 22 U/L (8-55); AST (SGOT) 19 U/L (5-34); Albumin 3.9 g/dL (3.4-4.8); Alkaline Phosphatase 219 U/L (40-110); Anion Gap 13 mmol/L (10-20); BUN (Urea Nitrogen) 21 mg/dL (9.8-20.1); Bilirubin, Total 0.4 mg/dL (0.2-1.2); Calc. Creatinine Clearance 0 mL/min (70-130); Calcium 9.3 mg/dL (7.8-10.44); Carbon Dioxide 36 mmol/L (23-31); Chloride 93 mmol/L (98-107); Estimated GFR-MDRD 72; Globulin 3.2 g/dL (2.4-3.5); Glucose 509 mg/dL (80-115); Protein, Total 7.1 g/dL (6.0-8.3); Sodium 138 mmol/L (136-145)
[2019-08-07 02:11] VITALS: BMI 25.6
[2019-08-07 02:13] LABS: Troponin I 0.033 ng/mL (< 0.028)
[2019-08-07] MEDS ORDERED: Senokot S 8.6-50 MG TAB PO PRN (04:45)
[2019-08-07] MEDS ORDERED: Acetaminophen 325 MG TAB PO PRN (04:45)
[2019-08-07] MEDS ORDERED: Bacteriostatic Water 30 ML VIAL FS PRN (04:48)
[2019-08-07] MEDS ORDERED: Dextrose 5% in Water 1,000 ML IV PRN (04:50)
[2019-08-07] MEDS ORDERED: Diazepam 5 MG TAB PO PRN (04:50)
[2019-08-07] MEDS ORDERED: Dextrose 50% Abboject 50 ML SYRINGE SLOW IVP PRN (04:50)
[2019-08-07] MEDS: HumaLOG 300 UNITS/3 ML VIAL SC PRN ×4 (05:23→21:00)
[2019-08-07 05:38] LABS: Troponin I 0.025 ng/mL (< 0.028)
--- NOTE | 2019-08-07 07:44 | CT ---
PRELIMINARY REPORT/DIRECT RADIOLOGY/EMERGENCY AFTER HOURS PROCEDURE: This report was discussed with Swetha Reid CLERK CASHIER by Hanna Mckeon on Aug 07, 2019 03:05:00 CDT. Addendum electronically signed by Hanna Mckeon on August 07, 2019 3:06:27 AM CDT PROCEDURE: CTA Chest with IV Contrast Material . HISTORY: Elevated d-dimer and short of breath. TECHNIQUE: Axial images were performed with multiplanar and 3-D (maximum intensity projection and katie face-shaded) reconstructions. The patient was given iodinated nonionic IV contrast . COMPARISON: None . FINDINGS: Mild atherosclerosis aorta with no aneurysm or dissection. No evidence of pulmonary embolus . Mediastinum and hilar regions show no masses or lymphadenopathy. Normal size heart with no pericardial fluid. Mild peripheral groundglass consolidation both lung hardy with some rounded morph ology that could represent atypical pneumonia including COVID-19 infection. No pulmonary masses or pleural fluid. Visualized upper abdomen shows previous cholecystectomy. Bilateral adrenal masses wit h the largest on the LEFT measuring 3 cm. No acute bony abnormality IMPRESSION: No pulmonary embolus or aortic dissection. * Some areas of groundglass consolidation with rounded morphology peripherally could represent atypic al pneumonia including COVID-19 infection. Bilateral adrenal masses and follow-up study in 3-6 months may be helpful to document stability due t o their size. ELECTRONICALLY SIGNED BY: Georges Patel MD Aug 07, 2019 2:51:28 AM CDT FINAL REPORT EXAM: CT ANGIOGRAM CHEST WITH 3D RENDERING: HISTORY: Shortness of breath COPD TIME: Emergency after exam 2:26 AM. DATE: 08/07/2019. Stable bilateral adrenal masses. No convincing CT evidence for acute pulmonary embolism. Patchy bilat eral groundglass opacity changes. This report is in agreement with the preliminary report. Transcribed Date/Time: 08/07/2019 8:06 AM
[2019-08-07] MEDS: DULoxetine 60 MG CAP PO SCH (08:22)
[2019-08-07] MEDS: Gabapentin 300 MG CAP PO SCH (08:23)
[2019-08-07] MEDS: methylPREDNISolone Sod Succ 40 MG VIAL IVP SCH (08:23)
[2019-08-07] MEDS: Enoxaparin Sodium 40 MG/0.4 ML SYRINGE SC SCH (08:24)
[2019-08-07] MEDS ORDERED: Non-Formulary Item 1 EACH (Umeclidinium Bromide [Incruse Ellipta] 1 INH) IH SCH (09:00)
[2019-08-07] MEDS ORDERED: Benzonatate 100 MG CAP PO PRN (12:04)
[2019-08-07] MEDS: cefTRIAXone\\ROCEPHIN 1 GM in Sodium Chloride 0.9% 100 ML IVPB SCH (14:02)
[2019-08-07] MEDS: Azithromycin 500 MG in Sodium Chloride 0.9% 250 ML 250 ML IVPB SCH (14:02)
--- NOTE | 2019-08-07 14:18 | HP ---
PRIMARY CARE PHYSICIAN: Dr. Cheryl Ibarra. REASON FOR ADMISSION: Shortness of breath. HISTORY OF PRESENT ILLNESS: A 63-year-old female, who was recently admitted in our hospital on July 31, 2019. At that time, the patient had increasing shortness of breath and the patient had positive influenza A and she was also having COPD exacerbation. During that admission, the patient was treated with Tamiflu and doxycycline and IV steroid. Pulmonary group was following at that time. During that admission, the patient had echocardiography, which showed normal EF. The patient came to emergency room yesterday and chest x-ray showed chronic lung changes. Subsequently, the patient had CT angiography for shortness of breath, which showed no evidence of pulmonary embolism or dissection, and reported as patchy bilateral ground-glass opacity changes. There was also finding of stable bilateral adrenal mass. In the emergency room, the patient was complaining of shortness of breath. The patient did not have any fever. The patient did not have any flu-like illness, and the patient was recovering very well from flu illness, but the patient was feeling little bit chest tightness and shortness of breath and wheezing and that is why the patient decided to come to emergency room. When she came to emergency room, her oxygen saturation was 84% on 2 L nasal cannula, otherwise she was vitals ryan stable. Subsequently, the patient had a CT angiography. After discharge from the hospital on August 04, 2019, the patient did not have any travel. Did not have any sick exposure. The patient does not have any fever or any flu-like illness. PAST MEDICAL HISTORY: COPD, chronic respiratory failure, ongoing tobacco abuse disorder, obstructive sleep apnea, diabetes type 2. PAST PSYCHIATRIC HISTORY: Anxiety disorder, depression. PAST SURGICAL HISTORY: Bilateral tubal ligation, hysterectomy, right shoulder repair, cholecystectomy, bilateral carpal tunnel repair. ALLERGIES: 1. CODEINE. 2. HYDROCODONE. 3. TRAMADOL. FAMILY HISTORY: Positive for cancer to her father. Diabetes, COPD to her mother. SOCIAL HISTORY: The patient is . She lives at home. No history of alcohol or other illicit drug abuse, but she smokes about half pack per day. REVIEW OF SYSTEMS: All review of systems reviewed and negative, except as mentioned in HPI. CONSTITUTIONAL: Negative for weight loss or gain, ability to conduct usual activities. SKIN: Negative for rash, itching. EYES: Negative for double vision, pain. ENT/MOUTH: Negative for nose bleeding, neck stiffness, pain, tenderness. CARDIOVASCULAR: Negative for palpitations, dyspnea on exertion, orthopnea. RESPIRATORY: Negative for shortness of breath, wheezing, cough, hemoptysis, fever or night sweats. GASTROINTESTINAL: Negative for poor appetite, abdominal pain, heartburn, nausea, vomiting, constipation, or diarrhea. GENITOURINARY: Negative for urgency, frequency, dysuria, nocturia. MUSCULOSKELETAL: Negative for pain, swelling. NEUROLOGIC/PSYCHIATRIC: Negative for anxiety, depression. ALLERGY/IMMUNOLOGIC: Negative for skin rash, bleeding tendency. CURRENT HOME MEDICATIONS: The patient was discharged home on following medication; 1. Diazepam 5 mg p.o. daily p.r.n. 2. Cymbalta 60 mg two capsules daily. 3. Neurontin 300 mg three tab daily. 4. NovoLog insulin p.r.n. 5. Losartan with hydrochlorothiazide daily. 6. Omeprazole 40 mg daily. 7. Detrol 4 mg daily. 8. Incruse Ellipta 62.5 mcg inhalation daily. 9. The patient has finished Tamiflu and doxycycline. EMERGENCY ROOM COURSE: The patient was treated with DuoNeb two times and IV fluid was given. PHYSICAL EXAMINATION: VITAL SIGNS: On arrival, blood pressure 104/52, pulse 110, respiratory rate 22, temperature 98.5, saturation 84% on 2 L nasal cannula. Subsequently, saturation improved to 97% on nonrebreather. Maintaining saturation with nasal cannula. GENERAL: The patient is currently alert, awake, in no obvious acute distress. HEENT: Head, normocephalic NECK: Supple. No JVD. No meningeal signs of irritation. LUNGS: Few end-expiratory wheezing heard bilaterally. No obvious rales. CARDIAC: S1, S2 regular. Tachycardia. No murmur. No gallop. No rub. ABDOMEN: Soft, bowel sounds present, nontender, nondistended. No organomegaly. No mass. EXTREMITIES: No edema. Good distal pulsation. NEUROLOGIC: Nonfocal examination. SKIN: No skin rash. PSYCHIATRIC: Normal affect. SIGNIFICANT DIAGNOSTIC DATA: EKG showing pulmonary disease pattern, right atrial enlargement. Chest x-ray, chronic changes noted, but no acute process. CT angiography, no PE, bilateral ground-glass changes consistent with chronic scarring versus atypical pneumonia. SIGNIFICANT LABORATORY DATA: WBC 10.0, hemoglobin 15.7, platelet 227. D-dimer 0.49. BMP; sodium 138, potassium 4.0, chloride 93, BUN 21, creatinine 0.80, calcium 9.3, glucose 509. LFT; AST 19, ALT 22, alkaline phosphatase 219, albumin 3.9, troponin 0.033, then 0.025. Procalcitonin 0.04. Blood culture negative. ASSESSMENT AND PLAN: Impression: 1. Acute on chronic respiratory failure with hypoxia. This patient's PE is negative based on CT angio, though D-dimer was slightly elevated. The patient has clinical improvement after DuoNeb therapy. Currently, the patient is maintaining her normal saturation with nasal cannula. Her acute hypoxia has been resolved and now, the patient has chronic respiratory failure. 2. Chronic obstructive pulmonary disease exacerbation. The patient was found with respiratory distress when she arrived to emergency room, but after treatment, the patient has clinical improvement. At this point, I do not see any respiratory distress and she is able to talk in full sentence. She does not have any respiratory muscle, we will continue DuoNeb q.4 hourly, Pulmicort nebulization twice daily, and Solu-Medrol 20 mg q.8 hourly. We will also consider adding Rocephin and azithromycin. 3. Abnormal CT angiography finding. The patient does have bilateral ground-glass infiltration. Given the patient had recently influenza A positive and consistent with atypical pneumonia and that is why, we are starting empiric Rocephin and azithromycin. The patient does not have any clinical history to suspect any COVID-19 infection at this point. The patient does not have any travel history and does not have any fever leukocytosis and abnormal radiological finding are correlated with recent influenza positive. 4. Ongoing tobacco abuse disorder. I have provided smoking cessation counseling. 5. Diabetes type 2, hyperglycemia. We will continue with insulin 70/30, 15 units subcu b.i.d. With steroid, her diabetes may get worse. 6. Tobacco abuse disorder. Smoking cessation counseling given. 7. Anxiety and depression. Continue Cymbalta 120 mg p.o. daily, hypertension. 8. Hypertension. Continue losartan with hydrochlorothiazide 1 tablet p.o. daily. 9. Gastroesophageal reflux disease. Continue Protonix 40 mg p.o. daily. 10. Deep venous thrombosis prophylaxis not needed because we are expecting discharge in 24 hours. Gastrointestinal prophylaxis. Protonix 40 mg p.o. daily. Code status; the patient is full code. 11. Obstructive sleep apnea. The patient will continue her home CPAP machine. DISPOSITION PLAN: Based on clinical course, likely within 24 hours. Plan of care discussed with the patient in detail. Job ID: [id number]
[2019-08-07] MEDS ORDERED: Iopamidol-370 76% 500 ML 1 ML ONE (15:14)
[2019-08-07] MEDS: Budesonide 0.5 MG/2 ML NEB INH SCH (18:34)
[2019-08-07] MEDS: NPH, Human Insulin Isophane 300 UNIT/3 ML VIAL SC SCH (21:00)
[2019-08-07] MEDS: Trospium 20 MG TAB PO SCH (21:00)
[2019-08-08 06:13] LABS: #Eosinphils 0.1 thou/uL (0.0-0.7); #Lymphocytes 3.4 thou/uL (1.20-3.40); #Monocytes 0.7 thou/uL (0.11-0.59); #Neutrophils 6.5 thou/uL (1.40-6.50); %Basophils 0.4 % (0.0-1.0); %Lymphocytes 31.8 % (21.0-51.0); %Monocytes 6.8 % (0.0-10.0); %Neutrophils 59.9 % (42.0-75.0); Mean Corpuscular HGB CONC 31.8 g/dL (32.0-36.0); Mean Corpuscular Volume 88.1 fL (78.0-98.0); Mean Platelet Volume 9.9 fL (7.4-10.4); Platelet Count 230 thou/uL (130-400); RBC Distribution Width 15.6 % (11.5-14.5); Red Blood Cell (RBC) Count 4.63 mill/uL (4.20-5.40); White Blood Cell (WBC) Count 10.8 thou/uL (4.8-10.8)
[2019-08-08 06:34] LABS: BUN (Urea Nitrogen) 13 mg/dL (9.8-20.1); Calc. Creatinine Clearance 138 mL/min (70-130); Estimated GFR-MDRD Greater than 90; Glucose 121 mg/dL (80-115)
[2019-08-08 06:43] LABS: Anion Gap 12 mmol/L (10-20); Carbon Dioxide 36 mmol/L (23-31); Chloride 98 mmol/L (98-107); Potassium 3.9 mmol/L (3.5-5.1); Sodium 142 mmol/L (136-145)
[2019-08-08] MEDS: Budesonide 0.5 MG/2 ML NEB INH SCH (06:50)
[2019-08-08] MEDS: DULoxetine 60 MG CAP PO SCH (08:59)
[2019-08-08] MEDS: Gabapentin 300 MG CAP PO SCH (09:00)
[2019-08-08] MEDS: Trospium 20 MG TAB PO SCH (09:00)
[2019-08-08] MEDS: methylPREDNISolone Sod Succ 40 MG VIAL IVP SCH (09:01)
[2019-08-08] MEDS: Enoxaparin Sodium 40 MG/0.4 ML SYRINGE SC SCH (09:02)
--- NOTE | 2019-08-08 11:50 | DIS ---
DATE OF ADMISSION: 08/07/2019 DATE OF DISCHARGE: 08/08/2019 PRIMARY CARE PHYSICIAN: Dr. Cheryl Ibarra. DISCHARGE DISPOSITION: Home. PRIMARY DISCHARGE DIAGNOSES: 1. Acute on chronic respiratory failure with hypoxia. 2. Chronic obstructive pulmonary disease with acute bronchitis, in exacerbation; ongoing tobacco abuse disorder; chronic respiratory failure with hypoxia; obstructive sleep apnea, on CPAP; obesity with BMI 30; hypertension; dyslipidemia; diabetes, type 2; anxiety and depression. PRIMARY PROCEDURE/OPERATION: None. RADIOLOGICAL INVESTIGATION: Chest x-ray showed chronic changes. CT angiography negative for PE. SIGNIFICANT LABORATORY DATA: WBC 10.8, hemoglobin 13.0, platelets 230. D-dimer 0.49. Sodium 142, potassium 3.9, BUN 13, creatinine 0.46, calcium 9.0. Blood culture negative. DISCHARGE MEDICATIONS: 1. Diazepam 5 mg p.o. p.r.n. 2. Cymbalta 120 mg daily. 3. Gabapentin 300 mg three tablets daily. 4. Ibuprofen p.r.n. 5. NovoLog insulin as per sliding scale. 6. Losartan with hydrochlorothiazide one tablet daily. 7. Omeprazole 40 mg daily. 8. Detrol 4 mg p.o. daily. 9. Incruse Ellipta inhalation daily. 10. Omnicef 300 mg twice daily for 7 days. 11. Tessalon 100 mg t.i.d. p.r.n. 12. Pulmicort 0.5 nebulization twice daily. 13. Prednisone 20 mg twice daily for 7 days. CONTRAINDICATION: None. CODE STATUS: Full code. INPATIENT BARK TANNER: None. ALLERGIES: CODEINE, HYDROCODONE, AND TRAMADOL. DISCHARGE PLAN: Posthospital, the patient will follow up with primary care physician in one week. HOSPITAL COURSE: A 63-year-old female, who was admitted by me yesterday. Please see my HPI for further details. This patient was recently admitted in the hospital. At that time, she had influenza A and influenza A related bronchitis and COPD exacerbation. She stayed in hospital several days and she was discharged a few days back and came back to the emergency room with shortness of breath. Initially, the patient was hypoxic. She had elevated D-dimer. She was given respiratory therapy and she had significant improvement. CT angiography was done for elevated D-dimer, which was negative for PE. We observed her 24 hours in the hospital and treated her with Rocephin, azithromycin, DuoNeb therapy, Pulmicort nebulization. Her home medication was continued and steroid was given. With that the patient's condition significantly improved to her baseline level. We have provided the patient education to avoid smoking. The patient already has all necessary equipment at home including oxygen nebulizer machine. She has all previous medications. We have changed to antibiotic, Omnicef on discharge, and we have prescribed Tessalon and prednisone again. She will follow up with primary care physician. The patient is up to her normal and baseline level. The patient is seen and examined at bedside today. PHYSICAL EXAMINATION: VITAL SIGNS: Currently, temperature 98.5, pulse 89, respiratory rate 16, saturation 93%, blood pressure 153/70. Weight 154 pounds. GENERAL: The patient is currently alert, awake, in no acute distress. HEAD: Normocephalic and atraumatic. NECK: Supple. No JVD. No meningeal signs of irritation. LUNGS: Clear to auscultation without any rhonchi or rales. CARDIAC: S1 and S2, regular. No murmur. No gallop. No rub. ABDOMEN: Soft, bowel sounds present, nontender, nondistended. No organomegaly. No mass. EXTREMITIES: No edema. NEUROLOGIC: Nonfocal examination. The patient is overall medically stable for discharge and up to her baseline level. This patient is continuously high risk for recurrent admission, given her terminal COPD. Job ID: [id number]
[2019-08-08 12:05] VITALS: BP 156/79; TEMP 98.4
[2019-08-08] MEDS: Azithromycin 500 MG in Sodium Chloride 0.9% 250 ML 250 ML IVPB SCH (12:26)
[2019-08-08] MEDS: cefTRIAXone\\ROCEPHIN 1 GM in Sodium Chloride 0.9% 100 ML IVPB SCH (12:27)
[2019-08-08] MEDS: NPH, Human Insulin Isophane 300 UNIT/3 ML VIAL SC SCH (12:39)
--- NOTE | 2019-08-10 12:24 | EKG ---
Test Reason : Blood Pressure : / mmHG Vent. Rate : 100 BPM Atrial Rate : 100 BPM P-R Int : 128 ms QRS Dur : 084 ms QT Int : 360 ms P-R-T Axes : 071 099 054 degrees QTc Int : 464 ms Normal sinus rhythm Biatrial enlargement Rightward axis Pulmonary disease pattern Abnormal ECG Confirmed by YAKELIN SUNG ([id number]), international editorial producer LD KUNZ ([id number] on 08/10/2019 12:23:52 PM Referred By: Confirmed By:YAKELIN Basilio
== END 2019-08-08 15:50 | disposition home or self-care (01) ==
LOC: ERS 21:51 → T4-A 08-07
PROVIDERS: ADMIT Internal Medicine; ATTEND Internal Medicine
DX: J96.21 Acute and chronic respiratory failure with hypoxia (principal); J20.9 Acute bronchitis, unspecified; J44.0 Chronic obstructive pulmonary disease with (acute) lower respiratory infection; J44.1 Chronic obstructive pulmonary disease with (acute) exacerbation; G47.33 Obstructive sleep apnea (adult) (pediatric); E11.65 Type 2 diabetes mellitus with hyperglycemia; F17.210 Nicotine dependence, cigarettes, uncomplicated; F41.9 Anxiety disorder, unspecified; F32.9 Major depressive disorder, single episode, unspecified; I10 Essential (primary) hypertension; K21.9 Gastro-esophageal reflux disease without esophagitis; R79.1 Abnormal coagulation profile; E78.5 Hyperlipidemia, unspecified; E66.9 Obesity, unspecified; Z68.30 Body mass index [BMI] 30.0-30.9, adult; Z79.4 Long term (current) use of insulin; Z79.899 Other long term (current) drug therapy; Z88.5 Allergy status to narcotic agent; Z91.048 Other nonmedicinal substance allergy status; Z99.89 Dependence on other enabling machines and devices
CPT/HCPCS: 71045; 71275; 80048; 80053; 82962 ×2; 83880; 84145; 84484 ×3; 85025 ×2; 85379; 87040; 93005; 94640 ×3; 94660; 94760; 96360; 96361; 96365; 96366; 96367; 96372 ×2; 96375; 96376; 99285; G0378 ×2; 36415; 36416; J0456; J0696; J1650; J1815; J2920; J3490; J7050; J7620; J7626; Q9967

== ENCOUNTER 2019-08-12 11:23 | Emergency (ER) | payer MEDICARE, BC, OTHER ==
[2019-08-12] MEDS ORDERED: methylPREDNISolone Sod Succ/PF 125 MG/2 ML VIAL ONE (12:18)
[2019-08-12 12:34] LABS: Bilirubin Negative (Negative); Blood, Urine Negative (Negative); Clarity Clear (Clear); Glucose, Urine (Dipstick) >=1000 mg/dL (Negative); Leukocyte Negative (Negative); Nitrite Negative (Negative); Protein, Urine (Dipstick) 30 mg/dL (Neg-Trace); Urobilinogen 0.2 mg/dL (Less than 2)
[2019-08-12 12:36] LABS: #Basophils 0.1 thou/uL (0.0-0.2); #Eosinphils 0.1 thou/uL (0.0-0.7); #Lymphocytes 1.6 thou/uL (1.20-3.40); #Monocytes 0.8 thou/uL (0.11-0.59); #Neutrophils 9.2 thou/uL (1.40-6.50); %Basophils 0.5 % (0.0-1.0); %Eosinophils 0.6 % (0.0-10.0); %Lymphocytes 13.4 % (21.0-51.0); %Monocytes 7.1 % (0.0-10.0); %Neutrophils 78.4 % (42.0-75.0); Hemoglobin 15.5 g/dL (12.0-16.0); Mean Corpuscular HGB CONC 30.9 g/dL (32.0-36.0); Mean Corpuscular Hemoglobin 27.6 pg (27.0-31.0); Mean Corpuscular Volume 89.2 fL (78.0-98.0); Mean Platelet Volume 9.6 fL (7.4-10.4); Platelet Count 270 thou/uL (130-400); RBC Distribution Width 15.1 % (11.5-14.5); Red Blood Cell (RBC) Count 5.62 mill/uL (4.20-5.40); White Blood Cell (WBC) Count 11.8 thou/uL (4.8-10.8)
[2019-08-12 12:46] LABS: Bacteria/HPF None Seen HPF (None Seen); RBC/HPF 0-3 HPF (0-3); Squamous Epithelial 0-3 HPF (0-3)
[2019-08-12 13:00] LABS: ALT (SGPT) 19 U/L (8-55); AST (SGOT) 18 U/L (5-34); Albumin 3.8 g/dL (3.4-4.8); Alkaline Phosphatase 146 U/L (40-110); BUN (Urea Nitrogen) 18 mg/dL (9.8-20.1); Bilirubin, Total 0.7 mg/dL (0.2-1.2); CK (CPK) 25 U/L (29-168); Calc. Creatinine Clearance 0 mL/min (70-130); Calcium 9.3 mg/dL (7.8-10.44); Estimated GFR-MDRD 83; Globulin 2.7 g/dL (2.4-3.5); Glucose 439 mg/dL (80-115); Lipase 22 U/L (8-78); Protein, Total 6.5 g/dL (6.0-8.3)
--- NOTE | 2019-08-12 13:05 | RAD ---
Chest one view HISTORY: Dyspnea. Cough. COMPARISON: 08/06/2019. FINDINGS: Cardiac silhouette is midline magnified by projection. Pulmonary vasculature upper limits o f normal. Calcified granulomata are consistent with healed granulomatous disease. Mediastinum is midline with aortic calcification. No lobar consolidation or evidence of pneumothorax. bus monitor leads overlie the chest. IMPRESSION: Atherosclerosis. No active cardiopulmonary abnormalities are demonstrated.
[2019-08-12 13:09] LABS: Anion Gap 17 mmol/L (10-20); Carbon Dioxide 36 mmol/L (23-31); Chloride 92 mmol/L (98-107); Potassium 4.6 mmol/L (3.5-5.1); Sodium 140 mmol/L (136-145)
== END 2019-08-12 16:32 | disposition home or self-care (01) ==
LOC: ERS 11:23
DX: J44.1 Chronic obstructive pulmonary disease with (acute) exacerbation (principal); E11.40 Type 2 diabetes mellitus with diabetic neuropathy, unspecified; I10 Essential (primary) hypertension; D68.9 Coagulation defect, unspecified; F32.9 Major depressive disorder, single episode, unspecified; F41.9 Anxiety disorder, unspecified; Z79.51 Long term (current) use of inhaled steroids; Z79.899 Other long term (current) drug therapy; F17.210 Nicotine dependence, cigarettes, uncomplicated
CPT/HCPCS: 51701; 71045; 80053; 81003; 81015; 82550; 83605; 83690; 84484; 85025; 87040; 87086; 87804; 93005; 94640; 96361; 96374; A4353; J2930; J7620

== ENCOUNTER 2019-09-19 10:28 | Inpatient (IN) | payer MEDICARE, BC, OTHER ==
--- NOTE | 2019-09-19 10:59 | RAD ---
Exam: Chest one view HISTORY:Weakness. Difficulty standing Comparison: 08/12/2019 FINDINGS: Cardiac silhouette: Normal Aorta: Unremarkable Pulmonary vessels: Normal Costophrenic angles: Clear LUNGS: Patchy interstitial and alveolar opacities. Pneumothorax: None Osseous abnormalities: None IMPRESSION: Patchy interstitial and alveolar opacities. Correlate for infiltrate.
--- NOTE | 2019-09-19 11:11 | CT ---
CT HEAD WITHOUT IV CONTRAST COMPARISON: 06/15/2019 HISTORY: Weakness. Falling and trouble standing. TECHNIQUE: Axial CT imaging at 5 mm intervals from vertex through skull base without contrast FINDINGS: Mild cerebral volume loss is again present. There is no evidence of an acute infarction, hemorrhage, mass effect, or midline shift. The ventricular system is normal in size, shape, and position. Visualized paranasal sinuses are clear. Osseous structures appear intact. IMPRESSION: 1. No acute intracranial abnormality demonstrated.
[2019-09-19 11:58] LABS: #Basophils 0.1 thou/uL (0.0-0.2); #Eosinphils 0.1 thou/uL (0.0-0.7); #Lymphocytes 2.6 thou/uL (1.20-3.40); #Monocytes 1.3 thou/uL (0.11-0.59); #Neutrophils 8.9 thou/uL (1.40-6.50); %Basophils 0.6 % (0.0-1.0); %Eosinophils 0.7 % (0.0-10.0); %Lymphocytes 19.7 % (21.0-51.0); %Monocytes 10.2 % (0.0-10.0); %Neutrophils 68.9 % (42.0-75.0); Hemoglobin 14.5 g/dL (12.0-16.0); Mean Corpuscular HGB CONC 31.4 g/dL (32.0-36.0); Mean Corpuscular Hemoglobin 28.3 pg (27.0-31.0); Mean Corpuscular Volume 90.2 fL (78.0-98.0); Mean Platelet Volume 10.3 fL (7.4-10.4); Platelet Count 217 thou/uL (130-400); RBC Distribution Width 14.6 % (11.5-14.5); Red Blood Cell (RBC) Count 5.11 mill/uL (4.20-5.40); White Blood Cell (WBC) Count 12.9 thou/uL (4.8-10.8)
[2019-09-19 12:19] LABS: ALT (SGPT) 634 U/L (8-55); AST (SGOT) 510 U/L (5-34); Albumin 3.9 g/dL (3.4-4.8); Alkaline Phosphatase 169 U/L (40-110); Anion Gap 15 mmol/L (10-20); BUN (Urea Nitrogen) 39 mg/dL (9.8-20.1); Bilirubin, Total 0.5 mg/dL (0.2-1.2); Calc. Creatinine Clearance 0 mL/min (70-130); Calcium 8.8 mg/dL (7.8-10.44); Carbon Dioxide 35 mmol/L (23-31); Chloride 96 mmol/L (98-107); Estimated GFR-MDRD 55; Globulin 2.4 g/dL (2.4-3.5); Glucose 232 mg/dL (80-115); Potassium 4.7 mmol/L (3.5-5.1); Protein, Total 6.3 g/dL (6.0-8.3); Sodium 141 mmol/L (136-145)
[2019-09-19 12:48] LABS: CKMB 9.5 ng/mL (0-6.6)
[2019-09-19] MEDS ORDERED: Enoxaparin Sodium 60 MG/0.6 ML SYRINGE ONE (13:51)
[2019-09-19] MEDS ORDERED: Aspirin Chewable 81 MG TAB ONE (13:51)
[2019-09-19] MEDS ORDERED: Enoxaparin Sodium 30 MG/0.3 ML SYRINGE ONE (13:52)
[2019-09-19] MEDS ORDERED: Enoxaparin Sodium 40 MG/0.4 ML SYRINGE ONE (13:52)
[2019-09-19 14:19] LABS: Analyzer IN Cardio ER; Base Excess (BEa) 6.9 mEq/L (-2.0 to +3.0); Calcium, Ionized 1.16 mmol/L (1.12-1.30); Hemoglobin (Hb) 14.4 g/dL (12.0-16.0); O2 Tension (PaO2) 98.3 mmHg (> 80.0)
[2019-09-19 14:26] LABS: CO2 Tension 91.6 mmHg (35.0-45.0); pH, Arterial 7.24 (7.35-7.45)
[2019-09-19 14:27] LABS: Puncture Site LRA
[2019-09-19] MEDS ORDERED: Azithromycin 500 MG VIAL ONE (14:27)
[2019-09-19] MEDS ORDERED: CCU Electrolyte Replacement 1 EACH FS ONE (15:25)
[2019-09-19] MEDS ORDERED: Potassium Chloride 40 MEQ in Sodium Chloride 0.9% 250 ML 250 ML IVPB PRN (15:30)
[2019-09-19] MEDS ORDERED: Magnesium 2 GM/50 ML 2 GM in Premix Bag 1 BAG IVPB PRN (15:30)
[2019-09-19] MEDS ORDERED: CCU ELECTROLYTE REPLACEMENT PROTOCOL FS PRN (15:30)
[2019-09-19] MEDS ORDERED: Magnesium Oxide 400 MG TAB PO PRN ×2 (15:30)
[2019-09-19] MEDS ORDERED: Potassium Chloride 20 MEQ TAB PO PRN (15:30)
[2019-09-19] MEDS ORDERED: Potassium Phosphate 12 MMOL in Sodium Chloride 0.9% 250 ML 250 ML IV PRN (15:30)
[2019-09-19] MEDS ORDERED: Potassium Chloride 40 MEQ in Premix Bag 1 BAG IVPB PRN (15:30)
[2019-09-19] MEDS ORDERED: Potassium Phosphate 9 MMOL in Sodium Chloride 0.9% 100 ML IVPB PRN (15:30)
[2019-09-19] MEDS ORDERED: PHOS-NAK 1 PKT PACK PO PRN ×2 (15:30)
[2019-09-19] MEDS ORDERED: Potassium Phosphate 15 MMOL in Sodium Chloride 0.9% 250 ML 250 ML IV PRN (15:30)
[2019-09-19 15:44] LABS: Critical Call Chem Troponin I RESULT DECREASING; Troponin I 0.836 ng/mL (< 0.028)
[2019-09-19 16:49] LABS: Bacteria/HPF 2+ HPF (None Seen); Bilirubin Negative (Negative); Blood, Urine Negative (Negative); Clarity Turbid (Clear); Glucose, Urine (Dipstick) 100 mg/dL (Negative); Leukocyte 500 Leu/uL (Negative); Nitrite Negative (Negative); Protein, Urine (Dipstick) 70 mg/dL (Neg-Trace); RBC/HPF 0-3 HPF (0-3); Squamous Epithelial 0-3 HPF (0-3); Urobilinogen Normal mg/dL (Less than 2); WBC/HPF 21-50 HPF (0-3)
[2019-09-19] MEDS: Lactated Ringer's 1,000 ML IV SCH (17:05)
[2019-09-19] MEDS: methylPREDNISolone Sod Succ 40 MG VIAL IVP SCH (17:09)
[2019-09-19 17:14] VITALS: BMI 25.2
[2019-09-19 20:14] LABS: Critical Call Chem Troponin I RESULT DECREASING; Troponin I 0.606 ng/mL (< 0.028)
--- NOTE | 2019-09-19 20:37 | CON ---
DATE OF CONSULTATION: 09/19/2019 CONSULTING PHYSICIAN: Emergency room physician. REASON FOR CONSULTATION: Shortness of breath. HISTORY OF PRESENT ILLNESS: Ms. Colunga visits the hospital regularly with COPD exacerbations. She is very noncompliant in terms of treatment and avoiding smoking for her COPD. She comes in with a several-day history of increasing shortness of breath. Her mental status is somewhat altered from CO2 narcosis. She denies any fever, but she has been coughing. The emergency room staff was concerned because her LFTs were high and she had the cough. Therefore, they are wanting to rule out for the COVID virus. Because of her altered mental status, I really cannot tell where she has been or whom she has been around. PAST MEDICAL HISTORY: 1. Severe COPD. 2. Hypoxic and hypercapnic respiratory failure requiring mechanical ventilation. 3. Diabetes mellitus. 4. Hypertension. 5. Generalized anxiety disorder. 6. Major depressive disorder. PAST SURGICAL HISTORY: 1. Tubal ligation. 2. Hysterectomy. 3. Right shoulder surgery. 4. Cholecystectomy. 5. Carpal tunnel release. FAMILY MEDICAL HISTORY: Unremarkable. SOCIAL HISTORY: Heavy smoker, refuses to quit. Does not consume alcohol. Does not use illicit drugs. ALLERGIES: CODEINE, EUCALYPTUS, HYDROCODONE, TRAMADOL. REVIEW OF SYSTEMS: Difficult to obtain due to her altered mental status. CURRENT MEDICATIONS: At home; 1. Breo Ellipta. 2. Omeprazole. 3. Duloxetine. 4. Gabapentin. 5. Tolterodine. 6. Hydrochlorothiazide. 7. Pravastatin. 8. Ondansetron. 9. Multivitamin. 10. Calcium citrate. 11. Budesonide. 12. Insulin. 13. Incruse Ellipta. 14. Albuterol. 15. Tylenol No. 3. PHYSICAL EXAMINATION: VITAL SIGNS: Temperature measured 98.2, blood pressure 121/90, pulse 94, respirations 24, O2 saturation 95% on BiPAP. GENERAL: Anne does not appear to be in any acute respiratory distress, but is somewhat groggy from CO2 narcosis. HEENT: Unremarkable. NECK: No JVD. LUNGS: She has tight end expiratory wheezing. CARDIAC: S1, S2. Slightly tachycardic. ABDOMEN: Soft and nontender to palpation. EXTREMITIES: No clubbing, cyanosis, or edema IMAGING DATA: Chest x-ray demonstrates question of infiltrate in the right lower lobe. I think the left side looks clear. Brain CT showed no acute abnormality. LABORATORY DATA: White blood cell count 12.9, hematocrit 46, platelet count 217 with 68% neutrophils, 19% lymphocytes. PH was 7.24, pCO2 of 92, PO2 of 98, that was on 3 L. Sodium 141, potassium 4.7, chloride 96, CO2 of 35, BUN 39, creatinine 1.0, glucose 232. Troponin 0.9. AST 510, ALT 634. ASSESSMENT: 1. Chronic obstructive pulmonary disease with exacerbation. 2. Transaminitis with unclear etiology. 3. Tobacco abuse. PLAN: 1. The ER has placed the patient in a rule out COVID status. I am initiating BiPAP for treatment of her hypercapnic respiratory failure. My feeling is she probably does not have COVID, although I understand the reason for checking the serology to rule it out. 2. Nebulization treatments, steroids, and broad-spectrum IV antibiotics. We will follow with you. Job ID: [id number]
[2019-09-20] MEDS: methylPREDNISolone Sod Succ 40 MG VIAL IVP SCH ×4 (00:01→18:13)
[2019-09-20] MEDS: Lactated Ringer's 1,000 ML IV SCH ×3 (03:12→23:07)
[2019-09-20 04:29] LABS: #Lymphocytes 0.7 thou/uL (1.20-3.40); #Monocytes 0.1 thou/uL (0.11-0.59); #Neutrophils 5.5 thou/uL (1.40-6.50); %Basophils 0.1 % (0.0-1.0); %Eosinophils 0.3 % (0.0-10.0); %Lymphocytes 10.6 % (21.0-51.0); %Monocytes 2.1 % (0.0-10.0); Hemoglobin 14.2 g/dL (12.0-16.0); Mean Corpuscular HGB CONC 32.5 g/dL (32.0-36.0); Mean Corpuscular Hemoglobin 28.7 pg (27.0-31.0); Mean Corpuscular Volume 88.4 fL (78.0-98.0); Mean Platelet Volume 10.2 fL (7.4-10.4); Platelet Count 152 thou/uL (130-400); RBC Distribution Width 14.1 % (11.5-14.5); Red Blood Cell (RBC) Count 4.96 mill/uL (4.20-5.40); White Blood Cell (WBC) Count 6.4 thou/uL (4.8-10.8)
[2019-09-20 04:53] LABS: Anion Gap 14 mmol/L (10-20); BUN (Urea Nitrogen) 27 mg/dL (9.8-20.1); Calc. Creatinine Clearance 120 mL/min (70-130); Calcium 8.7 mg/dL (7.8-10.44); Carbon Dioxide 33 mmol/L (23-31); Chloride 98 mmol/L (98-107); Estimated GFR-MDRD Greater than 90; Glucose 214 mg/dL (80-115); Potassium 4.4 mmol/L (3.5-5.1); Sodium 141 mmol/L (136-145)
[2019-09-20] MEDS: Ipratropium/Albuterol Sulfate 4 GM AER IH SCH ×6 (06:20→23:10)
--- NOTE | 2019-09-20 07:57 | PRG ---
DATE OF SERVICE: 09/20/2019 TIME SPENT: 35 minutes of critical care time. SUBJECTIVE: The patient remains on BiPAP. She awakes easily, follows commands, is able to take the BiPAP off without any difficulty. OBJECTIVE: VITAL SIGNS: Temperature 97, pulse 90, blood pressure 164/92. HEENT: Unremarkable. NECK: No adenopathy or JVD. LUNGS: Wheezing has dissipated. CARDIAC: S1 and S2. Regular. ABDOMEN: Soft. EXTREMITIES: No edema. LABORATORY DATA: Sodium 141, potassium 4.4, chloride 98, CO2 of 33, BUN 27, creatinine 0.5, glucose 214. White blood cell count 6.4, hematocrit 43.8, and platelet count 152. COVID-19 test is still pending. ASSESSMENT: 1. Chronic obstructive pulmonary disease with exacerbation. 2. I doubt seriously she has COVID-19, although we are still awaiting for the test result. PLAN: I will go ahead and decrease her steroid dose. She is able to stay off BiPAP into this afternoon, then I think she would be safe to move to the medical floor. Continue steroids, nebulization treatments, and antibiotics. Job ID: [id number]
--- NOTE | 2019-09-20 08:09 | RAD ---
PORTABLE CHEST: Date: 09/20/2019 PROVIDED CLINICAL HISTORY: Pneumonia. FINDINGS: Comparison with 09/19/2019. Significant interval change with respect to the prior examination is not apparent. IMPRESSION: As above. POS: LISS
[2019-09-20] MEDS ORDERED: Prevnar 13-Val Conj/PF 0.5 ML SYRINGE IM ONE (09:00)
[2019-09-20] MEDS: Enoxaparin Sodium 40 MG/0.4 ML SYRINGE SC SCH (09:26)
[2019-09-20] MEDS: Pantoprazole 40 MG VIAL IVP SCH (09:27)
[2019-09-20] MEDS ORDERED: Ventolin HFA Inhaler 60 PUFF INHALER INH PRN (10:55)
[2019-09-20] MEDS: Ondansetron ODT 4 MG TAB PO SCH ×2 (14:39→21:07)
--- NOTE | 2019-09-20 15:03 | HP ---
PRIMARY CARE PROVIDER: Dr. Ibarra. CHIEF COMPLAINT: Generalized weakness. HISTORY OF PRESENT ILLNESS: This is a 63-year-old female, transport to [facility] Emergency Department by EMS personnel after the patient reported a fall at home. The patient had complained of increasing weakness for approximately 48 to 72 hours with multiple falls at home. The patient denied any syncopal event, chest pain, or unilateral weakness. The patient denied any fever, increased cough, congestion, or exposure history. The patient does admit to using home oxygen due to chronic obstructive pulmonary disease, but denied any increase in the overall flow rate. The patient was notably admitted to [facility] from 08/06 through 08/08/2019, for COPD exacerbation. The patient states she has been doing fairly well at home prior to this evaluation. The patient denied any travel history, family members with similar symptoms, visual disturbance, or difficulty with speech. In the emergency room, the patient underwent general evaluation including CT of the brain showing no acute process. The patient received Zithromax 500 mg IV in addition to aspirin 324 mg, intravenous normal saline, Lovenox 1 mg/kg subcutaneously x1 dose. The patient's metabolic survey did reveal elevated troponin I of 0.962. The patient consistently denied any specific chest pain. PAST MEDICAL HISTORY: 1. Chronic hypoxic respiratory failure, on oxygen supplementation at 2-3 L/minute by nasal cannula. 2. Influenza A positive, 2019. 3. Tobacco abuse. 4. Obstructive sleep apnea. 5. Diabetes mellitus type 2. 6. Anxiety disorder. 7. Depression. PAST SURGICAL HISTORY: 1. Status post bilateral tubal ligation. 2. Status post hysterectomy. 3. Status post right shoulder repair. 4. Status post cholecystectomy. 5. Status post bilateral carpal tunnel release. CURRENT MEDICATIONS: 1. Albuterol sulfate one inhalation t.i.d. p.r.n. 2. Enteric-coated aspirin 81 mg p.o. daily. 3. Cymbalta 120 mg p.o. b.i.d. 4. Gabapentin 900 mg p.o. daily. 5. Hydrochlorothiazide 12.5 mg p.o. daily. 6. Omeprazole 40 mg p.o. daily. 7. Pravachol 20 mg p.o. at bedtime. 8. Lyrica 300 mg p.o. b.i.d. 9. Tolterodine tartrate 4 mg p.o. daily. ALLERGIES: EUCALYPTUS AND HYDROCODONE. FAMILY HISTORY: Positive for cancer in her father. Mother with COPD. SOCIAL HISTORY: . Resides in [place], [place]. Smokes up to half a pack of cigarettes daily. No alcohol or illicit drug use. Multiple falls at home. REVIEW OF SYSTEMS: CONSTITUTIONAL: Negative for weight loss or gain, ability to conduct usual activities. SKIN: Negative for rash, itching. EYES: Negative for double vision, pain. ENT/MOUTH: Negative for nose bleeding, neck stiffness, pain, tenderness. CARDIOVASCULAR: Negative for palpitations, dyspnea on exertion, orthopnea. RESPIRATORY: Negative for shortness of breath, wheezing, cough, hemoptysis, fever or night sweats. GASTROINTESTINAL: Negative for poor appetite, abdominal pain, heartburn, nausea, vomiting, constipation, or diarrhea. GENITOURINARY: Negative for urgency, frequency, dysuria, nocturia. MUSCULOSKELETAL: Negative for pain, swelling. NEUROLOGIC/PSYCHIATRIC: Negative for anxiety, depression. ALLERGY/IMMUNOLOGIC: Negative for skin rash, bleeding tendency. Otherwise negative except as stated per HPI. PHYSICAL EXAMINATION: VITAL SIGNS: On admission, blood pressure 163/81, pulse 89, respiratory rate 27, temperature 97.5 degrees Fahrenheit, and O2 saturation 99% on 3 L/minute by nasal cannula. GENERAL APPEARANCE: This is a 63-year-old female, alert and responsive, in no acute distress. HEENT: Pupils are equal, round, and reactive to light and accommodation. Extraocular muscles are intact. No scleral icterus. No conjunctival injection. Nares patent. OP is clear. Teeth in fair repair. NECK: Supple. No cervical adenopathy. No thyromegaly. No carotid bruits. No JVD appreciated. Cervical spine with full active and passive range of motion. No meningeal signs noted. CHEST: Decreased breath sounds in the bases bilaterally. Coarse breath sounds in expiration. Prolonged expiratory phase. Occasional wheezing. CARDIOVASCULAR: S1 and S2 without noted murmur, rub, or gallop. ABDOMEN: Rounded, soft, nontender, and nondistended. Bowel sounds are positive in all 4 quadrants. There is no hepatosplenomegaly. No abdominal bruits. No rebound or guarding appreciated. EXTREMITIES: Warm and dry with fair turgor. No clubbing, cyanosis, or asymmetric edema appreciated. Pulses palpable distally at the dorsalis pedis, posterior tibial, and popliteal arteries bilaterally. Capillary refill less than 2 seconds. NEUROLOGIC: Cranial nerves 2 through 12 are grossly intact. No focal or lateralizing signs appreciated. PERTINENT LABORATORY AND X-RAY FINDINGS: Sodium 141, potassium 4.4, chloride 98, CO2 of 33, BUN 27, creatinine 0.54, glucose 214, calcium 8.7, AST 510, ALT is 634, alkaline phosphatase 169, total bilirubin 0.5. Troponin I ranged between 0.606 to 0.962. CBC showed a white blood cell count of 6.4, hemoglobin 14, hematocrit 44, platelet count 152, with 87% neutrophils. ABG dated 09/19/2019 showed a pH of 7.24, pCO2 of 92, pO2 of 98, bicarb 38, O2 saturation 96% on 32% FiO2. Urinalysis positive for protein, glucose, and ketones with leukocyte esterase positive. 21 to 50 wbc's per high-power field, 2+ bacteria. Urine culture dated 09/19/2019, showed greater than 100,000 colonies of presumptive Enterococcus species. CT of the brain without contrast dated 09/19/2019 showed no acute intracranial process. Portable chest x-ray dated 09/19/2019 showed chronic patchy interstitial changes bilaterally. EKG dated 09/19/2019 by my interpretation shows sinus mechanism with heart rates in the 90s. Attenuated R-waves noted in the precordial leads. Normal axis. No acute ST-T wave changes appreciated. ASSESSMENT AND PLAN: 1. Acute chronic obstructive pulmonary disease exacerbation. The patient was admitted to the Critical Care Unit, on BiPAP, noninvasive mechanical ventilation initially, transitioning to oxygen via nasal cannula. Continue bronchodilator support and IV Solu-Medrol. Pulmonology/Critical Care consulted for comanagement. The patient also being ruled out for COVID-19 by PCR. Continue respiratory isolation. Levaquin 750 mg IV daily. 2. Acute on chronic hypoxic hypercapnic respiratory failure. See #1 above. Continue aggressive pulmonary supportive management. Wean oxygen as clinically indicated. 3. Urinary tract infection. Suspected with Enterococcus species. We will continue Levaquin as stated previously. Await final urine culture, sensitivities and adjust antibiotic coverage as clinically indicated. 4. Type 2 non-ST elevation myocardial infarction. Suspect secondary to respiratory failure and chronic obstructive pulmonary disease exacerbation. We will continue to monitor clinically. Consider Cardiology consultation when ruled out for COVID-19. Last 2D transthoracic echocardiogram showed preserved ejection fraction of 55% to 60%. 5. Transaminitis. Suspect this multifactorial including current presentation. We will monitor serial LFTs. No right upper quadrant tenderness by exam. Consider imaging of the right upper quadrant. 6. Falls. We will obtain PT/OT evaluation for functional assessment when clinically stabilized. 7. Prophylaxis. SCDs while in bed. Pepcid 20 mg p.o. b.i.d. Respiratory isolation for COVID-19 rule out. CODE STATUS: Full. Surrogate medical decision maker is the patient's spouse. Job ID: [id number]
[2019-09-20] MEDS ORDERED: Budesonide 0.5 MG/2 ML NEB NEB SCH (18:30)
[2019-09-20] MEDS: Mometasone 100 MCG/PUFF (1 INHALER) INH SCH (18:41)
[2019-09-20] MEDS: Simvastatin 5 MG TAB PO SCH (21:07)
[2019-09-20] MEDS: Pregabalin 75 MG CAP PO SCH (21:07)
[2019-09-20] MEDS: DULoxetine 60 MG CAP PO SCH (21:07)
[2019-09-21] MEDS: methylPREDNISolone Sod Succ 40 MG VIAL IVP SCH ×4 (00:13→17:14)
[2019-09-21] MEDS: Ipratropium/Albuterol Sulfate 4 GM AER IH SCH ×6 (02:10→22:07)
[2019-09-21 04:29] LABS: #Lymphocytes 0.6 thou/uL (1.20-3.40); #Monocytes 0.5 thou/uL (0.11-0.59); #Neutrophils 8.4 thou/uL (1.40-6.50); %Eosinophils 0.1 % (0.0-10.0); %Lymphocytes 6.3 % (21.0-51.0); %Monocytes 5.1 % (0.0-10.0); %Neutrophils 88.6 % (42.0-75.0); Hemoglobin 13.5 g/dL (12.0-16.0); Mean Corpuscular HGB CONC 31.8 g/dL (32.0-36.0); Mean Corpuscular Hemoglobin 28.2 pg (27.0-31.0); Mean Corpuscular Volume 88.5 fL (78.0-98.0); Mean Platelet Volume 10.1 fL (7.4-10.4); Platelet Count 155 thou/uL (130-400); Red Blood Cell (RBC) Count 4.81 mill/uL (4.20-5.40); White Blood Cell (WBC) Count 9.4 thou/uL (4.8-10.8)
[2019-09-21 04:56] LABS: ALT (SGPT) 451 U/L (8-55); AST (SGOT) 142 U/L (5-34); Albumin 3.4 g/dL (3.4-4.8); Alkaline Phosphatase 141 U/L (40-110); Anion Gap 11 mmol/L (10-20); BUN (Urea Nitrogen) 20 mg/dL (9.8-20.1); Bilirubin, Total 0.6 mg/dL (0.2-1.2); Calc. Creatinine Clearance 106 mL/min (70-130); Calcium 8.9 mg/dL (7.8-10.44); Carbon Dioxide 37 mmol/L (23-31); Chloride 97 mmol/L (98-107); Estimated GFR-MDRD Greater than 90; Globulin 2.4 g/dL (2.4-3.5); Glucose 320 mg/dL (80-115); Potassium 4.7 mmol/L (3.5-5.1); Protein, Total 5.8 g/dL (6.0-8.3); Sodium 140 mmol/L (136-145)
[2019-09-21 05:15] LABS: HBCM Index 0.08 S/CO (0-0.79); HBSAg Index 0.17 S/CO (0-0.99); Hep A IgM AB Non-Reactive (NonReactive); Hep A IgM S/CO 0.37 S/CO (0-0.79); Hep B Surf Ag Non-Reactive S/CO (NonReactive); Hep C IgG Ab Non-Reactive (NonReactive); Hep C Index 0.07 S/CO (0-0.79); Hepatitis B Core IgM Abs Non-Reactive (NonReactive)
[2019-09-21] MEDS: Mometasone 100 MCG/PUFF (1 INHALER) INH SCH ×2 (06:03→19:00)
[2019-09-21] MEDS: Pregabalin 75 MG CAP PO SCH ×2 (08:13→20:26)
[2019-09-21] MEDS: Enoxaparin Sodium 40 MG/0.4 ML SYRINGE SC SCH (08:13)
[2019-09-21] MEDS: Pantoprazole 40 MG VIAL IVP SCH (08:13)
[2019-09-21] MEDS: Gabapentin 300 MG CAP PO SCH (08:14)
[2019-09-21] MEDS: Aspirin 81 mg Enteric Coated Tablet PO SCH (08:14)
[2019-09-21] MEDS: DULoxetine 60 MG CAP PO SCH ×2 (08:14→20:28)
[2019-09-21] MEDS: Ondansetron ODT 4 MG TAB PO SCH ×3 (08:14→20:29)
--- NOTE | 2019-09-21 10:10 | PRG ---
DATE OF SERVICE: 09/21/2019 SUBJECTIVE: This morning, she is awake, alert, and responsive. OBJECTIVE: VITAL SIGNS: Temperature 98.8, saturations 100% on 2 L, blood pressure 182/89, respirations 18. CHEST: Decreased breath sounds. No wheezing. CARDIAC: Normal S1 and S2. No gallops. ABDOMEN: No mass. LABORATORY DATA: Urine is growing Enterococcus faecalis. ASSESSMENT: Chronic obstructive pulmonary disease exacerbation, bronchitis. PLAN: Continue present neb treatments, supportive care, steroids and we will switch over to p.o. medication. Job ID: [id number]
[2019-09-21] MEDS: Lactated Ringer's 1,000 ML IV SCH (10:26)
--- NOTE | 2019-09-21 11:23 | PDOC.HOSPP ---
- Subjective Encounter Date: 09/21/19 Encounter Time: 11:20 Subjective: f/u for - Objective Vital Signs & Weight: Vital Signs (12 hours) Temp Pulse Resp BP Pulse Ox 09/21/19 11:08 98.3 F 95 18 144/66 H 93 L 09/21/19 09:37 89 17 150/69 H 98 09/21/19 08:00 100 09/21/19 07:00 98.0 F 09/21/19 06:29 99 09/21/19 04:00 98.3 F 09/21/19 00:00 98.4 F Weight Weight 162 lb 4.163 oz Most Recent Monitor Data Heart Rate from ECG 89 NIBP 147/75 NIBP BP-Mean 99 Respiration from ECG 23 SpO2 99 I&O: 09/20/19 09/21/19 09/22/19 06:59 06:59 06:59 Intake Total 100 3501 250 Output Total 1017 2580 375 Balance -917 921 -125 Result Diagrams: 09/21/19 04:00 09/21/19 04:00 Additional Labs: Accuchecks 09/21/19 10:25 POC Glucose 347 H Microbiology 09/19/19 16:25 Urine archer catheter Urine Culture - Final Enterococcus faecalis 05/15/19 14:30 Sputum - Pending Respiratory Culture - Preliminary 05/15/19 13:16 Venous blood - Right Arm Blood Culture - Preliminary Specimen has been received and culture in progress. No Growth to date. 05/15/19 13:16 Venous blood - Left Arm Blood Culture - Preliminary Specimen has been received and culture in progress. No Growth to date. Laboratory Tests 05/15/19 05/16/19 09/19/19 13:16 03:35 11:46 WBC 24.6 H Hgb 14.0 Plt Count 217 Neutrophils % (Manual) 68 93 H Band Neuts % (Manual) 23 H 2 L BUN AST 510 H ALT 634 H Troponin I COVID-19 PCR Hepatitis A IgM Ab Hep Bs Antigen Hep B Core IgM Ab Hepatitis C Antibody 09/19/19 09/19/19 09/19/19 11:46 15:03 15:15 WBC Hgb Plt Count Neutrophils % (Manual) Band Neuts % (Manual) BUN AST ALT Troponin I 0.962 H* 0.836 H* COVID-19 PCR Not Detected Hepatitis A IgM Ab Hep Bs Antigen Hep B Core IgM Ab Hepatitis C Antibody 09/19/19 09/20/19 09/21/19 19:34 04:01 04:00 WBC Hgb Plt Count Neutrophils % (Manual) Band Neuts % (Manual) BUN 27 H AST 142 H ALT 451 H Troponin I 0.606 H* COVID-19 PCR Hepatitis A IgM Ab Hep Bs Antigen Hep B Core IgM Ab Hepatitis C Antibody 09/21/19 04:00 WBC Hgb Plt Count Neutrophils % (Manual) Band Neuts % (Manual) BUN AST ALT Troponin I COVID-19 PCR Hepatitis A IgM Ab Non-Reactive Hep Bs Antigen Non-Reactive Hep B Core IgM Ab Non-Reactive Hepatitis C Antibody Non-Reactive EKG Reviewed by me: Yes (Tele - SR) Hospitalist ROS - Medication Medications: Active Medications Generic Name Dose Route Start Last Admin Trade Name Freq PRN Reason Stop Dose Admin Albuterol/Ipratropium 0 gm 09/20/19 02:30 09/21/19 10:34 Combivent Respimat 20-100 Mcg IH 2 inh [id number] REYNA Administration Aspirin 81 mg 09/21/19 09:00 09/21/19 08:14 Ecotrin PO 81 mg DAILY REYNA Administration Duloxetine HCl 120 mg 09/20/19 21:00 09/21/19 08:14 Cymbalta PO 120 mg BID REYNA Administration Enoxaparin Sodium 40 mg 09/20/19 09:00 09/21/19 08:13 Lovenox SC 40 mg 0900 REYNA Administration Gabapentin 900 mg 09/21/19 09:00 09/21/19 08:14 Neurontin PO 900 mg DAILY REYNA Administration Lactated Ringer's 1,000 mls @ 100 mls/hr 09/19/19 15:30 09/21/19 10:26 Lactated Ringer's IV 1,000 mls .Q10H REYNA Administration Levofloxacin 750 mg/ Device 150 mls @ 100 mls/hr 09/19/19 16:00 09/20/19 15: 59 IVPB 150 mls Q24HR REYNA Administration Methylprednisolone Sodium Succinate 20 mg 09/20/19 07:37 09/21/19 11:11 Solu-Medrol IVP 20 mg Q6HR REYNA Administration Mometasone Furoate 200 mcg 09/20/19 18:30 09/21/19 06:03 Asmanex Hfa 100 Mcg INH 1 inhaler BID-RT REYNA Administration Ondansetron HCl 4 mg 09/20/19 15:00 09/21/19 08:14 Zofran Odt PO 4 mg TID REYNA Administration Pantoprazole Sodium 40 mg 09/20/19 09:00 09/21/19 08:13 Protonix IVP 40 mg DAILY REYNA Administration Pregabalin 300 mg 09/20/19 21:00 09/21/19 08:13 Lyrica PO 300 mg BID REYNA Administration Simvastatin 10 mg 09/20/19 21:00 09/20/19 21:07 Zocor PO 10 mg HS REYNA Administration - Exam General Appearance: NAD, awake alert Eye: PERRL, anicteric sclera ENT: normocephalic atraumatic, no oropharyngeal lesions Neck: supple, symmetric, no JVD, no thyromegaly Heart: RRR, no murmur, no gallops, no rubs, normal peripheral pulses Heart - other findings: S1, S2 Respiratory: no tachypnea Respiratory - other findings: diminished in bases Gastrointestinal: soft, non-tender, non-distended, normal bowel sounds, no palpable masses Extremities: no cyanosis, no clubbing, no edema Skin: normal turgor, no lesions Neurological: cranial nerve grossly intact, no new deficit Musculoskeletal: normal tone, generalized weakness Psychiatric: normal affect, A&O x 3 Hosp A/P (1) COPD exacerbation Code(s): J44.1 - CHRONIC OBSTRUCTIVE PULMONARY DISEASE W (ACUTE) EXACERBATION Status: Acute Plan: Improved, continue Duonebs, (2) Acute on chronic respiratory failure with hypoxia and hypercapnia Code(s): J96.21 - ACUTE AND CHRONIC RESPIRATORY FAILURE WITH HYPOXIA; J96.22 - ACUTE AND CHRONIC RESPIRATORY FAILURE WITH HYPERCAPNIA Status: Acute (3) UTI (urinary tract infection) due to Enterococcus Code(s): N39.0 - URINARY TRACT INFECTION, SITE NOT SPECIFIED; B95.2 - ENTEROCOCCUS THE CAUSE OF DISEASES CLASSIFIED ELSEWHERE Status: Acute (4) NSTEMI (non-ST elevated myocardial infarction) Code(s): I21.4 - NON-ST ELEVATION (NSTEMI) MYOCARDIAL INFARCTION Status: Acute Plan: Continue ASA, consult Cardiology service for any further recommendations, likely Type II TN due to demand ischemia (5) Tobacco abuse Code(s): Z72.0 - TOBACCO USE Status: Chronic Plan: Tobacco cessation resources (6) Transaminitis Code(s): R74.0 - NONSPEC ELEV OF LEVELS OF TRANSAMNS & LACTIC ACID DEHYDRGNSE Status: Acute Plan: Likely due to resp failure, NSTEMI, improving - Plan continue antibiotics, PT/OT, social worker school, respiratory therapy, out of bed/ ambulate, DVT proph w/SCDs Stable currently Continue pulmonary support Duonebs/Dulera Continue Solumedrol another 24h Saline lock IVF's Start Pepcid, d/c IV Protonix OOB with PT Consult Cardiology AM lab: CMP, CBC
[2019-09-21] MEDS ORDERED: Nitrofurantoin Monohyd/M-Cryst 100 MG CAP PO SCH (11:30)
[2019-09-21] MEDS ORDERED: Dextrose 5% in Water 1,000 ML IV PRN (11:32)
[2019-09-21] MEDS ORDERED: Dextrose 50% Abboject 50 ML SYRINGE SLOW IVP PRN (11:32)
[2019-09-21] MEDS: HumaLOG 300 UNITS/3 ML VIAL SC PRN ×3 (12:22→21:24)
--- NOTE | 2019-09-21 20:00 | CON ---
DATE OF CONSULTATION: 09/21/2019 INDICATION FOR CONSULTATION: A 63-year-old female with a long history of COPD and multiple risk factors for coronary artery disease, who presented again with shortness of breath after she had a fall. She has been in intensive care unit, she was ruled out for COVID-19. She then was transferred to telemetry floor. On review of the records, it was noted she did have an elevated troponin I when she arrived two days ago, troponin was 0.962, it continues to decrease since that time, last one was 0.606 and that also was on the day of admission, she has had no further cardiac enzymes obtained since that time. Her CPK MB was 9.5 on the original evaluation. She denies having any previous cardiac history. However, she has continued to smoke and refuses to stop smoking. She has smoked at least 50 years to half a pack to a pack a day and continues to smoke until she was admitted. She has a history of hypertension, diabetes, and hypercholesterolemia. She did complain of some one episode of some chest discomfort, which she describes as being pressure on the day that she fell. Whether or not this is due to before, after the fall is unclear, but as far as I can determine, she has had no previous cardiac workup. She says she saw Dr. Segura once, but I do not have any recent records. This has been probably at least 10 years ago and she also says she has some type of a stress test, but I do not find the results of the stress test in the records. At this time, she is comfortable. Her EKG is unremarkable. There is no indication she has had a myocardial infarction or any evidence of ischemia and most likely this is a type 2 non-ST segment elevation myocardial infarction associated with her severe underlying COPD. She is feeling better over the last couple days after being treated for her COPD and she is denying any significant chest pain at this time. The EKG is also unremarkable. PAST MEDICAL HISTORY: Significant for COPD. She has had a history of diabetes, hypertension, dyslipidemia, and anxiety. She also has depression. She has had respiratory failure in the past requiring ventilation. PAST SURGICAL HISTORY: She has had a hysterectomy, tubal ligation, right shoulder surgery, carpal tunnel release bilaterally, and cholecystectomy. FAMILY HISTORY: Noncontributory. SOCIAL HISTORY: She continues to smoke and refuses to stop. She has no significant alcohol use. She lives at home with her . ALLERGIES: SHE IS ALLERGIC TO EUCALYPTUS, CODEINE, HYDROCODONE, AND TRAMADOL. MEDICATIONS: Her present medications include: 1. Levofloxacin. 2. Albuterol treatments. 3. Methylprednisolone. 4. Aspirin. 5. Cymbalta. 6. She has been placed on Lovenox for DVT prophylaxis. 7. Pepcid. 8. Neurontin. 9. Mometasone. 10. She is on nitrofurantoin. 11. Zofran as needed. 12. Protonix. 13. Lyrica. 14. Zocor. 15. Trospium. 16. She is on other p.r.n. medications including potassium and phosphorus replacement. REVIEW OF SYSTEMS: A 12-point review of systems; HEENT: She denies any HEENT complaints. She had no visual complaints. LUNGS: She does complain of chronic shortness of breath and dyspnea on exertion. This is due to her continued smoking. CARDIOVASCULAR: She denied any palpitation. She has had no significant chest discomfort in the past or since being in the hospital except for one episode on the day that she was admitted. GI: No nausea, vomiting, or diarrhea complaints. : No dysuria or hematuria. MUSCULOSKELETAL: She says she has frequent falls in her legs just give way and she falls down. NEUROLOGIC: She denies any history of seizures or syncope, but does have some degree of either unsteady gait or weakness. LABORATORY DATA: Shows a WBC of 9.4, hemoglobin 13.5, hematocrit 42.6, and platelet count 155,000. MBs were 9.5. Her troponin I was 0.962, decreased down to 0.836 and decreased again to 0.606. Her sodium is 140, potassium 4.7, chloride 97, bicarb 37, her BUN is 20 with a creatinine 0.61, and blood sugar is 320. DIAGNOSTIC STUDIES: EKG shows a normal sinus rhythm with no acute changes. IMPRESSION AND PLAN: 1. A 63-year-old female with severe underlying chronic obstructive pulmonary disease with chronic obstructive pulmonary disease exacerbation, who refuses to stop smoking since she has been seen by the workforce advisor. 2. Type 2 non-ST segment elevation myocardial infarction. This may be due to demand ischemia associated with her chronic obstructive pulmonary disease, but due to the fact that she did have one episode of chest discomfort and she has multiple risk factors for coronary artery disease, it would not be a bad idea to proceed with some type of stress testing to rule out evidence of underlying ischemia and coronary artery disease, especially in view of the MB of 9.5. 3. History of diabetes. This will be dealt with by the primary care service. 4. Hypertension. She has good blood pressure control at this time, would agree with the present management. She did have an echocardiogram earlier this year back in July, which showed a normal ejection fraction. The other structures also within normal limits. At this time, she can either proceed with a stress test to rule out evidence of underlying ischemia or this can be performed as an outpatient. As far as her medical management, I would agree with the present medical management at this time. Job ID: [id number]
[2019-09-21] MEDS: Famotidine 20 MG TAB PO SCH (20:28)
[2019-09-21] MEDS: Simvastatin 5 MG TAB PO SCH (20:28)
[2019-09-21] MEDS: Nitrofurantoin Monohyd/M-Cryst 100 MG CAP PO SCH (20:29)
[2019-09-21] MEDS: Trospium 20 MG TAB PO SCH (20:29)
[2019-09-22] MEDS: methylPREDNISolone Sod Succ 40 MG VIAL IVP SCH ×2 (00:09→05:27)
[2019-09-22] MEDS ORDERED: hydrALAZINE 20 MG/ML VIAL SLOW IVP SCH (00:45)
[2019-09-22] MEDS: Ipratropium/Albuterol Sulfate 4 GM AER IH SCH ×6 (02:48→22:16)
[2019-09-22 05:52] LABS: #Lymphocytes 0.9 thou/uL (1.20-3.40); #Monocytes 0.6 thou/uL (0.11-0.59); %Basophils 0.1 % (0.0-1.0); %Lymphocytes 7.4 % (21.0-51.0); %Monocytes 5.5 % (0.0-10.0); %Neutrophils 86.9 % (42.0-75.0); Hemoglobin 13.6 g/dL (12.0-16.0); Mean Corpuscular HGB CONC 30.8 g/dL (32.0-36.0); Mean Corpuscular Hemoglobin 27.3 pg (27.0-31.0); Mean Corpuscular Volume 88.6 fL (78.0-98.0); Mean Platelet Volume 10.2 fL (7.4-10.4); Platelet Count 162 thou/uL (130-400); White Blood Cell (WBC) Count 11.5 thou/uL (4.8-10.8)
[2019-09-22 06:05] LABS: Hemoglobin A1c 10.4 % (4.0-6.0)
[2019-09-22 06:17] LABS: ALT (SGPT) 412 U/L (8-55); AST (SGOT) 94 U/L (5-34); Albumin 3.7 g/dL (3.4-4.8); Alkaline Phosphatase 138 U/L (40-110); BUN (Urea Nitrogen) 13 mg/dL (9.8-20.1); Bilirubin, Total 0.9 mg/dL (0.2-1.2); Calc. Creatinine Clearance 107 mL/min (70-130); Calcium 9.2 mg/dL (7.8-10.44); Estimated GFR-MDRD Greater than 90; Globulin 2.5 g/dL (2.4-3.5); Glucose 301 mg/dL (80-115); Protein, Total 6.2 g/dL (6.0-8.3)
[2019-09-22 06:26] LABS: Anion Gap 16 mmol/L (10-20); Carbon Dioxide 35 mmol/L (23-31); Chloride 91 mmol/L (98-107); Potassium 4.1 mmol/L (3.5-5.1); Sodium 138 mmol/L (136-145)
[2019-09-22] MEDS: Mometasone 100 MCG/PUFF (1 INHALER) INH SCH ×2 (06:57→18:24)
[2019-09-22] MEDS ORDERED: Non-Formulary Item 1 EACH (Umeclidinium Bromide [Incruse Ellipta] 1 INH) IH SCH (09:00)
[2019-09-22] MEDS ORDERED: Regadenoson 0.4 MG/5 ML SYRINGE ONE (09:37)
--- NOTE | 2019-09-22 11:19 | PDOC.HOSPP ---
- Subjective Encounter Date: 09/22/19 Encounter Time: 11:15 Subjective: f/u for COPD exacerbation, NSTEMI Type II with Cardiolite stress testing today to r/o ischemia. No new complaints - Objective Vital Signs & Weight: Vital Signs (12 hours) Temp Pulse Resp BP Pulse Ox 09/22/19 07:50 97.8 F 89 16 169/77 H 94 L 09/22/19 04:29 98.1 F 93 16 161/74 H 96 09/22/19 00:15 86 16 196/91 H Weight Weight 158 lb 12.8 oz Most Recent Monitor Data Heart Rate from ECG 89 NIBP 147/75 NIBP BP-Mean 99 Respiration from ECG 23 SpO2 99 I&O: 09/21/19 09/22/19 09/23/19 06:59 06:59 06:59 Intake Total 3501 761 Output Total 2580 3025 Balance 921 -7334 Result Diagrams: 09/22/19 05:39 09/22/19 05:39 Additional Labs: Accuchecks 09/22/19 09/21/19 09/21/19 05:28 20:52 16:32 POC Glucose 290 H 412 H 407 H Microbiology 09/19/19 16:25 Urine archer catheter Urine Culture - Final Enterococcus faecalis 05/15/19 14:30 Sputum - Pending Respiratory Culture - Preliminary 05/15/19 13:16 Venous blood - Right Arm Blood Culture - Preliminary Specimen has been received and culture in progress. No Growth to date. 05/15/19 13:16 Venous blood - Left Arm Blood Culture - Preliminary Specimen has been received and culture in progress. No Growth to date. Laboratory Tests 05/15/19 05/16/19 09/19/19 13:16 03:35 11:46 WBC 24.6 H Hgb 14.0 Plt Count 217 Neutrophils % (Manual) 68 93 H Band Neuts % (Manual) 23 H 2 L BUN AST 510 H ALT 634 H Troponin I COVID-19 PCR Hepatitis A IgM Ab Hep Bs Antigen Hep B Core IgM Ab Hepatitis C Antibody 09/19/19 09/19/19 09/19/19 11:46 15:03 15:15 WBC Hgb Plt Count Neutrophils % (Manual) Band Neuts % (Manual) BUN AST ALT Troponin I 0.962 H* 0.836 H* COVID-19 PCR Not Detected Hepatitis A IgM Ab Hep Bs Antigen Hep B Core IgM Ab Hepatitis C Antibody 09/19/19 09/20/19 09/21/19 19:34 04:01 04:00 WBC Hgb Plt Count Neutrophils % (Manual) Band Neuts % (Manual) BUN 27 H AST 142 H ALT 451 H Troponin I 0.606 H* COVID-19 PCR Hepatitis A IgM Ab Hep Bs Antigen Hep B Core IgM Ab Hepatitis C Antibody 09/21/19 04:00 WBC Hgb Plt Count Neutrophils % (Manual) Band Neuts % (Manual) BUN AST ALT Troponin I COVID-19 PCR Hepatitis A IgM Ab Non-Reactive Hep Bs Antigen Non-Reactive Hep B Core IgM Ab Non-Reactive Hepatitis C Antibody Non-Reactive EKG Reviewed by me: Yes (Tele - SR) Hospitalist ROS - Medication Medications: Active Medications Generic Name Dose Route Start Last Admin Trade Name Freq PRN Reason Stop Dose Admin Albuterol/Ipratropium 0 gm 09/20/19 02:30 09/22/19 10:27 Combivent Respimat 20-100 Mcg IH Not Given [id number] REYNA Aspirin 81 mg 09/21/19 09:00 09/21/19 08:14 Ecotrin PO 81 mg DAILY REYNA Administration Duloxetine HCl 120 mg 09/20/19 21:00 09/21/19 20:28 Cymbalta PO 120 mg BID REYNA Administration Enoxaparin Sodium 40 mg 09/20/19 09:00 09/21/19 08:13 Lovenox SC 40 mg 0900 REYNA Administration Famotidine 20 mg 09/21/19 21:00 09/21/19 20:28 Pepcid PO 20 mg BID REYNA Administration Gabapentin 900 mg 09/21/19 09:00 09/21/19 08:14 Neurontin PO 900 mg DAILY REYNA Administration Levofloxacin 750 mg/ Device 150 mls @ 100 mls/hr 09/19/19 16:00 09/21/19 15: 22 IVPB 150 mls Q24HR REYNA Administration Insulin Human Lispro 0 units 09/21/19 11:32 09/21/19 17:14 Humalog SC 10 unit .MODERATE SLIDING SC PRN Administration Moderate Correctional Scale Insulin Human Lispro 0 units 09/21/19 11:32 09/21/19 21:24 Humalog SC 5 unit .BEDTIME SLIDING SC PRN Administration Bedtime Correctional Scale Methylprednisolone Sodium Succinate 20 mg 09/20/19 07:37 09/22/19 05:27 Solu-Medrol IVP 20 mg Q6HR REYNA Administration Mometasone Furoate 200 mcg 09/20/19 18:30 09/22/19 06:57 Asmanex Hfa 100 Mcg INH 1 puff BID-RT REYNA Administration Nitrofurantoin Macrocrystals 100 mg 09/21/19 21:00 09/21/19 20:29 Macrobid PO 100 mg BID REYNA Administration Ondansetron HCl 4 mg 09/20/19 15:00 09/21/19 20:29 Zofran Odt PO 4 mg TID REYNA Administration Pregabalin 300 mg 09/20/19 21:00 09/21/19 20:26 Lyrica PO 300 mg BID REYNA Administration Simvastatin 10 mg 09/20/19 21:00 09/21/19 20:28 Zocor PO 10 mg HS REYNA Administration Trospium 20 mg 09/21/19 21:00 09/21/19 20:29 Trospium PO 20 mg BID REYNA Administration - Exam General Appearance: NAD, awake alert Eye: PERRL, anicteric sclera ENT: normocephalic atraumatic, no oropharyngeal lesions Neck: supple, symmetric, no JVD, no thyromegaly Heart: RRR, no murmur, no gallops, no rubs, normal peripheral pulses Heart - other findings: S1, S2 Respiratory: rhonchi Respiratory - other findings: diminished in bases Gastrointestinal: soft, non-tender, non-distended, normal bowel sounds, no palpable masses Extremities: no cyanosis, no clubbing, no edema Skin: normal turgor, no lesions Neurological: cranial nerve grossly intact, no new deficit Musculoskeletal: normal tone, normal strength Psychiatric: normal affect, A&O x 3 Hosp A/P (1) COPD exacerbation Code(s): J44.1 - CHRONIC OBSTRUCTIVE PULMONARY DISEASE W (ACUTE) EXACERBATION Status: Acute Plan: Improving, continue (2) Acute on chronic respiratory failure with hypoxia and hypercapnia Code(s): J96.21 - ACUTE AND CHRONIC RESPIRATORY FAILURE WITH HYPOXIA; J96.22 - ACUTE AND CHRONIC RESPIRATORY FAILURE WITH HYPERCAPNIA Status: Acute Plan: Improved, O2 @ 2L/min NC baseline (3) UTI (urinary tract infection) due to Enterococcus Code(s): N39.0 - URINARY TRACT INFECTION, SITE NOT SPECIFIED; B95.2 - ENTEROCOCCUS THE CAUSE OF DISEASES CLASSIFIED ELSEWHERE Status: Acute Plan: Continue Macrobid (4) NSTEMI (non-ST elevated myocardial infarction) Code(s): I21.4 - NON-ST ELEVATION (NSTEMI) MYOCARDIAL INFARCTION Status: Acute Plan: Cardiolite stress testing today, ASA, Zocor (5) Tobacco abuse Code(s): Z72.0 - TOBACCO USE Status: Chronic (6) Transaminitis Code(s): R74.0 - NONSPEC ELEV OF LEVELS OF TRANSAMNS & LACTIC ACID DEHYDRGNSE Status: Acute Plan: Improving - Plan continue antibiotics, PT/OT, certified social workers in health care, respiratory therapy, out of bed/ ambulate, DVT proph w/SCDs Stable currently Continue pulmonary support Duonebs/Dulera Start Prednisone 40mg po daily Saline lock IVF's Start Pepcid, d/c IV Protonix Change Levaquin 500mg po daily OOB with PT Cardiolite Stress test today AM lab: CMP Likely home in am
[2019-09-22] MEDS ORDERED: predniSONE 20 MG TAB PO SCH (11:30)
--- NOTE | 2019-09-22 12:04 | NM ---
Nuclear medicine Cardiac myocardial perfusion SPECT Ejection fraction study Wall motion cine: DATE:09/22/2019 12:00 AM INDICATION: Abnormal CIE, non-ST elevation IA; history of IA, COPD, hypertension, diabetes, dyslipide gordon and smoking TECHNIQUE: Number of days:2 Rest Study: Technetium 99m-sestamibi (Cardiolite) dose:9.10 mCi Stress study: Technetium 99m-sestamibi (Cardiolite) dose:27.60 mCi FINDINGS: Cardiac (myocardial perfusion) SPECT There are no reversible myocardial perfusion defects. Ejection fraction study Left ventricular EF = 77% Wall motion cine Normal wall motion and wall thickening IMPRESSION: No evidence of reversible myocardial ischemia.
[2019-09-22] MEDS: DULoxetine 60 MG CAP PO SCH ×2 (12:08→21:10)
[2019-09-22] MEDS: Enoxaparin Sodium 40 MG/0.4 ML SYRINGE SC SCH (12:08)
[2019-09-22] MEDS: Gabapentin 300 MG CAP PO SCH (12:09)
[2019-09-22] MEDS: Nitrofurantoin Monohyd/M-Cryst 100 MG CAP PO SCH ×2 (12:09→21:11)
[2019-09-22] MEDS: Aspirin 81 mg Enteric Coated Tablet PO SCH (12:09)
[2019-09-22] MEDS: Pregabalin 75 MG CAP PO SCH ×2 (12:10→21:11)
[2019-09-22] MEDS: Ondansetron ODT 4 MG TAB PO SCH ×3 (12:10→21:13)
[2019-09-22] MEDS: Trospium 20 MG TAB PO SCH ×2 (12:10→21:11)
[2019-09-22] MEDS: Famotidine 20 MG TAB PO SCH ×2 (12:11→21:11)
[2019-09-22] MEDS: HumaLOG 300 UNITS/3 ML VIAL SC PRN ×3 (12:20→21:14)
--- NOTE | 2019-09-22 16:18 | PDOC.CPN ---
- Subjective Date: 09/22/19 Time: 16:21 Interval history: The pt seen and examined. No overnight events. No cardiac complaints. - Objective Allergies/Adverse Reactions: Allergies Allergy/AdvReac Type Severity Reaction Status Date / Time eucalyptus Allergy breathing Verified 09/20/19 06:03 problems hydrocodone Allergy Verified 09/20/19 06:03 Visit Medications: Current Medications Albuterol Sulfate (Ventolin Hfa Inhaler) 1 puff INH TIDPRN PRN PRN Reason: SOB &/or Wheezing Albuterol/Ipratropium (Combivent Respimat 20-100 Mcg) 0 gm IH M7UE-ON [facility] Last Admin: 09/22/19 15:38 Dose: 2 inh Aspirin (Ecotrin) 81 mg PO DAILY [facility] Last Admin: 09/22/19 12:09 Dose: 81 mg Dextrose/Water (Dextrose 50%) 25 gm SLOW IVP PRN PRN PRN Reason: Hypoglycemia Duloxetine HCl (Cymbalta) 120 mg PO BID [facility] Last Admin: 09/22/19 12:08 Dose: 120 mg Enoxaparin Sodium (Lovenox) 40 mg SC 0900 [facility] Last Admin: 09/22/19 12:08 Dose: 40 mg Famotidine (Pepcid) 20 mg PO BID [facility] Last Admin: 09/22/19 12:11 Dose: 20 mg Gabapentin (Neurontin) 900 mg PO DAILY [facility] Last Admin: 09/22/19 12:09 Dose: 900 mg Glucagon (Glucagon) 1 mg IM PRN PRN PRN Reason: Hypoglycemia Dextrose/Water (D5w) 1,000 mls @ 0 mls/hr IV .Q0M PRN PRN Reason: Hypoglycemia Insulin Human Lispro (Humalog) 0 units SC .MODERATE SLIDING SC PRN PRN Reason: Moderate Correctional Scale Last Admin: 09/22/19 12:20 Dose: 10 unit Insulin Human Lispro (Humalog) 0 units SC .BEDTIME SLIDING SC PRN PRN Reason: Bedtime Correctional Scale Last Admin: 09/21/19 21:24 Dose: 5 unit Levofloxacin (Levaquin) 500 mg PO 0600 [facility] Mometasone Furoate (Asmanex Hfa 100 Mcg) 200 mcg INH BID-RT [facility] Last Admin: 09/22/19 06:57 Dose: 1 puff Nitrofurantoin Macrocrystals (Macrobid) 100 mg PO BID [facility] Last Admin: 09/22/19 12:09 Dose: 100 mg Ondansetron HCl (Zofran Odt) 4 mg PO TID [facility] Last Admin: 09/22/19 15:51 Dose: Not Given Prednisone (Prednisone) 40 mg PO QAM-WM [facility] Pregabalin (Lyrica) 300 mg PO BID [facility] Last Admin: 09/22/19 12:10 Dose: 300 mg Simvastatin (Zocor) 10 mg PO HS [facility] Last Admin: 09/21/19 20:28 Dose: 10 mg Trospium (Trospium) 20 mg PO BID [facility] Last Admin: 09/22/19 12:10 Dose: 20 mg Vital Signs & Weight: Vital Signs Temp Pulse Resp BP Pulse Ox 09/22/19 15:50 98.0 F 90 20 126/58 L 94 L 09/22/19 11:55 98.8 F 106 H 23 H 140/58 L 93 L 09/22/19 07:50 97.8 F 89 16 169/77 H 94 L 09/22/19 04:29 98.1 F 93 16 161/74 H 96 Weight 158 lb 12.8 oz - Physical Exam General: alert & oriented x3 HEENT: mucus membranes moist Neck: supple neck Cardiac: regular rate and rhythm, S1/S2 Lungs: decreased breath sounds, wheezes Neuro: cranial nerve 2-12 intact - Labs Result Diagrams: 09/22/19 05:39 09/22/19 05:39 Troponin/CKMB CK-MB (CK-2) 9.5 ng/mL (0-6.6) H* 09/19/19 11:46 Troponin I 0.606 ng/mL (< 0.028) H* 09/19/19 19:34 - Telemetry Sinus rhythms and dysrhythmias: sinus rhythm - Assessment/Plan Assessment/Plan: 1. Type 2 NSTEMI 2/2 UTI and/or COPD exc? - stress test showed normal. Asymptomatic at this moment; 2. COPD exc - stable 3. HTN - stable; cont. to monitor 4. UTI - On Morbid 5. DM type 2 - 6. Tobacco abuse - strongly recommend smoking cessation MAR reviewed
[2019-09-22] MEDS: Simvastatin 5 MG TAB PO SCH (21:13)
[2019-09-23] MEDS: Ipratropium/Albuterol Sulfate 4 GM AER IH SCH ×3 (02:12→10:52)
[2019-09-23 04:49] LABS: #Lymphocytes 1.2 thou/uL (1.20-3.40); #Neutrophils 7.6 thou/uL (1.40-6.50); %Basophils 0.2 % (0.0-1.0); %Eosinophils 0.2 % (0.0-10.0); %Lymphocytes 12.3 % (21.0-51.0); %Monocytes 9.7 % (0.0-10.0); %Neutrophils 77.6 % (42.0-75.0); Mean Corpuscular HGB CONC 30.9 g/dL (32.0-36.0); Mean Corpuscular Hemoglobin 27.3 pg (27.0-31.0); Mean Corpuscular Volume 88.6 fL (78.0-98.0); Mean Platelet Volume 10.5 fL (7.4-10.4); Platelet Count 156 thou/uL (130-400); RBC Distribution Width 13.9 % (11.5-14.5); Red Blood Cell (RBC) Count 5.13 mill/uL (4.20-5.40); White Blood Cell (WBC) Count 9.8 thou/uL (4.8-10.8)
[2019-09-23 05:04] LABS: ALT (SGPT) 317 U/L (8-55); AST (SGOT) 50 U/L (5-34); Albumin 3.8 g/dL (3.4-4.8); Alkaline Phosphatase 140 U/L (40-110); BUN (Urea Nitrogen) 15 mg/dL (9.8-20.1); Bilirubin, Total 0.9 mg/dL (0.2-1.2); Calc. Creatinine Clearance 88 mL/min (70-130); Calcium 9.1 mg/dL (7.8-10.44); Estimated GFR-MDRD 85; Globulin 2.4 g/dL (2.4-3.5); Glucose 329 mg/dL (80-115); Protein, Total 6.2 g/dL (6.0-8.3)
[2019-09-23 05:13] LABS: Anion Gap 14 mmol/L (10-20); Carbon Dioxide 36 mmol/L (23-31); Chloride 91 mmol/L (98-107); Potassium 3.8 mmol/L (3.5-5.1); Sodium 137 mmol/L (136-145)
[2019-09-23] MEDS: HumaLOG 300 UNITS/3 ML VIAL SC PRN ×2 (06:00→11:12)
[2019-09-23] MEDS: Mometasone 100 MCG/PUFF (1 INHALER) INH SCH (07:28)
[2019-09-23] MEDS ORDERED: predniSONE 20 MG TAB PO SCH (08:00)
[2019-09-23] MEDS: Pregabalin 75 MG CAP PO SCH (08:54)
[2019-09-23] MEDS: Enoxaparin Sodium 40 MG/0.4 ML SYRINGE SC SCH (08:54)
[2019-09-23] MEDS: Gabapentin 300 MG CAP PO SCH (08:55)
[2019-09-23] MEDS: Famotidine 20 MG TAB PO SCH (08:56)
[2019-09-23] MEDS: Nitrofurantoin Monohyd/M-Cryst 100 MG CAP PO SCH (08:56)
[2019-09-23] MEDS: Aspirin 81 mg Enteric Coated Tablet PO SCH (08:56)
[2019-09-23] MEDS: Trospium 20 MG TAB PO SCH (08:56)
[2019-09-23] MEDS: DULoxetine 60 MG CAP PO SCH (08:56)
[2019-09-23] MEDS: Ondansetron ODT 4 MG TAB PO SCH (08:58)
[2019-09-23] MEDS ORDERED: Lisinopril 10 MG TAB PO SCH (09:00)
--- NOTE | 2019-09-23 09:07 | PRG ---
DATE OF SERVICE: 09/23/2019 SUBJECTIVE: The patient is doing well, back to her baseline. No complaints. OBJECTIVE: VITAL SIGNS: Temperature 98, pulse 79, respirations 16, O2 saturation 95% on 2 L, blood pressure 144/77. HEENT: Unremarkable. NECK: No JVD. CHEST: Clear anteriorly. CARDIAC: S1 and S2, regular. ABDOMEN: Soft. EXTREMITIES: No edema. LABORATORY DATA: Sodium 137, potassium 3.8, chloride 91, CO2 of 36, BUN 15, creatinine 0.7, glucose 329. White blood cell count 9.8, hematocrit 45.4, and platelet count 156. ASSESSMENT: 1. Chronic obstructive pulmonary disease with exacerbation. 2. Status post respiratory failure, requiring BiPAP. 3. Tobacco abuse with severe medical noncompliance. PLAN: She is stable for medical discharge from Pulmonary standpoint. She has been changed over to oral prednisone. I will stop her daily labs. Job ID: [id number]
--- NOTE | 2019-09-23 10:48 | PDOC.CPN ---
- Subjective Date: 09/23/19 Time: 10:30 - Objective Allergies/Adverse Reactions: Allergies Allergy/AdvReac Type Severity Reaction Status Date / Time eucalyptus Allergy breathing Verified 09/20/19 06:03 problems hydrocodone Allergy Verified 09/20/19 06:03 Visit Medications: Current Medications Albuterol Sulfate (Ventolin Hfa Inhaler) 1 puff INH TIDPRN PRN PRN Reason: SOB &/or Wheezing Albuterol/Ipratropium (Combivent Respimat 20-100 Mcg) 0 gm IH [id number] [facility] Last Admin: 09/23/19 07:28 Dose: 2 inh Aspirin (Ecotrin) 81 mg PO DAILY [facility] Last Admin: 09/23/19 08:56 Dose: 81 mg Dextrose/Water (Dextrose 50%) 25 gm SLOW IVP PRN PRN PRN Reason: Hypoglycemia Duloxetine HCl (Cymbalta) 120 mg PO BID [facility] Last Admin: 09/23/19 08:56 Dose: 120 mg Enoxaparin Sodium (Lovenox) 40 mg SC 0900 [facility] Last Admin: 09/23/19 08:54 Dose: 40 mg Famotidine (Pepcid) 20 mg PO BID [facility] Last Admin: 09/23/19 08:56 Dose: 20 mg Gabapentin (Neurontin) 900 mg PO DAILY [facility] Last Admin: 09/23/19 08:55 Dose: 900 mg Glucagon (Glucagon) 1 mg IM PRN PRN PRN Reason: Hypoglycemia Dextrose/Water (D5w) 1,000 mls @ 0 mls/hr IV .Q0M PRN PRN Reason: Hypoglycemia Insulin Human Lispro (Humalog) 0 units SC .MODERATE SLIDING SC PRN PRN Reason: Moderate Correctional Scale Last Admin: 09/23/19 06:00 Dose: 8 unit Insulin Human Lispro (Humalog) 0 units SC .BEDTIME SLIDING SC PRN PRN Reason: Bedtime Correctional Scale Last Admin: 09/22/19 21:14 Dose: 4 unit Levofloxacin (Levaquin) 500 mg PO 0600 [facility] Last Admin: 09/23/19 05:59 Dose: 500 mg Lisinopril (Zestril) 10 mg PO DAILY [facility] Last Admin: 09/23/19 08:56 Dose: 10 mg Mometasone Furoate (Asmanex Hfa 100 Mcg) 200 mcg INH BID-RT [facility] Last Admin: 09/23/19 07:28 Dose: 1 puff Nitrofurantoin Macrocrystals (Macrobid) 100 mg PO BID [facility] Last Admin: 09/23/19 08:56 Dose: 100 mg Ondansetron HCl (Zofran Odt) 4 mg PO TID [facility] Last Admin: 09/23/19 08:58 Dose: 4 mg Prednisone (Prednisone) 40 mg PO QAM-WM [facility] Last Admin: 09/23/19 08:56 Dose: 40 mg Pregabalin (Lyrica) 300 mg PO BID [facility] Last Admin: 09/23/19 08:54 Dose: 300 mg Simvastatin (Zocor) 10 mg PO HS [facility] Last Admin: 09/22/19 21:13 Dose: 10 mg Trospium (Trospium) 20 mg PO BID [facility] Last Admin: 09/23/19 08:56 Dose: 20 mg Vital Signs & Weight: Vital Signs Temp Pulse Resp BP BP Pulse Ox 09/23/19 08:56 170/88 H 09/23/19 07:19 98.0 F 89 16 144/77 H 95 09/23/19 04:30 82 183/85 H 09/23/19 03:25 98.3 F 84 18 183/89 H 97 09/23/19 00:00 100 20 95 Weight 149 lb 12.8 oz - Physical Exam HEENT: normocephaly Neck: no JVD/HJR Cardiac: regular rate and rhythm Lungs: no wheeze, rales, rhonchi (decreased BS), decreased breath sounds Neuro: grossly intact Abdomen: unremarkable Extremities: no cyanosis, no clubbing, no edema, 2+ femoral, 2+ popliteal, 2+ Posterior Tibial Musculoskeletal: normal range of motion - Labs Result Diagrams: 09/23/19 04:13 09/23/19 04:13 Troponin/CKMB CK-MB (CK-2) 9.5 ng/mL (0-6.6) H* 09/19/19 11:46 Troponin I 0.606 ng/mL (< 0.028) H* 09/19/19 19:34 - Telemetry Sinus rhythms and dysrhythmias: sinus rhythm - Assessment/Plan Assessment/Plan: 1. Type 2 NSTEMI 2/2 UTI and/or COPD exc? - stress test showed normal. Asymptomatic at this moment; Cardiac status is stable. 2. COPD exc - stable 3. HTN - stable; cont. to monitor 4. UTI - On Morbid 5. DM type 2 - 6. Tobacco abuse - strongly recommend smoking cessation MAR reviewed from a cardiac standpoint the pt. could be d/c'd. I will sign off. quentinys
--- NOTE | 2019-09-23 11:52 | DIS ---
DATE OF ADMISSION: 09/19/2019 DATE OF DISCHARGE: 09/23/2019 DISCHARGE DIAGNOSES: 1. Acute chronic obstructive pulmonary disease exacerbation, resolving. 2. Acute on chronic hypoxic hypercapnic respiratory failure, improved. 3. Urinary tract infection due to Enterococcus species. 4. Non-ST elevation myocardial infarction type 2 secondary to demand ischemia. 5. Tobacco abuse. 6. Transaminitis, improved. CONSULTATIONS: 1. Dr. Narvaez with Pulmonology/Critical Care Service. 2. Dr. Fung with Cardiology Service. PERTINENT LABORATORY AND X-RAY FINDINGS: Hemoglobin A1c 10.4. AST ranged between 50 to 510, ALT ranged between 317 to 634, alkaline phosphatase ranged between 138 to 169. CBC showed a white blood cell count ranging between 6.4 to 12.9. Hepatitis A, B, and C panel nonreactive. COVID-19 PCR negative on 09/19/2019. Urine culture dated 09/19/2019 showed greater than 100,000 colonies of Enterococcus faecalis sensitive to Macrobid. CT of the brain without contrast dated 09/19/2019 showed no acute intracranial process. Portable chest x-ray dated 09/19/2019 showed interstitial and alveolar opacities bilaterally. Cardiolite stress test dated 09/22/2019 showed no evidence for reversible or fixed ischemia with calculated ejection fraction of 77%. HOSPITAL COURSE: The patient was initially admitted to the telemetry unit after presenting with generalized weakness. The patient was initially managed for acute COPD exacerbation and placed on BiPAP noninvasive mechanical ventilation. The patient transitioned to oxygen via nasal cannula and received bronchodilator support and IV Solu-Medrol. The patient was ruled out for COVID-19 by PCR and taken off respiratory isolation. The patient was also noted with elevated troponin I ranging between 0.61 to 0.96. Due to the elevation, the patient underwent Cardiolite stress testing and evaluation by the Cardiology Service. Cardiolite stress testing showed no evidence for reversible or fixed ischemia with calculated ejection fraction of 77%. The patient's elevated troponin I is likely due to demand ischemia in the context of acute respiratory failure. The patient clinically stabilized with supportive management and return to baseline oxygen requirements at 2 to 3 L/minute by nasal cannula. The patient overall remained clinically stable for the remainder of the hospital course. I have examined the patient at the time of discharge and discussed followup instructions. The patient verbalized understanding and in agreement and ready for discharge on 09/23/2019. DISCHARGE MEDICATIONS: 1. Albuterol sulfate 8.5 g inhaled t.i.d. p.r.n. 2. Enteric-coated aspirin 81 mg p.o. daily. 3. Cymbalta 120 mg p.o. b.i.d. 4. Gabapentin 900 mg p.o. daily. 5. Hydrochlorothiazide 12.5 mg p.o. daily. 6. NovoLog FlexPen 2 units subcutaneously t.i.d. p.r.n. 7. Omeprazole 40 mg p.o. daily. 8. Pravachol 20 mg p.o. at bedtime. 9. Lyrica 300 mg p.o. b.i.d. 10. Tolterodine tartrate 4 mg p.o. daily. 11. Incruse Ellipta 62.5 mcg one inhalation daily. 12. Pulmicort nebulized solution 0.5 mg inhaled b.i.d. 13. Lisinopril 10 mg p.o. daily. 14. Macrobid 100 mg p.o. b.i.d. x5 days. 15. Prednisone 20 mg, take 2 tablets p.o. x1 day, then one tablet p.o. daily x3 days, followed by half a tablet p.o. daily x3 days. FOLLOWUP: The patient may follow up with Dr. Cheryl Ibarra within 7 days of discharge. CONDITION ON DISCHARGE: Stable. ACTIVITY: Ad-jhonathan. DIET: Heart healthy and ADA. CODE STATUS: Full. DISPOSITION: Home on 09/23/2019. TIME SPENT: Total time preparing and coordinating discharge, 35 minutes. Job ID: [id number]
[2019-09-23 12:20] VITALS: BP 157/71; TEMP 98.1
--- NOTE | 2019-09-24 06:57 | PQF ---
RUBIN GARCIA CHARLES DO [id number] [id number] CLINICAL DOCUMENTATION CLARIFICATION FORM: POST DISCHARGE Addendum to original discharge summary date: ____ Late entry note date: __ DATE: 09/24/2019 ATTN: Adelso Stoddard Please exercise your independent, professional judgment in responding to the clarification form. Clinical indicators are provided on the bottom of this form for your review Please check appropriate box(es): [ ] Sepsis due to UTI [ ] SIRS due to COPD Exacerbation [ ] with organ dysfunction [ ] without organ dysfunction [ ] Severe sepsis with acute organ dysfunction of: (Examples: respiratory failure, encephalopathy, acute kidney failure, other) [ ] Septic Shock [ x ] Localized infection without sepsis [ ] Other diagnosis [ ] Unable to determine In addition, please specify: Present on Admission (POA): [ x ] Yes [ ] No [ ] Unable to determine For continuity of documentation, please document condition throughout progress notes and discharge summary. Thank You. CLINICAL INDICATORS - SIGNS / SYMPTOMS / LABS Laboratory 09/18 WBC 12.9, Plt count 217, Neutrophils 68.9, Anion León 15 Urine culture 09/18 Positive with Enterococcus Faecalis Vital signs 09/18 BP 102/76, Pulse 101, Resp 24, Temp 98.5 H&P p4 09/18 Dr Feliciano Acute on Chronic hypoxic and hypercapnic Respiratory failure due to COPD H&P p4 09/18 Dr Feliciano UTI suspected With enterococcus species Consult p1 09/18 altered mental status RISK FACTORS H&P p1 09/18 63-year-old H&P p1 09/18 Tobacco abuse H&P p1 09/18 DM tyoe 2 H&P p1 09/18 ALL H&P p3 09/18 COPD exacerbation H&P p4 09/18 Type 2 DE H&P p4 09/18 UTI PN p1 09/20 - Bronchitis TREATMENTS: JUL 30 IV Levofloxacin 750 ng JUL 30 Levaquin 500 mg oral JUL 30 IVF NS 1L JUL 30 Zithromax 500mg oral JUL 30 Duoneb 3ml neb JUL 30 Combivent 20-200mcg neb JUL 30 Prednisone 40 mg oral Urine culture 09/18 Pulmo consult 09/18 Kirby Reid Pulmonary panel 09/18 - BiPaP (This form is maintained as a part of the permanent medical record) 2014 [email or web address], [employer]. All Rights Reserved [email or web address]
--- NOTE | 2019-09-25 15:17 | EKG ---
Test Reason : Blood Pressure : / mmHG Vent. Rate : 095 BPM Atrial Rate : 095 BPM P-R Int : 122 ms QRS Dur : 094 ms QT Int : 356 ms P-R-T Axes : 076 099 043 degrees QTc Int : 447 ms Normal sinus rhythm Possible Left atrial enlargement Rightward axis Cannot rule out Inferior infarct , age undetermined No STEMI Abnormal ECG Confirmed by JOSE CORBETT M.D. ([id number]), pictures editor LAZARA FISH ([id number]) on 09/25/2019 3:17:13 PM Referred By: Confirmed By:JOSE CORBETT M.D.
== END 2019-09-23 13:20 | disposition home or self-care (01) | DRG 189 ==
LOC: ERS 10:28 → CCU 14:54 → 2NO 09-21 09:36
PROVIDERS: ADMIT Family Medicine; ATTEND Family Medicine
PROC: 5A09357 Assistance with Respiratory Ventilation, Less than 24 Consecutive Hours, Continuous Positive Airway Pressure (ICD-10-PCS; principal; 2019-09-19)
PROC: 8E0ZXY6 Isolation (ICD-10-PCS; 2019-09-19)
DX: J96.21 Acute and chronic respiratory failure with hypoxia (principal); I21.A1 Myocardial infarction type 2; J44.1 Chronic obstructive pulmonary disease with (acute) exacerbation; N39.0 Urinary tract infection, site not specified; Z20.828 Contact with and (suspected) exposure to other viral communicable diseases; J96.22 Acute and chronic respiratory failure with hypercapnia; B95.2 Enterococcus as the cause of diseases classified elsewhere; F17.200 Nicotine dependence, unspecified, uncomplicated; R74.0 Nonspecific elevation of levels of transaminase and lactic acid dehydrogenase [LDH]; I10 Essential (primary) hypertension; E78.5 Hyperlipidemia, unspecified; F41.1 Generalized anxiety disorder; G47.33 Obstructive sleep apnea (adult) (pediatric); E11.40 Type 2 diabetes mellitus with diabetic neuropathy, unspecified; F32.9 Major depressive disorder, single episode, unspecified; Z91.19 Patient's noncompliance with other medical treatment and regimen; Z90.49 Acquired absence of other specified parts of digestive tract; Z90.710 Acquired absence of both cervix and uterus; Z98.51 Tubal ligation status; Z88.5 Allergy status to narcotic agent; Z88.8 Allergy status to other drugs, medicaments and biological substances; Z91.048 Other nonmedicinal substance allergy status; Z79.899 Other long term (current) drug therapy; Z79.4 Long term (current) use of insulin; Z99.81 Dependence on supplemental oxygen
CPT/HCPCS: 36415; 36416; 70450; 71045; 78452; 80048; 80053; 80074; 81003; 81015; 82553; 82805; 83036; 84484; 85025; 87077; 87086; 87186; 87635; 93005; 93017; 94640; 94660; 94760; A9500; C9113; J0360; J0456; J1650; J1956; J2785; J2920; J7512; J7620; Q0162; U0002

== ENCOUNTER 2019-10-03 20:47 | Inpatient (IN) | payer MEDICARE, BC, OTHER ==
[2019-10-03 22:26] LABS: #Basophils 0.1 thou/uL (0.0-0.2); #Eosinphils 0.1 thou/uL (0.0-0.7); #Lymphocytes 2.6 thou/uL (1.20-3.40); #Monocytes 1.4 thou/uL (0.11-0.59); #Neutrophils 9.5 thou/uL (1.40-6.50); %Basophils 0.9 % (0.0-1.0); %Eosinophils 0.6 % (0.0-10.0); %Lymphocytes 19.1 % (21.0-51.0); %Monocytes 10.4 % (0.0-10.0); %Neutrophils 68.9 % (42.0-75.0); Hemoglobin 14.6 g/dL (12.0-16.0); Mean Corpuscular HGB CONC 31.1 g/dL (32.0-36.0); Mean Corpuscular Hemoglobin 28.3 pg (27.0-31.0); Platelet Count 152 thou/uL (130-400); RBC Distribution Width 15.1 % (11.5-14.5); Red Blood Cell (RBC) Count 5.15 mill/uL (4.20-5.40); White Blood Cell (WBC) Count 13.7 thou/uL (4.8-10.8)
[2019-10-03 22:46] LABS: ALT (SGPT) 25 U/L (8-55); AST (SGOT) 24 U/L (5-34); Albumin 3.5 g/dL (3.4-4.8); Alkaline Phosphatase 148 U/L (40-110); Anion Gap 14 mmol/L (10-20); BUN (Urea Nitrogen) 22 mg/dL (9.8-20.1); Bilirubin, Total 0.4 mg/dL (0.2-1.2); Calc. Creatinine Clearance 0 mL/min (70-130); Calcium 8.7 mg/dL (7.8-10.44); Carbon Dioxide 35 mmol/L (23-31); Chloride 94 mmol/L (98-107); Estimated GFR-MDRD 55; Globulin 2.5 g/dL (2.4-3.5); Glucose 361 mg/dL (80-115); Potassium 4.8 mmol/L (3.5-5.1); Sodium 138 mmol/L (136-145)
[2019-10-03 23:04] LABS: Actual Bicarbonate (HCO3a) 41.5 mEq/L (22-28); Analyzer IN Cardio ER; Base Excess (BEa) 9.2 mEq/L (-2.0 to +3.0); Carboxyhemoglobin (COHb) 6.7 gm% (0.0-3.0); Hemoglobin (Hb) 14.9 g/dL (12.0-16.0); O2 Tension (PaO2) 138.4 mmHg (> 80.0); Potassium - ABG Lab 4.07 mmol/L (3.70-5.30)
[2019-10-03 23:16] LABS: CO2 Tension 102.6 mmHg (35.0-45.0); pH, Arterial 7.23 (7.35-7.45)
[2019-10-03 23:17] LABS: Puncture Site RRA
[2019-10-03] MEDS ORDERED: Succinylcholine Chloride 20 MG/ML 10 ml SYRINGE FS ONE (23:26)
[2019-10-03 23:29] LABS: CKMB 3.9 ng/mL (0-6.6)
[2019-10-03] MEDS ORDERED: Propofol 1,000 MG/100 ML VIAL IV ONE ×2 (23:37)
[2019-10-04] MEDS ORDERED: Fentanyl 100 MCG/2 ML VIAL ONE (00:02)
[2019-10-04] MEDS ORDERED: Ondansetron PF 4 MG/2 ML Vial IVP PRN (00:08)
[2019-10-04] MEDS ORDERED: Acetaminophen 325 MG TAB PO PRN (00:08)
[2019-10-04] MEDS ORDERED: Dextrose 50% Abboject 50 ML SYRINGE SLOW IVP PRN (00:13)
[2019-10-04] MEDS ORDERED: Dextrose 5% in Water 1,000 ML IV PRN (00:13)
[2019-10-04] MEDS ORDERED: fentaNYL Citrate/PF 2,000 MCG in Sodium Chloride 0.9% 60 ML IV PRN (00:15)
[2019-10-04] MEDS ORDERED: Lorazepam 2 MG/ML VIAL SLOW IVP PRN (00:27)
[2019-10-04] MEDS ORDERED: Propofol BOLUS 1,000 MG/100 ML VIAL IV PRN (00:27)
[2019-10-04] MEDS ORDERED: Morphine 2 MG/ML SYRINGE SLOW IVP PRN (00:27)
[2019-10-04] MEDS ORDERED: DISCONTINUE PREVIOUS NARCOTIC PAIN MEDICATIONS AND BENZODIAZEPINES FS SCH (00:27)
[2019-10-04] MEDS ORDERED: Fentanyl BOLUS 250 ML IVPB PRN (00:27)
[2019-10-04 00:28] LABS: Actual Bicarbonate (HCO3a) 33.1 mEq/L (22-28); Analyzer IN Cardio ER; Base Excess (BEa) 7.9 mEq/L (-2.0 to +3.0); CO2 Tension 48.3 mmHg (35.0-45.0); Calcium, Ionized 1.11 mmol/L (1.12-1.30); Carboxyhemoglobin (COHb) 5.9 gm% (0.0-3.0); Hemoglobin (Hb) 13.9 g/dL (12.0-16.0); O2 Tension (PaO2) 68.4 mmHg (> 80.0); Potassium - ABG Lab 3.66 mmol/L (3.70-5.30); pH, Arterial 7.45 (7.35-7.45)
[2019-10-04] MEDS ORDERED: Ventilator Sedation Protocol 1 EACH FS SCH (00:30)
[2019-10-04 00:37] LABS: ALV-art Gradient 85.125 (0-20); Puncture Site LBA
[2019-10-04] MEDS: fentaNYL Citrate/PF 2,000 MCG in Sodium Chloride 0.9% 60 ML IV SCH (01:49)
[2019-10-04] MEDS: Vancomycin 1 GM in Premix Bag 1 BAG IVPB SCH ×2 (01:52→12:29)
[2019-10-04] MEDS: Sodium Chloride 0.9% 1,000 ML IV SCH ×3 (01:53→18:05)
[2019-10-04] MEDS: HumaLOG 300 UNITS/3 ML VIAL SC PRN ×4 (02:21→18:03)
[2019-10-04] MEDS: Albuterol Sulfate 2.5 mg/3 ml Neb NEB SCH ×3 (02:45→15:01)
[2019-10-04] MEDS: Ipratropium Bromide 2.5 ml Neb NEB SCH ×3 (02:51→15:01)
[2019-10-04 04:38] LABS: Troponin I 0.356 ng/mL (< 0.028)
[2019-10-04 04:59] LABS: Legionella Urinary Ag Negative (Negative); Strep pneumo Urine Ag NEGATIVE (NEGATIVE)
[2019-10-04 05:19] LABS: ALT (SGPT) Less than 7 U/L (8-55); AST (SGOT) 30 U/L (5-34); Alkaline Phosphatase 124 U/L (40-110); Anion Gap 18 mmol/L (10-20); BUN (Urea Nitrogen) 21 mg/dL (9.8-20.1); Bilirubin, Total 0.9 mg/dL (0.2-1.2); Calc. Creatinine Clearance 72 mL/min (70-130); Calcium 8.8 mg/dL (7.8-10.44); Carbon Dioxide 27 mmol/L (23-31); Chloride 97 mmol/L (98-107); Estimated GFR-MDRD 63; Globulin 2.8 g/dL (2.4-3.5); Glucose 302 mg/dL (80-115); Potassium 5.1 mmol/L (3.5-5.1); Protein, Total 5.8 g/dL (6.0-8.3); Sodium 137 mmol/L (136-145)
[2019-10-04] MEDS: methylPREDNISolone Sod Succ 40 MG VIAL IVP SCH ×4 (05:44→23:01)
--- NOTE | 2019-10-04 07:13 | RAD ---
CHEST 1 VIEW: Date: 10/03/2019 HISTORY: Shortness of breath. COMPARISON: Radiograph dated 09/20/2019. FINDINGS: There are new patchy peripheral air space opacities. No pneumothorax. Heart size mildly enlarged. Pulmonary arteries are mildly distended. IMPRESSION: Peripheral patchy opacities in the lung bases, concerning for an atypical viral infectious process. POS: HOME
[2019-10-04] MEDS: Propofol 1,000 MG/100 ML VIAL IV PRN (07:20)
--- NOTE | 2019-10-04 07:22 | RAD ---
CHEST 1 VIEW: Date: 10/03/2019 HISTORY: Weakness. Verify tube placement. COMPARISON: Radiograph same date. FINDINGS: Endotracheal tube tip just below level of the clavicles in good position. Enteric tube is coiled at t he side port, which is at the GE junction, with tip extending craniad in lower esophagus. IMPRESSION: Coiled distal enteric tube with tip at the distal esophagus. Recommend retracting and readvancing. POS: HOME
--- NOTE | 2019-10-04 07:24 | CT ---
CT BRAIN WITHOUT CONTRAST: Date: 10/03/2019 HISTORY: Weakness. COMPARISON: CT brain dated 09/19/2019. FINDINGS: No acute hemorrhage or infarct. No midline shift or mass effect. Ventricular size and extra-axial CSF spaces are normal. IMPRESSION: No acute intracranial abnormality. POS: HOME
[2019-10-04 07:40] LABS: Hemoglobin 13.1 g/dL (12.0-16.0); Mean Corpuscular HGB CONC 31.6 g/dL (32.0-36.0); Mean Corpuscular Hemoglobin 27.8 pg (27.0-31.0); Mean Corpuscular Volume 88.2 fL (78.0-98.0); Mean Platelet Volume 10.3 fL (7.4-10.4); Platelet Count 130 thou/uL (130-400); RBC Distribution Width 14.7 % (11.5-14.5); White Blood Cell (WBC) Count 10.2 thou/uL (4.8-10.8)
[2019-10-04 07:42] LABS: Actual Bicarbonate (HCO3a) 32.7 mEq/L (22-28); Base Excess (BEa) 9.2 mEq/L (-2.0 to +3.0); CO2 Tension 40.2 mmHg (35.0-45.0); Calcium, Ionized 1.13 mmol/L (1.12-1.30); Carboxyhemoglobin (COHb) 4.4 gm% (0.0-3.0); Hemoglobin (Hb) 14.1 g/dL (12.0-16.0); Potassium - ABG Lab 3.04 mmol/L (3.70-5.30); pH, Arterial 7.53 (7.35-7.45)
[2019-10-04 07:43] LABS: O2 Tension (PaO2) 53.5 mmHg (> 80.0); Puncture Site LB
[2019-10-04 07:57] LABS: Troponin I 0.423 ng/mL (< 0.028)
[2019-10-04 09:12] LABS: Band 3 % (5-11); Eosinophils 1 % (0-10); Lymphocytes 22 % (21-51); MDiff Complete? YES; Monocytes 3 % (0-10); Neutrophil 70 % (42-75); RBC Morphology Normal; Reactive Lymphocytes 1 % (0-10)
[2019-10-04] MEDS: Famotidine/PF 20 mg/2ml Vial SLOW IVP SCH ×2 (09:20→21:01)
[2019-10-04] MEDS: Enoxaparin Sodium 40 MG/0.4 ML SYRINGE SC SCH (09:21)
--- NOTE | 2019-10-04 09:30 | HP ---
CHIEF COMPLAINT: The patient has been brought to the emergency department because of drowsiness and generalized body weakness. HISTORY OF PRESENT ILLNESS: This is a 63-year-old female patient, who has history of type 2 diabetes mellitus and chronic obstructive pulmonary disease with chronic and active tobacco abuse leading to chronic respiratory failure, for which the patient is on home oxygen. The patient also has history of obstructive sleep apnea, but not clear if the patient is using any CPAP support at this point of time. Also, she has history of depression and anxiety. Recently, the patient was diagnosed to be having influenza A on July 30, leading to COPD exacerbation, for which the patient had been managed with Tamiflu, inhaled steroids, and bronchodilators. Recently, the patient was admitted to this facility because of [id number] hypoxic and hypercapnic respiratory failure, probably secondary to pneumonia precipitating COPD exacerbation, for which the patient had been managed with broad-spectrum intravenous antibiotics. During this course of hospitalization, the patient had elevated troponin, for which the patient had cardiac workup, which revealed a negative stress test, and so, the patient had elevated troponin secondary to demand ischemia from COPD exacerbation. Subsequently, the patient had been discharged home. After going home, the patient had been feeling extremely weak, that has been gradually getting worse over the course of last 2 weeks, and subsequently, as the patient was having significant drowsiness this morning, the patient's has called EMS. Upon arrival to the emergency department, the patient was drowsy, but was able to communicate with the nursing staff initially. Subsequently, during my first evaluation, the patient was on BiPAP support, but the patient was arousable to tactile stimuli, and the patient was able to follow verbal comments. Subsequently, as the patient became extremely drowsy to the point that the patient was not arousable, the patient was intubated and started on mechanical ventilator support. Otherwise, no documented fever or recent travel. Currently, the patient is on mechanical ventilator support. PAST MEDICAL HISTORY: 1. Type 2 diabetes mellitus. 2. Obstructive sleep apnea. 3. Depression. 4. Recent urinary tract infection with Enterococcus faecalis. 5. Chronic obstructive pulmonary disease. 6. Chronic respiratory failure, on home oxygen. PAST SURGICAL HISTORY: 1. Bilateral tubal ligation. 2. Hysterectomy. 3. Right shoulder repair. 4. Cholecystectomy. 5. Bilateral carpal tunnel release. ALLERGIES: THE PATIENT IS ALLERGIC TO: 1. EUCALYPTUS. 2. HYDROCODONE. 3. VICODIN. CURRENT MEDICATIONS AT HOME: 1. Breo Ellipta inhalation. 2. Omeprazole 40 mg orally once a day. 3. Cymbalta 60 mg 2 tablets orally once a day. 4. Gabapentin 300 mg 3 tablets orally once a day. 5. Detrol LA 4 mg orally once a day. 6. Hydrochlorothiazide 12.5 mg orally once a day. 7. Pravastatin 20 mg orally once a day. 8. Zofran 4 mg orally 3 times a day. 9. Multivitamin 1 tablet orally once a day. 10. Calcium citrate 1 tablet orally once a day. 11. Budesonide inhalation 0.5 mg once a day. 12. Tresiba FlexTouch 15 units subcutaneously once a day. 13. NovoLog FlexPen 2 units subcutaneously 3 times a day. 14. Tylenol No.3 one tablet orally every 12 hours as needed for pain. SOCIAL HISTORY: The patient lives with her and has home oxygen. Ambulates minimally. Otherwise, the patient has chronic tobacco abuse, and no history of alcohol abuse. FAMILY HISTORY: Significant for hypertension. REVIEW OF SYSTEMS: SKIN: The patient has no rash or itching. Otherwise, no significant abnormalities of the hairs or the nails. HEAD: Denies any complaints of headache or head injury recently. EYES: Currently, the patient is extremely drowsy. Otherwise, does not complain any recent visual changes. NECK: Denies any lump, stiffness, or goiter. BREASTS: The patient denies any complaints of pain involving the breasts, nipple discharge, or lumps. RESPIRATORY: The patient has been having chronic cough with no recent worsening associated with shortness of breath. Otherwise, denies any chest pain. CARDIOVASCULAR: No complaints of chest pain or palpitations. No orthopnea or paroxysmal nocturnal dyspnea, but the patient has dyspnea at minimal exertion. GI: Denies any abdominal pain, nausea, vomiting, diarrhea, or GI bleeding. : Denies any history of hesitancy, frequency, or dysuria. EARS: The patient denies any change in recent hearing. Otherwise, denies any pain in the ear or ringing sensation. NOSE: Denies any history of nosebleed or stuffiness. MUSCULOSKELETAL: Denies any complaints of pain, swelling, or deformity. NEUROLOGIC: The patient has been drowsy, but otherwise, denies any motor or sensory weakness. HEMATOLOGIC: The patient denies any history of easy bruising or bleeding. PHYSICAL EXAMINATION: VITAL SIGNS: In the emergency department, blood pressure 132/73, pulse 92, respirations 24, temperature 98.2. GENERAL: Elderly female patient, lying on the stretcher with mechanical ventilator support and propofol drip in progress, not appeared to be in any cardiopulmonary distress. Mucous membranes are pale and moist. Acyanotic. Anicteric. No cyanosis, clubbing, pedal edema, or lymphadenopathy. HEAD: Atraumatic. ENT: Normocephalic. NECK: Supple. No jugular venous distention. No thyromegaly or carotid bruit. EYES: Extraocular movements are intact. Pupils are equal and reactive to light bilaterally and accommodation reflex bilaterally. CHEST: Bilaterally symmetrical. Trachea is slightly deviated to the right side. Otherwise, the patient has grossly diminished air entry at both bases with bilateral breath sounds and scattered rhonchi, but no wheezing. CARDIOVASCULAR: Normal intensity of S1 and S2 without S3. No murmurs appreciated. Currently in sinus rhythm. ABDOMEN: Soft without any distension. Nontender. No organomegaly. Bowel sounds are normoactive. ELL TEACHER: The patient is currently sedated with propofol drip. Otherwise, has spontaneous movements of both upper and lower extremities. EXTREMITIES: No edema or calf asymmetry. LABORATORY DATA: WBC 13.7, hemoglobin 14.6, hematocrit 46.9, platelets 152. ABG reveals pH of 7.23, pCO2 of 102, pO2 of 138. Sodium 138, potassium 4.8, chloride 94, bicarb 35, anion gap 14, BUN 22, creatinine 1.0, glucose 361. Lactic acid 0.8. Calcium 8.7. Total bilirubin 0.4, AST 24, ALT 25, alkaline phosphatase 148. CK-MB 3.9. Troponin 0.1. Serum total protein 6.0, albumin 3.5, globulin 2.5. Chest x-ray reveals bilateral infiltrates involving the lower lobes. CT scan of the brain without contrast; the preliminary report reveal no acute intracranial abnormalities. ASSESSMENT AND PLAN: 1. [id number] hypercapnic respiratory failure. a. Continue the patient on mechanical ventilator support. b. Continue propofol drip and add fentanyl drip once the patient has been arrived to medical ICU. c. Check SARS-CoV-2 PCR and keep the patient on isolation precautions. d. Await Pulmonary evaluation, and Dr. Zamora had been informed. e. Inhaled bronchodilators. 2. Acute metabolic encephalopathy. a. Secondary to hypercarbia. b. Continue mechanical ventilator support. c. Monitor the patient's mental status once the patient's hypercarbia has been resolved and once the patient has been off sedative medications. d. Unremarkable CT scan of the head without contrast. 3. Leukocytosis. a. Possibly secondary to recent steroid use. b. Chest x-ray reveals possible infiltrates involving the both lower lobes, and so, we will keep the patient on broad-spectrum intravenous antibiotics. c. Await cultures. 4. Bilateral pulmonary infiltrates. a. Probably remnant of recent pneumonia. b. Await cultures. c. Continue the patient on broad-spectrum intravenous antibiotics. 5. Elevated troponin. a. The patient had demand ischemia during last admission, but otherwise, stress test is normal. b. We will not pursue any other further workup as the patient has normal 2D echocardiogram during her last admission. 6. Type 2 diabetes mellitus. a. Keep the patient on Levemir insulin at bedtime. b. Humalog insulin sliding scale coverage. 7. Chronic obstructive pulmonary disease exacerbation. a. Solu-Medrol 40 mg intravenously every 6 hours. b. DuoNeb every 6 hours. c. Await Pulmonary evaluation. 8. Prophylaxis. a. Lovenox for deep venous thrombosis prophylaxis and IV Pepcid for gastrointestinal prophylaxis. Job ID: [id number]
--- NOTE | 2019-10-04 11:11 | PDOC.HOSPP ---
- Subjective Encounter Date: 10/04/19 Subjective: Intubated and sedated. - Objective Vital Signs & Weight: Vital Signs (12 hours) Temp Pulse Resp BP Pulse Ox 10/04/19 10:45 79 89/55 L 10/04/19 10:00 12 10/04/19 08:00 99.2 F 12 10/04/19 07:31 88 10/04/19 04:00 98.9 F 24 H 10/04/19 02:52 83 10/04/19 02:45 91 24 H 91 L 10/04/19 02:00 98.6 F 10/04/19 01:48 24 H 10/04/19 01:26 94 L Weight Weight 156 lb 8.451 oz Most Recent Monitor Data Heart Rate from ECG 80 NIBP 89/55 NIBP BP-Mean 66 Respiration from ECG 14 SpO2 97 I&O: 10/03/19 10/04/19 10/05/19 06:59 06:59 06:59 Intake Total 813.7 50 Output Total 370 100 Balance 443.7 -50 Result Diagrams: 10/04/19 07:20 10/04/19 03:54 Additional Labs: Accuchecks 10/04/19 02:23 POC Glucose 303 H Hospitalist ROS - Medication Medications: Active Medications Generic Name Dose Route Start Last Admin Trade Name Lopez PRN Reason Stop Dose Admin Albuterol Sulfate 2.5 mg 10/04/19 01:00 10/04/19 07:29 Ventolin NEB Not Given [id number] REYNA Enoxaparin Sodium 40 mg 10/04/19 09:00 10/04/19 09:21 Lovenox SC 40 mg 0900 REYNA Administration Famotidine 20 mg 10/04/19 09:00 10/04/19 09:20 Pepcid SLOW IVP 20 mg Q12HR REYNA Administration Sodium Chloride 1,000 mls @ 100 mls/hr 10/04/19 00:15 10/04/19 07:30 Normal Saline 0.9% IV 1,000 mls .Q10H REYNA Administration Vancomycin HCl 1 gm/ Device 200 mls @ 200 mls/hr 10/04/19 01:00 10/04/19 01: 52 IVPB 200 mls 0100,1300 REYNA Administration Fentanyl Citrate 2,000 mcg/ 100 mls @ 0 mls/hr 10/04/19 00:27 10/04/19 01:49 Sodium Chloride IV 11/03/19 00:27 100 mls INF REYNA Administration Protocol Per Protocol Insulin Human Lispro 0 units 10/04/19 00:13 10/04/19 05:49 Humalog SC 6 unit .AGGRESSIVE SLIDING PRN Administration Aggressive Correctional Scale Ipratropium [place] 2.5 ml 10/04/19 01:00 10/04/19 07:29 Atrovent NEB Not Given [id number] REYNA Lorazepam 2 mg 10/04/19 00:27 10/04/19 02:14 Ativan SLOW IVP 11/03/19 00:27 2 mg Q1H PRN Administration Breakthrough agitation Methylprednisolone Sodium Succinate 40 mg 10/04/19 06:00 10/04/19 05:44 Solu-Medrol IVP 40 mg Q6HR REYNA Administration Morphine Sulfate 2 mg 10/04/19 00:27 10/04/19 02:13 Morphine SLOW IVP 11/03/19 00:27 2 mg Q1H PRN Administration BREAKTHROUGH PAIN/Agitation Propofol 1,000 mg 10/04/19 00:27 10/04/19 07:20 Diprivan IV 11/03/19 00:27 1,000 mg INF PRN Administration TO ACHIEVE GOAL RASS Protocol - Exam General - other findings: Intubated, sedated. Hosp A/P (1) Pneumonia Code(s): J18.9 - PNEUMONIA, UNSPECIFIED ORGANISM Status: Acute (2) Acute on chronic respiratory failure with hypoxia and hypercapnia Code(s): J96.21 - ACUTE AND CHRONIC RESPIRATORY FAILURE WITH HYPOXIA; J96.22 - ACUTE AND CHRONIC RESPIRATORY FAILURE WITH HYPERCAPNIA Status: Acute (3) COPD exacerbation Code(s): J44.1 - CHRONIC OBSTRUCTIVE PULMONARY DISEASE W (ACUTE) EXACERBATION Status: Acute (4) Encephalopathy acute Code(s): G93.40 - ENCEPHALOPATHY, UNSPECIFIED Status: Acute (5) DM type 2 (diabetes mellitus, type 2) Status: Chronic Qualifiers: (6) Dyslipidemia Code(s): E78.5 - HYPERLIPIDEMIA, UNSPECIFIED Status: Chronic (7) HTN (hypertension) Code(s): I10 - ESSENTIAL (PRIMARY) HYPERTENSION Status: Chronic Qualifiers: (8) ALL (obstructive sleep apnea) Code(s): G47.33 - OBSTRUCTIVE SLEEP APNEA (ADULT) (PEDIATRIC) Status: Chronic (9) Tobacco abuse Code(s): Z72.0 - TOBACCO USE Status: Chronic - Plan Full exam deferred as patient was seen by Pulm/CC in effort to conserve PPE and minimize exposures. Resp failure: Intubated. COPD exac: Nebs, steroids. Treat pneumonia. Pneumonia: Covid pending. Had negative test 09/20. Cover with Vanc, Cefepime. Acute metabolic encephalopathy: Due to hypercapnea. Elevated Trop: Likely due to resp failure. Cards consulted. DM: Hyperglycemia with steroids/infection. Aggressive SSI. If persists, increase long acting insulin. DVT Proph: Lovenox. PUD proph: H2 antagonist.
[2019-10-04 11:47] LABS: SARS-CoV-2 MS2 Positive; SARS-CoV-2 N Gene Negative; SARS-CoV-2 S Gene Negative; SARS-CoV-2 orf1ab Negative
[2019-10-04] MEDS: Cefepime 2 GM in Sodium Chloride 0.9% 100 ML IVPB SCH ×2 (12:28→23:30)
--- NOTE | 2019-10-04 13:39 | CON ---
DATE OF CONSULTATION: 10/04/2019 HISTORY OF PRESENT ILLNESS: Ms. Colunga is a 63-year-old female with advanced chronic obstructive pulmonary disease. She is noncompliant with office followup. She presented with respiratory distress and hypercarbia and subsequently was admitted to the critical care unit and intubated. She was placed in COVID isolation. She had a COVID test on September 18 that was negative. PAST MEDICAL HISTORY: Remarkable for: 1. Severe COPD with multiple hospital admissions in the future, which for the most part is documented by ongoing tobacco use. 2. History of sleep apnea. 3. Diabetes. 4. History of anxiety and depression. 5. History of tubal ligation. 6. Status post hysterectomy. 7. History of right shoulder surgery. 8. History of cholecystectomy. 9. History of bilateral carpal tunnel. 10. History of lipid disorder. 11. History of hypertension. FAMILY HISTORY: Positive for cancer and COPD. ALLERGIES: REPORTS ALLERGIES TO HYDROCODONE. SOCIAL HISTORY: She is a smoker, not a daily drinker. REVIEW OF SYSTEMS: Not obtainable. PHYSICAL EXAMINATION: GENERAL: Mechanically ventilated. VITAL SIGNS: Stable. She is sedated for ventilation. HEAD AND NECK: Unremarkable. Pupils are equal. Sclerae are anicteric. NECK: Supple. LUNGS: Clear. HEART: Regular rhythm. S1 and S2 are normal. ABDOMEN: Soft and nontender. EXTREMITIES: Without clubbing, cyanosis, or edema. NEUROLOGIC: Nonfocal. DIAGNOSTIC STUDIES: Chest x-ray is free of infiltrates. IMPRESSION: Chronic obstructive pulmonary disease exacerbation with respiratory failure. It is very unlikely she has a COVID infection given that she was negative on September 18. Her CO2 was 102 on the . It appears that she had a blood gas done on the September 18 and her CO2 was 91 at that time. She was seen by Dr. Narvaez during that admission. She has been out of the hospital now for a little over a week and is readmitted with respiratory failure. She will continue nebulizer steroid treatments, antibiotics, and sedation. We will follow the other physicians caring for her. CRITICAL CARE TIME: 30 minutes. Job ID: [id number] MTDD
--- NOTE | 2019-10-04 19:54 | CON ---
DATE OF CONSULTATION: PRIMARY CELLOPHANE BATH MIXER: Brigitte Fung MD HISTORY OF PRESENT ILLNESS: Ms. Colunga is a 63-year-old woman, who appears to have severe COPD. The patient was admitted with respiratory failure and was found to have increase in troponin levels. She had a similar pattern from recent admission, at which time, she was seen by Dr. Fung. The patient is currently intubated and sedated, unable to give any history. During the previous admission, she did undergo stress testing, which showed no ischemia. The patient has unfortunately continued to smoke according to the records. MEDICATIONS: The patient is on; 1. Antibiotics. 2. Insulin. 3. Steroids. 4. Enoxaparin DVT prophylaxis dose. REVIEW OF SYSTEMS: Not obtainable. She is intubated and sedated. PHYSICAL EXAMINATION: VITAL SIGNS: Her blood pressure is 90/50 and pulse 65, it is sinus. LUNGS: Clear. CARDIAC: Normal S1. Normal S2. I do hear some mild expiratory wheezing. ABDOMEN: Soft and nontender. EXTREMITIES: Warm and dry. No clubbing or cyanosis. There is no edema. PERTINENT LABORATORY DATA: Troponin levels are slightly elevated at 0.423. The patient also had increased troponin levels during her recent admission, at which time, it was up to 0.962. EKG does not show ischemia. ASSESSMENT: 1. Non-ST elevation infarction, probably demand ischemia. 2. The patient was noted to have respiratory acidosis at the time of admission, that has been corrected. PLAN: 1. Recommend aspirin on a daily basis, start tomorrow. 2. No other recommendations. We will sign off at the present time. We will notify Dr. Fung on Monday of the patient's admission. Job ID: [id number]
[2019-10-04] MEDS: Insulin Glargine 10 UNITS in Pre-Filled Syringe 1 EACH SC SCH (21:01)
[2019-10-05] MEDS: Vancomycin 1 GM in Premix Bag 1 BAG IVPB SCH (00:18)
[2019-10-05] MEDS: HumaLOG 300 UNITS/3 ML VIAL SC PRN ×4 (01:17→18:02)
[2019-10-05] MEDS: fentaNYL Citrate/PF 2,000 MCG in Sodium Chloride 0.9% 60 ML IV SCH (03:01)
[2019-10-05] MEDS: Propofol 1,000 MG/100 ML VIAL IV PRN (04:49)
[2019-10-05] MEDS: methylPREDNISolone Sod Succ 40 MG VIAL IVP SCH ×4 (05:06→23:31)
[2019-10-05] MEDS: Sodium Chloride 0.9% 1,000 ML IV SCH (05:24)
[2019-10-05] MEDS: Albuterol Sulfate 2.5 mg/3 ml Neb NEB SCH (05:51)
[2019-10-05] MEDS: Ipratropium Bromide 2.5 ml Neb NEB SCH (05:51)
[2019-10-05 07:10] LABS: Actual Bicarbonate (HCO3a) 32.5 mEq/L (22-28); Base Excess (BEa) 5.8 mEq/L (-2.0 to +3.0); CO2 Tension 56.5 mmHg (35.0-45.0); Calcium, Ionized 1.12 mmol/L (1.12-1.30); Hemoglobin (Hb) 13.6 g/dL (12.0-16.0); Potassium - ABG Lab 3.52 mmol/L (3.70-5.30); pH, Arterial 7.38 (7.35-7.45)
[2019-10-05 07:11] LABS: ALV-art Gradient 119.725 (0-20); O2 Tension (PaO2) 59.2 mmHg (> 80.0); Puncture Site LRA
--- NOTE | 2019-10-05 08:19 | PRG ---
DATE OF SERVICE: 10/05/2019 TIME SPENT: This is 35 minutes of critical care time. SUBJECTIVE: The patient remains intubated on mechanical ventilation. She will wake up and follow commands. OBJECTIVE: VITAL SIGNS: Temperature 97.6, pulse 82, blood pressure 141/59, O2 saturation 99%. Intake 2715 and output 870. HEENT: Unremarkable. NECK: No adenopathy or JVD. LUNGS: Coarse breath sounds with bilateral expiratory wheezing and prolonged exhalation time. CARDIAC: S1 and S2, regular. ABDOMEN: Soft and nontender. EXTREMITIES: No clubbing, cyanosis, or edema. LABORATORY DATA: The pH is 7.38, pCO2 of 56, pO2 of 59, SIMV rate of 12, tidal volume of 400, PEEP of 5, pressure support of 10, FiO2 of 35%. COVID test came back negative. ASSESSMENT: 1. Chronic obstructive pulmonary disease with exacerbation. 2. Acute respiratory failure requiring mechanical ventilation. 3. Tobacco abuse. 4. Medical noncompliance. PLAN: 1. Continue steroids. 2. Increase frequency of nebulization treatments. 3. Start pressure support trials, hopefully extubate today or tomorrow as her clinical course allows. Job ID: [id number]
[2019-10-05] MEDS: Aspirin 81 mg Enteric Coated Tablet PO SCH (09:07)
[2019-10-05] MEDS: Sodium Chloride 0.45% 1,000 ML IV SCH ×2 (09:07→17:54)
[2019-10-05] MEDS: Enoxaparin Sodium 40 MG/0.4 ML SYRINGE SC SCH (09:08)
[2019-10-05] MEDS: Famotidine/PF 20 mg/2ml Vial SLOW IVP SCH ×2 (09:08→20:22)
--- NOTE | 2019-10-05 09:22 | PDOC.HOSPP ---
- Subjective Encounter Date: 10/05/19 Encounter Time: 09:20 Subjective: Ms. Colunga was seen today in follow-up of COPD exacerbation. she is currently on the ventilator. She is awake and follows commands. - Objective Vital Signs & Weight: Vital Signs (12 hours) Temp Pulse Resp BP Pulse Ox 10/05/19 08:00 97.1 F L 20 10/05/19 06:40 74 141/59 H 10/05/19 06:38 75 12 94 L 10/05/19 06:00 13 10/05/19 04:00 97.6 F 12 10/05/19 03:53 81 10/05/19 02:00 12 10/05/19 00:00 98.1 F 14 10/04/19 22:56 79 134/65 10/04/19 22:00 12 Weight Admit Weight 156 lb Weight 160 lb 11.472 oz Most Recent Monitor Data Heart Rate from ECG 89 NIBP 144/70 NIBP BP-Mean 94 Respiration from ECG 21 SpO2 95 I&O: 10/04/19 10/05/19 10/06/19 06:59 06:59 06:59 Intake Total 813.7 2715.3 Output Total 370 970 50 Balance 443.7 1745.3 -50 Result Diagrams: 10/04/19 07:20 10/04/19 03:54 Additional Labs: Accuchecks 10/05/19 10/05/19 10/04/19 05:49 01:20 18:04 POC Glucose 261 H 258 H 210 H 10/04/19 10/04/19 12:31 06:13 POC Glucose 176 H 211 H Hospitalist ROS - Medication Medications: Active Medications Generic Name Dose Route Start Last Admin Trade Name Kingsq PRN Reason Stop Dose Admin Aspirin 81 mg 10/05/19 09:00 10/05/19 09:07 Ecotrin PO 81 mg DAILY REYNA Administration Enoxaparin Sodium 40 mg 10/04/19 09:00 10/05/19 09:08 Lovenox SC 40 mg 0900 REYNA Administration Famotidine 20 mg 10/04/19 09:00 10/05/19 09:08 Pepcid SLOW IVP 20 mg Q12HR REYNA Administration Insulin Glargine 10 units/ 0.1 mls @ 0 mls/hr 10/04/19 21:00 10/04/19 21:01 Miscellaneous Medication SC 0.1 mls HS REYNA Administration Cefepime HCl 2 gm/ Sodium 100 mls @ 200 mls/hr 10/04/19 12:30 10/04/19 23:30 Chloride IVPB 100 mls Q12H REYNA Administration Vancomycin HCl 1 gm/ Device 200 mls @ 200 mls/hr 10/04/19 01:00 10/05/19 00: 18 IVPB 200 mls 0100,1300 REYNA Administration Fentanyl Citrate 2,000 mcg/ 100 mls @ 0 mls/hr 10/04/19 00:27 10/05/19 03:01 Sodium Chloride IV 11/03/19 00:27 100 mls INF REYNA Administration Protocol Per Protocol Sodium Chloride 1,000 mls @ 75 mls/hr 10/05/19 08:00 10/05/19 09:07 1/2 Normal Saline IV 1,000 mls .[id number] REYNA Administration Insulin Human Lispro 0 units 10/04/19 00:13 10/05/19 05:58 Humalog SC 9 unit .AGGRESSIVE SLIDING PRN Administration Aggressive Correctional Scale Lorazepam 2 mg 10/04/19 00:27 10/04/19 02:14 Ativan SLOW IVP 11/03/19 00:27 2 mg Q1H PRN Administration Breakthrough agitation Methylprednisolone Sodium Succinate 40 mg 10/04/19 06:00 10/05/19 05:06 Solu-Medrol IVP 40 mg Q6HR REYNA Administration Morphine Sulfate 2 mg 10/04/19 00:27 10/04/19 02:13 Morphine SLOW IVP 11/03/19 00:27 2 mg Q1H PRN Administration BREAKTHROUGH PAIN/Agitation Propofol 1,000 mg 10/04/19 00:27 10/05/19 04:49 Diprivan IV 11/03/19 00:27 1,000 mg INF PRN Administration TO ACHIEVE GOAL RASS Protocol - Exam Eye: PERRL, anicteric sclera ENT: normocephalic atraumatic Heart: RRR, no murmur, no gallops, no rubs, normal peripheral pulses Respiratory: no wheezes (+ coarse breath sounds, and some rhonchi bilateral), no rales Gastrointestinal: soft, non-tender, non-distended, normal bowel sounds Extremities: 1+ LE edema (trace lower extremity edema, no calf tenderness, no erythema) Neurological: cranial nerve grossly intact Hosp A/P (1) Acute and chronic respiratory failure with hypoxia Code(s): J96.21 - ACUTE AND CHRONIC RESPIRATORY FAILURE WITH HYPOXIA Status: Acute (2) COPD exacerbation Code(s): J44.1 - CHRONIC OBSTRUCTIVE PULMONARY DISEASE W (ACUTE) EXACERBATION Status: Acute (3) Influenza A Code(s): J10.1 - FLU DUE TO OTH IDENT INFLUENZA VIRUS W OTH RESP MANIFEST Status: Acute (4) DM type 2 (diabetes mellitus, type 2) Status: Chronic Qualifiers: (5) HTN (hypertension) Code(s): I10 - ESSENTIAL (PRIMARY) HYPERTENSION Status: Chronic Qualifiers: - Plan * Acute on chronic respiratory failure with hypoxemia and hypercapnea- She is slowly improving * Continue Cefepime and Vancomycin, and IV steroids * Continue Neb treatments * Continue to wean as per PCCM * NSTEMI- this is likely due to demand ischemia * DM- blood glucose is a bit elevated- will continue Lantus and SSI * HTN- blood pressure is stable * Continue DVT and GI prophylaxis
[2019-10-05] MEDS: Cefepime 2 GM in Sodium Chloride 0.9% 100 ML IVPB SCH ×2 (12:25→23:31)
[2019-10-05 12:46] LABS: Vancomycin, Trough 10.8 ug/mL
[2019-10-05] MEDS: Vancomycin HCl 1.25 GM in Sodium Chloride 0.9% 250 ML 250 ML IVPB SCH (13:32)
[2019-10-05] MEDS ORDERED: Lorazepam 0.5 MG TAB PER TUBE PRN (14:29)
[2019-10-05] MEDS: Insulin Glargine 10 UNITS in Pre-Filled Syringe 1 EACH SC SCH (20:22)
[2019-10-06] MEDS: HumaLOG 300 UNITS/3 ML VIAL SC PRN ×4 (00:31→17:07)
[2019-10-06] MEDS: Vancomycin HCl 1.25 GM in Sodium Chloride 0.9% 250 ML 250 ML IVPB SCH (00:33)
[2019-10-06 04:23] LABS: Anion Gap 14 mmol/L (10-20); BUN (Urea Nitrogen) 22 mg/dL (9.8-20.1); Calc. Creatinine Clearance 116 mL/min (70-130); Calcium 8.4 mg/dL (7.8-10.44); Carbon Dioxide 27 mmol/L (23-31); Chloride 103 mmol/L (98-107); Estimated GFR-MDRD Greater than 90; Glucose 194 mg/dL (80-115); Potassium 3.6 mmol/L (3.5-5.1); Sodium 140 mmol/L (136-145)
[2019-10-06] MEDS: methylPREDNISolone Sod Succ 40 MG VIAL IVP SCH ×4 (05:18→22:41)
[2019-10-06 07:05] LABS: Actual Bicarbonate (HCO3a) 27.7 mEq/L (22-28); Base Excess (BEa) 3.8 mEq/L (-2.0 to +3.0); CO2 Tension 39.5 mmHg (35.0-45.0); Calcium, Ionized 1.12 mmol/L (1.12-1.30); Carboxyhemoglobin (COHb) 1.6 gm% (0.0-3.0); Hemoglobin (Hb) 13.7 g/dL (12.0-16.0); O2 Tension (PaO2) 96.3 mmHg (> 80.0); Potassium - ABG Lab 3.55 mmol/L (3.70-5.30); Puncture Site LRA; pH, Arterial 7.46 (7.35-7.45)
[2019-10-06 07:06] LABS: ALV-art Gradient 103.875 (0-20)
[2019-10-06] MEDS: Enoxaparin Sodium 40 MG/0.4 ML SYRINGE SC SCH (08:25)
[2019-10-06] MEDS: Famotidine/PF 20 mg/2ml Vial SLOW IVP SCH ×2 (08:25→21:28)
[2019-10-06] MEDS: Aspirin 81 mg Enteric Coated Tablet PO SCH (08:25)
[2019-10-06] MEDS: Sodium Chloride 0.45% 1,000 ML IV SCH (08:30)
[2019-10-06] MEDS ORDERED: DC Sedation Protocol FS ONE (09:10)
--- NOTE | 2019-10-06 09:27 | PRG ---
DATE OF SERVICE: 10/06/2019 Thirty five minutes critical care time. SUBJECTIVE: The patient is awake and alert. She is on spontaneous breathing trial this morning. OBJECTIVE: VITAL SIGNS: Temperature 98.5, pulse 88, blood pressure 155/63, O2 saturation 98%. 24-hour intake 2463, output 1475. HEENT: Unremarkable. NECK: No adenopathy or JVD. CHEST: Clear anteriorly. CARDIAC: S1 and S2, regular. ABDOMEN: Soft and nontender. EXTREMITIES: No edema. LABORATORY DATA: PH 7.46, pCO2 of 39, PO2 of 96, on CPAP 5, pressure support 10, and FiO2 of 35%. Sodium 140, potassium 3.6, chloride 103, CO2 of 27, BUN 22, creatinine of 0.5, and glucose 194. Her chest x-ray demonstrates hyperinflation without evidence of mass, effusion, or infiltrate. ASSESSMENT: 1. Chronic obstructive pulmonary disease with exacerbation. 2. Acute respiratory failure requiring mechanical ventilation. 3. Tobacco abuse. PLAN: We will go ahead and extubate. Start diet. She can transfer to [facility]. Job ID: [id number]
--- NOTE | 2019-10-06 09:47 | RAD ---
PORTABLE CHEST: DATE: 10/06/2019. PROVIDED CLINICAL HISTORY: Pneumonia. FINDINGS: Comparison 10/03/2019. Cardiac and mediastinal silhouette is unchanged in appearance. Endotracheal tu be and enteric catheter appears similar in location. The appearance of the lung parenchyma has not s ignificantly changed with respect to prior. There is no pleural fluid or pneumothorax evident. IMPRESSION: Stable radiographic appearance of the chest. POS: LISS
[2019-10-06] MEDS: Cefepime 2 GM in Sodium Chloride 0.9% 100 ML IVPB SCH (12:47)
--- NOTE | 2019-10-06 13:05 | PDOC.HOSPP ---
- Subjective Encounter Date: 10/06/19 Encounter Time: 13:04 Subjective: Ms. Colunga was seen today in follow-up of COPD exacerbation. She does not have any complaints. She denies shortness of breath or chest pain. - Objective Vital Signs & Weight: Vital Signs (12 hours) Temp Pulse Resp BP Pulse Ox 10/06/19 11:44 98 10/06/19 10:07 90 13 99 10/06/19 09:00 90 12 99 10/06/19 08:00 98.5 F 10 L 99 10/06/19 06:43 94 143/62 H 10/06/19 06:42 99 12 98 10/06/19 06:00 12 10/06/19 04:00 97.6 F 17 10/06/19 03:35 96 144/66 H 96 10/06/19 02:00 12 Weight Admit Weight 156 lb Weight 163 lb 2.273 oz Most Recent Monitor Data Heart Rate from ECG 90 NIBP 165/73 NIBP BP-Mean 103 Respiration from ECG 16 SpO2 97 I&O: 10/05/19 10/06/19 10/07/19 06:59 06:59 06:59 Intake Total 2715.3 2463.6 310 Output Total 970 1475 185 Balance 1745.3 988.6 125 Result Diagrams: 10/04/19 07:20 10/06/19 03:42 Additional Labs: Accuchecks 10/06/19 10/05/19 10/05/19 11:50 23:49 18:01 POC Glucose 195 H 164 H 154 H Hospitalist ROS - Medication Medications: Active Medications Generic Name Dose Route Start Last Admin Trade Name Lopez PRN Reason Stop Dose Admin Albuterol/Ipratropium 3 ml 10/05/19 10:30 10/06/19 10:07 Duoneb NEB 3 ml [id number] REYNA Administration Aspirin 81 mg 10/05/19 09:00 10/06/19 08:25 Ecotrin PO 81 mg DAILY REYNA Administration Enoxaparin Sodium 40 mg 10/04/19 09:00 10/06/19 08:25 Lovenox SC 40 mg 0900 REYNA Administration Famotidine 20 mg 10/04/19 09:00 10/06/19 08:25 Pepcid SLOW IVP 20 mg Q12HR REYNA Administration Insulin Glargine 10 units/ 0.1 mls @ 0 mls/hr 10/04/19 21:00 10/05/19 20:22 Miscellaneous Medication SC 0.1 mls HS REYNA Administration Cefepime HCl 2 gm/ Sodium 100 mls @ 200 mls/hr 10/04/19 12:30 10/06/19 12:47 Chloride IVPB 100 mls Q12H REYNA Administration Insulin Human Lispro 0 units 10/04/19 00:13 10/06/19 12:47 Humalog SC 3 unit .AGGRESSIVE SLIDING PRN Administration Aggressive Correctional Scale Methylprednisolone Sodium Succinate 20 mg 10/06/19 10:00 10/06/19 10:18 Solu-Medrol IVP 20 mg Q6H REYNA Administration - Exam Eye: PERRL Heart: RRR, no murmur, no gallops, no rubs, normal peripheral pulses Respiratory: rales (+ rales at both bases) Gastrointestinal: soft, non-tender, non-distended, normal bowel sounds, no palpable masses Hosp A/P (1) Acute and chronic respiratory failure with hypoxia Code(s): J96.21 - ACUTE AND CHRONIC RESPIRATORY FAILURE WITH HYPOXIA Status: Acute (2) COPD exacerbation Code(s): J44.1 - CHRONIC OBSTRUCTIVE PULMONARY DISEASE W (ACUTE) EXACERBATION Status: Acute (3) Influenza A Code(s): J10.1 - FLU DUE TO OTH IDENT INFLUENZA VIRUS W OTH RESP MANIFEST Status: Acute (4) DM type 2 (diabetes mellitus, type 2) Status: Chronic Qualifiers: (5) HTN (hypertension) Code(s): I10 - ESSENTIAL (PRIMARY) HYPERTENSION Status: Chronic Qualifiers: - Plan * Acute on chronic respiratory failure with hypoxemia and hypercapnea- She has been extubated * Continue Cefepime and Vancomycin * IV steroid dose has been reduced * Continue Neb treatments * NSTEMI- this is likely due to demand ischemia * DM- blood glucose is stable- continue SSI * HTN- will re-start her home medications * Continue DVT and GI prophylaxis
[2019-10-06] MEDS ORDERED: Pravastatin Sodium 20 MG TAB PO SCH (21:00)
[2019-10-06] MEDS ORDERED: Non-Formulary Item 1 EACH (Pregabalin [Lyrica] 300 MG) PO SCH (21:00)
[2019-10-06] MEDS ORDERED: DULoxetine 60 MG CAP PO SCH (21:00)
[2019-10-06] MEDS: Trospium 20 MG TAB PO SCH (21:28)
[2019-10-06] MEDS: DULoxetine 60 MG CAP PO SCH (21:28)
[2019-10-06] MEDS: Simvastatin 5 MG TAB PO SCH (21:28)
[2019-10-06] MEDS: Nitrofurantoin Monohyd/M-Cryst 100 MG CAP PO SCH (21:29)
[2019-10-06] MEDS: Pregabalin 75 MG CAP PO SCH (21:30)
[2019-10-06] MEDS: Insulin Glargine 10 UNITS in Pre-Filled Syringe 1 EACH SC SCH (21:30)
[2019-10-07] MEDS: Cefepime 2 GM in Sodium Chloride 0.9% 100 ML IVPB SCH ×3 (00:09→23:47)
[2019-10-07] MEDS: methylPREDNISolone Sod Succ 40 MG VIAL IVP SCH ×2 (03:31→08:17)
[2019-10-07 04:45] LABS: Anion Gap 15 mmol/L (10-20); BUN (Urea Nitrogen) 21 mg/dL (9.8-20.1); Calc. Creatinine Clearance 107 mL/min (70-130); Calcium 8.4 mg/dL (7.8-10.44); Carbon Dioxide 26 mmol/L (23-31); Chloride 103 mmol/L (98-107); Estimated GFR-MDRD 90; Glucose 279 mg/dL (80-115); Potassium 4.8 mmol/L (3.5-5.1); Sodium 139 mmol/L (136-145)
[2019-10-07] MEDS: HumaLOG 300 UNITS/3 ML VIAL SC PRN ×3 (06:06→17:13)
[2019-10-07] MEDS: Famotidine/PF 20 mg/2ml Vial SLOW IVP SCH ×2 (08:17→19:43)
[2019-10-07] MEDS: Enoxaparin Sodium 40 MG/0.4 ML SYRINGE SC SCH (08:18)
[2019-10-07] MEDS: Pregabalin 75 MG CAP PO SCH ×2 (08:19→19:41)
[2019-10-07] MEDS: Lisinopril 10 MG TAB PO SCH (08:19)
[2019-10-07] MEDS: Gabapentin 300 MG CAP PO SCH (08:20)
[2019-10-07] MEDS: DULoxetine 60 MG CAP PO SCH ×2 (08:20→19:42)
[2019-10-07] MEDS: Nitrofurantoin Monohyd/M-Cryst 100 MG CAP PO SCH ×2 (08:20→19:43)
[2019-10-07] MEDS: Trospium 20 MG TAB PO SCH ×2 (08:21→19:43)
[2019-10-07] MEDS: Aspirin 81 mg Enteric Coated Tablet PO SCH ×2 (08:21→11:15)
--- NOTE | 2019-10-07 08:37 | PDOC.HOSPP ---
- Subjective Encounter Date: 10/07/19 Encounter Time: 08:35 Subjective: Ms. Colunga was seen today in follow-up of COPD exacerbation. She does not have any complaints. She says she had some trouble sleeping last night. - Objective Vital Signs & Weight: Vital Signs (12 hours) Temp Pulse Resp BP Pulse Ox 10/07/19 08:19 174/81 H 10/07/19 07:17 99.0 F 10/07/19 07:15 99 10/07/19 07:12 90 15 99 10/07/19 03:45 96 10/07/19 03:30 98.7 F 10/06/19 23:30 98.7 F 10/06/19 22:36 97 Weight Admit Weight 156 lb Weight 170 lb 13.732 oz Most Recent Monitor Data Heart Rate from ECG 93 NIBP 177/84 NIBP BP-Mean 115 Respiration from ECG 15 SpO2 96 I&O: 10/06/19 10/07/19 10/08/19 06:59 06:59 06:59 Intake Total 2463.6 1200 Output Total 1475 1685 Balance 988.6 -485 Result Diagrams: 10/04/19 07:20 10/07/19 03:30 Additional Labs: Accuchecks 10/07/19 10/06/19 10/06/19 05:35 20:05 17:01 POC Glucose 264 H 161 H 207 H 10/06/19 11:50 POC Glucose 195 H Hospitalist ROS - Medication Medications: Active Medications Generic Name Dose Route Start Last Admin Trade Name Freq PRN Reason Stop Dose Admin Albuterol/Ipratropium 3 ml 10/05/19 10:30 10/07/19 07:12 Duoneb NEB 3 ml [id number] REYNA Administration Aspirin 81 mg 10/05/19 09:00 10/07/19 08:21 Ecotrin PO 81 mg DAILY REYNA Administration Duloxetine HCl 120 mg 10/06/19 21:00 10/07/19 08:20 Cymbalta PO 120 mg BID REYNA Administration Enoxaparin Sodium 40 mg 10/04/19 09:00 10/07/19 08:18 Lovenox SC 40 mg 0900 REYNA Administration Famotidine 20 mg 10/04/19 09:00 10/07/19 08:17 Pepcid SLOW IVP 20 mg Q12HR REYNA Administration Gabapentin 900 mg 10/07/19 09:00 10/07/19 08:20 Neurontin PO 900 mg DAILY REYNA Administration Insulin Glargine 10 units/ 0.1 mls @ 0 mls/hr 10/04/19 21:00 10/06/19 21:30 Miscellaneous Medication SC 0.1 mls HS REYNA Administration Cefepime HCl 2 gm/ Sodium 100 mls @ 200 mls/hr 10/04/19 12:30 10/07/19 00:09 Chloride IVPB 100 mls Q12H REYNA Administration Insulin Human Lispro 0 units 10/04/19 00:13 10/07/19 06:06 Humalog SC 9 unit .AGGRESSIVE SLIDING PRN Administration Aggressive Correctional Scale Lisinopril 10 mg 10/07/19 09:00 10/07/19 08:19 Zestril PO 10 mg DAILY REYNA Administration Methylprednisolone Sodium Succinate 20 mg 10/06/19 10:00 10/07/19 08:17 Solu-Medrol IVP 20 mg Q6H REYNA Administration Nitrofurantoin Macrocrystals 100 mg 10/06/19 21:00 10/07/19 08:20 Macrobid PO 100 mg BID REYNA Administration Pregabalin 300 mg 10/06/19 21:00 10/07/19 08:19 Lyrica PO 300 mg BID REYNA Administration Simvastatin 10 mg 10/06/19 21:00 10/06/19 21:28 Zocor PO 10 mg HS REYNA Administration Sodium Chloride 10 ml 10/06/19 21:00 10/06/19 22:42 Flush - Normal Saline IVF 10 ml Q12HR REYNA Administration Trospium 20 mg 10/06/19 21:00 10/07/19 08:21 Trospium PO 20 mg BID REYNA Administration - Exam Eye: PERRL, anicteric sclera Heart: RRR, no murmur, no gallops, no rubs, normal peripheral pulses Respiratory: no tachypnea, rales (+ faint rales at the bases, occasional wheeze, ) Gastrointestinal: soft, non-tender, non-distended, normal bowel sounds, no palpable masses, no hepatomegaly Extremities: no cyanosis, 1+ LE edema Hosp A/P (1) Acute and chronic respiratory failure with hypoxia Code(s): J96.21 - ACUTE AND CHRONIC RESPIRATORY FAILURE WITH HYPOXIA Status: Acute (2) COPD exacerbation Code(s): J44.1 - CHRONIC OBSTRUCTIVE PULMONARY DISEASE W (ACUTE) EXACERBATION Status: Acute (3) Influenza A Code(s): J10.1 - FLU DUE TO OTH IDENT INFLUENZA VIRUS W OTH RESP MANIFEST Status: Acute (4) DM type 2 (diabetes mellitus, type 2) Status: Chronic Qualifiers: (5) HTN (hypertension) Code(s): I10 - ESSENTIAL (PRIMARY) HYPERTENSION Status: Chronic Qualifiers: - Plan * Acute on chronic respiratory failure with hypoxemia and hypercapnea- continues to improve * Continue Cefepime and Vancomycin- can consider de-escalating antibiotics * IV steroid dose has been reduced * Continue Neb treatments * DM- blood glucose is a bit elevated- likely due to steroids- anticipate continued jay of the steroids, which should help with her glycemic control * HTN- blood pressure is a bit elevated- will continue her home medications and monitor the trend * Continue DVT and GI prophylaxis * Mobilize
[2019-10-07] MEDS ORDERED: Tolterodine Tartrate LA 4 MG CAP PO SCH (09:00)
--- NOTE | 2019-10-07 09:41 | PRG ---
DATE OF SERVICE: 10/07/2019 SUBJECTIVE: Ms. Colunga is doing okay this morning. OBJECTIVE: VITAL SIGNS: Temperature 99.0, pulse 91, blood pressure 174/81, and O2 saturation 92%. HEENT: Unremarkable. NECK: No adenopathy or JVD. LUNGS: No wheezing. CARDIAC: S1 and S2. Regular. ABDOMEN: Soft. EXTREMITIES: No edema. LABORATORY DATA: Sodium 139, potassium 4.8, BUN 21, creatinine 0.6, and glucose 279. ASSESSMENT: 1. Chronic obstructive pulmonary disease with exacerbation. 2. Continued tobacco abuse with refusal to quit. PLAN: Can move to the medical floor. I told her that she had to quit smoking or she was going to . The patient basically does not want to confront any issues in regard to her smoking. She can probably be discharged tomorrow. Job ID: [id number]
[2019-10-07 13:00] VITALS: BMI 26.8
[2019-10-07] MEDS: Simvastatin 5 MG TAB PO SCH (19:43)
[2019-10-07] MEDS: Insulin Glargine 10 UNITS in Pre-Filled Syringe 1 EACH SC SCH (19:44)
[2019-10-07] MEDS: hydrALAZINE 20 MG/ML VIAL SLOW IVP PRN (22:38)
[2019-10-08] MEDS: HumaLOG 300 UNITS/3 ML VIAL SC PRN ×2 (06:21→12:12)
--- NOTE | 2019-10-08 08:50 | PRG ---
DATE OF SERVICE: 10/08/2019 SUBJECTIVE: She feels better and wants to go home. OBJECTIVE: VITAL SIGNS: Temperature 97.4, pulse 86, respirations 19, O2 saturation 90%, blood pressure 160/83. HEENT: Clear. NECK: No adenopathy or JVD. LUNGS: Clear without wheezing or rhonchi. CARDIAC: S1 and S2, regular. ABDOMEN: Soft. EXTREMITIES: No edema. ASSESSMENT: 1. Chronic obstructive pulmonary disease with exacerbation. 2. Tobacco abuse. PLAN: She is stable to go home. I would taper prednisone over a couple of weeks and treat her with no more than 7 days of antibiotics. She has been instructed not to smoke, but I doubt she will comply. She can follow up in my office in one month. Job ID: [id number]
[2019-10-08] MEDS ORDERED: Losartan 25 MG TAB PO SCH (09:00)
[2019-10-08] MEDS ORDERED: predniSONE 20 MG TAB PO SCH (09:00)
[2019-10-08] MEDS: Trospium 20 MG TAB PO SCH (09:36)
[2019-10-08] MEDS: Pregabalin 75 MG CAP PO SCH (09:36)
[2019-10-08] MEDS: DULoxetine 60 MG CAP PO SCH (09:37)
[2019-10-08] MEDS: Gabapentin 300 MG CAP PO SCH (09:37)
[2019-10-08] MEDS: Aspirin 81 mg Enteric Coated Tablet PO SCH (09:37)
[2019-10-08] MEDS: Lisinopril 10 MG TAB PO SCH (09:38)
[2019-10-08] MEDS: Nitrofurantoin Monohyd/M-Cryst 100 MG CAP PO SCH (09:38)
[2019-10-08] MEDS: Enoxaparin Sodium 40 MG/0.4 ML SYRINGE SC SCH (09:39)
[2019-10-08] MEDS: Famotidine/PF 20 mg/2ml Vial SLOW IVP SCH (09:39)
[2019-10-08 12:09] VITALS: BP 189/124; TEMP 98.6
[2019-10-08] MEDS: hydrALAZINE 20 MG/ML VIAL SLOW IVP PRN (12:13)
[2019-10-08] MEDS: Cefepime 2 GM in Sodium Chloride 0.9% 100 ML IVPB SCH (12:13)
--- NOTE | 2019-10-08 15:11 | PDOC.HOSPP ---
- Subjective Encounter Date: 10/08/19 Encounter Time: 15:09 Subjective: Ms. Colunga was seen today in follow-up of COPD exacerbation. She does not have any complaints. Blood pressure on re-check was 141/82. - Objective Vital Signs & Weight: Vital Signs (12 hours) Temp Pulse Resp BP BP Pulse Ox 10/08/19 14:15 88 16 92 L 10/08/19 12:13 85 189/124 H 10/08/19 12:00 98.6 F 85 16 189/124 H 92 L 10/08/19 11:48 87 16 94 L 10/08/19 09:38 160/83 H 10/08/19 07:54 97.4 F L 86 19 160/83 H 90 L 10/08/19 07:45 94 L 10/08/19 07:26 81 16 94 L Weight Admit Weight 156 lb 8.451 oz Weight 168 lb 3.403 oz Most Recent Monitor Data Heart Rate from ECG 97 NIBP 151/75 NIBP BP-Mean 100 Respiration from ECG 17 SpO2 89 I&O: 10/07/19 10/08/19 10/09/19 06:59 06:59 06:59 Intake Total 1200 1100 240 Output Total 1685 1850 Balance -485 -750 240 Result Diagrams: 10/04/19 07:20 10/07/19 03:30 Additional Labs: Accuchecks 10/08/19 10/08/19 10/07/19 12:01 04:20 19:27 POC Glucose 163 H 297 H 306 H 10/07/19 16:14 POC Glucose 182 H Hospitalist ROS - Medication Medications: Active Medications Generic Name Dose Route Start Last Admin Trade Name Kingsq PRN Reason Stop Dose Admin Albuterol/Ipratropium 3 ml 10/05/19 10:30 10/08/19 14:15 Duoneb NEB 3 ml [id number] REYNA Administration Aspirin 81 mg 10/07/19 09:00 10/08/19 09:37 Ecotrin PO 81 mg DAILY REYNA Administration Duloxetine HCl 120 mg 10/06/19 21:00 10/08/19 09:37 Cymbalta PO 120 mg BID REYNA Administration Enoxaparin Sodium 40 mg 10/04/19 09:00 10/08/19 09:39 Lovenox SC 40 mg 0900 REYNA Administration Famotidine 20 mg 10/04/19 09:00 10/08/19 09:39 Pepcid SLOW IVP 20 mg Q12HR REYNA Administration Gabapentin 900 mg 10/07/19 09:00 10/08/19 09:37 Neurontin PO 900 mg DAILY REYNA Administration Hydralazine HCl 10 mg 10/07/19 22:32 10/08/19 12:13 Apresoline SLOW IVP 10 mg Q4H PRN Administration SBP Greater Than 180 Insulin Glargine 10 units/ 0.1 mls @ 0 mls/hr 10/04/19 21:00 10/07/19 19:44 Miscellaneous Medication SC 0.1 mls HS REYNA Administration Cefepime HCl 2 gm/ Sodium 100 mls @ 200 mls/hr 10/04/19 12:30 10/08/19 12:13 Chloride IVPB 100 mls Q12H REYNA Administration Insulin Human Lispro 0 units 10/04/19 00:13 10/08/19 12:12 Humalog SC 3 unit .AGGRESSIVE SLIDING PRN Administration Aggressive Correctional Scale Lisinopril 10 mg 10/07/19 09:00 10/08/19 09:38 Zestril PO 10 mg DAILY REYNA Administration Losartan Potassium 50 mg 10/08/19 09:00 10/08/19 09:38 Cozaar PO 50 mg DAILY REYNA Administration Nitrofurantoin Macrocrystals 100 mg 10/06/19 21:00 10/08/19 09:38 Macrobid PO 100 mg BID REYNA Administration Prednisone 40 mg 10/08/19 09:00 10/08/19 09:37 Prednisone PO 40 mg DAILY REYNA Administration Pregabalin 300 mg 10/06/19 21:00 10/08/19 09:36 Lyrica PO 300 mg BID REYNA Administration Simvastatin 10 mg 10/06/19 21:00 10/07/19 19:43 Zocor PO 10 mg HS REYNA Administration Sodium Chloride 10 ml 10/06/19 21:00 10/08/19 09:39 Flush - Normal Saline IVF 10 ml Q12HR REYNA Administration Trospium 20 mg 10/06/19 21:00 10/08/19 09:36 Trospium PO 20 mg BID REYNA Administration - Exam Eye: PERRL, anicteric sclera Heart: RRR, no murmur, no gallops, no rubs, normal peripheral pulses Respiratory: CTAB, no wheezes, no rales, no ronchi, normal chest expansion, no tachypnea Gastrointestinal: soft, non-tender, non-distended, normal bowel sounds, no palpable masses Extremities: no cyanosis, no edema Hosp A/P (1) Acute and chronic respiratory failure with hypoxia Code(s): J96.21 - ACUTE AND CHRONIC RESPIRATORY FAILURE WITH HYPOXIA Status: Acute (2) COPD exacerbation Code(s): J44.1 - CHRONIC OBSTRUCTIVE PULMONARY DISEASE W (ACUTE) EXACERBATION Status: Acute (3) Influenza A Code(s): J10.1 - FLU DUE TO OTH IDENT INFLUENZA VIRUS W OTH RESP MANIFEST Status: Acute (4) DM type 2 (diabetes mellitus, type 2) Status: Chronic Qualifiers: (5) HTN (hypertension) Code(s): I10 - ESSENTIAL (PRIMARY) HYPERTENSION Status: Chronic Qualifiers: - Plan * Acute on chronic respiratory failure with hypoxemia and hypercapnea- improved * DM- blood glucose is a bit elevated- likely due to steroids- anticipate continued jay of the steroids, which should help with her glycemic control * HTN- blood pressure is a bit elevated- will continue her home medication but will add Hydralazine PRN for home. * Discharge home
--- NOTE | 2019-10-08 17:17 | DIS ---
DATE OF ADMISSION: 10/03/2019 DATE OF DISCHARGE: 10/08/2019 PRIMARY CARE PHYSICIAN: Dr. Ibarra. DISCHARGE DISPOSITION: Home. DISCHARGE DIAGNOSES: 1. Acute on chronic respiratory failure with hypoxemia and hypercapnia. 2. Chronic obstructive pulmonary disease exacerbation. 3. Pneumonia. 4. Hypertension. 5. Diabetes mellitus, type 2. DISCHARGE MEDICATIONS: Include; 1. Prednisone taper. 2. Nitrofurantoin 100 mg twice a day. 3. Lisinopril 10 mg daily. 4. Apresoline 10 mg q.i.d. 5. Omnicef 300 mg twice a day. 6. Incruse inhaler daily. 7. Tolterodine 4 mg extended release daily. 8. Lyrica 300 mg twice daily. 9. Pravachol 20 mg at bedtime. 10. Omeprazole 40 mg daily. 11. Losartan 50 mg daily. 12. Hydrochlorothiazide 12.5 mg daily. 13. Gabapentin 300 mg 3 tablets daily. 14. Cymbalta 60 mg 2 tablets twice a day. IMAGING: The patient had a CT scan of the brain, which was negative for any acute intracranial abnormality. CODE STATUS: Full code. ALLERGIES: TO EUCALYPTUS AND HYDROCODONE. HOSPITAL COURSE: Ms. Colunga is a pleasant 63-year-old female, who presented to the emergency room with shortness of breath and generalized weakness. She was found to be in acute respiratory failure. There was concern for possible COVID infection, therefore screen was done, which was negative. She did require mechanical intubation during her hospital stay. She was seen by Pulmonology, who led the management. She was able to be weaned from the ventilator and extubated. It is also noted that her blood pressure was quite high and as a result, she is being discharged on an additional blood pressure medicine just p.r.n. She continues to smoke and was counseled on the need to discontinue smoking and at the time of discharge, she was clinically improved and will need close outpatient followup. Job ID: [id number]
--- NOTE | 2019-10-10 16:12 | EKG ---
Test Reason : Blood Pressure : / mmHG Vent. Rate : 095 BPM Atrial Rate : 095 BPM P-R Int : 130 ms QRS Dur : 088 ms QT Int : 374 ms P-R-T Axes : 078 145 070 degrees QTc Int : 469 ms Normal sinus rhythm Right atrial enlargement Right axis deviation Pulmonary disease pattern Abnormal ECG Confirmed by RITIKA BAKER ([id number]), assignment editor LAZARA FISH ([id number]) on 10/10/2019 4:11:11 PM Referred By: Confirmed By:RITIKA BAKER
== END 2019-10-08 16:38 | disposition home or self-care (01) | DRG 208 ==
LOC: ERS 20:47 → CCU 23:31 → IMCU/EMU 10-06 11:35 → T4-A 10-07 12:29
PROVIDERS: ADMIT Hospitalist; ATTEND Hospitalist
PROC: 0BH17EZ Insertion of Endotracheal Airway into Trachea, Via Natural or Artificial Opening (ICD-10-PCS; principal; 2019-10-03)
PROC: 5A1945Z Respiratory Ventilation, 24-96 Consecutive Hours (ICD-10-PCS; 2019-10-03)
PROC: 8E0ZXY6 Isolation (ICD-10-PCS; 2019-10-03)
PROC: 3E0234Z Introduction of Serum, Toxoid and Vaccine into Muscle, Percutaneous Approach (ICD-10-PCS; 2019-10-03)
DX: J96.21 Acute and chronic respiratory failure with hypoxia (principal); G93.41 Metabolic encephalopathy; I21.A1 Myocardial infarction type 2; J10.00 Influenza due to other identified influenza virus with unspecified type of pneumonia; J44.0 Chronic obstructive pulmonary disease with (acute) lower respiratory infection; J44.1 Chronic obstructive pulmonary disease with (acute) exacerbation; J96.22 Acute and chronic respiratory failure with hypercapnia; Z20.828 Contact with and (suspected) exposure to other viral communicable diseases; I10 Essential (primary) hypertension; E11.40 Type 2 diabetes mellitus with diabetic neuropathy, unspecified; F17.210 Nicotine dependence, cigarettes, uncomplicated; F41.9 Anxiety disorder, unspecified; G47.33 Obstructive sleep apnea (adult) (pediatric); F32.9 Major depressive disorder, single episode, unspecified; E78.5 Hyperlipidemia, unspecified; E11.65 Type 2 diabetes mellitus with hyperglycemia; Z23 Encounter for immunization; Z88.5 Allergy status to narcotic agent; Z79.899 Other long term (current) drug therapy; Z78.1 Physical restraint status; Z98.51 Tubal ligation status; Z90.710 Acquired absence of both cervix and uterus; Z99.81 Dependence on supplemental oxygen; Z90.49 Acquired absence of other specified parts of digestive tract; Z91.09 Other allergy status, other than to drugs and biological substances; Z79.4 Long term (current) use of insulin; Z91.14 Patient's other noncompliance with medication regimen
CPT/HCPCS: 31500; 36415; 36416; 51702; 70450; 71045; 80048; 80053; 80202; 82553; 82805; 83605; 84484; 85007; 85025; 85027; 87070; 87205; 87449; 87635; 87899; 93005; 94002; 94003; 94640; 96365; 96375; J0360; J0692; J1650; J1815; J2060; J2270; J2704; J2920; J3010; J3370; J3490; J7050; J7512; J7611; J7620; S0028; U0003

== ENCOUNTER 2019-11-06 14:33 | Emergency (ER) | payer MEDICARE, BC, OTHER ==
[2019-11-06 16:54] LABS: #Basophils 0.1 thou/uL (0.0-0.2); #Eosinphils 0.1 thou/uL (0.0-0.7); #Lymphocytes 2.4 thou/uL (1.20-3.40); #Monocytes 0.7 thou/uL (0.11-0.59); #Neutrophils 5.3 thou/uL (1.40-6.50); %Basophils 0.8 % (0.0-1.0); %Eosinophils 1.6 % (0.0-10.0); %Lymphocytes 28.2 % (21.0-51.0); %Monocytes 8.3 % (0.0-10.0); %Neutrophils 61.2 % (42.0-75.0); Hemoglobin 13.9 g/dL (12.0-16.0); Mean Corpuscular HGB CONC 33.7 g/dL (32.0-36.0); Mean Corpuscular Hemoglobin 28.6 pg (27.0-31.0); Mean Corpuscular Volume 84.8 fL (78.0-98.0); Mean Platelet Volume 10.7 fL (7.4-10.4); Platelet Count 169 thou/uL (130-400); RBC Distribution Width 15.3 % (11.5-14.5); Red Blood Cell (RBC) Count 4.87 mill/uL (4.20-5.40); White Blood Cell (WBC) Count 8.6 thou/uL (4.8-10.8)
[2019-11-06 17:19] LABS: ALT (SGPT) 10 U/L (8-55); AST (SGOT) 18 U/L (5-34); Albumin 3.5 g/dL (3.4-4.8); Alkaline Phosphatase 124 U/L (40-110); Anion Gap 11 mmol/L (10-20); BUN (Urea Nitrogen) 17 mg/dL (9.8-20.1); Bilirubin, Total 0.4 mg/dL (0.2-1.2); CK (CPK) 54 U/L (29-168); Calc. Creatinine Clearance 0 mL/min (70-130); Calcium 8.7 mg/dL (7.8-10.44); Carbon Dioxide 28 mmol/L (23-31); Chloride 105 mmol/L (98-107); Estimated GFR-MDRD Greater than 90; Globulin 2.5 g/dL (2.4-3.5); Glucose 122 mg/dL (80-115); Potassium 3.3 mmol/L (3.5-5.1); Sodium 141 mmol/L (136-145)
== END 2019-11-06 17:47 | disposition home or self-care (01) ==
LOC: ERS 14:33
DX: R25.1 Tremor, unspecified (principal); E11.40 Type 2 diabetes mellitus with diabetic neuropathy, unspecified; I10 Essential (primary) hypertension; J44.9 Chronic obstructive pulmonary disease, unspecified; D68.9 Coagulation defect, unspecified; F41.9 Anxiety disorder, unspecified; F32.9 Major depressive disorder, single episode, unspecified; Z87.891 Personal history of nicotine dependence; Z79.51 Long term (current) use of inhaled steroids; Z79.899 Other long term (current) drug therapy; Z79.4 Long term (current) use of insulin
CPT/HCPCS: 36415; 80053; 82550; 84443; 85025; 93005

== ENCOUNTER 2019-12-04 18:02 | Inpatient (IN) | payer MEDICARE, BC, OTHER ==
[~2019-12-04 18:02] MED LIST changes: -ISOVUE-370 76%-LOCM 1 ML ONE; +Iopamidol 370 76% 100 ML VIAL ONE
--- NOTE | 2019-12-04 19:01 | RAD ---
Chest AP view INDICATION: Chest pain COMPARISON: October 06, 2019 single view of the chest FINDINGS: Lungs: There is patchy airspace opacity within the right lung base suspicious for pneumonia Cardiac silhouette: There is stable mild cardiomegaly. There is stable vascular opacification of the aortic arch Pulmonary vasculature: Normal Pleural spaces: No pleural effusion or pneumothorax is demonstrated. Upper abdomen: No abnormality seen. Osseous structures: No acute osseous abnormality. Additional findings: None. IMPRESSION: New patchy airspace opacity in the right lower lobe suspicious for pneumonia. Stable mild cardiomegaly
[2019-12-04 19:17] LABS: #Basophils 0.1 thou/uL (0.0-0.2); #Eosinphils 0.1 thou/uL (0.0-0.7); #Lymphocytes 2.2 thou/uL (1.20-3.40); #Monocytes 0.9 thou/uL (0.11-0.59); #Neutrophils 6.3 thou/uL (1.40-6.50); %Basophils 0.8 % (0.0-1.0); %Eosinophils 0.9 % (0.0-10.0); %Lymphocytes 22.6 % (21.0-51.0); %Monocytes 9.4 % (0.0-10.0); %Neutrophils 66.3 % (42.0-75.0); Hemoglobin 15.1 g/dL (12.0-16.0); Mean Corpuscular HGB CONC 31.4 g/dL (32.0-36.0); Mean Corpuscular Hemoglobin 27.9 pg (27.0-31.0); Mean Platelet Volume 9.6 fL (7.4-10.4); Platelet Count 239 thou/uL (130-400); RBC Distribution Width 14.7 % (11.5-14.5); Red Blood Cell (RBC) Count 5.42 mill/uL (4.20-5.40); White Blood Cell (WBC) Count 9.6 thou/uL (4.8-10.8)
[2019-12-04 19:38] LABS: ALT (SGPT) 12 U/L (8-55); AST (SGOT) 15 U/L (5-34); Albumin 3.8 g/dL (3.4-4.8); Alkaline Phosphatase 182 U/L (40-110); BUN (Urea Nitrogen) 12 mg/dL (9.8-20.1); Bilirubin, Total 0.4 mg/dL (0.2-1.2); Calc. Creatinine Clearance 0 mL/min (70-130); Calcium 9.1 mg/dL (7.8-10.44); Estimated GFR-MDRD 89; Globulin 3.1 g/dL (2.4-3.5); Glucose 296 mg/dL (80-115); Lipase 24 U/L (8-78); Magnesium 1.8 mg/dL (1.6-2.6); Phosphorus 3.8 mg/dL (2.3-4.7); Protein, Total 6.9 g/dL (6.0-8.3)
[2019-12-04 19:47] LABS: Anion Gap 15 mmol/L (10-20); Carbon Dioxide 39 mmol/L (23-31); Chloride 92 mmol/L (98-107); Potassium 4.2 mmol/L (3.5-5.1); Sodium 142 mmol/L (136-145)
[2019-12-04 19:51] LABS: Actual Bicarbonate (HCO3a) 50.5 mEq/L (22-28); Analyzer IN Cardio ER; Base Excess (BEa) 14.8 mEq/L (-2.0 to +3.0); Calcium, Ionized (arterial) 1.18 mmol/L (1.12-1.30); Carboxyhemoglobin (COHb) 4.5 gm% (0.0-3.0); Hemoglobin (Hb) 15.3 g/dL (12.0-16.0); O2 Tension (PaO2), arterial 137.4 mmHg (> 80.0); Potassium - ABG Lab 4.03 mmol/L (3.70-5.30)
[2019-12-04 19:52] LABS: CO2 Tension 141.2 mmHg (35.0-45.0); pH, Arterial 7.17 (7.35-7.45)
[2019-12-04 19:53] LABS: Puncture Site RRA
[2019-12-04] MEDS ORDERED: Rocuronium Bromide 10 MG/ML (10ML VIAL) ONE (19:59)
[2019-12-04] MEDS ORDERED: Albuterol Sulfate 2.5 mg/0.5 ml Neb ONE ×2 (20:18)
[2019-12-04] MEDS ORDERED: Cefepime 2 GM VIAL ONE (20:19)
[2019-12-04] MEDS ORDERED: Magnesium 2 GM/50 ML BAG (IN WATER) ONE (20:19)
[2019-12-04] MEDS ORDERED: Dexamethasone 10 MG/ML VIAL ONE (20:21)
--- NOTE | 2019-12-04 20:26 | RAD ---
Chest AP view INDICATION: Intubation COMPARISON: December 04, 2019 at 6:49 PM single view chest radiograph FINDINGS: Lungs: Patchy airspace opacity within the right lower lobe are less prominent but there is improved aeration. Cardiac silhouette: Heart size appears within normal limits. Pulmonary vasculature: Normal Pleural spaces: No pleural effusion or pneumothorax is demonstrated. Upper abdomen: No abnormality seen. Osseous structures: No acute osseous abnormality. Additional findings: Patient is intubated with the ET tube tip seen 5.7 cm from the level of the car kenan. Gastric catheter projects below the left hemidiaphragm and beyond the [id number] IMPRESSION: Interval intubation and gastric catheter placement. Improved aeration of the right lower lobe with some residual airspace opacities of the right lower lo be. Follow-up is recommended.
[2019-12-04 20:34] LABS: Bacteria/HPF None Seen HPF (None Seen); Bilirubin Negative (Negative); Blood, Urine Negative (Negative); Clarity Clear (Clear); Glucose, Urine (Dipstick) Greater than 1000 mg/dL (Negative); Ketone, Urine Negative (Negative); Leukocyte 25 Leu/uL (Negative); Nitrite Negative (Negative); Protein, Urine (Dipstick) 100 mg/dL (Neg-Trace); RBC/HPF 0-3 HPF (0-3); Specific Gravity, Urine 1.027 (1.002-1.036); Squamous Epithelial 0-3 HPF (0-3); Urobilinogen Normal mg/dL (Less than 2)
[2019-12-04 20:53] LABS: Actual Bicarbonate (HCO3a) 41.1 mEq/L (22-28); Analyzer IN Cardio ER; Base Excess (BEa) 12.2 mEq/L (-2.0 to +3.0); Calcium, Ionized (arterial) 1.08 mmol/L (1.12-1.30); Carboxyhemoglobin (COHb) 4.1 gm% (0.0-3.0); Hemoglobin (Hb) 15.2 g/dL (12.0-16.0); O2 Tension (PaO2), arterial 150.7 mmHg (> 80.0); Potassium - ABG Lab 3.63 mmol/L (3.70-5.30); pH, Arterial 7.37 (7.35-7.45)
[2019-12-04 20:54] LABS: CO2 Tension 72.3 mmHg (35.0-45.0); Puncture Site RRA
[2019-12-04 20:55] LABS: ALV-art Gradient 44.125 (0-20)
[2019-12-04] MEDS ORDERED: Rocuronium Bromide 50 MG/5 ML VIAL ONE ×2 (21:46→21:47)
[2019-12-04] MEDS ORDERED: Vancomycin 1 GM/200 ML BAG ONE (22:09)
--- NOTE | 2019-12-04 22:19 | RAD ---
Chest AP view INDICATION: Change in status COMPARISON: December 04, 2019 8:20 PM FINDINGS: Lungs: There is diffuse interstitial prominence. Right basilar opacity appears less prominent possib ly related to improved aeration. No confluent airspace opacity is evident. Cardiac silhouette: Mild cardiomegaly is stable Pulmonary vasculature: Normal Pleural spaces: No pleural effusion or pneumothorax is demonstrated. Upper abdomen: No abnormality seen. Osseous structures: No acute osseous abnormality. Additional findings: ET tube gastric catheter are unchanged. IMPRESSION: Diffuse interstitial prominence is nonspecific. Findings may reflect atypical infectious processes or interstitial edema.. There is improved aeration the right lung base with less prominence of the right basilar opacity seen on the prior exams. This is likely related to improved aeration. Mild cardiomegaly is stable
--- NOTE | 2019-12-04 22:41 | CT ---
CT Brain WO Con: 12/04/2019 12:00 AM CLINICAL HISTORY: Altered mental status and generalized weakness. IMAGING TECHNIQUE: Multiple CT images were obtained of the brain without IV contrast. COMPARISON: October 03, 2019 CT the brain FINDINGS: BRAIN: Evidence of acute infarct: None. Evidence of chronic ischemic change:None. Evidence of intracranial hemorrhage: None. Evidence of midline shift: Third ventricle and septum pellucidum are midline. Ventricles: Normal. No hydrocephalus. SKULL: Intact. VISUALIZED PARANASAL SINUSES: Mild mucosal thickening of the ethmoid air cells. MASTOID AIR CELLS: Clear. EXTRACRANIAL SOFT TISSUES: Normal. IMPRESSION: No acute intracranial abnormality.
[2019-12-04] MEDS ORDERED: Ondansetron ODT 4 MG TAB SL PRN (22:50)
[2019-12-04] MEDS ORDERED: Sodium Chloride 0.9% 1,000 ML IV SCH (22:50)
[2019-12-04] MEDS ORDERED: Ondansetron PF 4 MG/2 ML Vial IVP PRN (22:50)
[2019-12-04] MEDS ORDERED: Fentanyl BOLUS 250 ML IVPB PRN (22:53)
[2019-12-04] MEDS ORDERED: DISCONTINUE PREVIOUS NARCOTIC PAIN MEDICATIONS AND BENZODIAZEPINES FS SCH (22:53)
[2019-12-04] MEDS ORDERED: Propofol BOLUS 1,000 MG/100 ML VIAL IV PRN (22:53)
[2019-12-04] MEDS ORDERED: Morphine 2 MG/ML VIAL SLOW IVP PRN (22:53)
[2019-12-04] MEDS ORDERED: Lorazepam 2 MG/ML VIAL SLOW IVP PRN (22:53)
--- NOTE | 2019-12-04 22:53 | CT ---
CTA Angio Chest W WO Con 12/04/2019 12:00 AM Indication: Altered mental status, generalized weakness and respiratory distress Technique: Multiple CTA images were obtained of the thorax with IV contrast. 3-D rendering: MIP cecilia nstructed images were created and reviewed. Comparison: CTA of the chest dated August 07, 2019 and October 26, 2017 Findings: Pulmonary arteries: No central or segmental pulmonary embolus is evident. Heart and Aorta: There are thoracic aorta and coronary artery calcifications Mediastinum:Mildly prominent prevascular, pretracheal and bilateral hilar lymph nodes are stable Lungs:There is a stable benign 5 mm pulmonary nodule in the right middle lobe. There are areas of sca ttered subsegmental volume loss within both lungs. Pleural space: Clear. Upper Abdomen: There are stable bilateral adrenal masses that is been stable since 2018. These were demonstrated as adenomas on a prior CT abdomen and pelvis dated May 05, 2016 Osseous Structures: No acute osseous abnormality. Soft tissues:No abnormality. Other findings:Patient is intubated with gastric catheter placement. Impression: 1. No central or segmental pulmonary embolus 2. Nonspecific areas of scattered subsegmental volume loss. 3. Stable bilateral adrenal adenomas 4. Stable mildly prominent mediastinal and bilateral hilar lymph nodes
[2019-12-04 23:30] VITALS: BMI 26.6
[2019-12-05] MEDS ORDERED: Dextrose 5% in Water 1,000 ML IV PRN (01:11)
[2019-12-05] MEDS ORDERED: Dextrose 50% Abboject 50 ML SYRINGE SLOW IVP PRN (01:11)
[2019-12-05] MEDS: Sodium Chloride 0.9% 1,000 ML IV SCH ×2 (01:27→14:25)
[2019-12-05 02:01] LABS: #Basophils 0.1 thou/uL (0.0-0.2); #Lymphocytes 0.8 thou/uL (1.20-3.40); #Monocytes 0.3 thou/uL (0.11-0.59); %Basophils 0.5 % (0.0-1.0); %Eosinophils 0.2 % (0.0-10.0); %Lymphocytes 7.5 % (21.0-51.0); %Monocytes 3.1 % (0.0-10.0); %Neutrophils 88.8 % (42.0-75.0); Hemoglobin 14.1 g/dL (12.0-16.0); Mean Corpuscular HGB CONC 31.2 g/dL (32.0-36.0); Mean Corpuscular Hemoglobin 27.5 pg (27.0-31.0); Mean Corpuscular Volume 88.2 fL (78.0-98.0); Mean Platelet Volume 9.8 fL (7.4-10.4); Platelet Count 201 thou/uL (130-400); RBC Distribution Width 14.7 % (11.5-14.5); Red Blood Cell (RBC) Count 5.13 mill/uL (4.20-5.40); White Blood Cell (WBC) Count 10.2 thou/uL (4.8-10.8)
[2019-12-05 02:28] LABS: BUN (Urea Nitrogen) 12 mg/dL (9.8-20.1); Calc. Creatinine Clearance 119 mL/min (70-130); Calcium 8.7 mg/dL (7.8-10.44); Estimated GFR-MDRD Greater than 90; Glucose 323 mg/dL (80-115)
[2019-12-05 02:29] LABS: Troponin I Less than 0.010 ng/mL (< 0.028)
--- NOTE | 2019-12-05 02:31 | HP ---
REASON FOR ADMISSION: Respiratory failure. HISTORY OF PRESENT ILLNESS: This is a 63-year-old female patient who presented to the emergency room with elevated blood sugar level, also appears to be very lethargic, needed repeated stimulation for communication. She was noted to be wheezing and subsequently got intubated. Her ABG showed a pH of 7.17 and a pCO2 of 141. Currently, she is in the intensive care unit and appears to be comfortable and doing well. Reviewing her records, the patient was recently admitted to the hospital in August for [id number] COPD exacerbation and in the past also did require to be intubated. During her last stay, she was diagnosed with non-ST elevation MN type 2 secondary to demand ischemia. Her COVID was negative, she was on BiPAP. A Cardiolite stress test showed no evidence of reversible or fixed ischemia and her EF was 77%. PAST MEDICAL HISTORY: 1. COPD, on oxygen. 2. History of influenza A. 3. Obstructive sleep apnea. 4. Diabetes, type 2. 5. Anxiety disorder. 6. Depression. 7. Status post bilateral tubal ligation. 8. Hysterectomy. 9. Right shoulder repair. 10. Cholecystectomy. 11. Bilateral carpal tunnel release. SOCIAL HISTORY: She smokes half a pack on a daily basis. Does not drink alcohol. ALLERGIES: HYDROCODONE. FAMILY HISTORY: Positive for cancer. REVIEW OF SYSTEMS: Unable to perform. She is intubated. PHYSICAL EXAMINATION: GENERAL: She is intubated, sedated. NECK: Supple. No adenopathy. No murmur. Thyroid is not palpable. Trachea is midline. No supraclavicular adenopathy. HEART: S1, S2 regular. No murmur. No gallops. No friction rubs. No displacement of PMI. LUNGS: Clear to auscultation bilaterally. No wheezes, rhonchi, or crackles. ABDOMEN: Bowel sounds are positive. Nontender abdomen. No visceromegaly. EXTREMITIES: No lower extremity edema. No cyanosis. NEUROLOGICAL: Unable to perform. She is sedated. LABORATORY DATA: Blood work shows WBC of 9.6, hemoglobin of 15.1, platelets of 239. D-dimer 0.45. Sodium 142, potassium 4.2, bicarb of 39, BUN 12, creatinine 0.67, glucose 296, alkaline phosphatase 182. Troponin less than 0.01, repeat 0.02. Urinalysis does not show any evidence of infection. IMAGING: A CT of the chest showed nonspecific area of scattered subsegmental volume loss. Stable bilateral adrenal adenoma. Stable mildly prominent mediastinal and bilateral hilar lymph nodes. No PE. ASSESSMENT AND PLAN: This is a 63-year-old female patient who is presenting with recurrence of her chronic obstructive pulmonary disease exacerbation and change in mental status, requiring to be intubated. Currently, she is in the ICU on the ventilator. Pulmonary: The patient will be on IV Solu-Medrol, on IV cefepime, vancomycin and on nebulizer treatments. Pulmonary consultation was placed by the ER physician. Cardiac: The patient has high blood pressure, provided with blood pressure control. In regard to her diabetes, she will be on insulin sliding scale. For deep venous thrombosis prophylaxis, she will be on Lovenox. I am waiting for med rec to be done to reconcile her medications. Job ID: [id number]
[2019-12-05 02:38] LABS: Anion Gap 16 mmol/L (10-20); Carbon Dioxide 34 mmol/L (23-31); Chloride 94 mmol/L (98-107); Potassium 4.4 mmol/L (3.5-5.1); Sodium 140 mmol/L (136-145)
[2019-12-05] MEDS: HumaLOG 300 UNITS/3 ML VIAL SC PRN ×5 (03:05→23:57)
[2019-12-05] MEDS: Cefepime 2 GM in Sodium Chloride 0.9% 100 ML IVPB SCH ×3 (03:35→19:53)
[2019-12-05] MEDS: methylPREDNISolone Sod Succ 40 MG VIAL IVP SCH ×4 (05:56→22:59)
[2019-12-05] MEDS: Bacteriostatic Water 30 ML VIAL FS PRN (05:56)
[2019-12-05 07:21] LABS: Actual Bicarbonate (HCO3a) 31.9 mEq/L (22-28); Base Excess (BEa) 7.5 mEq/L (-2.0 to +3.0); CO2 Tension 43.7 mmHg (35.0-45.0); Calcium, Ionized (arterial) 1.15 mmol/L (1.12-1.30); Carboxyhemoglobin (COHb) 1.2 gm% (0.0-3.0); Hemoglobin (Hb) 13.7 g/dL (12.0-16.0); Potassium - ABG Lab 3.96 mmol/L (3.70-5.30); pH, Arterial 7.48 (7.35-7.45)
[2019-12-05 07:49] LABS: Puncture Site RR
[2019-12-05 07:50] LABS: ALV-art Gradient 159.575 (0-20)
[2019-12-05] MEDS ORDERED: Dexamethasone 10 MG/ML VIAL SLOW IVP SCH (08:00)
[2019-12-05] MEDS: Enoxaparin Sodium 40 MG/0.4 ML SYRINGE SC SCH (08:50)
[2019-12-05] MEDS: Vancomycin HCl 1.25 GM in Sodium Chloride 0.9% 250 ML 250 ML IVPB SCH ×2 (08:51→20:51)
[2019-12-05] MEDS ORDERED: Vancomycin HCl 1 GM in Sodium Chloride 0.9% 250 ML 250 ML IVPB SCH (10:00)
[2019-12-05] MEDS: fentaNYL Citrate/PF 2,000 MCG in Sodium Chloride 0.9% 60 ML IV SCH (12:37)
--- NOTE | 2019-12-05 13:25 | PDOC.HOSPP ---
- Subjective Encounter Date: 12/05/19 Subjective: pt seen examined in icu , shes intubated however able to follow commands no sign overnight event pt remained afebrile - Objective Vital Signs & Weight: Vital Signs (12 hours) Temp Pulse Resp BP Pulse Ox 12/05/19 13:16 76 14 95 12/05/19 12:00 98.9 F 12/05/19 10:45 81 95/52 L 12/05/19 10:00 16 12/05/19 09:23 91 16 99 12/05/19 08:00 16 96 12/05/19 07:25 91 95/53 L 12/05/19 07:00 99.1 F 12/05/19 06:00 16 12/05/19 04:00 16 12/05/19 02:57 88 16 98 12/05/19 02:00 16 Weight Weight 169 lb 15.622 oz Most Recent Monitor Data Heart Rate from ECG 81 NIBP 108/52 NIBP BP-Mean 70 Respiration from ECG 15 SpO2 96 I&O: 12/04/19 12/05/19 12/06/19 06:59 06:59 06:59 Intake Total 474.5 Output Total 410 110 Balance 64.5 -110 Result Diagrams: 12/05/19 01:51 12/05/19 01:51 Additional Labs: Accuchecks 12/04/19 18:20 POC Glucose 268 H Hospitalist ROS - Medication Medications: Active Medications Generic Name Dose Route Start Last Admin Trade Name Freq PRN Reason Stop Dose Admin Albuterol/Ipratropium 3 ml 12/05/19 07:00 12/05/19 13:16 Duoneb NEB 3 ml [id number] REYNA Administration Enoxaparin Sodium 40 mg 12/05/19 09:00 12/05/19 08:50 Lovenox SC 40 mg 0900 REYNA Administration Fentanyl Citrate 2,000 mcg/ 100 mls @ 0 mls/hr 12/04/19 20:16 12/05/19 12:37 Sodium Chloride IV 01/03/20 20:16 100 mls INF REYNA Administration Protocol Per Protocol Cefepime HCl 2 gm/ Sodium 100 mls @ 200 mls/hr 12/05/19 04:00 12/05/19 12:41 Chloride IVPB 100 mls 0400,1200,2000 REYNA Administration Vancomycin HCl 1.25 gm/ Sodium 250 mls @ 166.667 mls/hr 12/05/19 09:00 08:51 Chloride IVPB 250 mls Q12HR REYNA Administration Sodium Chloride 1,000 mls @ 75 mls/hr 12/05/19 01:21 12/05/19 01:27 Normal Saline 0.9% IV 1,000 mls .[id number] REYNA Administration Insulin Human Lispro 0 units 12/05/19 01:11 12/05/19 06:21 Humalog SC 6 unit .MODERATE SLIDING SC PRN Administration Moderate Correctional Scale Methylprednisolone Sodium Succinate 40 mg 12/05/19 06:00 12/05/19 12:42 Solu-Medrol IVP 40 mg Q6HR REYNA Administration Sodium Chloride 10 ml 12/05/19 09:00 12/05/19 08:55 Flush - Normal Saline IVF 10 ml Q12HR REYNA Administration Sterile Water 1 ml 12/05/19 01:10 12/05/19 05:56 Bacteriostatic Water FS 1 ml PRN PRN Administration RECONSTITUTION - Exam General Appearance: awake alert General - other findings: intubated Neck: supple Heart: RRR Respiratory: wheezes Gastrointestinal: soft, non-tender Extremities: no cyanosis Skin: normal turgor Hosp A/P (1) Acute and chronic respiratory failure with hypoxia Code(s): J96.21 - ACUTE AND CHRONIC RESPIRATORY FAILURE WITH HYPOXIA Status: Acute (2) Acute bronchitis Code(s): J20.9 - ACUTE BRONCHITIS, UNSPECIFIED Status: Acute (3) COPD exacerbation Code(s): J44.1 - CHRONIC OBSTRUCTIVE PULMONARY DISEASE W (ACUTE) EXACERBATION Status: Acute (4) DM type 2 (diabetes mellitus, type 2) Status: Chronic Qualifiers: (5) HTN (hypertension) Code(s): I10 - ESSENTIAL (PRIMARY) HYPERTENSION Status: Chronic Qualifiers: (6) Obesity (BMI 30.0-34.9) Code(s): E66.9 - OBESITY, UNSPECIFIED Status: Chronic - Plan pt s/p intubation doing better this am following commands mechanical vent as per icu wean off as tolerated cont in solumedrol , cefeppime and vanc duo nebs and follow pulm recs moniotr finger stick and bp and ajust meds as needed dvt ppx full code dispotion based on clinical course 1-2 days
[2019-12-05 14:21] LABS: #Lymphocytes 1.2 thou/uL (1.20-3.40); #Monocytes 0.6 thou/uL (0.11-0.59); #Neutrophils 8.6 thou/uL (1.40-6.50); %Basophils 0.3 % (0.0-1.0); %Eosinophils 0.1 % (0.0-10.0); %Lymphocytes 11.4 % (21.0-51.0); %Monocytes 5.4 % (0.0-10.0); %Neutrophils 82.8 % (42.0-75.0); Hemoglobin 13.3 g/dL (12.0-16.0); Mean Corpuscular HGB CONC 31.5 g/dL (32.0-36.0); Mean Corpuscular Hemoglobin 27.4 pg (27.0-31.0); Mean Corpuscular Volume 87.3 fL (78.0-98.0); Platelet Count 205 thou/uL (130-400); RBC Distribution Width 14.7 % (11.5-14.5); Red Blood Cell (RBC) Count 4.86 mill/uL (4.20-5.40); White Blood Cell (WBC) Count 10.4 thou/uL (4.8-10.8)
[2019-12-05 14:38] LABS: Anion Gap 11 mmol/L (10-20); BUN (Urea Nitrogen) 17 mg/dL (9.8-20.1); Calc. Creatinine Clearance 127 mL/min (70-130); Calcium 8.7 mg/dL (7.8-10.44); Carbon Dioxide 34 mmol/L (23-31); Chloride 99 mmol/L (98-107); Estimated GFR-MDRD Greater than 90; Glucose 205 mg/dL (80-115); Potassium 4.1 mmol/L (3.5-5.1); Sodium 140 mmol/L (136-145)
[2019-12-05] MEDS: hydrALAZINE 20 MG/ML VIAL SLOW IVP PRN (22:48)
[2019-12-05] MEDS: Propofol 1,000 MG/100 ML VIAL IV PRN (23:48)
--- NOTE | 2019-12-06 00:51 | CON ---
DATE OF CONSULTATION: 12/05/2019 HISTORY OF PRESENT ILLNESS: Anne Colunga is a 63-year-old female, who presented to the emergency room with altered mental status and subsequently was intubated. I was consulted for ICU management. PAST MEDICAL HISTORY: Remarkable for: 1. COPD. 2. Ongoing tobacco use. 3. Sleep apnea. 4. Diabetes. 5. Depression. 6. History of tubal ligation and hysterectomy. 7. History of shoulder surgery. 8. Cholecystectomy. 9. History of carpal tunnel surgery. SOCIAL HISTORY: She is still a smoker. Does not drink. ALLERGIES: REPORTS ALLERGIES TO HYDROCODONE. FAMILY HISTORY: Positive for cancer. Negative for lung disease in early age. REVIEW OF SYSTEMS: Otherwise negative. PHYSICAL EXAMINATION: GENERAL: She is sedated. VITAL SIGNS: Blood pressure 120/63, heart rate 80, and respiratory rate 18. HEAD AND NECK: Unremarkable. LUNGS: Clear. HEART: Regular rhythm. ABDOMEN: Soft. EXTREMITIES: Without clubbing, cyanosis, or edema. NEUROLOGIC: Nonfocal. LABORATORY DATA: White count 10.4, hemoglobin 13.3, platelets 205. Electrolytes are unremarkable other than a bicarb 34, glucose is elevated. IMPRESSION: Respiratory failure secondary to chronic obstructive pulmonary disease exacerbation, combined with obesity hypoventilation syndrome. PLAN: Continue supportive care. She is not weanable at this point. CRITICAL CARE TIME: 30 minutes. Job ID: [id number] MTDD
[2019-12-06] MEDS: Sodium Chloride 0.9% 1,000 ML IV SCH ×2 (04:36→17:47)
[2019-12-06] MEDS: Cefepime 2 GM in Sodium Chloride 0.9% 100 ML IVPB SCH ×3 (04:36→20:22)
[2019-12-06] MEDS: methylPREDNISolone Sod Succ 40 MG VIAL IVP SCH ×3 (05:50→17:47)
[2019-12-06] MEDS: HumaLOG 300 UNITS/3 ML VIAL SC PRN ×3 (05:51→17:49)
[2019-12-06] MEDS: Propofol 1,000 MG/100 ML VIAL IV PRN ×3 (09:08→22:13)
[2019-12-06] MEDS: Enoxaparin Sodium 40 MG/0.4 ML SYRINGE SC SCH (09:08)
[2019-12-06] MEDS: fentaNYL Citrate/PF 2,000 MCG in Sodium Chloride 0.9% 60 ML IV SCH ×2 (09:23→23:30)
[2019-12-06 09:31] LABS: Vancomycin, Trough 6.6 ug/mL
[2019-12-06] MEDS: Vancomycin HCl 1.25 GM in Sodium Chloride 0.9% 250 ML 250 ML IVPB SCH (11:51)
--- NOTE | 2019-12-06 12:14 | PRG ---
DATE OF SERVICE: 12/06/2019 SUBJECTIVE: Anne Colunga is in no distress. OBJECTIVE: VITAL SIGNS: Heart rate in the 70s, blood pressure 106/55, respiratory rates in the teens, oximetry is 97%. Intake and outputs positive 1613. LUNGS: Remarkable for distant wheezes. HEART: Regular rhythm. ABDOMEN: Soft. EXTREMITIES: Without edema. LABORATORY DATA: White count 10.4, hemoglobin 13.3, platelets 205. Sodium 140, potassium 4.1, chloride 99, bicarb 34, BUN 17, creatinine 0.55. IMPRESSION: 1. Chronic obstructive pulmonary disease exacerbation with respiratory failure. 2. Chronic hypoxemic hypercarbic respiratory failure. 3. Noncompliance with smoking cessation. 4. She will continue with mechanical ventilation because of her long expiratory phase. Gradual weaning of mechanical ventilation over the weekend will be the goal. Hopefully, she will be a candidate for extubation early next week. CRITICAL CARE TIME: 30 minutes. Job ID: [id number]
--- NOTE | 2019-12-06 12:17 | PDOC.HOSPP ---
- Subjective Encounter Date: 12/06/19 Subjective: Patient seen and examined at bedside this morning remains intubated on mechanical ventilation following some simple commands no significant overnight events patient remained afebrile - Objective Vital Signs & Weight: Vital Signs (12 hours) Temp Pulse Resp BP Pulse Ox 12/06/19 10:00 76 12 12/06/19 08:00 98.9 F 12 96 12/06/19 07:18 91 12/06/19 07:17 85 24 H 100 12/06/19 06:00 12 12/06/19 04:00 98.9 F 12 12/06/19 02:13 91 138/59 L 12/06/19 02:00 12 12/06/19 00:29 103 H 130/64 12/06/19 00:26 103 H 16 94 L Weight Admit Weight 169 lb 15.622 oz Weight 169 lb 15.622 oz Most Recent Monitor Data Heart Rate from ECG 75 NIBP 97/54 NIBP BP-Mean 68 Respiration from ECG 16 SpO2 97 I&O: 12/05/19 12/06/19 12/07/19 06:59 06:59 06:59 Intake Total 474.5 2443.2 Output Total 410 830 145 Balance 64.5 1613.2 -145 Result Diagrams: 12/05/19 13:43 12/05/19 13:43 Additional Labs: Accuchecks 12/06/19 12/05/19 12/05/19 05:53 23:48 17:17 POC Glucose 230 H 198 H 222 H 12/05/19 12/05/19 12:05 06:23 POC Glucose 232 H 257 H Hospitalist ROS - Medication Medications: Active Medications Generic Name Dose Route Start Last Admin Trade Name Freq PRN Reason Stop Dose Admin Albuterol/Ipratropium 3 ml 12/05/19 07:00 12/06/19 07:17 Duoneb NEB 3 ml [id number] REYNA Administration Enoxaparin Sodium 40 mg 12/05/19 09:00 12/06/19 09:08 Lovenox SC 40 mg 0900 REYNA Administration Hydralazine HCl 10 mg 12/05/19 01:10 12/05/19 22:48 Apresoline SLOW IVP 10 mg Q4H PRN Administration Hypertension Fentanyl Citrate 2,000 mcg/ 100 mls @ 0 mls/hr 12/04/19 20:16 12/06/19 09:23 Sodium Chloride IV 01/03/20 20:16 100 mls INF REYNA Administration Protocol Per Protocol Cefepime HCl 2 gm/ Sodium 100 mls @ 200 mls/hr 12/05/19 04:00 12/06/19 11:46 Chloride IVPB 100 mls 0400,1200,2000 REYNA Administration Sodium Chloride 1,000 mls @ 75 mls/hr 12/05/19 01:21 12/06/19 04:36 Normal Saline 0.9% IV 1,000 mls .[id number] REYNA Administration Insulin Human Lispro 0 units 12/05/19 01:11 12/06/19 09:17 Humalog SC 4 unit .MODERATE SLIDING SC PRN Administration Moderate Correctional Scale Methylprednisolone Sodium Succinate 40 mg 12/05/19 06:00 12/06/19 11:46 Solu-Medrol IVP 40 mg Q6HR REYNA Administration Propofol 1,000 mg 12/04/19 22:53 12/06/19 09:08 Diprivan IV 01/03/20 22:53 1,000 mg INF PRN Administration TO ACHIEVE GOAL RASS Protocol Sodium Chloride 10 ml 12/05/19 09:00 12/06/19 09:08 Flush - Normal Saline IVF 10 ml Q12HR REYNA Administration Sterile Water 1 ml 12/05/19 01:10 12/05/19 05:56 Bacteriostatic Water FS 1 ml PRN PRN Administration RECONSTITUTION - Exam General Appearance: awake alert General - other findings: Currently intubated on mechanical ventilation Neck: supple, symmetric Heart: RRR, no murmur Respiratory: tachypneic, wheezes Gastrointestinal: soft, non-tender Extremities: no cyanosis Hosp A/P (1) Acute and chronic respiratory failure with hypoxia Code(s): J96.21 - ACUTE AND CHRONIC RESPIRATORY FAILURE WITH HYPOXIA Status: Acute (2) Acute bronchitis Code(s): J20.9 - ACUTE BRONCHITIS, UNSPECIFIED Status: Acute (3) COPD exacerbation Code(s): J44.1 - CHRONIC OBSTRUCTIVE PULMONARY DISEASE W (ACUTE) EXACERBATION Status: Acute (4) DM type 2 (diabetes mellitus, type 2) Status: Chronic Qualifiers: (5) HTN (hypertension) Code(s): I10 - ESSENTIAL (PRIMARY) HYPERTENSION Status: Chronic Qualifiers: (6) Obesity (BMI 30.0-34.9) Code(s): E66.9 - OBESITY, UNSPECIFIED Status: Chronic - Plan pt s/p intubation remains on mechanical ventilation possible wean off after the weekend will follow further pulmonology critical care input Meanwhile cont in solumedrol , cefeppime and vanc duo nebs and follow pulm recs moniotr finger stick and bp and ajust meds as needed dvt ppx full code dispotion based on clinical course 2-3 days
[2019-12-06] MEDS: Vancomycin 1.5 GRAM/300 ML BAG 1.5 GM in Premix Bag 1 BAG IVPB SCH ×2 (13:06→22:13)
[2019-12-07] MEDS: methylPREDNISolone Sod Succ 40 MG VIAL IVP SCH ×4 (00:08→17:33)
[2019-12-07] MEDS: HumaLOG 300 UNITS/3 ML VIAL SC PRN ×5 (00:08→20:52)
[2019-12-07] MEDS: Cefepime 2 GM in Sodium Chloride 0.9% 100 ML IVPB SCH ×3 (03:24→19:45)
[2019-12-07 04:37] LABS: Anion Gap 12 mmol/L (10-20); BUN (Urea Nitrogen) 26 mg/dL (9.8-20.1); Band 2 % (5-11); Calc. Creatinine Clearance 131 mL/min (70-130); Calcium 8.6 mg/dL (7.8-10.44); Carbon Dioxide 30 mmol/L (23-31); Chloride 102 mmol/L (98-107); Estimated GFR-MDRD Greater than 90; Glucose 205 mg/dL (80-115); Lymphocytes 4 % (21-51); MDiff Complete? YES; Magnesium 1.9 mg/dL (1.6-2.6); Mean Corpuscular HGB CONC 32.6 g/dL (32.0-36.0); Mean Corpuscular Hemoglobin 28.1 pg (27.0-31.0); Mean Corpuscular Volume 86.2 fL (78.0-98.0); Mean Platelet Volume 10.1 fL (7.4-10.4); Monocytes 4 % (0-10); Neutrophil 90 % (42-75); Platelet Count 202 thou/uL (130-400); Platelet Morphology Comment Appears Adequate; RBC Distribution Width 15.1 % (11.5-14.5); RBC Morphology Normal; Red Blood Cell (RBC) Count 4.61 mill/uL (4.20-5.40); Sodium 140 mmol/L (136-145)
[2019-12-07] MEDS: Propofol 1,000 MG/100 ML VIAL IV PRN ×3 (04:54→18:38)
[2019-12-07] MEDS: Sodium Chloride 0.9% 1,000 ML IV SCH ×2 (06:10→18:15)
[2019-12-07] MEDS: Enoxaparin Sodium 40 MG/0.4 ML SYRINGE SC SCH (08:32)
--- NOTE | 2019-12-07 09:01 | PRG ---
DATE OF SERVICE: 12/07/2019 TIME: 35 minutes of critical care time. SUBJECTIVE: Ms. Colunga is a patient I have known for years. She is noncompliant with smoking cessation and comes to the hospital frequently with COPD exacerbations. She has currently now been hospitalized since 12/04/2019. She remains on mechanical ventilation. PHYSICAL EXAMINATION: VITAL SIGNS: Her temperature is 98.4, pulse 72, blood pressure 112/60, and O2 saturation 95%. 24-hour intake 2120, output 1120. HEENT: Unremarkable. NECK: No adenopathy or JVD. LUNGS: Diffuse wheezes and rhonchi. CARDIAC: S1, S2. Regular. ABDOMEN: Soft. EXTREMITIES: No edema. LABORATORY DATA: ABG has not been drawn yet. White blood cell count 12, hematocrit 39.7, and platelet count 202. Sodium 140, potassium 4, chloride 102, CO2 of 30, BUN 26, creatinine 0.5, and glucose 205. IMAGING DATA: Chest x-ray shows no mass, effusion, or infiltrate. ASSESSMENT: 1. Chronic obstructive pulmonary disease with exacerbation. 2. Acute respiratory failure, requiring mechanical ventilation. PLAN: 1. Continue steroids. 2. We will increase frequency of nebulization treatments. 3. Initiate tube feeds. 4. Probably needs another day or two before considering weaning and extubation. 5. Follow up on results of ABG after they are drawn. Job ID: [id number]
--- NOTE | 2019-12-07 09:08 | RAD ---
RADIOGRAPH CHEST 1 VIEW: DATE: 12/07/2019 TIME: 4:53 AM HISTORY: 64-year-old female in respiratory distress COMPARISON: 12/04/2019 9 56pm FINDINGS: Endotracheal tube and esophagogastric tube remain. No cardiomegaly. Lateral costophrenic angles remai n sharp. No pneumothorax. New finding of vertically oriented streaky pulmonary density at right medial lung base, silhouetting a small portion of the right medial hemidiaphragm. Subtle mild haziness at right lung base. Elsewhere, no new consolidation. IMPRESSION: New mild streaky density at right lung base, perhaps subsegmental atelectasis. Recommend continued fo llow-up.
--- NOTE | 2019-12-07 10:25 | PDOC.HOSPP ---
- Subjective Encounter Date: 12/07/19 Subjective: Patient seen and examined bedside in the ICU this morning currently intubated sedated on mechanical ventilation not following commands or answering questions no significant overnight events - Objective Vital Signs & Weight: Vital Signs (12 hours) Temp Pulse Resp Pulse Ox 12/07/19 10:22 68 16 96 12/07/19 10:00 12 12/07/19 08:00 98.4 F 12 12/07/19 07:25 99 12/07/19 07:24 68 12/07/19 07:23 68 12 97 12/07/19 06:00 14 12/07/19 04:00 98.6 F 12 12/07/19 02:38 70 12/07/19 02:00 12 12/07/19 00:29 73 12 96 12/07/19 00:28 72 12/07/19 00:00 98.9 F 12 Weight Admit Weight 169 lb 15.622 oz Weight 169 lb 15.622 oz Most Recent Monitor Data Heart Rate from ECG 72 NIBP 113/52 NIBP BP-Mean 72 Respiration from ECG 9 SpO2 97 I&O: 12/06/19 12/07/19 12/08/19 06:59 06:59 06:59 Intake Total 2443.2 2120 0 Output Total 830 1120 185 Balance 1613.2 1000 -185 Result Diagrams: 12/07/19 03:34 12/07/19 03:34 Additional Labs: Accuchecks 12/06/19 09:22 POC Glucose 227 H Hospitalist ROS - Medication Medications: Active Medications Generic Name Dose Route Start Last Admin Trade Name Freq PRN Reason Stop Dose Admin Albuterol/Ipratropium 3 ml 12/07/19 10:30 12/07/19 10:22 Duoneb NEB 3 ml [id number] REYNA Administration Enoxaparin Sodium 40 mg 12/05/19 09:00 12/07/19 08:32 Lovenox SC 40 mg 0900 REYNA Administration Hydralazine HCl 10 mg 12/05/19 01:10 12/05/19 22:48 Apresoline SLOW IVP 10 mg Q4H PRN Administration Hypertension Fentanyl Citrate 2,000 mcg/ 100 mls @ 0 mls/hr 12/04/19 20:16 12/06/19 23:30 Sodium Chloride IV 01/03/20 20:16 100 mls INF REYNA Administration Protocol Per Protocol Cefepime HCl 2 gm/ Sodium 100 mls @ 200 mls/hr 12/05/19 04:00 12/07/19 03:24 Chloride IVPB 100 mls 0400,1200,2000 REYNA Administration Sodium Chloride 1,000 mls @ 75 mls/hr 12/05/19 01:21 12/07/19 06:10 Normal Saline 0.9% IV Not Given .[id number] REYNA Insulin Human Lispro 0 units 12/05/19 01:11 12/07/19 09:29 Humalog SC 4 unit .MODERATE SLIDING SC PRN Administration Moderate Correctional Scale Methylprednisolone Sodium Succinate 40 mg 12/05/19 06:00 12/07/19 05:00 Solu-Medrol IVP 40 mg Q6HR REYNA Administration Propofol 1,000 mg 12/04/19 22:53 12/07/19 04:54 Diprivan IV 01/03/20 22:53 1,000 mg INF PRN Administration TO ACHIEVE GOAL RASS Protocol Sodium Chloride 10 ml 12/05/19 09:00 12/07/19 08:33 Flush - Normal Saline IVF 10 ml Q12HR REYNA Administration Sterile Water 1 ml 12/05/19 01:10 12/05/19 05:56 Bacteriostatic Water FS 1 ml PRN PRN Administration RECONSTITUTION - Exam General Appearance: ill appearing General - other findings: Orally intubated on mechanical and sedated Heart: RRR Respiratory: rales, wheezes Gastrointestinal: soft, non-tender Psychiatric: lethargic Hosp A/P (1) Acute and chronic respiratory failure with hypoxia Code(s): J96.21 - ACUTE AND CHRONIC RESPIRATORY FAILURE WITH HYPOXIA Status: Acute (2) Acute bronchitis Code(s): J20.9 - ACUTE BRONCHITIS, UNSPECIFIED Status: Acute (3) COPD exacerbation Code(s): J44.1 - CHRONIC OBSTRUCTIVE PULMONARY DISEASE W (ACUTE) EXACERBATION Status: Acute (4) DM type 2 (diabetes mellitus, type 2) Status: Chronic Qualifiers: (5) HTN (hypertension) Code(s): I10 - ESSENTIAL (PRIMARY) HYPERTENSION Status: Chronic Qualifiers: (6) Obesity (BMI 30.0-34.9) Code(s): E66.9 - OBESITY, UNSPECIFIED Status: Chronic - Plan pt s/p intubation remains on mechanical ventilation will follow further pulmonology critical care input plan to keep patient intubated over the weekend and hopefully wean off early next week Meanwhile cont in solumedrol , cefeppime and vanc duo nebs and follow pulm recs moniotr finger stick and bp and ajust meds as needed Monitor electrolytes and replace as needed dvt ppx full code dispotion based on clinical course 2-3 days
[2019-12-07] MEDS: fentaNYL Citrate/PF 2,000 MCG in Sodium Chloride 0.9% 60 ML IV SCH (12:40)
[2019-12-07] MEDS: hydrALAZINE 20 MG/ML VIAL SLOW IVP PRN (21:06)
[2019-12-07 22:39] LABS: Calc. Creatinine Clearance 136 mL/min (70-130); Estimated GFR-MDRD Greater than 90
[2019-12-08] MEDS: methylPREDNISolone Sod Succ 40 MG VIAL IVP SCH ×4 (00:25→17:37)
[2019-12-08] MEDS: Propofol 1,000 MG/100 ML VIAL IV PRN ×2 (00:56→10:18)
[2019-12-08] MEDS: fentaNYL Citrate/PF 2,000 MCG in Sodium Chloride 0.9% 60 ML IV SCH (02:01)
[2019-12-08] MEDS: Cefepime 2 GM in Sodium Chloride 0.9% 100 ML IVPB SCH ×3 (04:16→21:11)
[2019-12-08] MEDS: HumaLOG 300 UNITS/3 ML VIAL SC PRN ×4 (04:17→21:16)
[2019-12-08 05:05] LABS: Band 4 % (5-11); Hemoglobin 14.3 g/dL (12.0-16.0); Lymphocytes 6 % (21-51); MDiff Complete? YES; Mean Corpuscular HGB CONC 32.1 g/dL (32.0-36.0); Mean Corpuscular Hemoglobin 27.8 pg (27.0-31.0); Mean Corpuscular Volume 86.7 fL (78.0-98.0); Mean Platelet Volume 10.4 fL (7.4-10.4); Monocytes 3 % (0-10); Neutrophil 87 % (42-75); Platelet Count 206 thou/uL (130-400); Platelet Morphology Comment Appears Adequate; RBC Distribution Width 15.1 % (11.5-14.5); RBC Morphology Normal; Red Blood Cell (RBC) Count 5.14 mill/uL (4.20-5.40); White Blood Cell (WBC) Count 12.1 thou/uL (4.8-10.8)
[2019-12-08 05:16] LABS: Anion Gap 11 mmol/L (10-20); BUN (Urea Nitrogen) 22 mg/dL (9.8-20.1); Calc. Creatinine Clearance 128 mL/min (70-130); Calcium 8.6 mg/dL (7.8-10.44); Carbon Dioxide 30 mmol/L (23-31); Chloride 103 mmol/L (98-107); Estimated GFR-MDRD Greater than 90; Glucose 228 mg/dL (80-115); Magnesium 1.8 mg/dL (1.6-2.6); Potassium 4.4 mmol/L (3.5-5.1); Sodium 140 mmol/L (136-145)
[2019-12-08 06:54] LABS: Base Excess (BEa) 1.3 mEq/L (-2.0 to +3.0); CO2 Tension 52.6 mmHg (35.0-45.0); Calcium, Ionized (arterial) 1.18 mmol/L (1.12-1.30); Carboxyhemoglobin (COHb) 0.8 gm% (0.0-3.0); Hemoglobin (Hb) 13.9 g/dL (12.0-16.0); O2 Tension (PaO2), arterial 72.7 mmHg (> 80.0); Potassium - ABG Lab 4.21 mmol/L (3.70-5.30); pH, Arterial 7.34 (7.35-7.45)
[2019-12-08 06:56] LABS: Puncture Site RRA
--- NOTE | 2019-12-08 08:08 | PDOC.HOSPP ---
- Subjective Encounter Date: 12/08/19 (f/u resp failure) Encounter Time: 08:07 Subjective: Pt remains on the vent, no overnight events. RN asking about adding precedex to diprovan. - Objective Vital Signs & Weight: Vital Signs (12 hours) Temp Pulse Resp BP Pulse Ox 12/08/19 06:42 80 12/08/19 06:00 12 12/08/19 04:00 98.6 F 12 12/08/19 02:51 70 12 98 12/08/19 02:50 68 12/08/19 02:00 12 12/08/19 00:30 80 12/08/19 00:00 98.7 F 12 12/07/19 23:18 92 16 97 12/07/19 22:53 87 12/07/19 22:00 12 12/07/19 21:06 88 171/71 H Weight Admit Weight 169 lb 15.622 oz Weight 169 lb 15.622 oz Most Recent Monitor Data Heart Rate from ECG 81 NIBP 150/69 NIBP BP-Mean 96 Respiration from ECG 14 SpO2 94 I&O: 12/07/19 12/08/19 12/09/19 06:59 06:59 06:59 Intake Total 2120 3124 Output Total 1120 1090 Balance 1000 4 Result Diagrams: 12/08/19 04:20 12/08/19 04:20 Additional Labs: Accuchecks 12/07/19 12/07/19 12/07/19 20:56 15:57 09:32 POC Glucose 204 H 196 H 236 H 12/07/19 12/06/19 00:04 17:53 POC Glucose 194 H 216 H EKG Reviewed by me: Yes (sinus tach 100's with occ pvcs) Hospitalist ROS - Medication Medications: Active Medications Generic Name Dose Route Start Last Admin Trade Name Freq PRN Reason Stop Dose Admin Albuterol/Ipratropium 3 ml 12/07/19 10:30 12/08/19 06:42 Duoneb NEB 3 ml [id number] REYNA Administration Enoxaparin Sodium 40 mg 12/05/19 09:00 12/07/19 08:32 Lovenox SC 40 mg 0900 REYNA Administration Hydralazine HCl 10 mg 12/05/19 01:10 12/07/19 21:06 Apresoline SLOW IVP 10 mg Q4H PRN Administration Hypertension Fentanyl Citrate 2,000 mcg/ 100 mls @ 0 mls/hr 12/04/19 20:16 12/08/19 02:01 Sodium Chloride IV 01/03/20 20:16 100 mls INF REYNA Administration Protocol Per Protocol Cefepime HCl 2 gm/ Sodium 100 mls @ 200 mls/hr 12/05/19 04:00 12/08/19 04:16 Chloride IVPB 100 mls 0400,1200,2000 REYNA Administration Sodium Chloride 1,000 mls @ 75 mls/hr 12/05/19 01:21 12/07/19 18:15 Normal Saline 0.9% IV 1,000 mls .[id number] REYNA Administration Insulin Human Lispro 0 units 12/05/19 01:11 12/08/19 04:17 Humalog SC 4 unit .MODERATE SLIDING SC PRN Administration Moderate Correctional Scale Methylprednisolone Sodium Succinate 40 mg 12/05/19 06:00 12/08/19 05:29 Solu-Medrol IVP 40 mg Q6HR REYNA Administration Propofol 1,000 mg 12/04/19 22:53 12/08/19 00:56 Diprivan IV 01/03/20 22:53 1,000 mg INF PRN Administration TO ACHIEVE GOAL RASS Protocol Sodium Chloride 10 ml 12/05/19 09:00 12/07/19 20:14 Flush - Normal Saline IVF Not Given Q12HR REYNA Sterile Water 1 ml 12/05/19 01:10 12/05/19 05:56 Bacteriostatic Water FS 1 ml PRN PRN Administration RECONSTITUTION - Exam General Appearance: NAD Heart: RRR, no murmur Respiratory - other findings: fair air movement, no audible w/r/r Gastrointestinal: soft, non-tender, non-distended, normal bowel sounds Extremities: no cyanosis, no clubbing Extremities - other findings: trace pitting edema bilateral LE Neurological - other findings: intubated - unable to assess Psychiatric - other findings: intubated - unable to assess Hosp A/P (1) Acute and chronic respiratory failure with hypoxia Code(s): J96.21 - ACUTE AND CHRONIC RESPIRATORY FAILURE WITH HYPOXIA Status: Acute (2) COPD exacerbation Code(s): J44.1 - CHRONIC OBSTRUCTIVE PULMONARY DISEASE W (ACUTE) EXACERBATION Status: Acute (3) DM type 2 (diabetes mellitus, type 2) Status: Chronic Qualifiers: (4) HTN (hypertension) Code(s): I10 - ESSENTIAL (PRIMARY) HYPERTENSION Status: Chronic Qualifiers: (5) Obesity (BMI 30.0-34.9) Code(s): E66.9 - OBESITY, UNSPECIFIED Status: Chronic - Plan Remains intubated - appreciate Pulmonology directing care - on cefepime, steroids, nebs - COVID testing not performed this admission based on chart review - will inquire with Dr. Narvaez if neeeded - receiving tube feeds DM - not optimally controlled - add lantus 10 units daily and monitor Home meds reviewed from last d/c summary - pt was on cymbalta for mood - will add back Continue other meds as ordered dvt prophy - lovenox gi prophy - not indicated, receiving tube feeds code status full reviewed plan of care with RN, will d/w family as they are available later today.
--- NOTE | 2019-12-08 09:20 | PRG ---
DATE OF SERVICE: 12/08/2019 TIME SPENT: 35 minutes of critical care time. SUBJECTIVE: The patient remains intubated on mechanical ventilation. There has been no acute changes. OBJECTIVE: VITAL SIGNS: Temperature 98.6, pulse 81, blood pressure 150/69. HEENT: Unremarkable. NECK: No JVD. LUNGS: Much less wheezing. CARDIAC: S1 and S2. Regular. ABDOMEN: Soft. EXTREMITIES: No edema. LABORATORY DATA: White blood cell count 12.1, hematocrit 44.5, and platelet count 206. PH 7.34, pCO2 of 52, pO2 of 72, on SIMV rate of 12, tidal volume 450, PEEP 5, pressure support 10, FiO2 of 40%. Sodium 140, potassium 4.4, chloride 103, CO2 of 30, BUN 22, creatinine 0.5, glucose 228. Chest x-ray shows no significant change. ASSESSMENT: 1. Acute respiratory failure secondary to chronic obstructive pulmonary disease exacerbation. 2. Continued tobacco abuse. PLAN: She is better. We will try to convert over to Precedex drip to see if we can facilitate spontaneous breathing trial on extubation. She will continue steroids, nebs, antibiotics, and enteral tube feeds. I will stop the normal saline. Job ID: [id number]
--- NOTE | 2019-12-08 09:38 | RAD ---
RADIOGRAPH CHEST 1 VIEW: DATE: 12/08/2019 TIME: 5:53 AM HISTORY: 64-year-old female in respiratory failure, on mechanical ventilation. Follow-up. COMPARISON: 12/07/2019 FINDINGS: Endotracheal tube and esophagogastric tube remain. No cardiomegaly. Lateral costophrenic angles remai n sharp. No pneumothorax. The previously mentioned finding of vertically oriented streaky pulmonary density at right medial lung base, silhouetting a small portion of the right medial hemidiaphragm, re alejandrina. Subtle mild haziness at bilateral lung bases. Elsewhere, no new consolidation. IMPRESSION: 1) small vertically oriented pulmonary density at base of right lower lobe remains. It may represent subsegmental atelectasis. 2.) No interval change overall. 3) recommend continued follow-up.
[2019-12-08] MEDS: DULoxetine 60 MG CAP PO SCH ×2 (10:17→21:11)
[2019-12-08] MEDS: Enoxaparin Sodium 40 MG/0.4 ML SYRINGE SC SCH (10:17)
[2019-12-08] MEDS: Insulin Glargine 10 UNITS in Pre-Filled Syringe 1 EACH SC SCH (10:17)
[2019-12-09] MEDS: methylPREDNISolone Sod Succ 40 MG VIAL IVP SCH ×4 (00:56→17:28)
[2019-12-09 05:01] LABS: Anion Gap 8 mmol/L (10-20); BUN (Urea Nitrogen) 28 mg/dL (9.8-20.1); Calc. Creatinine Clearance 131 mL/min (70-130); Calcium 8.5 mg/dL (7.8-10.44); Carbon Dioxide 32 mmol/L (23-31); Chloride 103 mmol/L (98-107); Estimated GFR-MDRD Greater than 90; Glucose 235 mg/dL (80-115); Potassium 4.6 mmol/L (3.5-5.1); Sodium 138 mmol/L (136-145)
[2019-12-09 05:02] LABS: Band 14 % (5-11); Eosinophils 1 % (0-10); Lymphocytes 6 % (21-51); MDiff Complete? YES; Monocytes 4 % (0-10); Neutrophil 75 % (42-75); Platelet Morphology Comment Appears Adequate
[2019-12-09 05:03] LABS: Hemoglobin 14.1 g/dL (12.0-16.0); Mean Corpuscular HGB CONC 32.2 g/dL (32.0-36.0); Mean Corpuscular Hemoglobin 27.6 pg (27.0-31.0); Mean Corpuscular Volume 85.8 fL (78.0-98.0); Mean Platelet Volume 10.3 fL (7.4-10.4); Platelet Count 173 thou/uL (130-400); Red Blood Cell (RBC) Count 5.11 mill/uL (4.20-5.40); White Blood Cell (WBC) Count 10.6 thou/uL (4.8-10.8)
[2019-12-09] MEDS: Cefepime 2 GM in Sodium Chloride 0.9% 100 ML IVPB SCH ×3 (05:51→21:36)
[2019-12-09] MEDS: HumaLOG 300 UNITS/3 ML VIAL SC PRN ×2 (05:52→16:15)
[2019-12-09 07:46] LABS: Actual Bicarbonate (HCO3a) 28.6 mEq/L (22-28); Base Excess (BEa) 3.3 mEq/L (-2.0 to +3.0); CO2 Tension 45.9 mmHg (35.0-45.0); Calcium, Ionized (arterial) 1.22 mmol/L (1.12-1.30); Carboxyhemoglobin (COHb) 1.2 gm% (0.0-3.0); Hemoglobin (Hb) 14.7 g/dL (12.0-16.0); O2 Tension (PaO2), arterial 65.4 mmHg (> 80.0); Potassium - ABG Lab 4.26 mmol/L (3.70-5.30); pH, Arterial 7.41 (7.35-7.45)
[2019-12-09 07:57] LABS: Puncture Site RRA
[2019-12-09 07:58] LABS: ALV-art Gradient 162.425 (0-20)
[2019-12-09] MEDS ORDERED: DC Sedation Protocol FS ONE (08:10)
--- NOTE | 2019-12-09 08:28 | PRG ---
DATE OF SERVICE: 12/09/2019 A 35 minutes of critical care time. SUBJECTIVE: The patient is awake, on mechanical ventilation, seems to be doing well. OBJECTIVE: VITAL SIGNS: On exam; temperature 97.9, pulse 55, and blood pressure 136/77. A 24-hour intake 2347 and output 980. HEENT: Unremarkable. NECK: No JVD. LUNGS: Few expiratory wheezes. CARDIAC: S1 and S2. Regular. ABDOMEN: Soft. EXTREMITIES: No edema. LABORATORY DATA: White blood cell count 10.6, hematocrit 43.9, and platelet count 173. A pH of 7.41, pCO2 of 45, pO2 of 65 on SIMV rate 12, tidal volume 450, PEEP 5, pressure support 10, and FiO2 of 40%. Sodium 138, potassium 4.6, chloride 103, CO2 of 32, BUN 28, creatinine 0.5, and glucose 235. Chest x-ray appears to be stable. ASSESSMENT: 1. Chronic obstructive pulmonary disease with exacerbation. 2. Acute on chronic respiratory failure requiring mechanical ventilation. 3. Passed weaning trial today. 4. Tobacco abuse. PLAN: 1. Extubate and observe. 2. Continue nebulization treatments and IV steroids. Job ID: [id number]
[2019-12-09] MEDS: Enoxaparin Sodium 40 MG/0.4 ML SYRINGE SC SCH (08:57)
[2019-12-09] MEDS: Insulin Glargine 10 UNITS in Pre-Filled Syringe 1 EACH SC SCH (08:57)
[2019-12-09] MEDS: DULoxetine 60 MG CAP PO SCH ×2 (09:22→21:37)
[2019-12-09] MEDS: hydrALAZINE 20 MG/ML VIAL SLOW IVP PRN ×2 (13:41→21:37)
--- NOTE | 2019-12-09 19:49 | PDOC.HOSPP ---
- Subjective Encounter Date: 12/09/19 Encounter Time: 19:48 Subjective: Pt seen for followup re: respiratory failure. Extubated earlier today. Denies chest pain or shortness of breath. - Objective Vital Signs & Weight: Vital Signs (12 hours) Temp Pulse Pulse Pulse Pulse Resp BP 12/09/19 18:30 87 19 12/09/19 15:00 98.1 F 12/09/19 14:20 96 17 12/09/19 13:41 81 187/88 H 12/09/19 12:56 98 91 12/09/19 12:00 12/09/19 11:04 94 88 12/09/19 11:00 98.0 F 12/09/19 10:40 97 14 12/09/19 08:08 87 15 12/09/19 07:53 18 BP BP BP Pulse Ox Pulse Ox Pulse Ox Pulse Ox 12/09/19 18:30 93 L 12/09/19 15:00 12/09/19 14:20 98 12/09/19 13:41 12/09/19 12:56 187/88 H 167/68 H 98 98 12/09/19 12:00 94 L 12/09/19 11:04 170/77 H 179/84 H 94 L 94 L 98 12/09/19 11:00 12/09/19 10:40 93 L 12/09/19 08:08 90 L 12/09/19 07:53 Weight Admit Weight 169 lb 15.622 oz Weight 169 lb 15.622 oz Most Recent Monitor Data Heart Rate from ECG 95 NIBP 169/82 NIBP BP-Mean 111 Respiration from ECG 17 SpO2 95 I&O: 12/08/19 12/09/19 12/10/19 06:59 06:59 06:59 Intake Total 3124 2347.7 386 Output Total 1109 039 5932 Balance 2034 1367.7 -1149 Result Diagrams: 12/09/19 04:00 12/09/19 04:00 Additional Labs: Accuchecks 12/09/19 12/08/19 12/08/19 09:01 21:19 17:40 POC Glucose 177 H 242 H 265 H 12/08/19 12/08/19 10:18 04:11 POC Glucose 224 H 206 H Labs and MARs reviewed by me EKG Reviewed by me: Yes (Tele: NSR) Hospitalist ROS - Review of Systems Respiratory: denies: cough, shortness of breath, SOB with excertion, pleuritic pain, wheezing Cardiovascular: denies: chest pain, palpitations, orthopnea, paroxysmal noc. dyspnea, edema, light headedness Gastrointestinal: denies: nausea, vomiting, abdominal pain, diarrhea, constipation, melena, hematochezia - Medication Medications: Active Medications Generic Name Dose Route Start Last Admin Trade Name Freq PRN Reason Stop Dose Admin Albuterol/Ipratropium 3 ml 12/07/19 10:30 12/09/19 18:30 Duoneb NEB 3 ml [id number] REYNA Administration Duloxetine HCl 60 mg 12/08/19 09:00 12/09/19 09:22 Cymbalta PO Not Given BID REYNA Enoxaparin Sodium 40 mg 12/05/19 09:00 12/09/19 08:57 Lovenox SC 40 mg 0900 REYNA Administration Hydralazine HCl 10 mg 12/05/19 01:10 12/09/19 13:41 Apresoline SLOW IVP 10 mg Q4H PRN Administration Hypertension Cefepime HCl 2 gm/ Sodium 100 mls @ 200 mls/hr 12/05/19 04:00 12/09/19 12:17 Chloride IVPB 100 mls 0400,1200,2000 REYNA Administration Insulin Glargine 10 units/ 0.1 mls @ 0 mls/hr 12/08/19 09:00 12/09/19 08:57 Miscellaneous Medication SC 0.1 mls QAM REYNA Administration Dexmedetomidine HCl 400 mcg/ 100 mls @ 0 mls/hr 12/08/19 09:00 12/09/19 10:38 Sodium Chloride IVPB 100 mls INF REYNA Administration Protocol Per Protocol Insulin Human Lispro 0 units 12/05/19 01:11 12/09/19 16:15 Humalog SC 2 unit .MODERATE SLIDING SC PRN Administration Moderate Correctional Scale Methylprednisolone Sodium Succinate 20 mg 12/09/19 08:11 12/09/19 17:28 Solu-Medrol IVP 20 mg Q6HR REYNA Administration Sodium Chloride 10 ml 12/05/19 09:00 12/09/19 08:58 Flush - Normal Saline IVF 10 ml Q12HR REYNA Administration Sterile Water 1 ml 12/05/19 01:10 12/05/19 05:56 Bacteriostatic Water FS 1 ml PRN PRN Administration RECONSTITUTION - Exam General Appearance: awake alert Eye: anicteric sclera ENT: moist mucosa Neck: supple Heart: RRR Respiratory: CTAB Gastrointestinal: soft, non-tender Skin: no rashes Psychiatric: normal affect, normal behavior Hosp A/P - Plan - Assessment (1) Acute on chronic respiratory failure with hypoxia Status: Acute (2) COPD exacerbation Code(s): J44.1 - CHRONIC OBSTRUCTIVE PULMONARY DISEASE W (ACUTE) EXACERBATION Status: Acute (3) HTN (hypertension) Code(s): I10 - ESSENTIAL (PRIMARY) HYPERTENSION Status: Chronic Qualifiers: (4) DM type 2 (diabetes mellitus, type 2) Status: Chronic Qualifiers: - Plan -pt extubated today - continue cefepime, steroids, nebs -DM - Humalog 5 units x 1, increase lantus to 15 units from tomorrow AM -HTN - BP high at times, continue PRN IV hydralazine until pt is able to take pral medications dvt prophy - lovenox
[2019-12-09] MEDS ORDERED: HumaLOG 300 UNITS/3 ML VIAL SC SCH ×2 (20:00)
[2019-12-10] MEDS: methylPREDNISolone Sod Succ 40 MG VIAL IVP SCH ×2 (00:19→05:38)
[2019-12-10] MEDS: Bacteriostatic Water 30 ML VIAL FS PRN (00:19)
[2019-12-10] MEDS: hydrALAZINE 20 MG/ML VIAL SLOW IVP PRN ×2 (05:38→16:50)
[2019-12-10] MEDS: Cefepime 2 GM in Sodium Chloride 0.9% 100 ML IVPB SCH (05:38)
[2019-12-10 06:07] LABS: Band 1 % (5-11); Hemoglobin 15.3 g/dL (12.0-16.0); Hypochromia SLIGHT = 6-15 cells (100X) (0-5/hpf); Lymphocytes 12 % (21-51); MDiff Complete? YES; Mean Corpuscular HGB CONC 33.3 g/dL (32.0-36.0); Mean Corpuscular Hemoglobin 28.2 pg (27.0-31.0); Mean Corpuscular Volume 84.8 fL (78.0-98.0); Mean Platelet Volume 9.9 fL (7.4-10.4); Monocytes 4 % (0-10); Neutrophil 83 % (42-75); Platelet Count 206 thou/uL (130-400); Platelet Morphology Comment Appears Adequate; RBC Distribution Width 14.9 % (11.5-14.5); Red Blood Cell (RBC) Count 5.41 mill/uL (4.20-5.40); White Blood Cell (WBC) Count 15.9 thou/uL (4.8-10.8)
[2019-12-10 06:11] LABS: Anion Gap 10 mmol/L (10-20); BUN (Urea Nitrogen) 12 mg/dL (9.8-20.1); Calc. Creatinine Clearance 147 mL/min (70-130); Calcium 8.8 mg/dL (7.8-10.44); Carbon Dioxide 34 mmol/L (23-31); Chloride 99 mmol/L (98-107); Estimated GFR-MDRD Greater than 90; Glucose 117 mg/dL (80-115); Potassium 3.8 mmol/L (3.5-5.1); Sodium 139 mmol/L (136-145)
[2019-12-10] MEDS ORDERED: Ondansetron PF 4 MG/2 ML Vial SLOW IVP PRN (06:42)
[2019-12-10] MEDS: Acetaminophen 500 MG TAB PO PRN ×2 (07:12→16:50)
[2019-12-10] MEDS ORDERED: Labetalol HCl 100 MG/20 ML VIAL SLOW IVP SCH (07:45)
[2019-12-10] MEDS: DULoxetine 60 MG CAP PO SCH ×2 (09:14→21:58)
[2019-12-10] MEDS: Insulin Glargine 15 UNITS in Pre-Filled Syringe 1 EACH SC SCH (09:14)
[2019-12-10] MEDS: Enoxaparin Sodium 40 MG/0.4 ML SYRINGE SC SCH (09:14)
--- NOTE | 2019-12-10 09:15 | PRG ---
DATE OF SERVICE: 12/10/2019 SUBJECTIVE: The patient is doing reasonably well. She is complaining of a headache. She was extubated yesterday. OBJECTIVE: VITAL SIGNS: Temperature 98.5, pulse 103, blood pressure 171/73, and O2 saturation 95%. HEAD AND NECK: Clear. LUNGS: Clear. CARDIAC: S1 and S2 are regular. ABDOMEN: Soft. EXTREMITIES: No edema. LABORATORY DATA: White blood cell count 15.9, hematocrit 45.9, and platelet count 206. Sodium 139, potassium 3.8, CO2 of 34, BUN 12, creatinine 0.5, and glucose 117. ASSESSMENT: 1. Chronic obstructive pulmonary disease with exacerbation. 2. Status post respiratory failure, requiring mechanical ventilation. 3. Tobacco abuse. PLAN: 1. Transfer to floor. 2. Increase activity as tolerated. 3. Switch to oral antibiotics and oral steroids. 4. Hopefully, home in a day or 2. Job ID: [id number]
[2019-12-10] MEDS ORDERED: predniSONE 20 MG TAB PO SCH (10:45)
[2019-12-10] MEDS ORDERED: Cefdinir 300 MG CAP PO SCH (10:45)
--- NOTE | 2019-12-10 19:29 | PDOC.HOSPP ---
- Subjective Encounter Date: 12/10/19 Encounter Time: 14:20 Subjective: Pt seen for followup re: hypoxic respiratory failure. Feels tired and weak. - Objective Vital Signs & Weight: Vital Signs (12 hours) Temp Pulse Pulse Pulse Resp BP BP 12/10/19 18:50 90 16 12/10/19 17:44 12/10/19 16:50 95 182/70 H 12/10/19 16:15 98.2 F 95 18 12/10/19 09:54 97.6 F 105 H 20 12/10/19 09:24 95 93 149/73 H 12/10/19 08:00 98.9 F 12/10/19 07:43 103 H 171/74 H BP BP Pulse Ox Pulse Ox Pulse Ox 12/10/19 18:50 12/10/19 17:44 148/58 H 12/10/19 16:50 12/10/19 16:15 182/70 H 92 L 12/10/19 09:54 162/68 H 97 12/10/19 09:24 160/75 H 98 96 12/10/19 08:00 12/10/19 07:43 Weight Admit Weight 169 lb 15.622 oz Weight 169 lb 15.622 oz Most Recent Monitor Data Heart Rate from ECG 90 NIBP 153/66 NIBP BP-Mean 95 Respiration from ECG 17 SpO2 96 I&O: 12/09/19 12/10/19 12/11/19 06:59 06:59 06:59 Intake Total 2347.7 503 380 Output Total 980 4050 1745 Balance 4233.7 -2301 -0699 Result Diagrams: 12/10/19 05:40 12/10/19 05:40 Additional Labs: Accuchecks 12/10/19 12/10/19 12/10/19 16:24 11:54 05:53 POC Glucose 135 H 136 H 117 H 12/09/19 12/09/19 21:40 16:18 POC Glucose 183 H 193 H Labs and MARs reviewed by ks Hospitalist ROS - Review of Systems Constitutional: reports: weakness Respiratory: reports: SOB with excertion. denies: cough, shortness of breath, pleuritic pain, wheezing Cardiovascular: denies: chest pain, palpitations, orthopnea, paroxysmal noc. dyspnea, edema, light headedness - Medication Medications: Active Medications Generic Name Dose Route Start Last Admin Trade Name Freq PRN Reason Stop Dose Admin Acetaminophen 1,000 mg 12/10/19 06:29 12/10/19 16:50 Tylenol PO 1,000 mg Q6H PRN Administration Headache/Fever or Pain Albuterol/Ipratropium 3 ml 12/10/19 19:00 12/10/19 18:50 Duoneb NEB 3 ml [id number] REYNA Administration Duloxetine HCl 60 mg 12/08/19 09:00 12/10/19 09:14 Cymbalta PO 60 mg BID REYNA Administration Enoxaparin Sodium 40 mg 12/05/19 09:00 12/10/19 09:14 Lovenox SC 40 mg 0900 REYNA Administration Hydralazine HCl 10 mg 12/10/19 16:42 12/10/19 16:50 Apresoline SLOW IVP 10 mg Q6H PRN Administration SBP Greater Than 170 Insulin Glargine 15 units/ 0.15 mls @ 0 mls/hr 12/10/19 09:00 12/10/19 09:14 Miscellaneous Medication SC 0.15 mls QAM REYNA Administration Insulin Human Lispro 0 units 12/05/19 01:11 12/09/19 16:15 Humalog SC 2 unit .MODERATE SLIDING SC PRN Administration Moderate Correctional Scale Sodium Chloride 10 ml 12/05/19 09:00 12/10/19 09:15 Flush - Normal Saline IVF 10 ml Q12HR REYNA Administration Sterile Water 1 ml 12/05/19 01:10 12/10/19 00:19 Bacteriostatic Water FS 1 ml PRN PRN Administration RECONSTITUTION - Exam General Appearance: awake alert Eye: anicteric sclera ENT: moist mucosa Neck: supple Heart: RRR Respiratory: CTAB Gastrointestinal: soft, non-tender Skin: no rashes Psychiatric: normal affect, normal behavior Hosp A/P - Plan - Assessment (1) Acute on chronic respiratory failure with hypoxia Status: Acute (2) COPD exacerbation Code(s): J44.1 - CHRONIC OBSTRUCTIVE PULMONARY DISEASE W (ACUTE) EXACERBATION Status: Acute (3) HTN (hypertension) Code(s): I10 - ESSENTIAL (PRIMARY) HYPERTENSION Status: Chronic Qualifiers: (4) DM type 2 (diabetes mellitus, type 2) Status: Chronic Qualifiers: - Plan -pt extubated yesterday - On cefdinir, prednisone and bronchodilators -DM - Improved sugar control -HTN - BP high at times, continue PRN IV hydralazine, resume lisinopril and Losartan Ambulate pt
[2019-12-10] MEDS ORDERED: Lisinopril 10 MG TAB PO SCH (19:45)
[2019-12-10] MEDS: Melatonin 3 MG TAB PO SCH (21:58)
[2019-12-10] MEDS: Simvastatin 10 MG TAB PO SCH (21:58)
[2019-12-11] MEDS: hydrALAZINE 20 MG/ML VIAL SLOW IVP PRN (05:03)
[2019-12-11] MEDS: Cefdinir 300 MG CAP PO SCH (08:45)
[2019-12-11] MEDS: DULoxetine 60 MG CAP PO SCH ×2 (08:45→20:36)
[2019-12-11] MEDS: predniSONE 20 MG TAB PO SCH (08:46)
[2019-12-11] MEDS: Lisinopril 10 MG TAB PO SCH (08:47)
[2019-12-11] MEDS: Enoxaparin Sodium 40 MG/0.4 ML SYRINGE SC SCH (08:48)
[2019-12-11] MEDS: Insulin Glargine 15 UNITS in Pre-Filled Syringe 1 EACH SC SCH (08:57)
[2019-12-11] MEDS: Acetaminophen 500 MG TAB PO PRN (08:57)
[2019-12-11] MEDS ORDERED: Losartan 25 MG TAB PO SCH (09:00)
[2019-12-11] MEDS ORDERED: Ondansetron PF 4 MG/2 ML Vial IVP PRN (09:28)
[2019-12-11] MEDS ORDERED: Cepastat Lozenges 1 LOZ PO PRN (09:29)
--- NOTE | 2019-12-11 09:40 | PRG ---
DATE OF SERVICE: 12/11/2019 SUBJECTIVE: She feels better, but is extremely weak. OBJECTIVE: VITAL SIGNS: Temperature 98.3, pulse 98, blood pressure 178/71, and O2 saturation 93% on 3 L. HEENT: Unremarkable. NECK: No JVD. LUNGS: Clear. CARDIAC: S1 and S2. Regular. ABDOMEN: Soft. EXTREMITIES: No edema. ASSESSMENT: Chronic obstructive pulmonary disease exacerbation. PLAN: Can go home once she is up and perform her activities of daily living. Job ID: [id number]
[2019-12-11] MEDS: HumaLOG 300 UNITS/3 ML VIAL SC PRN (16:39)
--- NOTE | 2019-12-11 18:22 | PDOC.HOSPP ---
- Subjective Encounter Date: 12/11/19 Encounter Time: 10:30 Subjective: Pt seen for followup for ac on ch hypoxic respiratory failure. States she feels better today. - Objective Vital Signs & Weight: Vital Signs (12 hours) Temp Pulse Resp BP BP Pulse Ox 12/11/19 15:11 107 H 18 93 L 12/11/19 08:52 178/51 H 12/11/19 08:47 178/51 H 12/11/19 08:06 98.3 F 90 20 185/75 H 93 L 12/11/19 07:29 160/67 H 12/11/19 06:44 91 18 98 Weight Admit Weight 169 lb 15.622 oz Weight 169 lb 15.622 oz Most Recent Monitor Data Heart Rate from ECG 90 NIBP 153/66 NIBP BP-Mean 95 Respiration from ECG 17 SpO2 96 I&O: 12/10/19 12/11/19 12/12/19 06:59 06:59 06:59 Intake Total 503 530 Output Total 5318 0346 Balance -9728 -5410 Result Diagrams: 12/10/19 05:40 12/10/19 05:40 Additional Labs: Accuchecks 12/11/19 12/11/19 12/11/19 16:15 11:33 04:51 POC Glucose 331 H 148 H 138 H 12/10/19 20:19 POC Glucose 186 H Labs and MARs reviewed by nd Hospitalist ROS - Review of Systems Respiratory: reports: cough, dry, SOB with excertion. denies: shortness of breath, hemoptysis, pleuritic pain, sputum, wheezing Cardiovascular: denies: chest pain, palpitations, orthopnea, paroxysmal noc. dyspnea, edema, light headedness - Medication Medications: Active Medications Generic Name Dose Route Start Last Admin Trade Name Freq PRN Reason Stop Dose Admin Acetaminophen 1,000 mg 12/10/19 06:29 12/11/19 08:57 Tylenol PO 1,000 mg Q6H PRN Administration Headache/Fever or Pain Albuterol/Ipratropium 3 ml 12/10/19 19:00 12/11/19 15:11 Duoneb NEB 3 ml [id number] REYNA Administration Cefdinir 600 mg 12/11/19 09:00 12/11/19 08:45 Omnicef PO 600 mg DAILY REYNA Administration Duloxetine HCl 60 mg 12/08/19 09:00 12/11/19 08:45 Cymbalta PO 60 mg BID REYNA Administration Enoxaparin Sodium 40 mg 12/05/19 09:00 12/11/19 08:48 Lovenox SC 40 mg 0900 REYNA Administration Hydralazine HCl 10 mg 12/10/19 16:42 12/11/19 05:03 Apresoline SLOW IVP 10 mg Q6H PRN Administration SBP Greater Than 170 Insulin Glargine 15 units/ 0.15 mls @ 0 mls/hr 12/10/19 09:00 12/11/19 08:57 Miscellaneous Medication SC 0.15 mls QAM REYNA Administration Insulin Human Lispro 0 units 12/05/19 01:11 12/11/19 16:39 Humalog SC 8 unit .MODERATE SLIDING SC PRN Administration Moderate Correctional Scale Lisinopril 10 mg 12/11/19 09:00 12/11/19 08:47 Zestril PO 10 mg DAILY REYNA Administration Losartan Potassium 50 mg 12/11/19 09:00 12/11/19 08:47 Cozaar PO 50 mg DAILY REYNA Administration Melatonin 6 mg 12/10/19 21:00 12/10/19 21:58 Melatonin PO 6 mg HS REYNA Administration Ondansetron HCl 4 mg 12/11/19 09:28 12/11/19 11:09 Zofran IVP 4 mg Q6H PRN Administration Nausea/Vomiting Prednisone 40 mg 12/11/19 09:00 12/11/19 08:46 Prednisone PO 40 mg DAILY REYNA Administration Simvastatin 10 mg 12/10/19 21:00 12/10/19 21:58 Zocor PO 10 mg HS REYNA Administration Sodium Chloride 10 ml 12/05/19 09:00 12/11/19 09:28 Flush - Normal Saline IVF Not Given Q12HR REYNA Sterile Water 1 ml 12/05/19 01:10 12/10/19 00:19 Bacteriostatic Water FS 1 ml PRN PRN Administration RECONSTITUTION Throat Lozenges 1 dannielle 12/11/19 09:29 12/11/19 16:42 Cepastat Lozenges PO 1 dannielle Q2H PRN Administration Sore Throat - Exam General Appearance: awake alert Eye: anicteric sclera ENT: no oropharyngeal lesions, moist mucosa Neck: supple Heart: RRR Respiratory: no rales, no ronchi, wheezes Gastrointestinal: soft, non-tender Extremities: no cyanosis Psychiatric: normal affect, normal behavior Hosp A/P - Plan - Assessment (1) Acute on chronic respiratory failure with hypoxia Status: Acute (2) COPD exacerbation Code(s): J44.1 - CHRONIC OBSTRUCTIVE PULMONARY DISEASE W (ACUTE) EXACERBATION Status: Acute (3) HTN (hypertension) Code(s): I10 - ESSENTIAL (PRIMARY) HYPERTENSION Status: Chronic Qualifiers: (4) DM type 2 (diabetes mellitus, type 2) Status: Chronic Qualifiers: - Plan -s/p extubation two days ago -clinically improving - continue cefdinir, prednisone and bronchodilators -DM - Improved sugar control -HTN - continue PRN IV hydralazine, continue lisinopril and discontinue Losartan. Add amlodipine. Ambulate pt
[2019-12-11] MEDS ORDERED: Amlodipine 5 MG TAB PO SCH (18:45)
[2019-12-11] MEDS: Melatonin 3 MG TAB PO SCH (20:36)
[2019-12-11] MEDS: Simvastatin 10 MG TAB PO SCH (20:37)
[2019-12-12 07:42] VITALS: TEMP 98.5
[2019-12-12] MEDS: Cefdinir 300 MG CAP PO SCH (08:30)
[2019-12-12] MEDS: Insulin Glargine 15 UNITS in Pre-Filled Syringe 1 EACH SC SCH (08:31)
[2019-12-12] MEDS: predniSONE 20 MG TAB PO SCH (08:31)
[2019-12-12] MEDS: DULoxetine 60 MG CAP PO SCH (08:31)
[2019-12-12] MEDS: Enoxaparin Sodium 40 MG/0.4 ML SYRINGE SC SCH (08:31)
[2019-12-12] MEDS: Lisinopril 10 MG TAB PO SCH (08:31)
[2019-12-12] MEDS ORDERED: Amlodipine 5 MG TAB PO SCH (09:00)
--- NOTE | 2019-12-12 09:04 | PRG ---
DATE OF SERVICE: 12/12/2019 SUBJECTIVE: The patient is doing reasonably well and wants to go home. OBJECTIVE: VITAL SIGNS: Temperature 98.5, pulse 89, respirations 18, O2 saturation 93% on 3 L, and blood pressure 190/69. HEENT: Unremarkable. NECK: No JVD. LUNGS: Clear without wheezing. CARDIAC: S1 and S2 and regular. ABDOMEN: Soft. EXTREMITIES: No edema. ASSESSMENT: 1. Chronic obstructive pulmonary disease exacerbation. 2. Severe debilitation secondary to chronic obstructive pulmonary disease. 3. Tobacco abuse. PLAN: Can go home at the discretion of the hospitalist. Should continue her home nebulizers and inhalers. Finish up 7 days of antibiotics and go home on a 2-week taper of prednisone. Job ID: [id number]
[2019-12-12 10:02] LABS: #Eosinphils 0.2 thou/uL (0.0-0.7); #Lymphocytes 2.3 thou/uL (1.20-3.40); #Monocytes 1.3 thou/uL (0.11-0.59); #Neutrophils 9.8 thou/uL (1.40-6.50); %Eosinophils 1.4 % (0.0-10.0); %Lymphocytes 16.7 % (21.0-51.0); %Monocytes 9.4 % (0.0-10.0); %Neutrophils 72.5 % (42.0-75.0); Hemoglobin 15.3 g/dL (12.0-16.0); Mean Corpuscular HGB CONC 31.2 g/dL (32.0-36.0); Mean Corpuscular Hemoglobin 27.1 pg (27.0-31.0); Mean Platelet Volume 9.6 fL (7.4-10.4); Platelet Count 233 thou/uL (130-400); RBC Distribution Width 15.2 % (11.5-14.5); Red Blood Cell (RBC) Count 5.63 mill/uL (4.20-5.40); White Blood Cell (WBC) Count 13.6 thou/uL (4.8-10.8)
[2019-12-12 10:19] LABS: Anion Gap 14 mmol/L (10-20); BUN (Urea Nitrogen) 10 mg/dL (9.8-20.1); Calc. Creatinine Clearance 136 mL/min (70-130); Carbon Dioxide 30 mmol/L (23-31); Chloride 98 mmol/L (98-107); Estimated GFR-MDRD Greater than 90; Glucose 151 mg/dL (80-115); Potassium 3.9 mmol/L (3.5-5.1); Sodium 138 mmol/L (136-145)
[2019-12-12] MEDS: HumaLOG 300 UNITS/3 ML VIAL SC PRN (13:24)
[2019-12-12 14:42] VITALS: BP 176/94
--- NOTE | 2019-12-13 00:53 | DIS ---
DATE OF ADMISSION: 12/04/2019 DATE OF DISCHARGE: 12/12/2019 PRIMARY CARE PROVIDER: Cheryl Ibarra MD DISCHARGE DIAGNOSES: 1. Acute on chronic hypoxic respiratory failure. 2. Chronic obstructive pulmonary disease exacerbation. 3. Acute metabolic encephalopathy. 4. Hypertensive urgency. CONDITION OF PATIENT ON THE DAY OF DISCHARGE: Stable. I assessed Ms. Colunga on the day of discharge. She denies any chest pain or shortness of breath. Vital signs are stable. S1 and S2 are heard, regular. Lungs are clear to auscultation bilaterally. CONSULTATIONS DURING THIS HOSPITALIZATION: Pulmonary and Critical Care Medicine, Dr. Zamora. HOSPITAL COURSE: Ms. oClunga is a pleasant 64-year-old lady, who was admitted to [facility] on December 04, 2019 for acute on chronic hypoxic respiratory failure secondary to COPD exacerbation. She was intubated and admitted to the critical care unit. She was seen by Pulmonary and Critical Care Medicine Service. She was treated with oxygen, steroids, bronchodilators, and antibiotics. She continued to improve. She was extubated and transferred to the medical floor. She was seen by Physical Therapy Service. She has been advised to use her walker at home. She is being discharged home on oral prednisone taper and amlodipine 5 mg daily. Losartan was discontinued during this hospitalization, lisinopril was continued. She has been advised to use the remainder of her pre-admission home medications. She has also been advised to check her blood sugars, blood pressure, heart rate 3 times a day and show the readings to primary care provider. On the day of discharge, she has white count 13,600, hemoglobin 15.3, and platelet count 233,000. Sodium 138, potassium 3.9, and creatinine 0.51. POST ACUTE CARE FOLLOWUP: With primary care provider in 3 days. ACTIVITY: As tolerated. DIET: Heart healthy and diabetic. DISCHARGE DESTINATION: Home. DISCHARGE MEDICATIONS: 1. Amlodipine 5 mg daily. 2. Oral prednisone taper. Losartan has been discontinued. Otherwise, no change to her preadmission home medications. TOTAL AMOUNT OF TIME SPENT COORDINATING THIS DISCHARGE: 33 minutes. Job ID: [id number]
== END 2019-12-12 16:31 | disposition home or self-care (01) | DRG 207 ==
LOC: ERS 18:02 → CCU 23:10 → T4-B 12-10 09:58 → CCU 12-10 09:58 → T4-B 12-10 10:16
PROVIDERS: ADMIT Internal Medicine; ATTEND Internal Medicine
PROC: 5A1955Z Respiratory Ventilation, Greater than 96 Consecutive Hours (ICD-10-PCS; principal; 2019-12-04)
PROC: 0BH17EZ Insertion of Endotracheal Airway into Trachea, Via Natural or Artificial Opening (ICD-10-PCS; 2019-12-04)
DX: J96.21 Acute and chronic respiratory failure with hypoxia (principal); G93.41 Metabolic encephalopathy; R40.2342 Coma scale, best motor response, flexion withdrawal, at arrival to emergency department; R40.2222 Coma scale, best verbal response, incomprehensible words, at arrival to emergency department; J44.1 Chronic obstructive pulmonary disease with (acute) exacerbation; J44.0 Chronic obstructive pulmonary disease with (acute) lower respiratory infection; E66.2 Morbid (severe) obesity with alveolar hypoventilation; I16.0 Hypertensive urgency; I10 Essential (primary) hypertension; R40.2132 Coma scale, eyes open, to sound, at arrival to emergency department; E11.40 Type 2 diabetes mellitus with diabetic neuropathy, unspecified; F41.9 Anxiety disorder, unspecified; F32.9 Major depressive disorder, single episode, unspecified; J20.9 Acute bronchitis, unspecified; F17.210 Nicotine dependence, cigarettes, uncomplicated; J96.22 Acute and chronic respiratory failure with hypercapnia; Z99.81 Dependence on supplemental oxygen; I25.2 Old myocardial infarction; Z98.51 Tubal ligation status; Z90.710 Acquired absence of both cervix and uterus; Z68.26 Body mass index [BMI] 26.0-26.9, adult; Z91.19 Patient's noncompliance with other medical treatment and regimen; Z88.6 Allergy status to analgesic agent; Z88.8 Allergy status to other drugs, medicaments and biological substances; Z91.048 Other nonmedicinal substance allergy status; Z79.899 Other long term (current) drug therapy
CPT/HCPCS: 31500; 36415; 36416; 51701; 70450; 71045; 71275; 80048; 80053; 80202; 81003; 81015; 82010; 82550; 82565; 82805; 83605; 83690; 83735; 83880; 84100; 84484; 85007; 85025; 85027; 85379; 87040; 93005; 94002; 94003; 94640; 94760; 96365; 96366; 96367; 96368; 96375; 96376; J0360; J0692; J1100; J1650; J1815; J1956; J2405; J2704; J2920; J3010; J3370; J3475; J3490; J7050; J7512; J7611; J7620; Q9967

== ENCOUNTER 2019-12-22 22:54 | Inpatient (IN) | payer MEDICARE, BC, OTHER ==
[2019-12-22 23:42] LABS: Actual Bicarbonate (HCO3a) 31.7 mEq/L (22-28); Analyzer IN Cardio ER; Base Excess (BEa) 0.5 mEq/L (-2.0 to +3.0); Calcium, Ionized (arterial) 1.22 mmol/L (1.12-1.30); Carboxyhemoglobin (COHb) 5.5 gm% (0.0-3.0); Hemoglobin (Hb) 14.6 g/dL (12.0-16.0); O2 Tension (PaO2), arterial 150.4 mmHg (> 80.0)
[2019-12-22 23:44] LABS: #Basophils 0.1 thou/uL (0.0-0.2); #Eosinphils 0.2 thou/uL (0.0-0.7); #Lymphocytes 2.5 thou/uL (1.20-3.40); #Monocytes 0.8 thou/uL (0.11-0.59); #Neutrophils 8.7 thou/uL (1.40-6.50); %Basophils 1.1 % (0.0-1.0); %Eosinophils 1.5 % (0.0-10.0); %Lymphocytes 20.1 % (21.0-51.0); %Monocytes 6.5 % (0.0-10.0); %Neutrophils 70.9 % (42.0-75.0); Hemoglobin 15.1 g/dL (12.0-16.0); Mean Corpuscular HGB CONC 31.1 g/dL (32.0-36.0); Mean Corpuscular Hemoglobin 27.8 pg (27.0-31.0); Mean Corpuscular Volume 89.2 fL (78.0-98.0); Mean Platelet Volume 9.7 fL (7.4-10.4); Platelet Count 187 thou/uL (130-400); RBC Distribution Width 15.6 % (11.5-14.5); Red Blood Cell (RBC) Count 5.43 mill/uL (4.20-5.40); White Blood Cell (WBC) Count 12.3 thou/uL (4.8-10.8)
[2019-12-23 00:15] LABS: pH, Arterial 7.18 (7.35-7.45)
[2019-12-23 00:16] LABS: Puncture Site RBA
[2019-12-23 00:16] LABS: ALT (SGPT) 16 U/L (8-55); AST (SGOT) 18 U/L (5-34); Albumin 3.8 g/dL (3.4-4.8); Alkaline Phosphatase 147 U/L (40-110); Anion Gap 11 mmol/L (10-20); BUN (Urea Nitrogen) 11 mg/dL (9.8-20.1); Bilirubin, Total 0.4 mg/dL (0.2-1.2); CK (CPK) 37 U/L (29-168); Calc. Creatinine Clearance 0 mL/min (70-130); Carbon Dioxide 35 mmol/L (23-31); Chloride 102 mmol/L (98-107); Estimated GFR-MDRD Greater than 90; Globulin 2.8 g/dL (2.4-3.5); Glucose 230 mg/dL (80-115); Potassium 4.2 mmol/L (3.5-5.1); Protein, Total 6.6 g/dL (6.0-8.3); Sodium 144 mmol/L (136-145)
[2019-12-23 00:23] LABS: Bacteria/HPF None Seen HPF (None Seen); Bilirubin Negative (Negative); Blood, Urine Negative (Negative); Clarity Clear (Clear); Glucose, Urine (Dipstick) 100 mg/dL (Negative); Ketone, Urine Negative (Negative); Leukocyte 250 Leu/uL (Negative); Mucous/LPF 1+ LPF (<2+); Nitrite Negative (Negative); Protein, Urine (Dipstick) 70 mg/dL (Neg-Trace); RBC/HPF 0-3 HPF (0-3); Specific Gravity, Urine 1.016 (1.002-1.036); Squamous Epithelial 0-3 HPF (0-3); Urobilinogen Normal mg/dL (Less than 2); WBC/HPF Greater than 50 HPF (0-3); pH, Urine 5.5 (5.0-9.0)
[2019-12-23] MEDS ORDERED: cefTRIAXone\\ROCEPHIN 1 GM VIAL ONE (00:41)
[2019-12-23] MEDS ORDERED: Sodium Chloride 0.9% 100 ML ONE (00:41)
[2019-12-23] MEDS ORDERED: Guaifenesin DM 100-10/5 ML UDCUP PO PRN (01:02)
[2019-12-23] MEDS ORDERED: Acetaminophen 650 MG Suppository PR PRN (01:02)
[2019-12-23] MEDS ORDERED: Acetaminophen 325 MG TAB PO PRN (01:02)
[2019-12-23] MEDS ORDERED: Calcium Carbonate 500 MG ChewTAB PO PRN (01:02)
[2019-12-23] MEDS ORDERED: Dextrose 5% in Water 1,000 ML IV PRN (01:14)
[2019-12-23] MEDS ORDERED: Dextrose 50% Abboject 50 ML SYRINGE SLOW IVP PRN (01:14)
--- NOTE | 2019-12-23 01:16 | PDOC.HHP ---
Hospitalist HPI - History of Present Illness dizzyness History of Present Illness: Case of an 64y/o female with pmhx of DM, htn, copd, MDD and HLD who comes to hospital after becoming dizzy and falling down. history is limited patient is very somnolent due to hypercapnea, is able to open her eyes and follow commands when aroused but goes back again to sleep if no active stimulus, most of the history was obtain from emr and transfer papers. Apparently pt was on her usal state of health until today when she became dizzy and fell from standing position, had a negative trauma work up. Denies any head injury. Unsure if she lost consciousness or not. EMS states she was somnolent on their arrival and hypoxic. She became somewhat more alert when placed on oxygen en route. Pt denies any other complaints or concerns at this time Hospitalist ROS - Review of Systems All other systems reviewed; all pertinent +/- noted in HPI/Subj Hospitalist History - Past Medical History Endocrine: reports: Diabetes - Past Surgical History Past Surgical History: reports: Cholecystectomy, Hysterectomy, Tubal Ligation - Family History Family History: reports: diabetes mellitus, hypertension - Social History Alcohol: reports: None Drugs: reports: none - Exam General - other findings: somnolent Eye: PERRL, anicteric sclera ENT: normocephalic atraumatic, no oropharyngeal lesions Neck: supple, symmetric, no JVD Heart: RRR, no murmur, no gallops Respiratory - other findings: decreased lung sound b/l. b/l wheezing Gastrointestinal: soft, non-tender, non-distended Extremities: no cyanosis, no clubbing, no edema Skin: normal turgor, no lesions, no rashes Neurological: cranial nerve grossly intact, normal sensation to touch, no weakness Musculoskeletal: normal tone, normal strength, no muscle wasting Psychiatric: oriented to person, oriented to place, oriented to time, somnolent Hospitalist Results - Labs Result Diagrams: 12/22/19 23:33 12/22/19 23:33 Lab results: WBC 12.3 thou/uL (4.8-10.8) H 12/22/19 23:33 Hgb 15.1 g/dL (12.0-16.0) 12/22/19 23:33 Hct 48.5 % (36.0-47.0) H 12/22/19 23:33 MCV 89.2 fL (78.0-98.0) 12/22/19 23:33 Plt Count 187 thou/uL (130-400) 12/22/19 23: Neutrophils % 70.9 % (42.0-75.0) 12/22/19 23:33 ABG pH 7.18 (7.35-7.45) L* 12/22/19 23:21 ABG pCO2 87.0 mmHg (35.0-45.0) H* 12/22/19 23:21 ABG pO2 150.4 mmHg (> 80.0) H 12/22/19 23:21 Sodium 144 mmol/L (136-145) 12/22/19 23: Potassium 4.2 mmol/L (3.5-5.1) 12/22/19 23: Chloride 102 mmol/L (98-107) 12/22/19 23: Carbon Dioxide 35 mmol/L (23-31) H 12/22/19 23:33 BUN 11 mg/dL (9.8-20.1) 12/22/19 23:33 Creatinine 0.59 mg/dL (0.6-1.1) L 12/22/19 23:33 Glucose 230 mg/dL (80-115) H 12/22/19 23:33 Calcium 9.0 mg/dL (7.8-10.44) 12/22/19 23:33 Total Bilirubin 0.4 mg/dL (0.2-1.2) 12/22/19 23:33 AST 18 U/L (5-34) 12/22/19 23:33 ALT 16 U/L (8-55) 12/22/19 23:33 Alkaline Phosphatase 147 U/L (40-110) H 12/22/19 23:33 Creatine Kinase 37 U/L (29-168) 12/22/19 23:33 Troponin I 0.027 ng/mL (< 0.028) 12/22/19 23:33 Serum Total Protein 6.6 g/dL (6.0-8.3) 12/22/19 23:33 Albumin 3.8 g/dL (3.4-4.8) 12/22/19 23:33 Urine Ketones Negative mg/dL (Negative) 12/22/19 23:55 Urine Blood Negative (Negative) 12/22/19 23:55 Urine Nitrite Negative (Negative) 12/22/19 23:55 Ur Leukocyte Esterase 250 Binh/uL (Negative) A 12/22/19 23:55 Urine RBC 0-3 HPF (0-3) 12/22/19 23:55 Urine WBC Greater than 50 HPF (0-3) A 12/22/19 23:55 Ur Squamous Epith Cells 0-3 HPF (0-3) 12/22/19 23:55 Urine Bacteria None Seen HPF (None Seen) 12/22/19 23:55 Hospitalist H&P A/P - Problem (1) COPD exacerbation Code(s): J44.1 - CHRONIC OBSTRUCTIVE PULMONARY DISEASE W (ACUTE) EXACERBATION Status: Acute (2) Respiratory failure with hypoxia and hypercapnia Code(s): J96.91 - RESPIRATORY FAILURE, UNSPECIFIED WITH HYPOXIA; J96.92 - RESPIRATORY FAILURE, UNSPECIFIED WITH HYPERCAPNIA Status: Acute (3) UTI (urinary tract infection) Status: Acute (4) DM type 2 (diabetes mellitus, type 2) Status: Chronic Qualifiers: (5) Dyslipidemia Code(s): E78.5 - HYPERLIPIDEMIA, UNSPECIFIED Status: Chronic (6) HTN (hypertension) Code(s): I10 - ESSENTIAL (PRIMARY) HYPERTENSION Status: Chronic Qualifiers: - Plan Plan: 64y/o female with the stated pmhx who comes to hospital due to COPD exacerbation copd exacerbation - on rocephin + azithromycin - solumerdol 60 q 6hr - on bipap - f/u abgs - 02 supplementation respiratory failure hypoxic and hypercapnic - on bipap - abgs consistent with hypercapnia - ems found pts hypoxic on the 80s uti - u/a consistent with uti - on rocephin - f/u u/c, b/c dm - acc + ss - long acting insulin hnt / hld - continue home meds
[2019-12-23 02:58] LABS: Analyzer IN Cardio ER; Base Excess (BEa) 4.6 mEq/L (-2.0 to +3.0); Carboxyhemoglobin (COHb) 4.9 gm% (0.0-3.0); Hemoglobin (Hb) 14.3 g/dL (12.0-16.0); O2 Tension (PaO2), arterial 66.2 mmHg (> 80.0); pH, Arterial 7.28 (7.35-7.45)
[2019-12-23 03:03] LABS: CO2 Tension 74.4 mmHg (35.0-45.0)
[2019-12-23 03:04] LABS: Puncture Site RBA
[2019-12-23 03:12] LABS: Band 2 % (5-11); Hemoglobin 13.8 g/dL (12.0-16.0); Lymphocytes 11 % (21-51); MDiff Complete? YES; Mean Corpuscular HGB CONC 31.1 g/dL (32.0-36.0); Mean Corpuscular Hemoglobin 27.6 pg (27.0-31.0); Mean Platelet Volume 9.7 fL (7.4-10.4); Monocytes 11 % (0-10); Neutrophil 76 % (42-75); Platelet Count 191 thou/uL (130-400); Platelet Morphology Comment Appears Adequate; RBC Distribution Width 15.5 % (11.5-14.5); White Blood Cell (WBC) Count 11.1 thou/uL (4.8-10.8)
[2019-12-23 03:16] LABS: ALT (SGPT) 17 U/L (8-55); AST (SGOT) 16 U/L (5-34); Albumin 3.6 g/dL (3.4-4.8); Alkaline Phosphatase 143 U/L (40-110); BUN (Urea Nitrogen) 11 mg/dL (9.8-20.1); Bilirubin, Total 0.3 mg/dL (0.2-1.2); Calc. Creatinine Clearance 0 mL/min (70-130); Estimated GFR-MDRD Greater than 90; Globulin 2.8 g/dL (2.4-3.5); Glucose 269 mg/dL (80-115); Protein, Total 6.4 g/dL (6.0-8.3)
[2019-12-23 03:20] LABS: Troponin I 0.023 ng/mL (< 0.028)
[2019-12-23 03:25] LABS: Anion Gap 15 mmol/L (10-20); Carbon Dioxide 33 mmol/L (23-31); Chloride 101 mmol/L (98-107); Potassium 4.3 mmol/L (3.5-5.1); Sodium 145 mmol/L (136-145)
[2019-12-23] MEDS ORDERED: Azithromycin 500 MG VIAL ONE (04:24)
[2019-12-23] MEDS: Azithromycin 500 MG in Sodium Chloride 0.9% 250 ML 250 ML IVPB SCH (04:32)
[2019-12-23] MEDS: Sodium Chloride 0.9% 1,000 ML IV SCH ×2 (04:32→17:21)
[2019-12-23] MEDS ORDERED: methylPREDNISolone Sod Succ 40 MG VIAL ONE (05:57)
[2019-12-23] MEDS: methylPREDNISolone Sod Succ 40 MG VIAL IVP SCH ×3 (06:02→17:21)
[2019-12-23 06:53] LABS: Troponin I 0.016 ng/mL (< 0.028)
--- NOTE | 2019-12-23 08:44 | CT ---
CT HEAD WITHOUT CONTRAST: INDICATION: Mental status change with fall. COMPARISON: Comparison is made to recent CT of 12/04/2019. FINDINGS: Mild cortical atrophy again noted. Ventricles have normal size and position. No evidence of intracr anial mass, hemorrhage, infarct, or other acute process. Paranasal sinuses and mastoids are clear. IMPRESSION: No acute process. POS: AGW
--- NOTE | 2019-12-23 08:45 | RAD ---
PORTABLE CHEST: Date: 12/22/2019 HISTORY: Fall with left rib pain. COMPARISON: 12/08/2019. FINDINGS: Mild cardiomegaly with mild vascular congestion. No infiltrate or effusion. The bony thorax appears i ntact. IMPRESSION: Mild cardiomegaly with mild vascular congestion. POS: AGW
--- NOTE | 2019-12-23 08:46 | RAD ---
AP PELVIS: INDICATION: Fall with left hip pain. COMPARISON: 05/31/2019 film. FINDINGS: Bony pelvis appears intact. Both hips appear intact. No acute abnormality identified. IMPRESSION: No acute finding. POS: AGW
[2019-12-23 08:52] VITALS: BMI 28.0
[2019-12-23] MEDS: Enoxaparin Sodium 40 MG/0.4 ML SYRINGE SC SCH (09:38)
[2019-12-23 12:40] LABS: SARS-CoV-2 MS2 Positive; SARS-CoV-2 N Gene Negative; SARS-CoV-2 S Gene Negative; SARS-CoV-2 by NAA Not Detected (NotDetected); SARS-CoV-2 orf1ab Negative
[2019-12-23] MEDS: HumaLOG 300 UNITS/3 ML VIAL SC PRN (15:04)
--- NOTE | 2019-12-23 20:56 | CON ---
DATE OF CONSULTATION: 12/23/2019 HISTORY OF PRESENT ILLNESS: Ms. Colunga is a 64-year-old COPDer. She presented with respiratory distress. She was placed on BiPAP and admitted to the ICU. She just discharged 11 days ago with COPD exacerbation and hypertensive urgency. She is on BiPAP and gives only short history. She does appear comfortable on BiPAP. PAST MEDICAL HISTORY: Remarkable for; 1. Diabetes. 2. Cholecystectomy. 3. Hysterectomy. 4. Hypertension. SOCIAL HISTORY: She was smoking at last admission. FAMILY HISTORY: Negative for lung disease in early age. REVIEW OF SYSTEMS: Otherwise, 10-point negative. PHYSICAL EXAMINATION: GENERAL: She has BiPAP on. She is comfortable. She awakens easily. VITAL SIGNS: Afebrile. Oximetry is 97, FiO2 is 26%. Blood pressure 130/62, heart rate is in the 90s. HEAD AND NECK: Unremarkable. LUNGS: Remarkable for distant breath sounds and bilateral wheezes. HEART: Regular rhythm. S1 and S2 are normal. ABDOMEN: Soft and nontender. EXTREMITIES: Without clubbing, cyanosis, or edema. NEUROLOGIC: Nonfocal. LABORATORY DATA: White count 11.1, hemoglobin 13.8, platelets 191. Sodium 145, potassium 4.3, chloride 101, bicarb 33, BUN 11, creatinine 0.57. IMPRESSION: Chronic obstructive pulmonary disease exacerbation with respiratory failure, stable on BiPAP. Plan, continue same. This is a 70 min consult greater than 50% of the time spent on coordination of care. Job ID: [id number] MTDD
[2019-12-23] MEDS ORDERED: Insulin Glargine 30 UNITS in Pre-Filled Syringe 1 EACH SC SCH (21:00)
[2019-12-24] MEDS: methylPREDNISolone Sod Succ 40 MG VIAL IVP SCH ×4 (00:06→18:22)
[2019-12-24] MEDS: cefTRIAXone\\ROCEPHIN 2 GM in Sodium Chloride 0.9% 100 ML IVPB SCH (00:07)
[2019-12-24] MEDS: Azithromycin 500 MG in Sodium Chloride 0.9% 250 ML 250 ML IVPB SCH (02:10)
[2019-12-24] MEDS: HumaLOG 300 UNITS/3 ML VIAL SC PRN ×4 (06:51→20:41)
--- NOTE | 2019-12-24 09:27 | PRG ---
DATE OF SERVICE: 12/24/2019 SUBJECTIVE: The patient was on BiPAP last night. Has been taken off this morning. She says she went back to smoking if she was discharged last time. OBJECTIVE: VITAL SIGNS: Temperature 97.6, pulse 84, blood pressure 126/53, O2 saturation 99%. HEENT: Unremarkable. NECK: No adenopathy or JVD. LUNGS: Clear without wheezing or rhonchi. CARDIAC: S1 and S2. Regular. ABDOMEN: Soft. EXTREMITIES: No edema. ASSESSMENT: 1. Chronic obstructive pulmonary disease exacerbation. 2. Tobacco abuse. PLAN: She can be transferred out to the medical floor. I do not think there is any hope of her ever stopping her smoking. She seems depressed. I will go ahead and wean her steroid dose down today and transfer her to the medical floor. Job ID: [id number]
[2019-12-24] MEDS: Enoxaparin Sodium 40 MG/0.4 ML SYRINGE SC SCH (09:44)
[2019-12-24] MEDS: Sodium Chloride 0.9% 1,000 ML IV SCH (18:22)
--- NOTE | 2019-12-24 19:54 | PDOC.HOSPP ---
- Subjective Encounter Date: 12/24/19 Encounter Time: 17:00 Subjective: Patient was seen for follow-up regarding acute on chronic hypoxic and hypercapnic respiratory failure. She is off of BiPAP. She reports feeling better. Shortness of breath is improved. She denies any chest pain. - Objective Vital Signs & Weight: Vital Signs (12 hours) Temp Pulse Resp Pulse Ox 12/24/19 19:42 98.6 F 12/24/19 18:34 88 21 H 100 12/24/19 16:05 86 14 99 12/24/19 12:00 96 12/24/19 11:24 98.7 F 12/24/19 11:12 95 20 99 Weight Weight 163 lb 5.8 oz Most Recent Monitor Data Heart Rate from ECG 91 NIBP 174/77 NIBP BP-Mean 109 Respiration from ECG 14 SpO2 93 I&O: 12/23/19 12/24/19 12/25/19 06:59 06:59 06:59 Intake Total 1340 1280 Output Total 2650 1500 Balance -1310 -220 Result Diagrams: 12/23/19 02:25 12/23/19 02:25 Additional Labs: Accuchecks 12/24/19 12/24/19 12/24/19 17:35 12:18 06:55 POC Glucose 281 H 348 H 216 H 12/24/19 00:10 POC Glucose 226 H Labs and MAR was reviewed by me. EKG Reviewed by me: Yes (Telemetry: NSR) Hospitalist ROS - Review of Systems Respiratory: reports: cough, dry, SOB with excertion. denies: shortness of breath, hemoptysis, pleuritic pain, sputum, wheezing Cardiovascular: denies: chest pain, palpitations, orthopnea, paroxysmal noc. dyspnea, edema, light headedness - Medication Medications: Active Medications Generic Name Dose Route Start Last Admin Trade Name Freq PRN Reason Stop Dose Admin Albuterol/Ipratropium 3 ml 12/24/19 10:30 12/24/19 18:34 Duoneb NEB 3 ml [id number] REYNA Administration Enoxaparin Sodium 40 mg 12/23/19 09:00 12/24/19 09:44 Lovenox SC 40 mg 0900 REYNA Administration Azithromycin 500 mg/ Sodium 250 mls @ 250 mls/hr 12/23/19 02:00 12/24/19 02: 10 Chloride IVPB 250 mls Q24HR REYNA Administration Ceftriaxone Sodium 2 gm/ 100 mls @ 200 mls/hr 12/24/19 01:00 12/24/19 00:07 Sodium Chloride IVPB 100 mls Q24HR REYNA Administration Sodium Chloride 1,000 mls @ 50 mls/hr 12/23/19 01:15 12/24/19 18:22 Normal Saline 0.9% IV 1,000 mls .Q20H REYNA Administration Insulin Glargine 30 units/ 0.3 mls @ 0 mls/hr 12/23/19 21:00 12/23/19 20:40 Miscellaneous Medication SC 0.3 mls HS REYNA Administration Insulin Human Lispro 0 units 12/23/19 01:14 12/24/19 18:23 Humalog SC 6 unit .MODERATE SLIDING SC PRN Administration Moderate Correctional Scale Methylprednisolone Sodium Succinate 20 mg 12/24/19 12:00 12/24/19 18:22 Solu-Medrol IVP 20 mg Q6HR REYNA Administration - Exam General Appearance: awake alert Eye: anicteric sclera ENT: moist mucosa Neck: supple Heart: RRR Respiratory: no rales, no ronchi, normal chest expansion, wheezes Gastrointestinal: soft, non-tender Extremities: no cyanosis Psychiatric: normal affect, normal behavior Hosp A/P - Plan - Assessment (1) Respiratory failure with hypoxia and hypercapnia Code(s): J96.91 - RESPIRATORY FAILURE, UNSPECIFIED WITH HYPOXIA; J96.92 - RESPIRATORY FAILURE, UNSPECIFIED WITH HYPERCAPNIA Status: Acute (2) COPD exacerbation Code(s): J44.1 - CHRONIC OBSTRUCTIVE PULMONARY DISEASE W (ACUTE) EXACERBATION Status: Acute (3) UTI (urinary tract infection) Status: Acute (4) DM type 2 (diabetes mellitus, type 2) Status: Chronic Qualifiers: (5) HTN (hypertension) Code(s): I10 - ESSENTIAL (PRIMARY) HYPERTENSION Status: Chronic Qualifiers: (6) Dyslipidemia Code(s): E78.5 - HYPERLIPIDEMIA, UNSPECIFIED Status: Chronic - Plan respiratory failure hypoxic and hypercapnic - Pt has been off of BiPAP since this morning copd exacerbation -Clinically improved -Continue Rocephin + azithromycin -Continue steroids - 02 supplementation as needed uti -Continue Rocephin, follow cultures dm -Change Lantus to 35 units at bedtime, switch to aggressive insulin sliding scale. htn /dyslipidemia - resume home meds
[2019-12-24] MEDS ORDERED: hydrALAZINE 10 MG TAB PO PRN (19:59)
[2019-12-24] MEDS: Pregabalin 75 MG CAP PO SCH (20:36)
[2019-12-24] MEDS: Trospium 20 MG TAB PO SCH (20:37)
[2019-12-24] MEDS ORDERED: Insulin Glargine 35 UNITS in Pre-Filled Syringe 1 EACH SC SCH (21:00)
[2019-12-25] MEDS: methylPREDNISolone Sod Succ 40 MG VIAL IVP SCH ×2 (00:08→06:20)
[2019-12-25] MEDS: cefTRIAXone\\ROCEPHIN 2 GM in Sodium Chloride 0.9% 100 ML IVPB SCH (00:09)
[2019-12-25] MEDS: Azithromycin 500 MG in Sodium Chloride 0.9% 250 ML 250 ML IVPB SCH (01:04)
[2019-12-25] MEDS: HumaLOG 300 UNITS/3 ML VIAL SC PRN ×3 (06:22→15:54)
[2019-12-25] MEDS ORDERED: Tolterodine Tartrate LA 4 MG CAP PO SCH (09:00)
[2019-12-25] MEDS: Pregabalin 75 MG CAP PO SCH ×2 (09:32→21:18)
[2019-12-25] MEDS: Amlodipine 5 MG TAB PO SCH ×2 (09:32→09:33)
[2019-12-25] MEDS: Enoxaparin Sodium 40 MG/0.4 ML SYRINGE SC SCH (09:33)
[2019-12-25] MEDS: DULoxetine 60 MG CAP PO SCH (09:33)
[2019-12-25] MEDS: Lisinopril 10 MG TAB PO SCH (09:33)
[2019-12-25] MEDS: Aspirin 81 mg Enteric Coated Tablet PO SCH (09:33)
[2019-12-25] MEDS: Trospium 20 MG TAB PO SCH ×2 (09:34→21:25)
--- NOTE | 2019-12-25 10:06 | PRG ---
DATE OF SERVICE: 12/25/2019 SUBJECTIVE: The patient is feeling better and no acute complaints. OBJECTIVE: VITAL SIGNS: On exam, temperature 97.9, pulse 80, blood pressure 135/71, and O2 saturation 95%. HEENT: Unremarkable. NECK: No adenopathy or JVD. LUNGS: Clear. CARDIAC: S1 and S2. Regular. ABDOMEN: Soft. EXTREMITIES: No edema. LABORATORY DATA: Blood sugars are high. ASSESSMENT: 1. Chronic obstructive pulmonary disease with exacerbation. 2. Tobacco abuse with no desire to quit. PLAN: I will change her over to oral steroids. She probably needs to be in some type of rehab facility or [facility] since she does not care one bit about taking care of herself. If she goes home, she will just be back in the hospital within a week. Job ID: [id number]
--- NOTE | 2019-12-25 19:29 | PDOC.HOSPP ---
- Subjective Encounter Date: 12/25/19 Encounter Time: 12:00 Subjective: Patient was seen for follow-up for respiratory failure. She reports feeling better. - Objective Vital Signs & Weight: Vital Signs (12 hours) Temp Pulse Resp BP Pulse Ox 12/25/19 19:24 77 16 97 12/25/19 16:00 98.6 F 88 18 135/78 93 L 12/25/19 14:50 87 20 97 12/25/19 10:50 98.6 F 92 18 131/62 94 L 12/25/19 09:33 74 12/25/19 09:32 74 12/25/19 08:18 74 19 100 12/25/19 07:57 98 12/25/19 07:40 97.9 F Weight Weight 163 lb 5.8 oz Most Recent Monitor Data Heart Rate from ECG 92 NIBP 153/72 NIBP BP-Mean 99 Respiration from ECG 20 SpO2 94 I&O: 12/24/19 12/25/19 12/26/19 06:59 06:59 06:59 Intake Total 1340 2655 Output Total 2650 2700 650 Balance -1310 -45 -650 Result Diagrams: 12/23/19 02:25 12/23/19 02:25 Additional Labs: Accuchecks 12/25/19 12/25/19 12/25/19 15:46 11:09 10:39 POC Glucose 316 H 320 H 250 H 12/25/19 12/24/19 05:44 20:06 POC Glucose 284 H 351 H Labs and MAR were reviewed by me. Hospitalist ROS - Review of Systems Respiratory: reports: cough, dry, wheezing. denies: shortness of breath, hemoptysis, SOB with excertion, pleuritic pain, sputum Cardiovascular: denies: chest pain, palpitations, orthopnea, paroxysmal noc. dyspnea, edema, light headedness - Medication Medications: Active Medications Generic Name Dose Route Start Last Admin Trade Name Freq PRN Reason Stop Dose Admin Acetaminophen 650 mg 12/23/19 01:02 12/24/19 20:40 Tylenol PO 650 mg Q4H PRN Administration Headache/Fever/Mild Pain (1-3) Albuterol/Ipratropium 3 ml 12/24/19 10:30 12/25/19 19:24 Duoneb NEB 3 ml [id number] REYNA Administration Amlodipine Besylate 5 mg 12/25/19 09:00 12/25/19 09:33 Norvasc PO 5 mg DAILY REYNA Administration Aspirin 81 mg 12/25/19 09:00 12/25/19 09:33 Ecotrin PO 81 mg DAILY REYNA Administration Duloxetine HCl 120 mg 12/25/19 09:00 12/25/19 09:33 Cymbalta PO 120 mg DAILY REYNA Administration Enoxaparin Sodium 40 mg 12/23/19 09:00 12/25/19 09:33 Lovenox SC 40 mg 0900 REYNA Administration Azithromycin 500 mg/ Sodium 250 mls @ 250 mls/hr 12/23/19 02:00 12/25/19 01: 04 Chloride IVPB 250 mls Q24HR REYNA Administration Ceftriaxone Sodium 2 gm/ 100 mls @ 200 mls/hr 12/24/19 01:00 12/25/19 00:09 Sodium Chloride IVPB 100 mls Q24HR REYNA Administration Insulin Glargine 35 units/ 0.35 mls @ 0 mls/hr 12/24/19 21:00 12/24/19 20:40 Miscellaneous Medication SC 0.35 mls HS REYNA Administration Insulin Human Lispro 0 units 12/24/19 19:58 12/25/19 15:54 Humalog SC 11 unit .AGGRESSIVE SLIDING PRN Administration Aggressive Correctional Scale Lisinopril 10 mg 12/25/19 09:00 12/25/19 09:33 Zestril PO 10 mg DAILY REYNA Administration Pantoprazole Sodium 40 mg 12/25/19 09:00 12/25/19 09:32 Protonix PO 40 mg DAILY REYNA Administration Pregabalin 300 mg 12/24/19 21:00 12/25/19 09:32 Lyrica PO 300 mg BID REYNA Administration Sodium Chloride 10 ml 12/24/19 21:00 12/25/19 09:33 Flush - Normal Saline IVF 10 ml Q12HR REYNA Administration Trospium 20 mg 12/24/19 21:00 12/25/19 09:34 Trospium PO 20 mg BID REYNA Administration - Exam General Appearance: awake alert Eye: anicteric sclera ENT: moist mucosa Neck: supple Heart: RRR Respiratory: no rales, wheezes Gastrointestinal: soft, non-tender Skin: no rashes Psychiatric: normal affect, normal behavior Hosp A/P - Plan continue antibiotics, respiratory therapy, out of bed/ambulate - Assessment (1) Respiratory failure with hypoxia and hypercapnia Code(s): J96.91 - RESPIRATORY FAILURE, UNSPECIFIED WITH HYPOXIA; J96.92 - RESPIRATORY FAILURE, UNSPECIFIED WITH HYPERCAPNIA Status: Acute (2) COPD exacerbation Code(s): J44.1 - CHRONIC OBSTRUCTIVE PULMONARY DISEASE W (ACUTE) EXACERBATION Status: Acute (3) UTI (urinary tract infection) Status: Acute (4) DM type 2 (diabetes mellitus, type 2) Status: Chronic Qualifiers: (5) HTN (hypertension) Code(s): I10 - ESSENTIAL (PRIMARY) HYPERTENSION Status: Chronic Qualifiers: (6) Dyslipidemia Code(s): E78.5 - HYPERLIPIDEMIA, UNSPECIFIED Status: Chronic - Plan respiratory failure hypoxic and hypercapnic - s/p bipap therapy copd exacerbation -Clinically improved -Continue Rocephin + azithromycin -Switch to oral steroids - 02 supplementation PRN uti -Final urine culture only showed mixed michael dm -Change Lantus to 40 units at bedtime, continue aggressive insulin sliding scale. htn -Controlled
[2019-12-25] MEDS ORDERED: Insulin Glargine 40 UNITS in Pre-Filled Syringe 1 EACH SC SCH (21:00)
[2019-12-26] MEDS: cefTRIAXone\\ROCEPHIN 2 GM in Sodium Chloride 0.9% 100 ML IVPB SCH (00:02)
[2019-12-26] MEDS: Azithromycin 500 MG in Sodium Chloride 0.9% 250 ML 250 ML IVPB SCH (01:03)
[2019-12-26] MEDS ORDERED: predniSONE 20 MG TAB PO SCH (09:00)
[2019-12-26] MEDS: DULoxetine 60 MG CAP PO SCH (09:15)
[2019-12-26] MEDS: Aspirin 81 mg Enteric Coated Tablet PO SCH (09:15)
[2019-12-26] MEDS: Enoxaparin Sodium 40 MG/0.4 ML SYRINGE SC SCH (09:15)
[2019-12-26] MEDS: Lisinopril 10 MG TAB PO SCH (09:16)
[2019-12-26] MEDS: Amlodipine 5 MG TAB PO SCH (09:17)
[2019-12-26] MEDS: Pregabalin 75 MG CAP PO SCH (09:53)
[2019-12-26] MEDS: Trospium 20 MG TAB PO SCH (10:07)
--- NOTE | 2019-12-26 10:09 | PRG ---
DATE OF SERVICE: 12/26/2019 SUBJECTIVE: She was about to get up and ambulate with physical therapy when I entered the room. She says her breathing is back to baseline. She is wanting to go home. She seems very weak. OBJECTIVE: VITAL SIGNS: Temperature 98.4, pulse 73, blood pressure 140/68, and O2 saturation 97% on 2 L. HEENT: Unremarkable. NECK: No adenopathy or JVD. CHEST: Clear, but diminished breath sounds. CARDIAC: S1 and S2. Regular. ABDOMEN: Soft. EXTREMITIES: No edema. ASSESSMENT: 1. Chronic obstructive pulmonary disease with exacerbation. 2. Chronic hypoxic/hypercapnic respiratory failure secondary to chronic obstructive pulmonary disease. PLAN: I firmly believe she should go to rehab before going home. I am going to switch her oral antibiotics, got nothing else to offer at this point. Job ID: [id number]
--- NOTE | 2019-12-26 10:59 | PDOC.FMACP ---
Advance Care Planning - Problem (1) Palliative care encounter Status: Acute Code(s): Z51.5 - ENCOUNTER FOR PALLIATIVE CARE (2) COPD exacerbation Status: Acute Code(s): J44.1 - CHRONIC OBSTRUCTIVE PULMONARY DISEASE W (ACUTE ) EXACERBATION (3) Respiratory failure with hypoxia and hypercapnia Status: Acute Code(s): J96.91 - RESPIRATORY FAILURE, UNSPECIFIED WITH HYPOXIA ; J96.92 - RESPIRATORY FAILURE, UNSPECIFIED WITH HYPERCAPNIA (4) UTI (urinary tract infection) due to Enterococcus Status: Acute Code(s): N39.0 - URINARY TRACT INFECTION, SITE NOT SPECIFIED; B95.2 - ENTEROCOCCUS THE CAUSE OF DISEASES CLASSIFIED ELSEWHERE (5) DM type 2 (diabetes mellitus, type 2) Status: Chronic Qualifiers: (6) HTN (hypertension) Status: Chronic Code(s): I10 - ESSENTIAL (PRIMARY) HYPERTENSION Qualifiers: (7) Obesity (BMI 30.0-34.9) Status: Chronic Code(s): E66.9 - OBESITY, UNSPECIFIED - Note Participants: patient, palliative care Summary: Palliative Care introduced Advanced Care Planning, allowed an opportunity to decline. The diagnosis, prognosis and goals of care were discussed. Appropriate forms and documentation to accomplish the goals of care were discussed. All questions were answered. Ms Colunga has elected to complete MPOA, copies made. Copy placed on chart original and copy given to patient. The Palliative Care Team will be engaged to assist with completion of any outstanding forms that are needed. Please also refer to [facility]ann Palliative Care notes in note section Time Spent (mins): 20
[2019-12-26 12:11] VITALS: BP 138/62; TEMP 98.5
[2019-12-26] MEDS: HumaLOG 300 UNITS/3 ML VIAL SC PRN (12:36)
--- NOTE | 2019-12-26 13:38 | DIS ---
DATE OF ADMISSION: 12/23/2019 DATE OF DISCHARGE: 12/26/2019 PRIMARY CARE PROVIDER: Cheryl Ibarra MD DISCHARGE DIAGNOSES: 1. Acute on chronic hypoxic and hypercapnic respiratory failure. 2. Chronic obstructive pulmonary disease exacerbation. 3. Urinary tract infection. CONDITION: Condition of patient on the day of discharge: Stable. I assessed Ms. Colunga on the day of discharge. She denies any chest pain or shortness of breath. Vital signs are stable. S1 and S2 are heard, regular. Lungs are clear to auscultation bilaterally. CONSULTATIONS DURING THIS HOSPITALIZATION: Pulmonary and Critical Care Medicine, Dr. Zamora. DISCHARGE MEDICATIONS: 1. Oral prednisone taper. 2. Cefdinir 600 mg daily for 6 more days. 3. Nicotine 21 mg patch daily. Otherwise, no change was made to her pre-admission home medications. HOSPITAL COURSE: Ms. Colunga is a pleasant 64-year-old lady, who was admitted to [facility] on December 23, 2019, for acute on chronic respiratory failure secondary to COPD exacerbation. She was ruled out for COVID. She was treated with BiPAP in the IMCU. She improved clinically and was subsequently transferred to the medical floor. She continued to improve clinically. She was evaluated by Therapy Services. She was recommended discharge home, if needed, with home health. I discussed with the patient regarding this issue. She wished to go home without home health and she will contact her primary care provider if needs home health. Many thanks for allowing me to participate in your patient's care. Please feel free to contact me with any questions or concerns. ACTIVITY: As tolerated. DIET: Heart healthy and diabetic. DISCHARGE DESTINATION: Home. TIME SPENT: Total amount of time spent in coordinating this discharge: 33 minutes. Please note that the patient's final urine culture grew mixed michael. Preliminary blood cultures are negative at the time of discharge. She has been advised to follow up with primary care provider for final blood culture report. She has also been advised to check her blood sugars, blood pressure, and heart rate 3 times a day and show the readings to primary care provider. Post-acute care followup: With primary care provider in 3 days and with Pulmonary and Critical Care Medicine in 1 week. Job ID: [id number]
[2019-12-27] MEDS ORDERED: Cefdinir 300 MG CAP PO SCH (09:00)
[2019-12-27] MEDS ORDERED: Nicotine 21 MG PATCH TD SCH (09:00)
== END 2019-12-26 13:48 | disposition home or self-care (01) | DRG 189 ==
LOC: ERS 22:54 → ERHOLD 12-23 01:09 → CCU 12-23 07:50 → IMCU/EMU 12-23 21:29 → ONC 12-25 10:58
PROVIDERS: ADMIT Internal Medicine; ATTEND Internal Medicine
PROC: 5A09457 Assistance with Respiratory Ventilation, 24-96 Consecutive Hours, Continuous Positive Airway Pressure (ICD-10-PCS; principal; 2019-12-23)
DX: J96.22 Acute and chronic respiratory failure with hypercapnia (principal); N39.0 Urinary tract infection, site not specified; J44.1 Chronic obstructive pulmonary disease with (acute) exacerbation; J96.21 Acute and chronic respiratory failure with hypoxia; E11.40 Type 2 diabetes mellitus with diabetic neuropathy, unspecified; I10 Essential (primary) hypertension; F32.9 Major depressive disorder, single episode, unspecified; F17.210 Nicotine dependence, cigarettes, uncomplicated; B95.2 Enterococcus as the cause of diseases classified elsewhere; E66.9 Obesity, unspecified; E78.5 Hyperlipidemia, unspecified; Z20.828 Contact with and (suspected) exposure to other viral communicable diseases; Z90.49 Acquired absence of other specified parts of digestive tract; Z90.710 Acquired absence of both cervix and uterus; Z98.51 Tubal ligation status; Z68.28 Body mass index [BMI] 28.0-28.9, adult; Z88.6 Allergy status to analgesic agent; Z88.5 Allergy status to narcotic agent; Z88.8 Allergy status to other drugs, medicaments and biological substances; Z79.899 Other long term (current) drug therapy; Z79.51 Long term (current) use of inhaled steroids; Z79.4 Long term (current) use of insulin
CPT/HCPCS: 36415; 36416; 51701; 70450; 71045; 72170; 80053; 81003; 81015; 82550; 82805; 84145; 84484; 85007; 85025; 85027; 85379; 87040; 87086; 87635; 93005; 94640; 94660; 94760; 96365; 99292; J0456; J0696; J1650; J1815; J2920; J3490; J7050; J7512; J7620; U0003

== ENCOUNTER 2020-02-27 09:59 | Outpatient (CLI) | payer MEDICARE, BC, OTHER ==
--- NOTE | 2020-02-27 10:35 | MMO ---
Bilateral MAMMO Bilat Screen [facility]. CLINICAL HISTORY: Patient is 64 years old and is seen for screening. The patient has the following family history of breast cancer: paternal grandmother. The patient has no personal history of cancer. The patient has a history of left Excisional Biopsy in S OR 1989' - benign. VIEWS: The views performed were: bilateral craniocaudal with tomosynthesis and bilateral mediolateral oblique with tomosynthesis. FILMS COMPARED: The present examination has been compared to prior imaging studies performed at [facility] on 09/19/2014, 07/18/2016 and 08/17/2017. This study has been interpreted with the assistance of computer-aided detection. MAMMOGRAM FINDINGS: There are scattered fibroglandular densities. There are no suspicious masses, suspicious calcifications, or new areas of architectural distortion. IMPRESSION: THERE IS NO MAMMOGRAPHIC EVIDENCE OF MALIGNANCY. A ROUTINE FOLLOW-UP MAMMOGRAM IN 1 YEAR IS RECOMMENDED. THE RESULTS OF THIS EXAM WERE SENT TO THE PATIENT. ACR BI-RADS Category 1 - Negative MAMMOGRAPHY NOTE: 1. A negative mammogram report should not delay a biopsy if a dominant of clinically suspicious mass is present. 2. Approximately 10% to 15% of breast cancers are not detected by mammography. 3. Adenosis and dense breasts may obscure an underlying neoplasm. Reported by: ASHLEY MACDONALD MD Electonically Signed: [id number]
== END 2020-02-27 10:00 | disposition home or self-care (01) ==
LOC: BICMAMMO 09:59
PROVIDERS: ATTEND Family Medicine
DX: Z12.31 Encounter for screening mammogram for malignant neoplasm of breast (principal); Z80.3 Family history of malignant neoplasm of breast
CPT/HCPCS: 77063; 77067

== ENCOUNTER 2020-03-14 19:02 | Emergency (ER) | payer MEDICARE, BC, OTHER ==
[2020-03-14] MEDS ORDERED: Albuterol 200 PUFF (6.7GM INHALER) ONE (19:47)
[2020-03-14 19:59] LABS: #Basophils 0.1 thou/uL (0.0-0.2); #Eosinphils 0.1 thou/uL (0.0-0.7); #Lymphocytes 2.5 thou/uL (1.20-3.40); #Monocytes 1.1 thou/uL (0.11-0.59); #Neutrophils 7.2 thou/uL (1.40-6.50); %Basophils 0.7 % (0.0-1.0); %Eosinophils 0.7 % (0.0-10.0); %Lymphocytes 22.8 % (21.0-51.0); %Neutrophils 65.9 % (42.0-75.0); Hemoglobin 16.7 g/dL (12.0-16.0); Mean Corpuscular HGB CONC 34.1 g/dL (32.0-36.0); Mean Corpuscular Hemoglobin 30.7 pg (27.0-31.0); Mean Platelet Volume 9.8 fL (7.4-10.4); Platelet Count 191 thou/uL (130-400); RBC Distribution Width 13.8 % (11.5-14.5); Red Blood Cell (RBC) Count 5.43 mill/uL (4.20-5.40); White Blood Cell (WBC) Count 10.9 thou/uL (4.8-10.8)
--- NOTE | 2020-03-14 20:03 | RAD ---
PORTABLE CHEST: 03/14/20 HISTORY: Shortness of breath. COMPARISON: 12/22/19. Borderline cardiomegaly. Mild vascular congestion which is stable from the prior exam. Mild intersti tial congestion is also similar to the prior exam. No infiltrate or significant effusion. IMPRESSION: Mild vascular congestion again noted. No infiltrate or focal consolidation. POS: AGW
[2020-03-14 20:14] LABS: ALT (SGPT) 11 U/L (8-55); AST (SGOT) 16 U/L (5-34); Albumin 3.9 g/dL (3.4-4.8); Alkaline Phosphatase 162 U/L (40-110); BUN (Urea Nitrogen) 10 mg/dL (9.8-20.1); Bilirubin, Total 0.8 mg/dL (0.2-1.2); Calc. Creatinine Clearance 0 mL/min (70-130); Calcium 9.3 mg/dL (7.8-10.44); Estimated GFR-MDRD Greater than 90; Globulin 2.9 g/dL (2.4-3.5); Protein, Total 6.8 g/dL (6.0-8.3)
[2020-03-14 20:25] LABS: Anion Gap 14 mmol/L (10-20); Carbon Dioxide 39 mmol/L (23-31); Chloride 97 mmol/L (98-107); Potassium 3.7 mmol/L (3.5-5.1); Sodium 146 mmol/L (136-145)
[2020-03-14 20:32] LABS: Glucose 59 mg/dL (80-115)
== END 2020-03-14 21:35 | disposition home or self-care (01) ==
LOC: ERS 19:02
DX: J44.1 Chronic obstructive pulmonary disease with (acute) exacerbation (principal); R51.9 Headache, unspecified; E11.40 Type 2 diabetes mellitus with diabetic neuropathy, unspecified; D68.9 Coagulation defect, unspecified; F41.9 Anxiety disorder, unspecified; F32.9 Major depressive disorder, single episode, unspecified; F17.210 Nicotine dependence, cigarettes, uncomplicated; Z79.899 Other long term (current) drug therapy; Z79.4 Long term (current) use of insulin
CPT/HCPCS: 71045; 80053; 84484; 85025; 87804; 93005; 94664

== ENCOUNTER 2020-05-22 08:30 | Emergency (ER) | payer MEDICARE, BC, OTHER ==
[2020-05-22] MEDS ORDERED: Albuterol 200 PUFF (6.7GM INHALER) ONE (08:55)
[2020-05-22] MEDS ORDERED: predniSONE 20 MG TAB ONE (08:55)
[2020-05-22 09:03] LABS: #Basophils 0.1 thou/uL (0.0-0.2); #Eosinphils 0.1 thou/uL (0.0-0.7); #Lymphocytes 1.5 thou/uL (1.20-3.40); #Monocytes 0.8 thou/uL (0.11-0.59); #Neutrophils 6.8 thou/uL (1.40-6.50); %Basophils 0.7 % (0.0-1.0); %Eosinophils 1.3 % (0.0-10.0); %Lymphocytes 16.1 % (21.0-51.0); %Monocytes 8.1 % (0.0-10.0); %Neutrophils 73.7 % (42.0-75.0); Mean Corpuscular HGB CONC 31.7 g/dL (32.0-36.0); Mean Corpuscular Hemoglobin 28.2 pg (27.0-31.0); Mean Corpuscular Volume 89.1 fL (78.0-98.0); Mean Platelet Volume 9.9 fL (7.4-10.4); Platelet Count 167 thou/uL (130-400); RBC Distribution Width 14.1 % (11.5-14.5); Red Blood Cell (RBC) Count 5.66 mill/uL (4.20-5.40); White Blood Cell (WBC) Count 9.3 thou/uL (4.8-10.8)
--- NOTE | 2020-05-22 09:15 | RAD ---
Exam: Chest one view HISTORY:Dyspnea. COPD. Comparison: 03/14/2020 FINDINGS: Cardiac silhouette:Upper normal cardiac silhouette. Aorta: Atherosclerotic Pulmonary vessels: Normal Costophrenic angles: Clear LUNGS: Hyperinflation with chronic lung parenchymal changes. Pneumothorax: None Osseous abnormalities: None IMPRESSION: 1. Atherosclerosis 2. Hyperinflation with chronic lung parenchymal changes. COPD.
[2020-05-22 09:24] LABS: ALT (SGPT) 25 U/L (8-55); AST (SGOT) 26 U/L (5-34); Albumin 3.7 g/dL (3.4-4.8); Alkaline Phosphatase 147 U/L (40-110); BUN (Urea Nitrogen) 8 mg/dL (9.8-20.1); Bilirubin, Total 0.9 mg/dL (0.2-1.2); Calc. Creatinine Clearance 0 mL/min (70-130); Calcium 8.8 mg/dL (7.8-10.44); Globulin 3.1 g/dL (2.4-3.5); Glucose 316 mg/dL (80-115); Protein, Total 6.8 g/dL (6.0-8.3)
[2020-05-22 09:33] LABS: Anion Gap 19 mmol/L (10-20); Carbon Dioxide 34 mmol/L (23-31); Chloride 93 mmol/L (98-107); Potassium 3.1 mmol/L (3.5-5.1); Sodium 143 mmol/L (136-145)
[2020-05-22 12:51] LABS: SARS-CoV-2 MS2 Positive; SARS-CoV-2 N Gene Negative; SARS-CoV-2 S Gene Negative; SARS-CoV-2 by NAA Not Detected (NotDetected); SARS-CoV-2 orf1ab Negative
== END 2020-05-22 09:51 | disposition home or self-care (01) ==
LOC: ERS 08:30
DX: J44.1 Chronic obstructive pulmonary disease with (acute) exacerbation (principal); Z20.828 Contact with and (suspected) exposure to other viral communicable diseases; E11.40 Type 2 diabetes mellitus with diabetic neuropathy, unspecified; I10 Essential (primary) hypertension; F41.9 Anxiety disorder, unspecified; F32.9 Major depressive disorder, single episode, unspecified; F17.210 Nicotine dependence, cigarettes, uncomplicated; Z79.899 Other long term (current) drug therapy
CPT/HCPCS: 71045; 80053; 84484; 85025; 93005; 94760; 99285; U0003; 87635; J7512

== ENCOUNTER 2020-07-06 11:43 | Inpatient (IN) | payer MEDICARE, BC, OTHER ==
[2020-07-06] MEDS ORDERED: Naloxone HCl 2 mg/2 ml Syringe ONE (11:51)
[2020-07-06 11:58] LABS: Actual Bicarbonate (HCO3a) 41.1 mEq/L (22-28); Analyzer IN Cardio ER; Base Excess (BEa) 6.5 mEq/L (-2.0 to +3.0); Calcium, Ionized (arterial) 1.25 mmol/L (1.12-1.30); Carboxyhemoglobin (COHb) 8.4 gm% (0.0-3.0); Hemoglobin (Hb) 17.1 g/dL (12.0-16.0); Potassium - ABG Lab 5.15 mmol/L (3.70-5.30)
[2020-07-06] MEDS ORDERED: Rocuronium Bromide 10 MG/ML (10ML VIAL) ONE (12:01)
[2020-07-06] MEDS ORDERED: Propofol 1,000 MG/100 ML VIAL IV ONE ×3 (12:04→20:35)
[2020-07-06 12:18] LABS: #Basophils 0.1 thou/uL (0.0-0.2); #Eosinphils 0.1 thou/uL (0.0-0.7); #Lymphocytes 1.6 thou/uL (1.20-3.40); #Monocytes 0.7 thou/uL (0.11-0.59); #Neutrophils 9.4 thou/uL (1.40-6.50); %Basophils 0.5 % (0.0-1.0); %Eosinophils 0.6 % (0.0-10.0); %Lymphocytes 13.2 % (21.0-51.0); %Monocytes 6.2 % (0.0-10.0); %Neutrophils 79.5 % (42.0-75.0); Hemoglobin 16.8 g/dL (12.0-16.0); Mean Corpuscular HGB CONC 30.8 g/dL (32.0-36.0); Mean Corpuscular Hemoglobin 29.3 pg (27.0-31.0); Mean Corpuscular Volume 95.2 fL (78.0-98.0); Platelet Count 181 thou/uL (130-400); RBC Distribution Width 16.3 % (11.5-14.5); Red Blood Cell (RBC) Count 5.73 mill/uL (4.20-5.40); White Blood Cell (WBC) Count 11.8 thou/uL (4.8-10.8)
[2020-07-06 12:20] LABS: pH, Arterial 7.16 (7.35-7.45)
[2020-07-06 12:21] LABS: ALV-art Gradient 1.915 mmHg (0-20); CO2 Tension 117.3 mmHg (35.0-45.0); O2 Tension (PaO2), arterial 51.1 mmHg (> 80.0); Puncture Site RBA
[2020-07-06 12:40] LABS: ALT (SGPT) 30 U/L (8-55); AST (SGOT) 35 U/L (5-34); Albumin 3.8 g/dL (3.4-4.8); Alkaline Phosphatase 162 U/L (40-110); BUN (Urea Nitrogen) 15 mg/dL (9.8-20.1); Bilirubin, Total 0.4 mg/dL (0.2-1.2); CK (CPK) 43 U/L (29-168); Calc. Creatinine Clearance 0 mL/min (70-130); Glucose 185 mg/dL (80-115); Protein, Total 6.8 g/dL (5.8-8.1)
[2020-07-06 12:49] LABS: Actual Bicarbonate (HCO3a) 32.9 mEq/L (22-28); Analyzer IN Cardio ER; Base Excess (BEa) 5.3 mEq/L (-2.0 to +3.0); Calcium, Ionized (arterial) 1.18 mmol/L (1.12-1.30); Carboxyhemoglobin (COHb) 7.7 gm% (0.0-3.0); Hemoglobin (Hb) 16.9 g/dL (12.0-16.0); Potassium - ABG Lab 4.54 mmol/L (3.70-5.30); pH, Arterial 7.36 (7.35-7.45)
[2020-07-06 12:50] LABS: Anion Gap 13 mmol/L (10-20); Carbon Dioxide 37 mmol/L (23-31); Chloride 95 mmol/L (98-107); Potassium 5.4 mmol/L (3.5-5.1); Sodium 140 mmol/L (136-145)
[2020-07-06 12:51] LABS: O2 Tension (PaO2), arterial 56.4 mmHg (> 80.0); Puncture Site RBA
[2020-07-06 13:00] LABS: Bacteria/HPF None Seen HPF (None Seen); Bilirubin Negative (Negative); Blood, Urine Negative (Negative); Clarity Clear (Clear); Glucose, Urine (Dipstick) 300 mg/dL (Negative); Ketone, Urine Negative (Negative); Leukocyte Negative Leu/uL (Negative); Nitrite Negative (Negative); Protein, Urine (Dipstick) 100 mg/dL (Neg-Trace); RBC/HPF 0-3 HPF (0-3); Specific Gravity, Urine 1.019 (1.002-1.036); Squamous Epithelial 0-3 HPF (0-3); Urobilinogen Normal mg/dL (Less than 2); WBC/HPF 0-3 HPF (0-3)
[2020-07-06 13:15] LABS: Amphetamine Not Detected (NotDetected); Barbiturates Screen Not Detected (NotDetected); Benzodiazepine Screen Detected (NotDetected); Cocaine Metabolite Screen Not Detected (NotDetected); Medtox Control Line Valid? VALID (VALID); Medtox Reader # READER 1; Methadone Not Detected (NotDetected); Methamphetamine Not Detected (NotDetected); Opiate Screen Not Detected (NotDetected); Oxycodone Screen Not Detected (NotDetected); Phencyclidine (PCP) Not Detected (NotDetected); THC/Cannabinoid Screen Not Detected (NotDetected); Tricyclic Screen Not Detected (NotDetected)
--- NOTE | 2020-07-06 13:27 | RAD ---
PORTABLE CHEST: Date: 07/06/2020 HISTORY: Post intubation. COMPARISON: 05/22/2020. FINDINGS: ET tube has been placed and appears adequately positioned. Lungs are well aerated. No focal consolidation or confluent infiltrate. Hazy interstitial and alveola r opacity in the right lower lung could represent ground-glass infiltrate. Hazy ground-glass infiltra te in the upper lungs cannot be excluded. IMPRESSION: No focal infiltrate or consolidation. Hazy areas of ground-glass infiltrate cannot be excluded. POS: AGW
[2020-07-06] MEDS ORDERED: Midazolam HCl 5 mg/ml Vial ONE (13:28)
[2020-07-06] MEDS ORDERED: Ondansetron PF 4 MG/2 ML Vial IVP PRN (13:43)
[2020-07-06] MEDS ORDERED: hydrALAZINE 20 MG/ML VIAL SLOW IVP PRN (13:46)
[2020-07-06] MEDS ORDERED: Dextrose 5% in Water 1,000 ML IV PRN (13:48)
[2020-07-06] MEDS ORDERED: Dextrose 50% Abboject 50 ML SYRINGE SLOW IVP PRN (13:48)
[2020-07-06 13:55] LABS: SARS-CoV-2 NAA Rapid Test Not Detected (NotDetected)
--- NOTE | 2020-07-06 13:56 | CT ---
EXAM: CT brain without contrast HISTORY: Found unresponsive at home 2 hours ago COMPARISON: 12/22/2019 TECHNIQUE: Multiple contiguous axial images were obtained and a CT of the brain without contrast. FINDINGS: The brain is normal in morphology and attenuation without focal lesions or confluent areas of infarction. There is no evidence of hydrocephalus, intracranial hemorrhage, or extra-axial fluid collection. The calvarium and overlying soft tissues are unremarkable. Fluid is seen in the posterior nasopharynx . The visualized paranasal sinuses and mastoid air cells are well aerated. IMPRESSION: No evidence of acute intracranial abnormality
[2020-07-06] MEDS ORDERED: Electrolyte Replacement Protocol 1 EACH FS ONE (14:41)
[2020-07-06] MEDS ORDERED: Ventilator Sedation Protocol 1 EACH FS SCH (14:45)
[2020-07-06] MEDS ORDERED: Morphine 2 MG/ML VIAL SLOW IVP PRN ×2 (14:51→15:00)
[2020-07-06] MEDS ORDERED: Fentanyl BOLUS 250 ML IVPB PRN (15:00)
[2020-07-06] MEDS ORDERED: Fentanyl CADD 100 ML IV SCH (15:00)
[2020-07-06] MEDS ORDERED: Propofol BOLUS 1,000 MG/100 ML VIAL IV PRN (15:00)
[2020-07-06] MEDS ORDERED: Sodium Chloride 0.9% (PF) 10 ML VIAL FS PRN (15:00)
[2020-07-06] MEDS ORDERED: Levofloxacin 750 mg/D5W 500 MG in Premix Bag 1 BAG IVPB SCH (15:00)
[2020-07-06] MEDS ORDERED: Electrolyte Replacement Protocol FS PRN (15:00)
[2020-07-06] MEDS ORDERED: DISCONTINUE PREVIOUS NARCOTIC PAIN MEDICATIONS AND BENZODIAZEPINES FS SCH (15:00)
--- NOTE | 2020-07-06 15:06 | CON ---
DATE OF CONSULTATION: 07/06/2020 REASON FOR CONSULTATION: Respiratory failure. HISTORY OF PRESENT ILLNESS: Ms. Colunga is a 64-year-old female, who is being admitted for another of her numerous COPD exacerbations requiring mechanical ventilations. She has severe COPD and refuses to stop smoking. She came into the ER today in respiratory extremis and was intubated by ER staff and is now on mechanical ventilation. PAST MEDICAL HISTORY: 1. Severe COPD. 2. Tobacco abuse. 3. Diabetes mellitus. 4. Hypertension. 5. Anxiety. 6. Depression. PAST SURGICAL HISTORY: 1. Tubal ligation. 2. Hysterectomy. 3. Right shoulder surgery. 4. Cholecystectomy. 5. Carpal tunnel release. FAMILY MEDICAL HISTORY: Unremarkable. SOCIAL HISTORY: Heavy smoker. Does not use alcohol or illicit drugs. ALLERGIES: CODEINE, EUCALYPTUS, HYDROCODONE, TRAMADOL. MEDICATIONS: Prior to admission, not available for review at this time. REVIEW OF SYSTEMS: Cannot be obtained because she is on mechanical ventilation. PHYSICAL EXAMINATION: VITAL SIGNS: Temperature 97, pulse 107, blood pressure 176/94, O2 saturation 94%, end-tidal CO2 of 48. GENERAL: Anne sedated, appears to be chemically paralyzed. HEENT: Pupils 4 mm, reactive. Oropharynx, intubated with a 7.5 endotracheal tube. She has orogastric tube in place. NECK: No adenopathy or JVD. LUNGS: She has diffuse expiratory wheezing with prolonged expiratory phase. CARDIAC: S1 and S2. Slightly tachycardic. ABDOMEN: Soft. No hepatosplenomegaly. EXTREMITIES: No clubbing, cyanosis, or edema. IMAGING STUDIES: Brain CT was read as negative. Chest x-ray shows hyperinflation, ET tube is well above the amanda, approximately 6 cm. LABORATORY DATA: White blood cell count 11.8, hematocrit 54.5, and platelet count 181. Hemoglobin 16.8. Initial pH 7.16, pCO2 of 117, PO2 of 51. After mechanical ventilation, pH 7.36, pCO2 of 59, pO2 of 56. Sodium 140, potassium 5.4, chloride 95, CO2 of 37, BUN 15, creatinine 0.5, glucose 185. Urinalysis shows some proteinuria and some glucose. Tox screen positive for benzos. COVID test negative. ASSESSMENT: 1. Chronic obstructive pulmonary disease exacerbation. 2. Acute respiratory failure requiring mechanical ventilation. 3. Tobacco abuse. 4. Medical noncompliance. PLAN: This patient will be in the ICU and will likely be intubated for a day or two as is her usual routine. We will treat her with nebulization treatments, steroids, and mechanical ventilation. I have lowered her respiratory rate and her tidal volume. I have increased her peak flow. This is all in hopes of increasing her exhalation time. Job ID: [id number]
[2020-07-06] MEDS ORDERED: methylPREDNISolone Sod Succ/PF 125 MG/2 ML VIAL ONE ×2 (16:36→20:38)
[2020-07-06] MEDS ORDERED: Magnesium 2 GM/50 ML 2 GM in Premix Bag 1 BAG IVPB SCH (16:45)
[2020-07-06] MEDS: methylPREDNISolone Sod Succ/PF 125 MG/2 ML VIAL IVP SCH ×2 (16:47→20:44)
[2020-07-06] MEDS: Acetaminophen 325 MG TAB PO PRN (16:48)
[2020-07-06] MEDS ORDERED: Acetaminophen 650 MG Suppository ONE (16:50)
[2020-07-06] MEDS ORDERED: Magnesium 2 GM/50 ML BAG (IN WATER) ONE (18:51)
[2020-07-06] MEDS ORDERED: Lorazepam 2 MG/ML VIAL ONE (20:45)
[2020-07-06] MEDS: Lorazepam 2 MG/ML VIAL SLOW IVP PRN (20:47)
[2020-07-06] MEDS: Propofol 1,000 MG/100 ML VIAL IV PRN (21:20)
--- NOTE | 2020-07-06 22:03 | PDOC.HHP ---
Hospitalist MARICRUZ COLE History of Present Illness: Patient is 64-year-old female with PMH of COPD (on 3L NC at home), Dm type 2, HTN, anxiety/depression, and tobacco abuse who presents to the ED after she was found unresponsive by her at home. History taken from ED provider and chart review as patient is intubated. Patient has previous history of multiple admission and ED visit for COPD exasperation. ED Course: In the ED patient continued to be unresponsive, she subsequently was intubated. Initial AB.16/117/51. Allergies/Adverse Reactions: Allergy/AdvReac Type Severity Reaction Status Date / Time codeine Allergy Verified 12/23/19 09:57 eucalyptus Allergy breathing Verified 12/23/19 09:57 problems hydrocodone Allergy Verified 12/23/19 09:57 tramadol Allergy Verified 12/23/19 09:57 Home Medications: Medication Instructions Recorded Confirmed Type Omeprazole 1 tab PO DAILY 09/04/17 12/24/19 History Umeclidinium [place] [Incruse 1 inh IH DAILY 12/02/18 12/24/19 History Ellipta] DULoxetine [Cymbalta] 120 mg PO DAILY 05/16/19 12/24/19 History Tolterodine Tartrate [Tolterodine 4 mg PO DAILY 05/16/19 12/24/19 History Tartrate ER] Gabapentin [Neurontin] 3 tab PO DAILY 08/07/19 12/24/19 History Aspirin [Ecotrin Low Strength] 81 mg PO DAILY 09/20/19 12/24/19 History Pravastatin Sodium [Pravachol] 20 mg PO HS 09/20/19 12/24/19 History Pregabalin [Lyrica] 300 mg PO BID 09/20/19 12/24/19 History Lisinopril 10 mg PO DAILY #30 tablet 09/23/19 12/24/19 Rx hydrALAZINE [Apresoline] 10 mg PO QID PRN #30 tab 10/08/19 12/24/19 Rx Amlodipine [Norvasc] 5 mg PO DAILY #30 tab 12/12/19 12/24/19 Rx Insulin Aspart [Insulin Aspart 10 unit SQ BID 12/12/19 12/24/19 History Flexpen] Cefdinir 600 mg PO DAILY #12 capsule 12/26/19 Rx Nicotine [Nicoderm CQ] 21 mg TD DAILY patch 12/26/19 Rx predniSONE 20 mg PO ASDIR #16 tab 12/26/19 Rx Past History: PMHx:COPD (on 3L NC at home), Dm type 2, HTN, anxiety/depression, and tobacco abuse PSHx: Cholecystectomy, hysterectomy, tubal ligation, bilateral carpal tunnel FHx: Unable to obtain Social: Current smoker, unable to obtain history about alcohol and drug use Hospitalist HPI ROS ROS unobtainable: due to endotracheal tube Hospitalist Exam Vitals: Vital Signs (12 hours) Temp Pulse Resp BP Pulse Ox 07/06/20 19:28 89 07/06/20 19:27 89 18 95 07/06/20 18:00 101 F H 07/06/20 16:48 100.6 F H 96 18 137/76 07/06/20 16:00 99 07/06/20 14:42 18 95 Most Recent Monitor Data Heart Rate from ECG 91 NIBP 110/72 NIBP BP-Mean 84 Respiration from ECG 12 SpO2 94 General - other findings: Intubated and sedated Eye: PERRL ENT: moist mucosa ENT - other findings: ET tube in place Neck: no JVD Heart: RRR, no murmur Respiratory: no wheezes Respiratory - other findings: Decreased breath sound bilaterally Gastrointestinal: soft, non-tender, non-distended Extremities: no edema Skin: normal turgor Neurological - other findings: Withdraws to pain Hospitalist Results Result Diagrams: 07/06/20 12:04 07/06/20 12:04 Lab results: Laboratory Last Values WBC 11.8 thou/uL (4.8-10.8) H 07/06/20 12:04 RBC 5.73 mill/uL (4.20-5.40) H 07/06/20 12:04 Hgb 16.8 g/dL (12.0-16.0) H 07/06/20 12:04 Hct 54.5 % (36.0-47.0) H 07/06/20 12:04 MCV 95.2 fL (78.0-98.0) 07/06/20 12:04 MCH 29.3 pg (27.0-31.0) 07/06/20 12:04 MCHC 30.8 g/dL (32.0-36.0) L 07/06/20 12:04 RDW 16.3 % (11.5-14.5) H 07/06/20 12:04 Plt Count 181 thou/uL (130-400) 07/06/20 12:04 MPV 10.0 fL (7.4-10.4) 07/06/20 12:04 Neutrophils % 79.5 % (42.0-75.0) H 07/06/20 12:04 Lymphocytes % 13.2 % (21.0-51.0) L 07/06/20 12:04 Monocytes % 6.2 % (0.0-10.0) 07/06/20 12:04 Eosinophils % 0.6 % (0.0-10.0) 07/06/20 12:04 Basophils % 0.5 % (0.0-1.0) 07/06/20 12:04 Neutrophils # 9.4 thou/uL (1.40-6.50) H 07/06/20 12:04 Lymphocytes # 1.6 thou/uL (1.20-3.40) 07/06/20 12:04 Monocytes # 0.7 thou/uL (0.11-0.59) H 07/06/20 12:04 Eosinophils # 0.1 thou/uL (0.0-0.7) 07/06/20 12:04 Basophils # 0.1 thou/uL (0.0-0.2) 07/06/20 12:04 Specimen Type ARTERIAL 07/06/20 12:45 Puncture Site RBA 07/06/20 12:45 Bicarbonate Actual 32.9 mEq/L (22-28) H 07/06/20 12:45 ABG pH 7.36 (7.35-7.45) 07/06/20 12:45 ABG pCO2 59.0 mmHg (35.0-45.0) H 07/06/20 12:45 ABG pO2 56.4 mmHg (> 80.0) L* 07/06/20 12:45 ABG O2 Sat (Measured) 92.2 % (94.0-98.0) L 07/06/20 12:45 ABG O2 Content 20.1 vol% (18.0-21.0) 07/06/20 12:45 ABG Base Excess 5.3 mEq/L (-2.0 to +3.0) H 07/06/20 12:45 ABG Hematocrit 50.0 % (36.0-47.0) H 07/06/20 12:45 ABG Hemoglobin 16.9 g/dL (12.0-16.0) H 07/06/20 12:45 ABG Oxyhemoglobin 84.6 % (94.0-98.0) L 07/06/20 12:45 ABG Carboxyhemoglobin 7.7 gm% (0.0-3.0) H 07/06/20 12:45 ABG Methemoglobin 0.50 gm% (0.04-1.52) 07/06/20 12:45 ABG Deoxyhemoglobin 7.2 % (0.0-2.9) H 07/06/20 12:45 Morales Test POSITIVE 07/06/20 12:45 A-a O2 Gradient 83.750 mmHg (0-20) H 07/06/20 12:45 Sodium 140 mmol/L (135-148) 07/06/20 12:45 Potassium 4.54 mmol/L (3.70-5.30) 07/06/20 12:45 Chloride 97 mmol/L (98-106) L 07/06/20 12:45 Ionized Calcium 1.18 mmol/L (1.12-1.30) 07/06/20 12:45 Mode of Support SIMV 07/06/20 12:45 Mechanical Rate 18 min 07/06/20 12:45 Inspired O2 30 % 07/06/20 12:45 Tidal Volume 450 ml 07/06/20 12:45 Pressure Support 10 cmH2O 07/06/20 12:45 PEEP or CPAP 5.0 cmH2O 07/06/20 12:45 Sodium 140 mmol/L (136-145) 07/06/20 12:04 Potassium 5.4 mmol/L (3.5-5.1) H 07/06/20 12:04 Chloride 95 mmol/L (98-107) L 07/06/20 12:04 Carbon Dioxide 37 mmol/L (23-31) H 07/06/20 12:04 Anion Gap 13 mmol/L (10-20) 07/06/20 12:04 BUN 15 mg/dL (9.8-20.1) 07/06/20 12:04 Creatinine 0.58 mg/dL (0.6-1.1) L 07/06/20 12:04 Estimated GFR (MDRD) Greater than 90 07/06/20 12:04 Glucose 185 mg/dL (80-115) H 07/06/20 12:04 POC Glucose 115 mg/dL (70-100) H 07/06/20 17:21 Lactic Acid 1.0 mmol/L (0.5-2.2) 07/06/20 12:04 Calcium 9.0 mg/dL (7.8-10.44) 07/06/20 12:04 Total Bilirubin 0.4 mg/dL (0.2-1.2) 07/06/20 12:04 AST 35 U/L (5-34) H 07/06/20 12:04 ALT 30 U/L (8-55) 07/06/20 12:04 Alkaline Phosphatase 162 U/L (40-110) H 07/06/20 12:04 Creatine Kinase 43 U/L (29-168) 07/06/20 12:04 Troponin I Less than 0.010 ng/mL (< 0.028) 07/06/20 12:04 Serum Total Protein 6.8 g/dL (5.8-8.1) 07/06/20 12:04 Albumin 3.8 g/dL (3.4-4.8) 07/06/20 12:04 Globulin 3.0 g/dL (2.4-3.5) 07/06/20 12:04 Albumin/Globulin Ratio 1.3 g/dL (1.2-2.2) 07/06/20 12:04 Urine Color Yellow (Yellow) 07/06/20 12:36 Urine Clarity Clear (Clear) 07/06/20 12:36 Urine pH 6.0 (5.0-9.0) 07/06/20 12:36 Ur Specific [place] 1.019 (1.002-1.036) 07/06/20 12:36 Urine Protein 100 mg/dL (Neg-Trace) A 07/06/20 12:36 Urine Glucose (UA) 300 mg/dL (Negative) 07/06/20 12:36 Urine Ketones Negative mg/dL (Negative) 07/06/20 12:36 Urine Blood Negative (Negative) 07/06/20 12:36 Urine Nitrite Negative (Negative) 07/06/20 12:36 Urine Bilirubin Negative (Negative) 07/06/20 12:36 Urine Urobilinogen Normal mg/dL (Less than 2) 07/06/20 12:36 Ur Leukocyte Esterase Negative Binh/uL (Negative) 07/06/20 12:36 Urine RBC 0-3 HPF (0-3) 07/06/20 12:36 Urine WBC 0-3 HPF (0-3) 07/06/20 12:36 Ur Squamous Epith Cells 0-3 HPF (0-3) 07/06/20 12:36 Urine Bacteria None Seen HPF (None Seen) 07/06/20 12:36 Urine Opiates Screen Not Detected (NotDetected) 07/06/20 12:36 Ur Oxycodone Screen Not Detected (NotDetected) 07/06/20 12:36 Urine Methadone Screen Not Detected (NotDetected) 07/06/20 12:36 Ur Propoxyphene Screen Not Detected (NotDetected) 07/06/20 12:36 Ur Barbiturates Screen Not Detected (NotDetected) 07/06/20 12:36 Ur Tricyclics Screen Not Detected (NotDetected) 07/06/20 12:36 Ur Phencyclidine Scrn Not Detected (NotDetected) 07/06/20 12:36 Ur Amphetamines Screen Not Detected (NotDetected) 07/06/20 12:36 U Methamphetamines Scrn Not Detected (NotDetected) 07/06/20 12:36 U Benzodiazepines Scrn Detected (NotDetected) H 07/06/20 12:36 U Cocaine Metab Screen Not Detected (NotDetected) 07/06/20 12:36 U Cannabinoids Screen Not Detected (NotDetected) 07/06/20 12:36 Drug Screen Comment () 07/06/20 12:36 Influenza A RNA INAAT Not Detected (NotDetected) 07/06/20 12:56 Influenza B RNA INAAT Not Detected (NotDetected) 07/06/20 12:56 SARS-CoV-2 Rap RNA(RT-PCR) Not Detected (NotDetected) 07/06/20 12:56 Chest x-ray Status: image reviewed by wa Hospitalist H&P A/P (1) COPD exacerbation Code(s): J44.1 - CHRONIC OBSTRUCTIVE PULMONARY DISEASE W (ACUTE) EXACERBATION Status: Acute Assessment and Plan: Patient with history of recurrent COPD exacerbation. Currently intubated. Plan: -Vent management per Pulmonary -con Levaquin, Duoneb and Solumedrol as ordered by pulmonary (2) Acute on chronic respiratory failure with hypoxia and hypercapnia Code(s): J96.21 - ACUTE AND CHRONIC RESPIRATORY FAILURE WITH HYPOXIA; J96.22 - ACUTE AND CHRONIC RESPIRATORY FAILURE WITH HYPERCAPNIA Status: Acute Assessment and Plan: due to COPD exacerbation Plan: -management as above (3) AMS (altered mental status) Code(s): R41.82 - ALTERED MENTAL STATUS, UNSPECIFIED Status: Acute Assessment and Plan: Likely from hypercapnia. UDS is positive for Benzodiazepin which could have exacerbated her respiratory failure. CT head showed no acute intracranial abnormalities. -monitor -patient will likely benefit from discontinuing benzo outpatient (4) DM type 2 (diabetes mellitus, type 2) Status: Chronic Assessment and Plan: -SS insulin ACHS
[2020-07-06] MEDS ORDERED: Lactated Ringer's 1,000 ML IV SCH (23:45)
[2020-07-07] MEDS: Propofol 1,000 MG/100 ML VIAL IV PRN ×4 (00:05→15:03)
[2020-07-07] MEDS: HumaLOG 300 UNITS/3 ML VIAL SC PRN ×2 (01:41→19:57)
[2020-07-07] MEDS: methylPREDNISolone Sod Succ/PF 125 MG/2 ML VIAL IVP SCH (03:30)
[2020-07-07 04:06] LABS: #Lymphocytes 0.6 thou/uL (1.20-3.40); #Monocytes 0.3 thou/uL (0.11-0.59); #Neutrophils 7.2 thou/uL (1.40-6.50); %Basophils 0.3 % (0.0-1.0); %Eosinophils 0.3 % (0.0-10.0); %Lymphocytes 7.8 % (21.0-51.0); %Neutrophils 87.6 % (42.0-75.0); Hemoglobin 16.1 g/dL (12.0-16.0); Mean Corpuscular HGB CONC 32.8 g/dL (32.0-36.0); Mean Corpuscular Hemoglobin 30.1 pg (27.0-31.0); Mean Corpuscular Volume 91.7 fL (78.0-98.0); Mean Platelet Volume 10.9 fL (7.4-10.4); Platelet Count 146 thou/uL (130-400); Platelet Morphology Comment Appears Adequate; RBC Distribution Width 16.2 % (11.5-14.5); Red Blood Cell (RBC) Count 5.36 mill/uL (4.20-5.40); White Blood Cell (WBC) Count 8.8 thou/uL (4.8-10.8)
[2020-07-07 06:39] LABS: ALT (SGPT) 21 U/L (8-55); AST (SGOT) 20 U/L (5-34); Albumin 2.9 g/dL (3.4-4.8); Alkaline Phosphatase 122 U/L (40-110); Anion Gap 17 mmol/L (10-20); BUN (Urea Nitrogen) 15 mg/dL (9.8-20.1); Bilirubin, Total 0.5 mg/dL (0.2-1.2); Calc. Creatinine Clearance 130 mL/min (70-130); Calcium 8.4 mg/dL (7.8-10.44); Carbon Dioxide 27 mmol/L (23-31); Chloride 98 mmol/L (98-107); Globulin 2.5 g/dL (2.4-3.5); Glucose 223 mg/dL (80-115); Magnesium 1.8 mg/dL (1.6-2.6); Potassium 3.7 mmol/L (3.5-5.1); Protein, Total 5.4 g/dL (5.8-8.1); Sodium 138 mmol/L (136-145)
[2020-07-07] MEDS ORDERED: Magnesium 2 GM/50 ML 2 GM in Premix Bag 1 BAG IVPB SCH (07:00)
[2020-07-07 07:11] LABS: Actual Bicarbonate (HCO3a) 29.1 mEq/L (22-28); Base Excess (BEa) 6.5 mEq/L (-2.0 to +3.0); CO2 Tension 35.3 mmHg (35.0-45.0); Calcium, Ionized (arterial) 1.13 mmol/L (1.12-1.30); Carboxyhemoglobin (COHb) 1.7 gm% (0.0-3.0); Hemoglobin (Hb) 15.6 g/dL (12.0-16.0); Potassium - ABG Lab 3.58 mmol/L (3.70-5.30); pH, Arterial 7.53 (7.35-7.45)
[2020-07-07 07:12] LABS: O2 Tension (PaO2), arterial 51.1 mmHg (> 80.0); Puncture Site RRA
[2020-07-07 07:13] LABS: ALV-art Gradient 154.325 mmHg (0-20)
--- NOTE | 2020-07-07 07:59 | RAD ---
EXAM: Single view of the chest HISTORY: Pneumonia COMPARISON: 07/06/2020 FINDINGS: Single view of the chest shows a normal sized cardiomediastinal silhouette. The lines and tubes are unchanged in position. Increased interstitial markings are present. Subtle superimposed bibasilar infiltrates may be present and are stable. Atherosclerotic calcifications are seen in the a jose. No pleural effusion. No acute osseous abnormality. IMPRESSION: Stable exam
--- NOTE | 2020-07-07 08:02 | PRG ---
DATE OF SERVICE: 07/07/2020 35 minutes critical care time. SUBJECTIVE: Ms. Colunga remains intubated on mechanical ventilation. She really would not follow any commands for except for wiggling her toes. OBJECTIVE: VITAL SIGNS: Temperature 99.3, pulse 104, blood pressure 136/63, O2 saturation 92%. HEENT: Pupils reactive. Sclerae anicteric. Oropharynx intubated. NECK: No JVD. LUNGS: Clear without wheezing. CARDIAC: S1 and S2 regular. ABDOMEN: Soft, nontender. She has had excess OG tube output. EXTREMITIES: No clubbing, cyanosis, or edema. LABORATORY DATA: White blood cell count 8.8, hematocrit 49.2, and platelet count 146. PH 7.53, pCO2 of 35, pO2 of 51, SIMV rate 18, tidal volume 450, PEEP of 5, pressure support 10, FiO2 of 35%. Sodium 138, potassium 3.7, chloride 98, CO2 of 27, BUN 15, creatinine 0.5, glucose 223. COVID test was negative. X-ray shows no acute change. ASSESSMENT: 1. Chronic obstructive pulmonary disease with exacerbation. 2. Acute respiratory failure. 3. Tobacco abuse. PLAN: Her bronchospasm is better. The situation now is lessening her sedation and letting her wake up to see if she will follow commands and then perhaps extubating her. We will continue the steroids, nebulization treatments, and antibiotics. I have added some Reglan because of her high gastric residuals. If she is to remain intubated more than a few days, then we will need to start tube feeds. Job ID: [id number]
[2020-07-07] MEDS ORDERED: Enoxaparin Sodium 40 MG/0.4 ML SYRINGE SC SCH (09:00)
[2020-07-07] MEDS ORDERED: Enoxaparin Sodium 30 MG/0.3 ML SYRINGE SC SCH (09:00)
[2020-07-07] MEDS: Acetaminophen 325 MG TAB PO PRN (09:14)
[2020-07-07] MEDS: Metoclopramide HCl 10 MG/2 ML VIAL IVP SCH ×3 (09:14→19:35)
[2020-07-07 09:26] LABS: Hemoglobin 15.3 g/dL (12.0-16.0)
[2020-07-07] MEDS: Lorazepam 2 MG/ML VIAL SLOW IVP PRN ×3 (09:33→16:45)
[2020-07-07] MEDS: Pantoprazole 40 MG VIAL IVP SCH ×2 (09:33→19:38)
--- NOTE | 2020-07-07 13:12 | PDOC.HOSPP ---
- Subjective Encounter Date: 07/07/20 Encounter Time: 08:00 Subjective: is on vent, moves all extremities, has sedation on. - Objective Vital Signs & Weight: Vital Signs (12 hours) Temp Pulse Resp BP Pulse Ox 07/07/20 10:38 96 07/07/20 08:00 100.1 F H 16 07/07/20 07:39 92 L 07/07/20 06:57 90 07/07/20 06:00 18 07/07/20 04:00 99.3 F 18 07/07/20 03:14 87 133/64 07/07/20 02:00 18 Weight Weight 169 lb 8.568 oz Most Recent Monitor Data Heart Rate from ECG 98 NIBP 114/57 NIBP BP-Mean 76 Respiration from ECG 14 SpO2 93 I&O: 07/06/20 07/07/20 07/08/20 06:59 06:59 06:59 Intake Total 748.6 Output Total 1220 40 Balance -471.4 -40 Result Diagrams: 07/07/20 09:14 07/07/20 06:09 Additional Labs: Accuchecks 07/07/20 07/07/20 07/07/20 12:56 09:47 06:08 POC Glucose 217 H 247 H 207 H 07/07/20 07/06/20 01:37 17:21 POC Glucose 192 H 115 H Hospitalist ROS - Medication Medications: Active Medications Generic Name Dose Route Start Last Admin Trade Name Freq PRN Reason Stop Dose Admin Acetaminophen 650 mg 07/06/20 13:43 07/07/20 09:14 Acetaminophen 325 Mg Tab PO 650 mg Q4H PRN Administration Headache/Fever/Mild Pain (1-3) Albuterol/Ipratropium 3 ml 07/07/20 10:30 07/07/20 10:38 Ipratropium/Albuterol Sulfate 3 Ml Neb NEB 3 ml [id number] REYNA Administration Insulin Human Lispro 0 units 07/06/20 13:48 07/07/20 01:41 Humalog 300 Units/3 Ml Vial SC 2 unit .MILD SLIDING SCALE PRN Administration Mild Correctional Scale Lorazepam 2 mg 07/06/20 15:00 07/07/20 09:33 Lorazepam 2 Mg/Ml Vial SLOW IVP 08/05/20 15:00 2 mg Q1H PRN Administration Breakthrough agitation Metoclopramide HCl 10 mg 07/07/20 07:45 07/07/20 09:14 Metoclopramide Hcl 10 Mg/2 Ml Vial IVP 10 mg Q6H REYNA Administration Pantoprazole Sodium 40 mg 07/07/20 09:00 07/07/20 09:33 Pantoprazole 40 Mg Vial IVP 40 mg Q12HR REYNA Administration Propofol 1,000 mg 07/06/20 15:00 07/07/20 09:33 Propofol 1,000 Mg/100 Ml Vial IV 08/05/20 15:00 1,000 mg INF PRN Administration TO ACHIEVE GOAL RASS Protocol Propofol 20 mg 07/06/20 15:00 07/06/20 20:43 Propofol Bolus 1,000 Mg/100 Ml Vial IV 08/05/20 15:00 20 mg Q5MIN PRN Administration BREAKTHROUGH AGITATION Sodium Chloride 10 ml 07/07/20 09:00 07/07/20 09:15 Flush - Normal Saline 10 Ml Syringe IVF 10 ml Q12HR REYNA Administration Hospitalist Exam Vitals: Vital Signs (12 hours) Temp Pulse Resp BP Pulse Ox 07/07/20 10:38 96 07/07/20 08:00 100.1 F H 16 07/07/20 07:39 92 L 07/07/20 06:57 90 07/07/20 06:00 18 07/07/20 04:00 99.3 F 18 07/07/20 03:14 87 133/64 07/07/20 02:00 18 Weight Weight 169 lb 8.568 oz Most Recent Monitor Data Heart Rate from ECG 98 NIBP 114/57 NIBP BP-Mean 76 Respiration from ECG 14 SpO2 93 Eye: PERRL, anicteric sclera ENT: no oropharyngeal lesions, moist mucosa Neck: supple, no JVD Heart: RRR, no murmur Respiratory: no wheezes, no rales, rhonchi Gastrointestinal: soft, non-tender, non-distended, normal bowel sounds Extremities: no cyanosis, no edema Neurological: cranial nerve grossly intact, no focal deficits Hosp A/P (1) COPD exacerbation Code(s): J44.1 - CHRONIC OBSTRUCTIVE PULMONARY DISEASE W (ACUTE) EXACERBATION Status: Acute (2) Acute on chronic respiratory failure with hypoxia and hypercapnia Code(s): J96.21 - ACUTE AND CHRONIC RESPIRATORY FAILURE WITH HYPOXIA; J96.22 - ACUTE AND CHRONIC RESPIRATORY FAILURE WITH HYPERCAPNIA Status: Acute (3) DM type 2 (diabetes mellitus, type 2) Status: Chronic Qualifiers: Diabetes mellitus fdc insulin use: with ocean transportation intermediary use (4) Anxiety and depression Code(s): F41.9 - ANXIETY DISORDER, UNSPECIFIED; F32.9 - MAJOR DEPRESSIVE DISORDER, SINGLE EPISODE, UNSPECIFIED Status: Chronic (5) Dyslipidemia Code(s): E78.5 - HYPERLIPIDEMIA, UNSPECIFIED Status: Chronic (6) HTN (hypertension) Code(s): I10 - ESSENTIAL (PRIMARY) HYPERTENSION Status: Chronic Qualifiers: (7) Tobacco abuse Code(s): Z72.0 - TOBACCO USE Status: Chronic - Plan is on steroid, nebs, levaquin, protonix, cymbalta and neurontin had bleeding seen via ng tube, is on protonix bid, d/w , h/h q6h, currently hb around 15g staff will reposition her ng tube gave update to over phone hemostable
--- NOTE | 2020-07-07 14:58 | CON ---
DATE OF CONSULTATION: 07/07/2020 REASON FOR CONSULT: Coffee-ground return in an NG-tube. HISTORY OF PRESENT ILLNESS: Ms. Colunga is a 64-year-old female who has had numerous hospitalizations here for her COPD. She is intubated now for respiratory arrest after being found down at home. Apparently, she was found down at home and brought in extremis, was intubated for respiratory failure and brought to the ICU. Here in the ICU, it has been noted she has had some coffee-ground return from her NG tube. She has been placed on PPIs by the hospitalist and they have asked me to see her. Her hemoglobin was 16.7 in February, 16.8 yesterday, 16.1 at 3:00 this morning, and 15.3 at 9:00. Nurses note she has had no melena, she has had no vomiting. She was last here at this hospital in November with a similar hospital course. She does continue to smoke. The patient has not able to add any history. PAST MEDICAL HISTORY: Anxiety; depression; type 2 diabetes; hypertension; COPD, on home O2. PAST SURGICAL HISTORY: Cholecystectomy, hysterectomy, tubal ligation, bilateral carpal tunnel surgery. FAMILY HISTORY: Unobtainable. SOCIAL HISTORY: Current smoker, otherwise unable to obtain history. REVIEW OF SYSTEMS: Unable to obtain. She is intubated. ALLERGIES: TO CODEINE, EUCALYPTUS, HYDROCODONE, TRAMADOL. MEDICINES: At home; 1. Prednisone 20 mg daily. 2. Hydralazine. 3. Ellipta. 4. Tolterodine. 5. Lyrica. 6. Pravachol. 7. Omeprazole one daily. 8. Nicotine. 9. Lisinopril. 10. Insulin. 11. Gabapentin. 12. Duloxetine. 13. Cefdinir. 14. Amlodipine. Medications here; 1. Protonix IV q.12. 2. P.r.n. morphine. 3. Reglan. 4. Solu-Medrol 20 IV q.8. 5. Ativan. 6. Levofloxacin. 7. Insulin. 8. Hydralazine. 9. Glucagon. 10. Fentanyl. PHYSICAL EXAMINATION: GENERAL: There is an NG tube canister with coffee-ground like material and it is very thin. There is no bright red blood. HEENT: Conjunctivae and sclerae are clear. She is intubated. NECK: Supple. No adenopathy. LUNGS: Clear. Slightly decreased breath sounds at bases. ABDOMEN: Soft and nontender. No palpable hepatosplenomegaly. VITAL SIGNS: Heart rate 98 respirations 14. EXTREMITIES: No edema. RECTAL: Reveals brown sofia-colored stool. LABORATORY DATA: Hemoglobin 15.3 at 9:00, white count was 8.8, platelet count 146. PH 7.53, PO2 of 51, CO2 of 35. Comprehensive metabolic profile normal except for alkaline phosphatase 122, protein 5.4, albumin 2.9. ASSESSMENT: 1. Coffee-ground return with NG tube after intubation for respiratory failure from chronic obstructive pulmonary disease, which has happened several times in the past. 2. Ongoing smoker. 3. Gastrointestinal bleed. RECOMMENDATIONS: IV Protonix q.12 hours. Monitor hemoglobin and hematocrit. If signs of acute hemorrhage, we can consider endoscopy. At this point in time, there does not appear to be any overt acute hemorrhage. She has no melena and she has a stable hemoglobin. We will follow along with you. Job ID: [id number]
[2020-07-07] MEDS: methylPREDNISolone Sod Succ 40 MG VIAL IVP SCH ×2 (15:02→22:41)
[2020-07-07 15:12] LABS: Hemoglobin 14.3 g/dL (12.0-16.0)
[2020-07-07] MEDS ORDERED: Fentanyl CADD 100 ML ONE (17:07)
[2020-07-07] MEDS: Simvastatin 10 MG TAB PO SCH (19:36)
[2020-07-07] MEDS: Gabapentin 100 MG CAP PO SCH (19:36)
[2020-07-07] MEDS: Trospium 20 MG TAB PO SCH (19:49)
[2020-07-07 20:56] LABS: Hemoglobin 14.1 g/dL (12.0-16.0)
[2020-07-07] MEDS ORDERED: Pantoprazole 40 MG VIAL IVP SCH (21:00)
[2020-07-08] MEDS: Metoclopramide HCl 10 MG/2 ML VIAL IVP SCH ×4 (00:15→20:29)
[2020-07-08] MEDS: HumaLOG 300 UNITS/3 ML VIAL SC PRN ×4 (00:24→20:42)
[2020-07-08] MEDS: Propofol 1,000 MG/100 ML VIAL IV PRN (03:03)
[2020-07-08 03:19] LABS: #Lymphocytes 0.7 thou/uL (1.20-3.40); #Monocytes 0.4 thou/uL (0.11-0.59); #Neutrophils 6.8 thou/uL (1.40-6.50); %Basophils 0.1 % (0.0-1.0); %Eosinophils 0.3 % (0.0-10.0); %Lymphocytes 8.9 % (21.0-51.0); %Monocytes 5.5 % (0.0-10.0); %Neutrophils 85.2 % (42.0-75.0); Hemoglobin 14.6 g/dL (12.0-16.0); Mean Corpuscular HGB CONC 32.8 g/dL (32.0-36.0); Mean Corpuscular Hemoglobin 29.5 pg (27.0-31.0); Mean Corpuscular Volume 89.8 fL (78.0-98.0); Platelet Count 163 thou/uL (130-400); RBC Distribution Width 16.3 % (11.5-14.5); Red Blood Cell (RBC) Count 4.94 mill/uL (4.20-5.40); White Blood Cell (WBC) Count 7.9 thou/uL (4.8-10.8)
[2020-07-08 03:41] LABS: ALT (SGPT) 15 U/L (8-55); AST (SGOT) 14 U/L (5-34); Albumin 2.8 g/dL (3.4-4.8); Alkaline Phosphatase 105 U/L (40-110); Anion Gap 12 mmol/L (10-20); BUN (Urea Nitrogen) 18 mg/dL (9.8-20.1); Bilirubin, Total 0.5 mg/dL (0.2-1.2); Calc. Creatinine Clearance 128 mL/min (70-130); Calcium 8.3 mg/dL (7.8-10.44); Carbon Dioxide 31 mmol/L (23-31); Chloride 98 mmol/L (98-107); Globulin 2.4 g/dL (2.4-3.5); Glucose 229 mg/dL (80-115); Potassium 3.7 mmol/L (3.5-5.1); Protein, Total 5.2 g/dL (5.8-8.1); Sodium 137 mmol/L (136-145)
[2020-07-08] MEDS: methylPREDNISolone Sod Succ 40 MG VIAL IVP SCH ×3 (05:49→22:07)
[2020-07-08 07:07] LABS: ALV-art Gradient 135.375 mmHg (0-20); Actual Bicarbonate (HCO3a) 33.2 mEq/L (22-28); Base Excess (BEa) 8.6 mEq/L (-2.0 to +3.0); CO2 Tension 45.1 mmHg (35.0-45.0); Calcium, Ionized (arterial) 1.14 mmol/L (1.12-1.30); Carboxyhemoglobin (COHb) 0.8 gm% (0.0-3.0); Hemoglobin (Hb) 14.9 g/dL (12.0-16.0); O2 Tension (PaO2), arterial 57.8 mmHg (> 80.0); Potassium - ABG Lab 3.51 mmol/L (3.70-5.30); Puncture Site RRA; pH, Arterial 7.49 (7.35-7.45)
[2020-07-08] MEDS ORDERED: DC Sedation Protocol FS ONE (07:28)
--- NOTE | 2020-07-08 07:40 | PRG ---
DATE OF SERVICE: 07/08/2020 35 minutes critical time. SUBJECTIVE: The patient remains intubated on mechanical ventilation. She will wake up and follow commands. PHYSICAL EXAMINATION: VITAL SIGNS: Heart rate 84, O2 saturation 93%, blood pressure 118/70. HEENT: Unremarkable. NECK: No adenopathy or JVD. CHEST: Clear, but distant breath sounds. CARDIAC: S1 and S2 regular. ABDOMEN: Soft and nontender. EXTREMITIES: No edema. LABORATORY DATA: Sodium 137, potassium 3.7, chloride 98, CO2 of 31, BUN 18, creatinine 0.5, glucose 229. White blood cell count 7.9, hematocrit 44, platelet count 163. PH 7.4, pCO2 of 45, pO2 of 57 on SIMV rate 14, tidal volume 450, PEEP 5, pressure support 10, FiO2 of 35%. Chest x-ray is the same. ASSESSMENT: 1. Chronic obstructive pulmonary disease with exacerbation. 2. Acute hypoxic and hypercapnic respiratory failure, requiring mechanical ventilation. PLAN: Discontinue sedation and extubate. Continue steroids and breathing treatments and antibiotics. Job ID: [id number]
--- NOTE | 2020-07-08 09:06 | RAD ---
CHEST 1 VIEW: COMPARISON: 07/07/2020. HISTORY: Pneumonia. FINDINGS: Redemonstration of endotracheal tube and nasogastric tube. There is atherosclerosis of the aorta. N ormal cardiac silhouette. Pulmonary vessels and hilum are normal. Costophrenic angles are clear. C hronic changes of the lung parenchyma without mass or consolidation. No pneumothorax or acute osseou s abnormalities. IMPRESSION: No significant interval change. POS: PPP
[2020-07-08] MEDS: Trospium 20 MG TAB PO SCH ×2 (09:28→20:35)
[2020-07-08] MEDS: DULoxetine 60 MG CAP PO SCH (09:28)
[2020-07-08] MEDS: Gabapentin 100 MG CAP PO SCH ×2 (09:28→20:33)
[2020-07-08] MEDS: Pantoprazole 40 MG VIAL IVP SCH ×2 (09:29→20:33)
--- NOTE | 2020-07-08 14:35 | PDOC.HOSPP ---
- Subjective Encounter Date: 07/08/20 Encounter Time: 08:20 Subjective: is weaning, off sedation, moving all extreities, follows verbal stimuli - Objective Vital Signs & Weight: Vital Signs (12 hours) Temp Pulse Resp Pulse Ox 07/08/20 14:20 87 18 92 L 07/08/20 12:00 94 L 07/08/20 10:54 92 18 94 L 07/08/20 09:10 91 L 07/08/20 09:00 98.5 F 07/08/20 08:00 14 07/08/20 07:30 96 07/08/20 07:09 74 07/08/20 06:00 14 07/08/20 04:00 98.5 F 14 Weight Admit Weight 169 lb 8.568 oz Weight 158 lb 11.725 oz Most Recent Monitor Data Heart Rate from ECG 90 NIBP 130/61 NIBP BP-Mean 84 Respiration from ECG 14 SpO2 94 I&O: 07/07/20 07/08/20 07/09/20 06:59 06:59 06:59 Intake Total 748.6 1596.1 13.2 Output Total 1220 967 150 Balance -471.4 629.1 -136.8 Result Diagrams: 07/08/20 02:54 07/08/20 02:54 Additional Labs: Accuchecks 07/08/20 07/08/20 07/08/20 11:28 05:44 00:19 POC Glucose 204 H 220 H 221 H 07/07/20 07/07/20 19:52 15:21 POC Glucose 241 H 215 H Hospitalist ROS - Medication Medications: Active Medications Generic Name Dose Route Start Last Admin Trade Name Freq PRN Reason Stop Dose Admin Acetaminophen 650 mg 07/06/20 13:43 07/07/20 09:14 Acetaminophen 325 Mg Tab PO 650 mg Q4H PRN Administration Headache/Fever/Mild Pain (1-3) Albuterol/Ipratropium 3 ml 07/07/20 10:30 07/08/20 14:20 Ipratropium/Albuterol Sulfate 3 Ml Neb NEB 3 ml [id number] REYNA Administration Duloxetine HCl 120 mg 07/08/20 09:00 07/08/20 09:28 Duloxetine 60 Mg Cap PO 120 mg DAILY REYNA Administration Gabapentin 100 mg 07/07/20 21:00 07/08/20 09:28 Gabapentin 100 Mg Cap PO 100 mg BID REYNA Administration Levofloxacin 500 mg/ Device 100 mls @ 100 mls/hr 07/07/20 15:00 07/08/20 14:04 IVPB 100 mls 1500 REYNA Administration Insulin Human Lispro 0 units 07/06/20 13:48 07/08/20 11:28 Humalog 300 Units/3 Ml Vial SC 3 unit .MILD SLIDING SCALE PRN Administration Mild Correctional Scale Methylprednisolone Sodium Succinate 20 mg 07/07/20 14:00 07/08/20 14:03 Methylprednisolone Sod Succ 40 Mg Vial IVP 20 mg Q8HR REYNA Administration Metoclopramide HCl 10 mg 07/07/20 07:45 07/08/20 14:02 Metoclopramide Hcl 10 Mg/2 Ml Vial IVP 10 mg Q6H REYNA Administration Pantoprazole Sodium 40 mg 07/07/20 09:00 07/08/20 09:29 Pantoprazole 40 Mg Vial IVP 40 mg Q12HR REYNA Administration Simvastatin 10 mg 07/07/20 21:00 07/07/20 19:36 Simvastatin 10 Mg Tab PO 10 mg HS REYNA Administration Sodium Chloride 10 ml 07/06/20 15:00 07/07/20 19:37 Sodium Chloride 0.9% (Pf) 10 Ml Vial FS 10 ml PRN PRN Administration RECONSTITUTION Sodium Chloride 10 ml 07/07/20 09:00 07/08/20 09:29 Flush - Normal Saline 10 Ml Syringe IVF 10 ml Q12HR REYNA Administration Trospium 20 mg 07/07/20 21:00 07/08/20 09:28 Trospium 20 Mg Tab PO 20 mg BID REYNA Administration Hospitalist Exam Vitals: Vital Signs (12 hours) Temp Pulse Resp Pulse Ox 07/08/20 14:20 87 18 92 L 07/08/20 12:00 94 L 07/08/20 10:54 92 18 94 L 07/08/20 09:10 91 L 07/08/20 09:00 98.5 F 07/08/20 08:00 14 07/08/20 07:30 96 07/08/20 07:09 74 07/08/20 06:00 14 07/08/20 04:00 98.5 F 14 Weight Admit Weight 169 lb 8.568 oz Weight 158 lb 11.725 oz Most Recent Monitor Data Heart Rate from ECG 90 NIBP 130/61 NIBP BP-Mean 84 Respiration from ECG 14 SpO2 94 Eye: PERRL, anicteric sclera ENT: no oropharyngeal lesions, moist mucosa Neck: supple, no JVD Heart: RRR, no murmur Respiratory: no wheezes, no rales, rhonchi Gastrointestinal: soft, non-tender, non-distended, normal bowel sounds Extremities: no cyanosis, no edema Neurological: cranial nerve grossly intact, no focal deficits Hosp A/P (1) COPD exacerbation Code(s): J44.1 - CHRONIC OBSTRUCTIVE PULMONARY DISEASE W (ACUTE) EXACERBATION Status: Acute (2) Acute on chronic respiratory failure with hypoxia and hypercapnia Code(s): J96.21 - ACUTE AND CHRONIC RESPIRATORY FAILURE WITH HYPOXIA; J96.22 - ACUTE AND CHRONIC RESPIRATORY FAILURE WITH HYPERCAPNIA Status: Acute (3) DM type 2 (diabetes mellitus, type 2) Status: Chronic Qualifiers: Diabetes mellitus assisted insulin use: with assisted use (4) Anxiety and depression Code(s): F41.9 - ANXIETY DISORDER, UNSPECIFIED; F32.9 - MAJOR DEPRESSIVE DISORDER, SINGLE EPISODE, UNSPECIFIED Status: Chronic (5) Dyslipidemia Code(s): E78.5 - HYPERLIPIDEMIA, UNSPECIFIED Status: Chronic (6) HTN (hypertension) Code(s): I10 - ESSENTIAL (PRIMARY) HYPERTENSION Status: Chronic Qualifiers: (7) Tobacco abuse Code(s): Z72.0 - TOBACCO USE Status: Chronic (8) Upper GI bleed Code(s): K92.2 - GASTROINTESTINAL HEMORRHAGE, UNSPECIFIED Status: Acute - Plan is on steroid, nebs, levaquin, protonix bid, cymbalta and neurontin h/h is stable likely will get extubated today gave update to over phone 07/07/20, 07/08/20. hemostable
[2020-07-08] MEDS: Simvastatin 10 MG TAB PO SCH (20:35)
--- NOTE | 2020-07-08 23:28 | PRG ---
DATE OF SERVICE: 07/08/2020 REASON FOR CONSULTATION: Bloody return with NG tube placement. SUBJECTIVE: The patient was extubated earlier today and the NG tube was removed roughly the same time. Since their removal, she has not had any episodes of hematemesis, melena, or hematochezia. Currently, she states that she does have a little bit of a sore throat, which is likely secondary to her recent extubation. OBJECTIVE: VITAL SIGNS: Temperature 98.2, pulse 101, blood pressure 129/70, respiratory rate 18, and saturating 95% on 3 L nasal cannula. GENERAL: The patient was lying in bed, in no acute distress. Alert and oriented x3. CARDIOVASCULAR: Tachycardic rate, but regular rhythm. RESPIRATORY: Mild coarse breath sounds auscultated in bilateral lower lung bases, but otherwise clear to auscultation. ABDOMEN: Normoactive bowel sounds. Soft, nontender, and nondistended. EXTREMITIES: No cyanosis, clubbing, or edema. LABORATORY DATA: CBC with a white blood cell count of 7.9, hemoglobin 14.6, hematocrit 44.4, and platelets 163. Chemistry with a sodium of 137, potassium 3.7, chloride 98, CO2 of 31, BUN 18, creatinine 0.54, glucose 229, AST 14, ALT 15, alkaline phosphatase 105, and total bilirubin 0.5. IMAGING DATA: Chest x-ray was performed on July 08, 2020, which showed no significant interval change when compared to previous with redemonstration of the endotracheal tube and nasogastric tube in appropriate positioning. Costophrenic angles were clear and there was chronic changes within the lung parenchyma without mass or consolidation. ASSESSMENT AND PLAN: The patient is a 64-year-old female with a past medical history of anxiety, depression, diabetes, hypertension, and chronic obstructive pulmonary disease on home oxygen, who initially presented with acute respiratory distress with mechanical ventilation, but was further complicated by possible coffee-ground material from the NG tube after placement. Coffee-ground material in the NG tube/possible upper gastrointestinal bleed. The patient initially presented to the hospital with acute respiratory distress and was apparently found down at home and brought to the [facility] for further evaluation and resuscitation. She was subsequently placed on mechanical ventilation and upon placement of the NG tube, there was a minimal amount of coffee-ground return concerning for the presence of upper gastrointestinal bleeding. However, trending her H and H during the course of this admission thus far has not yielded any significant decrease nor did she have any further episodes of hematemesis or bloody color material from the NG tube after being flushed. With extubation today, the NG tube was also removed at the same time and she has not had any further clinical evidence of gastrointestinal bleed. Recommendations; 1. Would continue to trend her H and H and transfuse as necessary to maintain H and H of 12/16. 2. Continue to monitor clinically for signs of active gastrointestinal bleeding. 3. Would hold any anticoagulation for at least the next 24 hours, then restart if clinically appropriate. 4. Continue pantoprazole 40 mg IV b.i.d. Given the stability of the patient's H and H, we will sign off at this time with no endoscopic evaluation indicated. Please call with any questions. Job ID: [id number]
[2020-07-09] MEDS: Metoclopramide HCl 10 MG/2 ML VIAL IVP SCH (01:08)
[2020-07-09] MEDS: methylPREDNISolone Sod Succ 40 MG VIAL IVP SCH ×2 (05:22→15:38)
[2020-07-09] MEDS: HumaLOG 300 UNITS/3 ML VIAL SC PRN ×3 (05:25→22:15)
[2020-07-09 06:37] LABS: Anion Gap 11 mmol/L (10-20); BUN (Urea Nitrogen) 15 mg/dL (9.8-20.1); Calc. Creatinine Clearance 128 mL/min (70-130); Calcium 8.3 mg/dL (7.8-10.44); Carbon Dioxide 34 mmol/L (23-31); Chloride 98 mmol/L (98-107); Glucose 233 mg/dL (80-115); Sodium 139 mmol/L (136-145)
--- NOTE | 2020-07-09 07:33 | RAD ---
Chest one view HISTORY: Pneumonia. Follow-up. COMPARISON: 07/08/2020. FINDINGS: Cardiac silhouette is magnified by projection. Pulmonary vasculature is unremarkable. Mediastinum is midline with aortic calcification. Endotracheal catheter and nasogastric tube no longe r visualized. Calcified granulomata are consistent with healed granulomatous disease. No lobar consolidation or radha dence of pneumothorax. IMPRESSION : Interval extubation and removal of the nasogastric tube. No new abnormalities are demonstrated.
[2020-07-09] MEDS: Trospium 20 MG TAB PO SCH ×2 (08:33→20:43)
[2020-07-09] MEDS: Pantoprazole 40 MG VIAL IVP SCH ×2 (08:33→20:42)
[2020-07-09] MEDS: Gabapentin 100 MG CAP PO SCH ×2 (08:34→20:43)
[2020-07-09] MEDS: DULoxetine 60 MG CAP PO SCH (08:41)
[2020-07-09] MEDS: Amlodipine 5 MG TAB PO SCH (08:41)
--- NOTE | 2020-07-09 10:38 | PRG ---
DATE OF SERVICE: 07/09/2020 SUBJECTIVE: She is doing well, has no acute complaints. OBJECTIVE: VITAL SIGNS: O2 sats 91% on 3 L, temperature 98.3, pulse 90, respirations 16, blood pressure 131/69. HEENT: Unremarkable. NECK: No JVD. CHEST: Clear. CARDIAC: S1 and S2, regular. ABDOMEN: Soft. EXTREMITIES: No edema. IMAGING STUDIES: Chest x-ray is clear. LABORATORY DATA: Sodium 139, potassium 4, BUN 15, creatinine 0.5, glucose 233. ASSESSMENT: Chronic obstructive pulmonary disease with exacerbation. PLAN: I would finish out a week of antibiotics and taper steroids over 2 weeks. From my standpoint, she is okay to go home at any time. I have told her not to smoke, but she refuses to comply. Job ID: [id number]
--- NOTE | 2020-07-09 15:25 | PDOC.HOSPP ---
- Subjective Encounter Date: 07/09/20 Encounter Time: 13:00 Subjective: no sob, feels better, is on 2 lts nc (home dose is around 3 lts) has not ambulated yet - Objective Vital Signs & Weight: Vital Signs (12 hours) Temp Pulse Resp BP BP Pulse Ox 07/09/20 14:32 87 16 07/09/20 10:05 90 16 07/09/20 08:41 94 131/69 07/09/20 08:00 95 07/09/20 07:49 98.3 F 94 20 131/68 91 L 07/09/20 06:51 80 16 96 07/09/20 05:00 98.3 F 93 18 155/77 H 93 L 07/09/20 03:27 93 L Weight Admit Weight 169 lb 8.568 oz Weight 166 lb 12.8 oz Most Recent Monitor Data Heart Rate from ECG 103 NIBP 119/61 NIBP BP-Mean 80 Respiration from ECG 18 SpO2 95 I&O: 07/08/20 07/09/20 07/10/20 06:59 06:59 06:59 Intake Total 1596.1 237.7 160 Output Total 967 675 400 Balance 629.1 -437.3 -240 Result Diagrams: 07/08/20 02:54 07/09/20 06:03 Additional Labs: Accuchecks 07/09/20 07/09/20 07/09/20 14:37 04:29 00:34 POC Glucose 274 H 210 H 211 H 07/08/20 07/08/20 19:41 16:14 POC Glucose 257 H 133 H Hospitalist ROS - Medication Medications: Active Medications Generic Name Dose Route Start Last Admin Trade Name Freq PRN Reason Stop Dose Admin Acetaminophen 650 mg 07/06/20 13:43 07/07/20 09:14 Acetaminophen 325 Mg Tab PO 650 mg Q4H PRN Administration Headache/Fever/Mild Pain (1-3) Albuterol/Ipratropium 3 ml 07/07/20 10:30 07/09/20 14:32 Ipratropium/Albuterol Sulfate 3 Ml Neb NEB 3 ml [id number] REYNA Administration Amlodipine Besylate 5 mg 07/09/20 09:00 07/09/20 08:41 Amlodipine 5 Mg Tab PO 5 mg DAILY REYNA Administration Duloxetine HCl 120 mg 07/08/20 09:00 07/09/20 08:41 Duloxetine 60 Mg Cap PO 120 mg DAILY REYNA Administration Gabapentin 100 mg 07/07/20 21:00 07/09/20 08:34 Gabapentin 100 Mg Cap PO 100 mg BID REYNA Administration Insulin Human Lispro 0 units 07/06/20 13:48 07/09/20 05:25 Humalog 300 Units/3 Ml Vial SC 3 unit .MILD SLIDING SCALE PRN Administration Mild Correctional Scale Insulin Human Lispro 0 units 07/08/20 20:33 07/08/20 20:42 Humalog 300 Units/3 Ml Vial SC 3 unit .BEDTIME SLIDING SC PRN Administration Bedtime Correctional Scale Pantoprazole Sodium 40 mg 07/07/20 09:00 07/09/20 08:33 Pantoprazole 40 Mg Vial IVP 40 mg Q12HR REYNA Administration Simvastatin 10 mg 07/07/20 21:00 07/08/20 20:35 Simvastatin 10 Mg Tab PO 10 mg HS REYNA Administration Trospium 20 mg 07/07/20 21:00 07/09/20 08:33 Trospium 20 Mg Tab PO 20 mg BID REYNA Administration Hospitalist Exam Vitals: Vital Signs (12 hours) Temp Pulse Resp BP BP Pulse Ox 07/09/20 14:32 87 16 07/09/20 10:05 90 16 07/09/20 08:41 94 131/69 07/09/20 08:00 95 07/09/20 07:49 98.3 F 94 20 131/68 91 L 07/09/20 06:51 80 16 96 07/09/20 05:00 98.3 F 93 18 155/77 H 93 L 07/09/20 03:27 93 L Weight Admit Weight 169 lb 8.568 oz Weight 166 lb 12.8 oz Most Recent Monitor Data Heart Rate from ECG 103 NIBP 119/61 NIBP BP-Mean 80 Respiration from ECG 18 SpO2 95 General Appearance: awake alert Eye: PERRL, anicteric sclera ENT: no oropharyngeal lesions, moist mucosa Neck: supple, no JVD Heart: RRR, no murmur Respiratory: no wheezes, no rales, rhonchi Gastrointestinal: soft, non-tender, non-distended, normal bowel sounds Extremities: no cyanosis, no edema Neurological: cranial nerve grossly intact, no focal deficits Psychiatric: normal affect, A&O x 3 Hosp A/P (1) COPD exacerbation Code(s): J44.1 - CHRONIC OBSTRUCTIVE PULMONARY DISEASE W (ACUTE) EXACERBATION Status: Acute (2) Acute on chronic respiratory failure with hypoxia and hypercapnia Code(s): J96.21 - ACUTE AND CHRONIC RESPIRATORY FAILURE WITH HYPOXIA; J96.22 - ACUTE AND CHRONIC RESPIRATORY FAILURE WITH HYPERCAPNIA Status: Resolved (3) DM type 2 (diabetes mellitus, type 2) Status: Chronic Qualifiers: Diabetes mellitus usp insulin use: with intermediate designer use (4) Anxiety and depression Code(s): F41.9 - ANXIETY DISORDER, UNSPECIFIED; F32.9 - MAJOR DEPRESSIVE DISO RDER, SINGLE EPISODE, UNSPECIFIED Status: Chronic (5) Dyslipidemia Code(s): E78.5 - HYPERLIPIDEMIA, UNSPECIFIED Status: Chronic (6) HTN (hypertension) Code(s): I10 - ESSENTIAL (PRIMARY) HYPERTENSION Status: Chronic Qualifiers: (7) Tobacco abuse Code(s): Z72.0 - TOBACCO USE Status: Chronic (8) Upper GI bleed Code(s): K92.2 - GASTROINTESTINAL HEMORRHAGE, UNSPECIFIED Status: Resolved - Plan is on steroid, nebs, levaquin, protonix bid, cymbalta and neurontin h/h is stable is on nasal canula and comfortable one dose lantus 15 u now, will switch to her home dose insulin in am gave update to over phone 07/07/20, 07/08/20. hemostable PT to mobilize as tolerated dc plan in am, ?HH with PT if needed
[2020-07-09] MEDS ORDERED: Insulin Glargine 15 UNITS in Pre-Filled Syringe 1 EACH SC SCH (16:00)
[2020-07-09] MEDS: Nicotine 21 MG PATCH TD SCH (17:20)
[2020-07-09] MEDS: Simvastatin 10 MG TAB PO SCH (20:42)
[2020-07-10] MEDS: HumaLOG 300 UNITS/3 ML VIAL SC PRN ×2 (05:14→12:18)
[2020-07-10] MEDS: Trospium 20 MG TAB PO SCH (07:55)
[2020-07-10] MEDS: DULoxetine 60 MG CAP PO SCH (07:55)
[2020-07-10] MEDS: Amlodipine 5 MG TAB PO SCH (07:56)
[2020-07-10] MEDS: Gabapentin 100 MG CAP PO SCH (07:57)
[2020-07-10] MEDS: Pantoprazole 40 MG VIAL IVP SCH (07:58)
[2020-07-10] MEDS ORDERED: predniSONE 20 MG TAB PO SCH (08:00)
[2020-07-10 08:44] VITALS: BP 155/78; TEMP 98.3
[2020-07-10] MEDS ORDERED: Aspirin 81 mg Enteric Coated Tablet PO SCH (09:00)
[2020-07-10] MEDS ORDERED: Lisinopril 10 MG TAB PO SCH (09:00)
[2020-07-10 12:28] VITALS: BMI 27.1
[2020-07-10] MEDS: Nicotine 21 MG PATCH TD SCH (17:24)
--- NOTE | 2020-07-10 19:11 | DIS ---
DATE OF ADMISSION: 07/06/2020 DATE OF DISCHARGE: 07/10/2020 DISCHARGE DISPOSITION: To home. PRIMARY DISCHARGE DIAGNOSES: Acute on chronic obstructive pulmonary disease exacerbation, acute on chronic respiratory failure with hypoxia and hypercapnia. SECONDARY DISCHARGE DIAGNOSES: Diabetes mellitus type 2, anxiety, depression, dyslipidemia, hypertension, ongoing tobacco abuse, and upper gastrointestinal bleed, resolved. PROCEDURES DONE DURING HOSPITALIZATION: Chest x-ray done on the day of admission showed no focal infiltrate or consolidation. CT brain without contrast showed no evidence of acute intracranial abnormality. Blood cultures x2, no growth. H and H 14 and 44, platelet count 163. Blood gas done on the day of admission showed a pH of 7.16, pCO2 of 117, pO2 of 51, bicarb of 41, BUN 15, creatinine 0.5. Urine tox screen was positive for benzodiazepines. COVID-19 PCR was not detected on 07/06/2020. Influenza A and B PCRs were negative as well. DISCHARGE MEDICATIONS: 1. Cymbalta 120 mg p.o. daily. 2. Ellipta inhaler daily. 3. Insulin aspart 10 units subcu twice daily. 4. Neurontin 900 mg daily. 5. Pravachol 20 mg p.o. at bedtime. 6. Tolterodine extended release 4 mg daily. 7. DuoNeb 4 times daily. 8. Levaquin 500 mg p.o. daily for another 6 days. 9. Prednisone 10 mg twice daily for 3 days, then daily for 4 days and to discontinue. 10. Protonix 40 mg twice daily. 11. Norvasc 5 mg daily. 12. NicoDerm transdermal patch 21 mg daily. 13. Lisinopril 10 mg daily. INPATIENT CONSULT: Dr. Narvaez for Pulmonology, Dr. Ivey for Gastroenterology. ALLERGIES: TO CODEINE, EUCALYPTUS, HYDROCODONE, AND ULTRAM. DISCHARGE PLAN: The patient to follow up with her primary care physician, Dr. Cheryl Ibarra on 07/17/2020 at 8:45 a.m. BRIEF COURSE DURING HOSPITALIZATION: The patient initially came in with complaints of shortness of breath and being unresponsive on arrival. The patient was intubated in the ER. She had severe COPD exacerbation with ongoing history of tobacco abuse and home oxygen of 3 L at baseline. The patient was successfully extubated after 48 hours and has been doing well. She has ambulated with physical therapy to a limited extent in the hallway. On day 1 of admission, the patient had coffee ground in her NG tube and was closely monitored with serial H and H, which has remained stable. She was on Protonix 40 mg twice daily for the same. This likely is either due to NG trauma versus gastritis, which has resolved at the time of discharge. She is hemodynamically stable, ambulating and is at her baseline 2-3 L nasal cannula oxygen. Please note I have seen and examined the patient on the day of discharge. She was counseled with regard to complete tobacco cessation. She was given prescriptions for transdermal nicotine patch, which she says she will use. Job ID: [id number]
== END 2020-07-10 16:56 | disposition home or self-care (01) | DRG 208 ==
LOC: ERS 11:43 → ERHOLD 13:51 → CCU 23:51 → T4-B 07-08 19:16
PROVIDERS: ADMIT Internal Medicine; ATTEND Internal Medicine
PROC: 5A1945Z Respiratory Ventilation, 24-96 Consecutive Hours (ICD-10-PCS; principal; 2020-07-06)
PROC: 0BH17EZ Insertion of Endotracheal Airway into Trachea, Via Natural or Artificial Opening (ICD-10-PCS; 2020-07-06)
PROC: 0D9670Z Drainage of Stomach with Drainage Device, Via Natural or Artificial Opening (ICD-10-PCS; 2020-07-06)
PROC: 0BP1XDZ Removal of Intraluminal Device from Trachea, External Approach (ICD-10-PCS; 2020-07-08)
DX: J96.21 Acute and chronic respiratory failure with hypoxia (principal); K29.71 Gastritis, unspecified, with bleeding; J44.1 Chronic obstructive pulmonary disease with (acute) exacerbation; D68.9 Coagulation defect, unspecified; F33.9 Major depressive disorder, recurrent, unspecified; K92.2 Gastrointestinal hemorrhage, unspecified; K91.840 Postprocedural hemorrhage of a digestive system organ or structure following a digestive system procedure; J96.22 Acute and chronic respiratory failure with hypercapnia; Z20.822 Contact with and (suspected) exposure to COVID-19; F41.9 Anxiety disorder, unspecified; F17.210 Nicotine dependence, cigarettes, uncomplicated; I10 Essential (primary) hypertension; E78.5 Hyperlipidemia, unspecified; E11.42 Type 2 diabetes mellitus with diabetic polyneuropathy; Z88.5 Allergy status to narcotic agent; Z88.8 Allergy status to other drugs, medicaments and biological substances; Z78.1 Physical restraint status; Z99.81 Dependence on supplemental oxygen; Z98.51 Tubal ligation status; Z90.49 Acquired absence of other specified parts of digestive tract; Z98.890 Other specified postprocedural states; Z79.82 Long term (current) use of aspirin; Z79.51 Long term (current) use of inhaled steroids; Z79.4 Long term (current) use of insulin; Z79.899 Other long term (current) drug therapy; Z91.14 Patient's other noncompliance with medication regimen; Z90.710 Acquired absence of both cervix and uterus; Y83.8 Other surgical procedures as the cause of abnormal reaction of the patient, or of later complication, without mention of misadventure at the time of the procedure
CPT/HCPCS: 0240U; 31500; 36415; 36416; 36600; 51702; 70450; 71045; 80048; 80053; 80306; 81003; 81015; 82550; 82805; 83605; 83735; 84484; 85025; 87040; 93005; 94002; 94003; 94640; 94760; 96365; 96366; 96374; 96375; 99292; C9113; J1815; J1956; J2060; J2250; J2310; J2704; J2765; J2920; J2930; J3010; J3475; J7512; J7620

== ENCOUNTER 2020-08-29 09:13 | Inpatient (IN) | payer MEDICARE, OTHER ==
[2020-08-29 10:12] LABS: #Basophils 0.1 thou/uL (0.0-0.2); #Neutrophils 9.2 thou/uL (1.40-6.50); %Basophils 0.6 % (0.0-1.0); %Eosinophils 0.3 % (0.0-10.0); %Lymphocytes 16.5 % (21.0-51.0); %Monocytes 8.2 % (0.0-10.0); %Neutrophils 74.3 % (42.0-75.0); Mean Corpuscular Hemoglobin 30.9 pg (27.0-31.0); Mean Corpuscular Volume 96.4 fL (78.0-98.0); Mean Platelet Volume 9.4 fL (7.4-10.4); Platelet Count 187 thou/uL (130-400); RBC Distribution Width 13.9 % (11.5-14.5); Red Blood Cell (RBC) Count 5.52 mill/uL (4.20-5.40); White Blood Cell (WBC) Count 12.3 thou/uL (4.8-10.8)
[2020-08-29 10:32] LABS: ALT (SGPT) 18 U/L (8-55); AST (SGOT) 18 U/L (5-34); Albumin 3.7 g/dL (3.4-4.8); Alkaline Phosphatase 146 U/L (40-110); BUN (Urea Nitrogen) 25 mg/dL (9.8-20.1); Bilirubin, Total 0.7 mg/dL (0.2-1.2); Calc. Creatinine Clearance 0 mL/min (70-130); Calcium 8.8 mg/dL (7.8-10.44); Globulin 2.5 g/dL (2.4-3.5); Glucose 251 mg/dL (80-115); Protein, Total 6.2 g/dL (5.8-8.1)
[2020-08-29 10:42] LABS: Anion Gap 14 mmol/L (10-20); Chloride 95 mmol/L (98-107); Potassium 4.6 mmol/L (3.5-5.1); Sodium 145 mmol/L (136-145)
[2020-08-29 10:49] LABS: Carbon Dioxide 41 mmol/L (23-31)
[2020-08-29 10:55] LABS: CKMB 2.5 ng/mL (0-6.6)
[2020-08-29] MEDS ORDERED: methylPREDNISolone Sod Succ/PF 125 MG/2 ML VIAL ONE (11:05)
[2020-08-29 11:23] LABS: Bilirubin Negative (Negative); Blood, Urine Trace (Negative); Clarity Clear (Clear); Glucose, Urine (Dipstick) Greater than 1000 mg/dL (Negative); Ketone, Urine 10 mg/dL (Negative); Leukocyte 75 Leu/uL (Negative); Nitrite Negative (Negative); Protein, Urine (Dipstick) 300 mg/dL (Neg-Trace); RBC/HPF 0-3 HPF (0-3); Specific Gravity, Urine 1.027 (1.002-1.036); WBC/HPF 21-50 HPF (0-3)
[2020-08-29 11:24] LABS: Bacteria/HPF Rare-Few HPF (None Seen); Squamous Epithelial 0-3 HPF (0-3)
[2020-08-29 11:57] LABS: Actual Bicarbonate (HCO3a) 42.2 mEq/L (22-28); Analyzer IN Cardio ER; Base Excess (BEa) 9.8 mEq/L (-2.0 to +3.0); CO2 Tension 94.6 mmHg (35.0-45.0); Calcium, Ionized (arterial) 1.18 mmol/L (1.12-1.30); Carboxyhemoglobin (COHb) 3.4 gm% (0.0-3.0); Hemoglobin (Hb) 17.6 g/dL (12.0-16.0); O2 Tension (PaO2), arterial 57.1 mmHg (> 80.0); Potassium - ABG Lab 4.19 mmol/L (3.70-5.30); Puncture Site RRA; pH, Arterial 7.27 (7.35-7.45)
[2020-08-29] MEDS ORDERED: Acetaminophen 325 MG TAB PO PRN (12:09)
[2020-08-29] MEDS ORDERED: Electrolyte Replacement Protocol 1 EACH IVPB SCH (12:09)
[2020-08-29] MEDS ORDERED: Ondansetron PF 4 MG/2 ML Vial IVP PRN (12:09)
[2020-08-29] MEDS ORDERED: Guaifenesin DM 100-10/5 ML UDCUP PO PRN (12:09)
[2020-08-29 12:15] LABS: SARS-CoV-2 NAA Rapid Test Not Detected (NotDetected)
[2020-08-29 13:50] LABS: Troponin I 0.037 ng/mL (< 0.028)
[2020-08-29] MEDS ORDERED: methylPREDNISolone Sod Succ 40 MG VIAL IVP SCH (18:00)
[2020-08-29 19:31] VITALS: BMI 24.6
[2020-08-29] MEDS: Famotidine/PF 20 mg/2ml Vial SLOW IVP SCH (20:17)
[2020-08-29] MEDS: methylPREDNISolone Sod Succ 40 MG VIAL IVP SCH (20:18)
[2020-08-29] MEDS: Insulin Regular 300 UNITS/3 ML VIAL SC PRN (20:18)
[2020-08-30] MEDS: methylPREDNISolone Sod Succ 40 MG VIAL IVP SCH ×4 (01:01→20:34)
[2020-08-30 05:57] LABS: #Lymphocytes 0.7 thou/uL (1.20-3.40); #Monocytes 0.2 thou/uL (0.11-0.59); #Neutrophils 6.2 thou/uL (1.40-6.50); %Basophils 0.1 % (0.0-1.0); %Eosinophils 0.1 % (0.0-10.0); %Lymphocytes 9.1 % (21.0-51.0); %Monocytes 2.7 % (0.0-10.0); %Neutrophils 87.9 % (42.0-75.0); Mean Corpuscular HGB CONC 31.4 g/dL (32.0-36.0); Mean Corpuscular Hemoglobin 29.8 pg (27.0-31.0); Mean Corpuscular Volume 94.9 fL (78.0-98.0); Mean Platelet Volume 9.6 fL (7.4-10.4); Platelet Count 174 thou/uL (130-400); RBC Distribution Width 13.5 % (11.5-14.5); Red Blood Cell (RBC) Count 5.35 mill/uL (4.20-5.40); White Blood Cell (WBC) Count 7.1 thou/uL (4.8-10.8)
[2020-08-30 06:11] LABS: BUN (Urea Nitrogen) 23 mg/dL (9.8-20.1); Calc. Creatinine Clearance 100 mL/min (70-130); Calcium 8.7 mg/dL (7.8-10.44); Glucose 287 mg/dL (80-115)
[2020-08-30 06:19] LABS: Anion Gap 16 mmol/L (10-20); Carbon Dioxide 36 mmol/L (23-31); Chloride 95 mmol/L (98-107); Potassium 4.9 mmol/L (3.5-5.1); Sodium 142 mmol/L (136-145)
[2020-08-30] MEDS: Insulin Regular 300 UNITS/3 ML VIAL SC PRN ×3 (06:24→20:35)
[2020-08-30 09:56] VITALS: BP 156/79
[2020-08-30] MEDS: Enoxaparin Sodium 40 MG/0.4 ML SYRINGE SC SCH (10:00)
[2020-08-30] MEDS: Famotidine/PF 20 mg/2ml Vial SLOW IVP SCH ×2 (10:00→20:35)
[2020-08-30] MEDS ORDERED: Melatonin 3 MG TAB PO PRN (21:48)
[2020-08-31] MEDS: methylPREDNISolone Sod Succ 40 MG VIAL IVP SCH ×2 (02:48→08:15)
[2020-08-31] MEDS: Insulin Regular 300 UNITS/3 ML VIAL SC PRN ×2 (06:19→12:03)
[2020-08-31] MEDS: Enoxaparin Sodium 40 MG/0.4 ML SYRINGE SC SCH (08:15)
[2020-08-31] MEDS: Famotidine/PF 20 mg/2ml Vial SLOW IVP SCH (08:15)
[2020-08-31] MEDS ORDERED: methylPREDNISolone Sod Succ 40 MG VIAL IVP SCH (10:08)
[2020-08-31 15:34] VITALS: TEMP 99.4
[2020-08-31] MEDS ORDERED: Mometasone 200 MCG/Formoterol 5 MCG 120 PUFF INHALER INH SCH (18:30)
== END 2020-08-31 15:40 | disposition home or self-care (01) | DRG 189 ==
LOC: ERS 09:13 → ERHOLD 12:02 → IMCU/EMU 18:22
PROVIDERS: ADMIT Internal Medicine; ATTEND Internal Medicine
DX: J96.21 Acute and chronic respiratory failure with hypoxia (principal); G93.41 Metabolic encephalopathy; J44.1 Chronic obstructive pulmonary disease with (acute) exacerbation; N39.0 Urinary tract infection, site not specified; J96.22 Acute and chronic respiratory failure with hypercapnia; Z20.822 Contact with and (suspected) exposure to COVID-19; E11.40 Type 2 diabetes mellitus with diabetic neuropathy, unspecified; I10 Essential (primary) hypertension; G47.33 Obstructive sleep apnea (adult) (pediatric); R77.8 Other specified abnormalities of plasma proteins; F41.9 Anxiety disorder, unspecified; F32.9 Major depressive disorder, single episode, unspecified; F17.210 Nicotine dependence, cigarettes, uncomplicated; F03.90 Unspecified dementia, unspecified severity, without behavioral disturbance, psychotic disturbance, mood disturbance, and anxiety; Z91.14 Patient's other noncompliance with medication regimen; Z88.5 Allergy status to narcotic agent; Z88.0 Allergy status to penicillin; Z88.8 Allergy status to other drugs, medicaments and biological substances; Z79.4 Long term (current) use of insulin; Z79.51 Long term (current) use of inhaled steroids; Z79.52 Long term (current) use of systemic steroids; Z79.899 Other long term (current) drug therapy; Z90.49 Acquired absence of other specified parts of digestive tract; Z90.710 Acquired absence of both cervix and uterus; Z98.51 Tubal ligation status
CPT/HCPCS: 0240U; 36415; 36416; 36600; 51701; 70450; 71045; 80048; 80053; 81003; 81015; 82553; 82805; 83605; 84443; 84484; 85025; 87040; 87086; 93005; 94640; 94760; 96374; 99292; J1650; J1815; J1956; J2920; J2930; J7620; S0028

== ENCOUNTER 2020-10-14 01:28 | Emergency (ER) | payer OTHER, MEDICARE | END 2020-10-14 03:12 | disposition home or self-care (01) | LOC: ERS 01:28 | DX: S00.03XA Contusion of scalp, initial encounter (principal); S60.511A Abrasion of right hand, initial encounter; M25.571 Pain in right ankle and joints of right foot; E11.40 Type 2 diabetes mellitus with diabetic neuropathy, unspecified; J44.9 Chronic obstructive pulmonary disease, unspecified; F17.210 Nicotine dependence, cigarettes, uncomplicated; Z79.899 Other long term (current) drug therapy; I10 Essential (primary) hypertension; W01.0XXA Fall on same level from slipping, tripping and stumbling without subsequent striking against object, initial encounter; Y93.K1 Activity, walking an animal | CPT/HCPCS: 70450; 72125 ==

== ENCOUNTER 2020-12-02 19:38 | Inpatient (IN) | payer MEDICARE, OTHER ==
[2020-12-02] MEDS ORDERED: Magnesium 2 GM/50 ML BAG (IN WATER) ONE (20:26)
[2020-12-02] MEDS ORDERED: methylPREDNISolone Sod Succ/PF 125 MG/2 ML VIAL ONE (20:26)
[2020-12-02 20:35] LABS: #Eosinphils 0.2 thou/uL (0.0-0.7); #Lymphocytes 2.6 thou/uL (1.20-3.40); #Monocytes 0.8 thou/uL (0.11-0.59); #Neutrophils 8.3 thou/uL (1.40-6.50); %Basophils 0.3 % (0.0-1.0); %Eosinophils 1.3 % (0.0-10.0); %Lymphocytes 21.7 % (21.0-51.0); %Monocytes 6.7 % (0.0-10.0); Hemoglobin 16.4 g/dL (12.0-16.0); Mean Corpuscular HGB CONC 33.7 g/dL (32.0-36.0); Mean Corpuscular Hemoglobin 31.9 pg (27.0-31.0); Mean Corpuscular Volume 94.7 fL (78.0-98.0); Mean Platelet Volume 9.2 fL (7.4-10.4); Platelet Count 214 thou/uL (130-400); RBC Distribution Width 12.6 % (11.5-14.5); Red Blood Cell (RBC) Count 5.13 mill/uL (4.20-5.40); White Blood Cell (WBC) Count 11.8 thou/uL (4.8-10.8)
[2020-12-02] MEDS ORDERED: Albuterol Sulfate 2.5 mg/0.5 ml Neb ONE (20:53)
[2020-12-02 20:55] LABS: Analyzer IN Cardio ER; Base Excess 9.1 mEq/L (-2.0 to +3.0); Calcium, Ionized (venous) 1.22 mmol/L (1.16-1.32); Chloride (VBG) 95 mmol/L (98-106); Hemoglobin (Hb) 16.3 g/dL (11.7-16.0); Sodium 142.5 mmol/L (133-146)
[2020-12-02 20:56] LABS: ALT (SGPT) 12 U/L (8-55); AST (SGOT) 18 U/L (5-34); Albumin 3.7 g/dL (3.4-4.8); Alkaline Phosphatase 151 U/L (40-110); Anion Gap 19 mmol/L (10-20); BUN (Urea Nitrogen) 13 mg/dL (9.8-20.1); Bilirubin, Total 0.6 mg/dL (0.2-1.2); Calc. Creatinine Clearance 0 mL/min (70-130); Calcium 9.1 mg/dL (7.8-10.44); Carbon Dioxide 34 mmol/L (23-31); Chloride 93 mmol/L (98-107); Glucose 399 mg/dL (80-115); Potassium 4.3 mmol/L (3.5-5.1); Protein, Total 6.7 g/dL (5.8-8.1); Sodium 142 mmol/L (136-145)
[2020-12-02 21:07] LABS: Actual Bicarbonate (HCO3v) 44 mEq/L (22-28); pH (venous) 7.18 (7.32-7.43)
[2020-12-02 21:18] LABS: Bilirubin Negative (Negative); Blood, Urine Trace (Negative); Clarity Clear (Clear); Glucose, Urine (Dipstick) Greater than 1000 mg/dL (Negative); Ketone, Urine 40 mg/dL (Negative); Leukocyte 75 Leu/uL (Negative); Nitrite Negative (Negative); Protein, Urine (Dipstick) 300 mg/dL (Neg-Trace); Specific Gravity, Urine 1.033 (1.002-1.036); Urobilinogen Normal mg/dL (Less than 2); WBC/HPF 21-50 HPF (0-3)
[2020-12-02 21:22] LABS: Bacteria/HPF 1+ HPF (None Seen)
[2020-12-02 22:26] LABS: Actual Bicarbonate (HCO3a) 39.8 mEq/L (22-28); Analyzer IN Cardio ER; Base Excess (BEa) 8.8 mEq/L (-2.0 to +3.0); Calcium, Ionized (arterial) 1.17 mmol/L (1.12-1.30); Carboxyhemoglobin (COHb) 3.3 gm% (0.0-3.0); Hemoglobin (Hb) 16.5 g/dL (12.0-16.0); Potassium - ABG Lab 4.35 mmol/L (3.70-5.30); pH, Arterial 7.29 (7.35-7.45)
[2020-12-02 22:37] LABS: CO2 Tension 85.7 mmHg (35.0-45.0)
[2020-12-02 22:38] LABS: ALV-art Gradient 93.425 mmHg (0-20); Puncture Site LBA
[2020-12-02] MEDS ORDERED: hydrALAZINE 20 MG/ML VIAL SLOW IVP PRN (22:48)
[2020-12-02] MEDS ORDERED: Acetaminophen 500 MG TAB PO PRN (22:48)
[2020-12-02] MEDS ORDERED: GUAIFENESIN SF SOLN 200 MG/10 ML UDCUP PO PRN (22:48)
[2020-12-02] MEDS ORDERED: Ondansetron PF 4 MG/2 ML Vial IVP PRN (22:48)
[2020-12-02] MEDS ORDERED: Ondansetron ODT 4 MG TAB PO PRN (22:48)
[2020-12-02] MEDS ORDERED: Bacteriostatic Water 30 ML VIAL FS PRN (23:00)
[2020-12-02] MEDS ORDERED: Dextrose 5% in Water 1,000 ML IV PRN (23:02)
[2020-12-02] MEDS ORDERED: Dextrose 50% Abboject 50 ML SYRINGE SLOW IVP PRN (23:02)
[2020-12-02] MEDS ORDERED: HumaLOG 300 UNITS/3 ML VIAL SC PRN (23:02)
[2020-12-02 23:57] LABS: SARS-CoV-2 NAA Rapid Test Not Detected (NotDetected)
[2020-12-03] MEDS: HumaLOG 300 UNITS/3 ML VIAL SC PRN ×3 (00:24→17:17)
[2020-12-03] MEDS: methylPREDNISolone Sod Succ 40 MG VIAL IVP SCH ×4 (00:24→17:15)
[2020-12-03 02:02] VITALS: BMI 26.5
[2020-12-03 03:52] LABS: #Lymphocytes 0.5 thou/uL (1.20-3.40); #Neutrophils 7.7 thou/uL (1.40-6.50); %Eosinophils 0.3 % (0.0-10.0); %Lymphocytes 6.5 % (21.0-51.0); %Monocytes 0.4 % (0.0-10.0); %Neutrophils 92.9 % (42.0-75.0); Hemoglobin 15.3 g/dL (12.0-16.0); Mean Corpuscular HGB CONC 32.8 g/dL (32.0-36.0); Mean Corpuscular Hemoglobin 30.8 pg (27.0-31.0); Mean Corpuscular Volume 93.7 fL (78.0-98.0); Mean Platelet Volume 9.1 fL (7.4-10.4); Platelet Count 205 thou/uL (130-400); RBC Distribution Width 12.4 % (11.5-14.5); Red Blood Cell (RBC) Count 4.96 mill/uL (4.20-5.40); White Blood Cell (WBC) Count 8.3 thou/uL (4.8-10.8)
[2020-12-03 04:09] LABS: ALT (SGPT) 11 U/L (8-55); AST (SGOT) 12 U/L (5-34); Albumin 3.4 g/dL (3.4-4.8); Alkaline Phosphatase 136 U/L (40-110); BUN (Urea Nitrogen) 12 mg/dL (9.8-20.1); Bilirubin, Total 0.4 mg/dL (0.2-1.2); Calc. Creatinine Clearance 114 mL/min (70-130); Calcium 9.3 mg/dL (7.8-10.44); Globulin 3.2 g/dL (2.4-3.5); Glucose 295 mg/dL (80-115); Protein, Total 6.6 g/dL (5.8-8.1)
[2020-12-03 04:20] LABS: Anion Gap 19 mmol/L (10-20); Carbon Dioxide 34 mmol/L (23-31); Chloride 95 mmol/L (98-107); Potassium 4.3 mmol/L (3.5-5.1); Sodium 144 mmol/L (136-145)
[2020-12-03] MEDS: Mometasone 200 MCG/Formoterol 5 MCG 120 PUFF INHALER INH SCH ×2 (07:09→18:28)
[2020-12-03] MEDS: DULoxetine 60 MG CAP PO SCH (10:14)
[2020-12-03] MEDS: Losartan 25 MG TAB PO SCH (10:14)
[2020-12-03] MEDS: Pregabalin 75 MG CAP PO SCH ×2 (10:14→21:29)
[2020-12-03] MEDS: Famotidine/PF 20 mg/2ml Vial SLOW IVP SCH ×2 (10:53→21:30)
[2020-12-03] MEDS: Budesonide 0.5 MG/2 ML NEB NEB SCH (18:27)
[2020-12-03] MEDS: Simvastatin 10 MG TAB PO SCH (21:33)
[2020-12-03] MEDS: Melatonin 3 MG TAB PO PRN (21:45)
[2020-12-04] MEDS: methylPREDNISolone Sod Succ 40 MG VIAL IVP SCH ×5 (00:51→23:36)
[2020-12-04 04:51] LABS: #Lymphocytes 0.8 thou/uL (1.20-3.40); #Monocytes 0.3 thou/uL (0.11-0.59); #Neutrophils 11.8 thou/uL (1.40-6.50); %Basophils 0.2 % (0.0-1.0); %Eosinophils 0.2 % (0.0-10.0); %Lymphocytes 6.2 % (21.0-51.0); %Monocytes 2.5 % (0.0-10.0); Mean Corpuscular HGB CONC 32.5 g/dL (32.0-36.0); Mean Corpuscular Hemoglobin 30.9 pg (27.0-31.0); Mean Platelet Volume 9.1 fL (7.4-10.4); Platelet Count 209 thou/uL (130-400); RBC Distribution Width 12.4 % (11.5-14.5); Red Blood Cell (RBC) Count 4.84 mill/uL (4.20-5.40)
[2020-12-04 05:13] LABS: Anion Gap 14 mmol/L (10-20); BUN (Urea Nitrogen) 20 mg/dL (9.8-20.1); Calc. Creatinine Clearance 98 mL/min (70-130); Carbon Dioxide 34 mmol/L (23-31); Chloride 94 mmol/L (98-107); Glucose 376 mg/dL (80-115); Potassium 4.4 mmol/L (3.5-5.1); Sodium 138 mmol/L (136-145)
[2020-12-04] MEDS: HumaLOG 300 UNITS/3 ML VIAL SC PRN ×5 (05:37→20:48)
[2020-12-04] MEDS: Budesonide 0.5 MG/2 ML NEB NEB SCH ×2 (07:42→18:50)
[2020-12-04] MEDS ORDERED: Dextrose 5% in Water 1,000 ML IV PRN ×2 (07:46→07:49)
[2020-12-04] MEDS ORDERED: Dextrose 50% Abboject 50 ML SYRINGE SLOW IVP PRN ×2 (07:46→07:49)
[2020-12-04] MEDS ORDERED: HumaLOG 300 UNITS/3 ML VIAL SC PRN (07:49)
[2020-12-04] MEDS: DULoxetine 60 MG CAP PO SCH (08:34)
[2020-12-04] MEDS: Famotidine/PF 20 mg/2ml Vial SLOW IVP SCH ×2 (08:34→20:47)
[2020-12-04] MEDS: Losartan 25 MG TAB PO SCH (08:35)
[2020-12-04] MEDS ORDERED: Lantus 1000 UNITS/10 ML VIAL SC SCH (09:00)
[2020-12-04] MEDS ORDERED: Insulin Glargine 20 UNITS in Pre-Filled Syringe 1 EACH SC SCH (09:00)
[2020-12-04] MEDS: Pregabalin 75 MG CAP PO SCH ×2 (10:11→20:49)
[2020-12-04] MEDS: Mometasone 200 MCG/Formoterol 5 MCG 120 PUFF INHALER INH SCH ×2 (10:25→18:48)
[2020-12-04] MEDS: HumaLOG 300 UNITS/3 ML VIAL SC SCH (17:21)
[2020-12-04] MEDS: Lantus 1000 UNITS/10 ML VIAL SC SCH (20:48)
[2020-12-04] MEDS: Simvastatin 10 MG TAB PO SCH (20:49)
[2020-12-04] MEDS: Benzonatate 100 MG CAP PO PRN (22:15)
[2020-12-04] MEDS: Melatonin 3 MG TAB PO PRN (23:35)
[2020-12-05] MEDS: methylPREDNISolone Sod Succ 40 MG VIAL IVP SCH ×3 (05:44→18:07)
[2020-12-05] MEDS: HumaLOG 300 UNITS/3 ML VIAL SC PRN ×3 (05:44→17:31)
[2020-12-05] MEDS: Budesonide 0.5 MG/2 ML NEB NEB SCH (06:33)
[2020-12-05] MEDS: Mometasone 200 MCG/Formoterol 5 MCG 120 PUFF INHALER INH SCH (06:34)
[2020-12-05] MEDS: Pregabalin 75 MG CAP PO SCH (09:05)
[2020-12-05] MEDS: Losartan 25 MG TAB PO SCH (09:06)
[2020-12-05] MEDS: DULoxetine 60 MG CAP PO SCH (09:06)
[2020-12-05] MEDS: Famotidine/PF 20 mg/2ml Vial SLOW IVP SCH (09:06)
[2020-12-05] MEDS: Lantus 1000 UNITS/10 ML VIAL SC SCH (09:07)
[2020-12-05] MEDS: HumaLOG 300 UNITS/3 ML VIAL SC SCH ×3 (09:08→18:06)
[2020-12-05] MEDS ORDERED: Lantus 1000 UNITS/10 ML VIAL SC SCH ×2 (09:45→21:00)
[2020-12-05] MEDS: Benzonatate 100 MG CAP PO PRN (13:00)
[2020-12-05 15:06] VITALS: BP 159/78
[2020-12-05 15:22] VITALS: TEMP 96.8
== END 2020-12-05 18:35 | disposition home or self-care (01) | DRG 189 ==
LOC: ERS 19:38 → CCU 22:48 → IMCU/EMU 12-04 14:39
PROVIDERS: ADMIT Family Medicine; ATTEND Internal Medicine
PROC: 5A09357 Assistance with Respiratory Ventilation, Less than 24 Consecutive Hours, Continuous Positive Airway Pressure (ICD-10-PCS; principal; 2020-12-02)
DX: J96.21 Acute and chronic respiratory failure with hypoxia (principal); G92 Toxic encephalopathy; J44.1 Chronic obstructive pulmonary disease with (acute) exacerbation; N39.0 Urinary tract infection, site not specified; Z91.19 Patient's noncompliance with other medical treatment and regimen; J96.22 Acute and chronic respiratory failure with hypercapnia; E11.65 Type 2 diabetes mellitus with hyperglycemia; Z20.822 Contact with and (suspected) exposure to COVID-19; E11.40 Type 2 diabetes mellitus with diabetic neuropathy, unspecified; F03.90 Unspecified dementia, unspecified severity, without behavioral disturbance, psychotic disturbance, mood disturbance, and anxiety; F41.9 Anxiety disorder, unspecified; F32.9 Major depressive disorder, single episode, unspecified; B96.20 Unspecified Escherichia coli [E. coli] as the cause of diseases classified elsewhere; F17.210 Nicotine dependence, cigarettes, uncomplicated; Z90.710 Acquired absence of both cervix and uterus; Z98.51 Tubal ligation status; Z90.49 Acquired absence of other specified parts of digestive tract; Z79.899 Other long term (current) drug therapy; Z88.6 Allergy status to analgesic agent; Z88.5 Allergy status to narcotic agent; Z88.8 Allergy status to other drugs, medicaments and biological substances
CPT/HCPCS: 0240U; 36415; 36416; 36600; 71045; 80048; 80053; 81003; 81015; 82010; 82805; 83036; 83605; 83880; 84484; 85025; 87040; 87077; 87086; 87186; 93005; 94640; 94660; J1815; J1956; J2920; J2930; J3475; J7611; J7620; J7626; S0028

== ENCOUNTER 2020-12-26 01:39 | Emergency (ER) | payer MEDICARE, OTHER ==
[2020-12-26] MEDS ORDERED: Ketorolac Tromethamine 30 MG/ML VIAL ONE (02:30)
[2020-12-26] MEDS ORDERED: Magnesium 2 GM/50 ML BAG (IN WATER) ONE (02:44)
[2020-12-26] MEDS ORDERED: Dexamethasone 10 MG/ML VIAL ONE (02:44)
[2020-12-26 02:54] LABS: #Basophils 0.1 thou/uL (0.0-0.2); #Eosinphils 0.2 thou/uL (0.0-0.7); #Lymphocytes 2.1 thou/uL (1.20-3.40); #Monocytes 0.9 thou/uL (0.11-0.59); #Neutrophils 6.4 thou/uL (1.40-6.50); %Basophils 0.8 % (0.0-1.0); %Eosinophils 1.6 % (0.0-10.0); %Lymphocytes 21.5 % (21.0-51.0); %Monocytes 8.9 % (0.0-10.0); %Neutrophils 67.2 % (42.0-75.0); Hemoglobin 15.6 g/dL (12.0-16.0); Mean Corpuscular HGB CONC 33.3 g/dL (32.0-36.0); Mean Corpuscular Hemoglobin 31.9 pg (27.0-31.0); Mean Corpuscular Volume 95.8 fL (78.0-98.0); Mean Platelet Volume 9.4 fL (7.4-10.4); Platelet Count 167 thou/uL (130-400); RBC Distribution Width 12.3 % (11.5-14.5); Red Blood Cell (RBC) Count 4.89 mill/uL (4.20-5.40); White Blood Cell (WBC) Count 9.6 thou/uL (4.8-10.8)
[2020-12-26 03:08] LABS: ALT (SGPT) 10 U/L (8-55); AST (SGOT) 13 U/L (5-34); Albumin 3.4 g/dL (3.4-4.8); Alkaline Phosphatase 149 U/L (40-110); BUN (Urea Nitrogen) 19 mg/dL (9.8-20.1); Bilirubin, Total 0.7 mg/dL (0.2-1.2); Calc. Creatinine Clearance 0 mL/min (70-130); Globulin 2.5 g/dL (2.4-3.5); Glucose 334 mg/dL (80-115); Protein, Total 5.9 g/dL (5.8-8.1)
[2020-12-26] MEDS ORDERED: Albuterol 200 PUFF (6.7GM INHALER) ONE (03:14)
[2020-12-26 03:16] LABS: Carbon Dioxide Greater than 37 mmol/L (23-31); Chloride 93 mmol/L (98-107); Potassium 4.3 mmol/L (3.5-5.1); Sodium 142 mmol/L (136-145)
[2020-12-26] MEDS ORDERED: Iopamidol-370 76% 500 ML 1 ML ONE (10:43)
== END 2020-12-26 05:33 | disposition home or self-care (01) ==
LOC: ERS 01:39
DX: S22.42XA Multiple fractures of ribs, left side, initial encounter for closed fracture (principal); D35.00 Benign neoplasm of unspecified adrenal gland; R91.1 Solitary pulmonary nodule; E11.40 Type 2 diabetes mellitus with diabetic neuropathy, unspecified; I10 Essential (primary) hypertension; J44.9 Chronic obstructive pulmonary disease, unspecified; F17.210 Nicotine dependence, cigarettes, uncomplicated; Z79.899 Other long term (current) drug therapy; W19.XXXA Unspecified fall, initial encounter
CPT/HCPCS: 71275; 80053; 84484; 85025; 93005; 94664; 96365; 96375; J1100; J1885; J3475; Q9967

== ENCOUNTER 2020-12-29 23:19 | Inpatient (IN) | payer MEDICARE, OTHER ==
[2020-12-29 23:59] LABS: #Basophils 0.1 thou/uL (0.0-0.2); #Eosinphils 0.1 thou/uL (0.0-0.7); #Lymphocytes 1.7 thou/uL (1.20-3.40); #Monocytes 0.7 thou/uL (0.11-0.59); #Neutrophils 9.8 thou/uL (1.40-6.50); %Basophils 0.5 % (0.0-1.0); %Eosinophils 0.9 % (0.0-10.0); %Lymphocytes 13.8 % (21.0-51.0); %Monocytes 5.5 % (0.0-10.0); %Neutrophils 79.3 % (42.0-75.0); Hemoglobin 16.1 g/dL (12.0-16.0); Mean Corpuscular HGB CONC 33.3 g/dL (32.0-36.0); Mean Corpuscular Hemoglobin 32.1 pg (27.0-31.0); Mean Corpuscular Volume 96.5 fL (78.0-98.0); Mean Platelet Volume 9.7 fL (7.4-10.4); Platelet Count 194 thou/uL (130-400); RBC Distribution Width 12.7 % (11.5-14.5); Red Blood Cell (RBC) Count 5.01 mill/uL (4.20-5.40); White Blood Cell (WBC) Count 12.4 thou/uL (4.8-10.8)
[2020-12-30 00:20] LABS: ALT (SGPT) 2339 U/L (8-55); AST (SGOT) 1318 U/L (5-34); Albumin 3.7 g/dL (3.4-4.8); Alkaline Phosphatase 319 U/L (40-110); BUN (Urea Nitrogen) 62 mg/dL (9.8-20.1); Bilirubin, Total 0.9 mg/dL (0.2-1.2); Calc. Creatinine Clearance 0 mL/min (70-130); Globulin 2.9 g/dL (2.4-3.5); Glucose 267 mg/dL (80-115); Protein, Total 6.6 g/dL (5.8-8.1)
[2020-12-30 00:30] LABS: Anion Gap 16 mmol/L (10-20); Carbon Dioxide 35 mmol/L (23-31); Chloride 90 mmol/L (98-107); Potassium 4.6 mmol/L (3.5-5.1); Sodium 136 mmol/L (136-145)
[2020-12-30] MEDS ORDERED: Aspirin 325 MG TAB ONE (00:52)
[2020-12-30 00:58] LABS: CKMB 5.1 ng/mL (0-6.6)
[2020-12-30 01:08] LABS: Bacteria/HPF 4+ HPF (None Seen); Bilirubin Negative (Negative); Blood, Urine 3+ (Negative); Clarity Turbid (Clear); Glucose, Urine (Dipstick) 50 mg/dL (Negative); Ketone, Urine Negative (Negative); Leukocyte 250 Leu/uL (Negative); Nitrite Negative (Negative); Protein, Urine (Dipstick) 50 mg/dL (Neg-Trace); RBC/HPF Greater than 50 HPF (0-3); Specific Gravity, Urine 1.017 (1.002-1.036); Squamous Epithelial 0-3 HPF (0-3); Urobilinogen Normal mg/dL (Less than 2); WBC/HPF 21-50 HPF (0-3)
[2020-12-30 01:13] LABS: Amphetamine Not Detected (NotDetected); Barbiturates Screen Not Detected (NotDetected); Benzodiazepine Screen Not Detected (NotDetected); Cocaine Metabolite Screen Not Detected (NotDetected); Methadone Not Detected (NotDetected); Methamphetamine Not Detected (NotDetected); Opiate Screen Detected (NotDetected); Oxycodone Screen Not Detected (NotDetected); Phencyclidine (PCP) Not Detected (NotDetected); THC/Cannabinoid Screen Not Detected (NotDetected); Tricyclic Screen Not Detected (NotDetected)
[2020-12-30 01:15] LABS: Actual Bicarbonate (HCO3a) 34.4 mEq/L (22-28); Analyzer IN Cardio ER; Base Excess (BEa) 4.3 mEq/L (-2.0 to +3.0); Calcium, Ionized (arterial) 1.14 mmol/L (1.12-1.30); Carboxyhemoglobin (COHb) 2.7 gm% (0.0-3.0); Hemoglobin (Hb) 15.7 g/dL (12.0-16.0); Potassium - ABG Lab 4.55 mmol/L (3.70-5.30); pH, Arterial 7.27 (7.35-7.45)
[2020-12-30 01:16] LABS: CO2 Tension 77.5 mmHg (35.0-45.0)
[2020-12-30 01:17] LABS: ALV-art Gradient 53.285 mmHg (0-20); Puncture Site RRA
[2020-12-30 01:22] LABS: INR-International Normal Ratio 1.3; Prothrombin Time 16.3 sec (12.0-14.7)
[2020-12-30] MEDS ORDERED: cefTRIAXone\\ROCEPHIN 2 GM VIAL ONE (01:26)
[2020-12-30 02:03] LABS: Acetaminophen Less than 6.0 mcg/mL (10.0-30.0)
[2020-12-30 03:22] VITALS: BMI 27.1
[2020-12-30 04:06] LABS: Troponin I 0.395 ng/mL (< 0.028)
[2020-12-30] MEDS ORDERED: Acetaminophen 325 MG TAB PO PRN (05:22)
[2020-12-30] MEDS ORDERED: Ondansetron PF 4 MG/2 ML Vial IVP PRN (05:22)
[2020-12-30] MEDS ORDERED: Ondansetron ODT 4 MG TAB PO PRN (05:22)
[2020-12-30] MEDS ORDERED: Dextrose 50% Abboject 50 ML SYRINGE SLOW IVP PRN (05:22)
[2020-12-30] MEDS ORDERED: Acetaminophen 650 MG Suppository PR PRN (05:22)
[2020-12-30] MEDS ORDERED: Dextrose 5% in Water 1,000 ML IV PRN (05:22)
[2020-12-30 05:32] LABS: Actual Bicarbonate (HCO3a) 37.8 mEq/L (22-28); Base Excess (BEa) 8.8 mEq/L (-2.0 to +3.0); Calcium, Ionized (arterial) 1.14 mmol/L (1.12-1.30); O2 Tension (PaO2), arterial 71.7 mmHg (> 80.0); Potassium - ABG Lab 4.25 mmol/L (3.70-5.30); pH, Arterial 7.33 (7.35-7.45)
[2020-12-30 05:33] LABS: ALV-art Gradient 86.725 mmHg (0-20); CO2 Tension 72.9 mmHg (35.0-45.0); Puncture Site RRA
[2020-12-30 05:55] LABS: #Eosinphils 0.1 thou/uL (0.0-0.7); #Lymphocytes 1.9 thou/uL (1.20-3.40); #Monocytes 0.6 thou/uL (0.11-0.59); #Neutrophils 7.3 thou/uL (1.40-6.50); %Basophils 0.1 % (0.0-1.0); %Eosinophils 1.3 % (0.0-10.0); %Monocytes 5.7 % (0.0-10.0); %Neutrophils 73.9 % (42.0-75.0); Hemoglobin 14.4 g/dL (12.0-16.0); Mean Corpuscular HGB CONC 31.9 g/dL (32.0-36.0); Mean Corpuscular Hemoglobin 30.7 pg (27.0-31.0); Mean Corpuscular Volume 96.1 fL (78.0-98.0); Mean Platelet Volume 9.6 fL (7.4-10.4); Platelet Count 173 thou/uL (130-400); RBC Distribution Width 12.9 % (11.5-14.5); Red Blood Cell (RBC) Count 4.68 mill/uL (4.20-5.40); White Blood Cell (WBC) Count 9.9 thou/uL (4.8-10.8)
[2020-12-30] MEDS: methylPREDNISolone Sod Succ 40 MG VIAL IVP SCH (05:56)
[2020-12-30] MEDS: HumaLOG 300 UNITS/3 ML VIAL SC PRN ×2 (05:56→20:41)
[2020-12-30] MEDS ORDERED: Azithromycin 500 MG in Sodium Chloride 0.9% 250 ML 250 ML IVPB SCH (06:00)
[2020-12-30] MEDS: Sodium Chloride 0.9% 1,000 ML IV SCH ×2 (06:14→17:52)
[2020-12-30 06:16] LABS: BUN (Urea Nitrogen) 55 mg/dL (9.8-20.1); Calc. Creatinine Clearance 65 mL/min (70-130); Calcium 8.5 mg/dL (7.8-10.44); Glucose 229 mg/dL (80-115)
[2020-12-30] MEDS ORDERED: Piperacillin/Tazobactam 4.5 GM in Sodium Chloride 0.9% 100 ML IVPB SCH (06:16)
[2020-12-30 06:25] LABS: Anion Gap 12 mmol/L (10-20); Carbon Dioxide 37 mmol/L (23-31); Chloride 95 mmol/L (98-107); Potassium 4.5 mmol/L (3.5-5.1); Sodium 139 mmol/L (136-145)
[2020-12-30 06:28] LABS: Troponin I 0.395 ng/mL (< 0.028)
[2020-12-30] MEDS ORDERED: Sodium Chloride 0.9% 1,000 ML IV SCH (06:30)
[2020-12-30] MEDS ORDERED: Piperacillin/Tazobactam 3.375 GM in Sodium Chloride 0.9% 100 ML IVPB SCH (07:00)
[2020-12-30 07:52] LABS: HBCM Index 0.09 S/CO (0-0.79); HBSAg Index 0.21 S/CO (0-0.99); Hep A IgM AB Non-Reactive (NonReactive); Hep A IgM S/CO 0.31 S/CO (0-0.79); Hep B Surf Ag Non-Reactive S/CO (NonReactive); Hep C IgG Ab Non-Reactive (NonReactive); Hep C Index 0.04 S/CO (0-0.79); Hepatitis B Core IgM Abs Non-Reactive (NonReactive)
[2020-12-30] MEDS: Enoxaparin Sodium 40 MG/0.4 ML SYRINGE SC SCH (10:22)
[2020-12-30 10:41] LABS: Albumin 2.9 g/dL (3.4-4.8)
[2020-12-30 10:44] LABS: Protein, Total 5.4 g/dL (5.8-8.1)
[2020-12-30 10:46] LABS: Alkaline Phosphatase 251 U/L (40-110); Bilirubin, Total 0.5 mg/dL (0.2-1.2)
[2020-12-30 10:49] LABS: AST (SGOT) 649 U/L (5-34); Bilirubin, Direct 0.3 mg/dL (0.1-0.3)
[2020-12-30 10:50] LABS: ALT (SGPT) 1669 U/L (8-55)
[2020-12-30 12:02] LABS: SARS-CoV-2 PCR by NAA Not Detected (NotDetected)
[2020-12-30] MEDS: Piperacillin/Tazobactam 3.375 GM in Sodium Chloride 0.9% 100 ML IVPB SCH ×2 (15:26→23:48)
[2020-12-31] MEDS: Sodium Chloride 0.9% 1,000 ML IV SCH ×2 (05:40→15:29)
[2020-12-31] MEDS: methylPREDNISolone Sod Succ 40 MG VIAL IVP SCH ×3 (05:40→21:38)
[2020-12-31] MEDS: HumaLOG 300 UNITS/3 ML VIAL SC PRN ×3 (05:46→21:02)
[2020-12-31] MEDS: Piperacillin/Tazobactam 3.375 GM in Sodium Chloride 0.9% 100 ML IVPB SCH ×3 (06:03→23:54)
[2020-12-31 09:41] LABS: ALT (SGPT) 1205 U/L (8-55); AST (SGOT) 266 U/L (5-34); Albumin 3.1 g/dL (3.4-4.8); Alkaline Phosphatase 238 U/L (40-110); Anion Gap 9 mmol/L (10-20); BUN (Urea Nitrogen) 31 mg/dL (9.8-20.1); Bilirubin, Total 0.7 mg/dL (0.2-1.2); Calc. Creatinine Clearance 100 mL/min (70-130); Calcium 8.6 mg/dL (7.8-10.44); Carbon Dioxide 36 mmol/L (23-31); Chloride 102 mmol/L (98-107); Globulin 2.6 g/dL (2.4-3.5); Glucose 210 mg/dL (80-115); Potassium 4.3 mmol/L (3.5-5.1); Protein, Total 5.7 g/dL (5.8-8.1); Sodium 143 mmol/L (136-145)
[2020-12-31] MEDS: Enoxaparin Sodium 40 MG/0.4 ML SYRINGE SC SCH (10:34)
[2021-01-01 05:03] LABS: ALT (SGPT) 895 U/L (8-55); AST (SGOT) 122 U/L (5-34); Alkaline Phosphatase 210 U/L (40-110); Anion Gap 9 mmol/L (10-20); BUN (Urea Nitrogen) 20 mg/dL (9.8-20.1); Bilirubin, Total 0.7 mg/dL (0.2-1.2); Calc. Creatinine Clearance 101 mL/min (70-130); Calcium 8.6 mg/dL (7.8-10.44); Carbon Dioxide 34 mmol/L (23-31); Chloride 100 mmol/L (98-107); Globulin 2.5 g/dL (2.4-3.5); Glucose 325 mg/dL (80-115); Protein, Total 5.5 g/dL (5.8-8.1); Sodium 139 mmol/L (136-145)
[2021-01-01] MEDS: methylPREDNISolone Sod Succ 40 MG VIAL IVP SCH ×3 (05:50→22:00)
[2021-01-01] MEDS: HumaLOG 300 UNITS/3 ML VIAL SC PRN ×4 (06:19→20:44)
[2021-01-01] MEDS ORDERED: Non-Formulary Item 1 EACH (Melatonin [Melatonin] 10 MG Tablet) PO PRN (07:32)
[2021-01-01] MEDS ORDERED: Non-Formulary Item 1 EACH (Albuterol Sulfate [Albuterol Sulfate Hfa] 8.5 GM Hfa.Aer.Ad) IN PRN (07:32)
[2021-01-01] MEDS ORDERED: Melatonin 3 MG TAB PO PRN (07:37)
[2021-01-01] MEDS ORDERED: Albuterol 200 PUFF (6.7GM INHALER) INH PRN (07:43)
[2021-01-01] MEDS: DULoxetine 60 MG CAP PO SCH (07:57)
[2021-01-01] MEDS: Enoxaparin Sodium 40 MG/0.4 ML SYRINGE SC SCH (07:57)
[2021-01-01] MEDS: Piperacillin/Tazobactam 3.375 GM in Sodium Chloride 0.9% 100 ML IVPB SCH ×3 (07:58→23:17)
[2021-01-01] MEDS: Losartan 25 MG TAB PO SCH (07:58)
[2021-01-01] MEDS ORDERED: Non-Formulary Item 1 EACH (Fluticasone/Umeclidin/Vilanter [Trelegy Ellipta 100-62.5-25] 1 INH SCH (09:00)
[2021-01-01] MEDS ORDERED: Non-Formulary Item 1 EACH (Losartan Potassium [Losartan Potassium] 50 MG Tablet) PO SCH (09:00)
[2021-01-01] MEDS: Sodium Chloride 0.9% 1,000 ML IV SCH ×3 (10:35→23:17)
[2021-01-01] MEDS ORDERED: Lantus 1000 UNITS/10 ML VIAL SC SCH (11:00)
[2021-01-01] MEDS: Lantus 1000 UNITS/10 ML VIAL SC SCH ×2 (13:35→20:45)
[2021-01-01] MEDS ORDERED: hydrALAZINE 20 MG/ML VIAL SLOW IVP SCH (16:30)
[2021-01-01] MEDS: Mometasone 100 MCG/PUFF (1 INHALER) INH SCH (19:56)
[2021-01-01] MEDS ORDERED: Simvastatin 10 MG TAB PO SCH (21:00)
[2021-01-01] MEDS ORDERED: Pravastatin Sodium 20 MG TAB PO SCH (21:00)
[2021-01-01] MEDS: hydrALAZINE 20 MG/ML VIAL SLOW IVP PRN (23:28)
[2021-01-02 05:01] LABS: ALT (SGPT) 630 U/L (8-55); AST (SGOT) 59 U/L (5-34); Alkaline Phosphatase 192 U/L (40-110); Anion Gap 13 mmol/L (10-20); BUN (Urea Nitrogen) 16 mg/dL (9.8-20.1); Bilirubin, Total 0.8 mg/dL (0.2-1.2); Calc. Creatinine Clearance 113 mL/min (70-130); Calcium 8.8 mg/dL (7.8-10.44); Carbon Dioxide 29 mmol/L (23-31); Chloride 98 mmol/L (98-107); Globulin 2.7 g/dL (2.4-3.5); Glucose 274 mg/dL (80-115); Protein, Total 5.7 g/dL (5.8-8.1); Sodium 136 mmol/L (136-145)
[2021-01-02] MEDS: HumaLOG 300 UNITS/3 ML VIAL SC PRN ×3 (06:05→18:02)
[2021-01-02] MEDS: methylPREDNISolone Sod Succ 40 MG VIAL IVP SCH ×2 (06:05→14:08)
[2021-01-02] MEDS: Mometasone 100 MCG/PUFF (1 INHALER) INH SCH ×2 (06:48→18:39)
[2021-01-02] MEDS: Piperacillin/Tazobactam 3.375 GM in Sodium Chloride 0.9% 100 ML IVPB SCH ×2 (08:15→14:08)
[2021-01-02] MEDS: Enoxaparin Sodium 40 MG/0.4 ML SYRINGE SC SCH (08:16)
[2021-01-02] MEDS: Lantus 1000 UNITS/10 ML VIAL SC SCH ×2 (08:17→11:40)
[2021-01-02] MEDS: Losartan 25 MG TAB PO SCH (08:17)
[2021-01-02] MEDS: DULoxetine 60 MG CAP PO SCH (08:17)
[2021-01-02] MEDS: Sodium Chloride 0.9% 1,000 ML IV SCH (08:18)
[2021-01-02 15:38] VITALS: BP 179/86; TEMP 98.3
[2021-01-02] MEDS: hydrALAZINE 20 MG/ML VIAL SLOW IVP PRN (15:43)
== END 2021-01-02 20:00 | disposition home or self-care (01) | DRG 871 ==
LOC: ERS 23:19 → IMCU/EMU 12-30 02:09 → 2NO 12-31 14:42
PROVIDERS: ADMIT Student in an Organized Health Care Education/Training Program; ATTEND Internal Medicine
PROC: 5A09357 Assistance with Respiratory Ventilation, Less than 24 Consecutive Hours, Continuous Positive Airway Pressure (ICD-10-PCS; principal; 2020-12-30)
DX: A41.9 Sepsis, unspecified organism (principal); G93.41 Metabolic encephalopathy; Z66 Do not resuscitate; I21.A1 Myocardial infarction type 2; J96.21 Acute and chronic respiratory failure with hypoxia; J96.22 Acute and chronic respiratory failure with hypercapnia; S22.39XA Fracture of one rib, unspecified side, initial encounter for closed fracture; J44.1 Chronic obstructive pulmonary disease with (acute) exacerbation; N39.0 Urinary tract infection, site not specified; N17.9 Acute kidney failure, unspecified; I47.1 Supraventricular tachycardia; F03.90 Unspecified dementia, unspecified severity, without behavioral disturbance, psychotic disturbance, mood disturbance, and anxiety; E86.0 Dehydration; I10 Essential (primary) hypertension; E78.5 Hyperlipidemia, unspecified; K75.9 Inflammatory liver disease, unspecified; F41.9 Anxiety disorder, unspecified; B96.1 Klebsiella pneumoniae [K. pneumoniae] as the cause of diseases classified elsewhere; W19.XXXA Unspecified fall, initial encounter; F32.9 Major depressive disorder, single episode, unspecified; R65.20 Severe sepsis without septic shock; R74.01 Elevation of levels of liver transaminase levels; Z20.822 Contact with and (suspected) exposure to COVID-19; E11.9 Type 2 diabetes mellitus without complications; F17.210 Nicotine dependence, cigarettes, uncomplicated; Z88.5 Allergy status to narcotic agent; Z88.8 Allergy status to other drugs, medicaments and biological substances; Z90.49 Acquired absence of other specified parts of digestive tract; Z90.710 Acquired absence of both cervix and uterus; Z98.51 Tubal ligation status
CPT/HCPCS: 36415; 36416; 36600; 51701; 70450; 71045; 76705; 80048; 80053; 80074; 80076; 80143; 80306; 81003; 81015; 82140; 82553; 82805; 83605; 83880; 84484; 85025; 85610; 87040; 87077; 87086; 87186; 93005; 94640; 94660; 96365; 80307; J0360; J0456; J0696; J1650; J1815; J2543; J2920; J3490; J7050; J7620; U0003; U0005